=== PATIENT | female | born 1945 | race Caucasian/White ===

== ENCOUNTER 2019-06-13 17:26 | Emergency (ER) | payer MEDICARE, OTHER ==
[2019-06-13] MEDS ORDERED: SODIUM CHLORIDE 0.9% 1,000 ML IV STA ×2 (17:52)
--- NOTE | 2019-06-13 17:56 | ED ---
URI HPI - General Chief Complaint: Upper Respiratory Infection Stated Complaint: headache/back pain Time Seen by Provider: 06/13/19 17:40 Source: patient, family, RN notes reviewed Mode of arrival: ambulatory Limitations: no limitations - History of Present Illness Initial Comments: This is a 73-year-old female history of COPD who believes she may have fluid some sort she states she's had 3 days of nausea vomiting diarrhea decreased oral intake headaches ringing in her ears chills cough with yellow phlegm is also had back pain but this is chronic she is a headache is nonspecific in general no blurry vision no focal weakness. She does have some shortness of breath with it. She does complain some rhinorrhea with it. No other modifying factors no dysuria reported. Patient does state that she gets somewhat dizzy lightheaded with ambulation in upright positioning. MD Complaint: cough, rhinorrhea, nasal congestion, other - Related Data Home Medications Medication Instructions Recorded Confirmed Ascorbic Acid [Vitamin C] 1,000 mg PO DAILY 06/13/19 06/13/19 Cholecalciferol [Vitamin D3 (25 1,000 unit PO DAILY 06/13/19 06/13/19 Mcg = 1000 Iu)] Metoprolol Tartrate [Lopressor] 50 mg PO BID 06/13/19 06/13/19 Multivitamins, Thera [Multivitamin 1 tab PO HS 06/13/19 06/13/19 (formulary)] Naproxen Sod/Diphenhydramine 1 tab PO HS 06/13/19 06/13/19 [Aleve Pm Caplet] Oxybutynin Chloride 5 mg PO DAILY 06/13/19 06/13/19 Simvastatin [Zocor] 40 mg PO HS 06/13/19 06/13/19 Previous Rx's Medication Instructions Recorded Doxycycline [Vibramycin] 100 mg PO BID #20 cap 06/13/19 predniSONE 20 mg PO BID #10 tab 06/13/19 Allergies Allergy/AdvReac Type Severity Reaction Status Date / Time erythromycin base Allergy Unknown Verified 06/13/19 18:34 Penicillins Allergy Rash/Hives Verified 06/13/19 18:34 morphine AdvReac Hallucinati Verified 06/13/19 18:34 ons Review of Systems ROS Statement: Those systems with pertinent positive or pertinent negative responses have been documented in the HPI. ROS Other: All systems not noted in ROS Statement are negative. Past Medical History Past Medical History: COPD, Hyperlipidemia, Hypertension History of Any Multi-Drug Resistant Organisms: None Reported Past Surgical History: Adenoidectomy, Appendectomy, Section, Tonsillectomy Past Psychological History: Panic Disorder Smoking Status: Current every day smoker Past Alcohol Use History: None Reported Past Drug Use History: Marijuana General Exam - General Exam Comments Initial Comments: This is a well-developed sec appearing female who is awake alert oriented 3 Limitations: no limitations General appearance: alert, in no apparent distress Head exam: Present: atraumatic, normocephalic, normal inspection Eye exam: Present: normal appearance, PERRL, EOMI. Absent: scleral icterus, conjunctival injection, periorbital swelling ENT exam: Present: mucous membranes dry, other (Boggy nasal mucosa) Neck exam: Present: normal inspection. Absent: tenderness, meningismus, lymphadenopathy Respiratory exam: Present: rhonchi (Right lower lobe crackles). Absent: respiratory distress, wheezes, rales, stridor Cardiovascular Exam: Present: regular rate, normal rhythm, normal heart sounds. Absent: systolic murmur, diastolic murmur, rubs, gallop, clicks GI/Abdominal exam: Present: soft, normal bowel sounds. Absent: distended, tenderness, guarding, rebound, rigid Extremities exam: Present: normal inspection, full ROM, normal capillary refill. Absent: tenderness, pedal edema, joint swelling, calf tenderness Back exam: Present: normal inspection Neurological exam: Present: alert, oriented X3, CN II-XII intact Psychiatric exam: Present: normal affect, normal mood Skin exam: Present: warm, dry, intact, normal color. Absent: rash Course Vital Signs 06/13/19 06/13/19 17:28 19:15 Temperature 98.0 F 98.5 F Pulse Rate 76 86 Respiratory 18 18 Rate Blood Pressure 149/79 142/64 O2 Sat by Pulse 96 96 Oximetry - Reevaluation(s) Reevaluation #1: 06/13/19 20:27 Reassessment of the patient reveals she has increased aeration and is no longer short of breath Medical Decision Making - Medical Decision Making Patient is much improved at this time we did have a long discussion regarding the findings she would like to go home she'll be placed on oral medication she was encouraged to stop smoking. - Lab Data Result diagrams: 06/13/19 18:49 06/13/19 18:49 Lab Results 06/13/19 06/13/19 06/13/19 Range/Units 17:51 18:49 18:49 WBC 23.4 H (3.8-10.6) k/uL RBC 4.31 (3.80-5.40) m/uL Hgb 14.2 (11.4-16.0) gm/dL Hct 41.9 (34.0-46.0) % MCV 97.2 (80.0-100.0) fL MCH 32.9 (25.0-35.0) pg MCHC 33.9 (31.0-37.0) g/dL RDW 13.5 (11.5-15.5) % Plt Count 255 (150-450) k/uL Neutrophils % 88 % Lymphocytes % 5 % Monocytes % 5 % Eosinophils % 1 % Basophils % 1 % Neutrophils # 20.5 H (1.3-7.7) k/uL Lymphocytes # 1.1 (1.0-4.8) k/uL Monocytes # 1.1 H (0-1.0) k/uL Eosinophils # 0.2 (0-0.7) k/uL Basophils # 0.2 (0-0.2) k/uL Sodium 137 (137-145) mmol/L Potassium 3.7 (3.5-5.1) mmol/L Chloride 103 (98-107) mmol/L Carbon Dioxide 26 (22-30) mmol/L Anion Gap 8 mmol/L BUN 15 (7-17) mg/dL Creatinine 0.70 (0.52-1.04) mg/dL Est GFR (CKD-EPI)AfAm >90 (>60 ml/min/1.73 sqM) Est GFR (CKD-EPI)NonAf 87 (>60 ml/min/1.73 sqM) Glucose 113 H (74-99) mg/dL Calcium 9.6 (8.4-10.2) mg/dL Magnesium 1.6 (1.6-2.3) mg/dL Total Bilirubin 0.7 (0.2-1.3) mg/dL AST 28 (14-36) U/L ALT 21 (9-52) U/L Alkaline Phosphatase 97 (38-126) U/L Creatine Kinase 100 (30-135) U/L Troponin I (0.000-0.034) ng/mL NT-Pro-B Natriuret Pep 465 pg/mL Total Protein 7.2 (6.3-8.2) g/dL Albumin 4.1 (3.5-5.0) g/dL Urine Color Urine Appearance (Clear) Urine pH (5.0-8.0) Ur Specific [place] (1.001-1.035) Urine Protein (Negative) Urine Glucose (UA) (Negative) Urine Ketones (Negative) Urine Blood (Negative) Urine Nitrite (Negative) Urine Bilirubin (Negative) Urine Urobilinogen (<2.0) mg/dL Ur Leukocyte Esterase (Negative) Influenza Type A RNA (Not Detectd) Influenza Type B (PCR) (Not Detectd) 06/13/19 06/13/19 06/13/19 Range/Units 18:49 18:49 18:49 WBC (3.8-10.6) k/uL RBC (3.80-5.40) m/uL Hgb (11.4-16.0) gm/dL Hct (34.0-46.0) % MCV (80.0-100.0) fL MCH (25.0-35.0) pg MCHC (31.0-37.0) g/dL RDW (11.5-15.5) % Plt Count (150-450) k/uL Neutrophils % % Lymphocytes % % Monocytes % % Eosinophils % % Basophils % % Neutrophils # (1.3-7.7) k/uL Lymphocytes # (1.0-4.8) k/uL Monocytes # (0-1.0) k/uL Eosinophils # (0-0.7) k/uL Basophils # (0-0.2) k/uL Sodium (137-145) mmol/L Potassium (3.5-5.1) mmol/L Chloride (98-107) mmol/L Carbon Dioxide (22-30) mmol/L Anion Gap mmol/L BUN (7-17) mg/dL Creatinine (0.52-1.04) mg/dL Est GFR (CKD-EPI)AfAm (>60 ml/min/1.73 sqM) Est GFR (CKD-EPI)NonAf (>60 ml/min/1.73 sqM) Glucose (74-99) mg/dL Calcium (8.4-10.2) mg/dL Magnesium (1.6-2.3) mg/dL Total Bilirubin (0.2-1.3) mg/dL AST (14-36) U/L ALT (9-52) U/L Alkaline Phosphatase (38-126) U/L Creatine Kinase (30-135) U/L Troponin I <0.012 (0.000-0.034) ng/mL NT-Pro-B Natriuret Pep pg/mL Total Protein (6.3-8.2) g/dL Albumin (3.5-5.0) g/dL Urine Color Light Yellow Urine Appearance Clear (Clear) Urine pH 5.5 (5.0-8.0) Ur Specific [place] 1.006 (1.001-1.035) Urine Protein Negative (Negative) Urine Glucose (UA) Negative (Negative) Urine Ketones Negative (Negative) Urine Blood Negative (Negative) Urine Nitrite Negative (Negative) Urine Bilirubin Negative (Negative) Urine Urobilinogen <2.0 (<2.0) mg/dL Ur Leukocyte Esterase Negative (Negative) Influenza Type A RNA Not Detected (Not Detectd) Influenza Type B (PCR) Not Detected (Not Detectd) - EKG Data -: EKG Interpreted by Me EKG shows normal: sinus rhythm (Normal sinus rhythm a 69. Interval 136 QRS duration 90 QT since QTC 438/469 this is a normal-appearing EKG with some artifact) - Radiology Data Radiology results: report reviewed (I did review the imaging and report no acute findings.), image reviewed Disposition Clinical Impression: Acute bronchospasm, Acute bronchitis, Smoking, Emphysema lung Disposition: HOME SELF-CARE Condition: Good Instructions (If sedation given, give patient instructions): Acute Bronchitis (ED), Emphysema (DC), How to Stop Smoking (ED) Additional Instructions: Medication Rx sent to your preferred pharmacy. Prescriptions: predniSONE 20 mg PO BID #10 tab Doxycycline [Vibramycin] 100 mg PO BID #20 cap Is patient prescribed a controlled substance at d/c from ED?: No Referrals: Thor Coy MD [Primary Care Provider] - 1-2 days
[2019-06-13 18:59] LABS: Basophils # (A) 0.2 k/uL (0-0.2); Basophils % (A) 1 %; Eosinophils # (A) 0.2 k/uL (0-0.7); Eosinophils % (A) 1 %; HCT 41.9 % (34.0-46.0); HGB 14.2 gm/dL (11.4-16.0); Lymphocytes # (A) 1.1 k/uL (1.0-4.8); Lymphocytes % (A) 5 %; MCH 32.9 pg (25.0-35.0); MCHC 33.9 g/dL (31.0-37.0); MCV 97.2 fL (80.0-100.0); Mean Platelet Volume 7.2; Monocytes # (A) 1.1 k/uL (0-1.0); Monocytes % (A) 5 %; Neutrophils # (A) 20.5 k/uL (1.3-7.7); Neutrophils % (A) 88 %; Platelet Count 255 k/uL (150-450); RBC 4.31 m/uL (3.80-5.40); RDW 13.5 % (11.5-15.5); WBC 23.4 k/uL (3.8-10.6)
[2019-06-13 19:05] LABS: Appearance,Urine Clear (Clear); Bilirubin,Urine Negative (Negative); Blood,Urine Negative (Negative); Color,Urine Light Yellow; Glucose,Urine (UA) Negative (Negative); Ketones,Urine Negative (Negative); Leukocyte Esterase,Urine Negative (Negative); Nitrite,Urine Negative (Negative); PH, Urine 5.5 (5.0-8.0); Protein,Urine Negative (Negative); Specific Gravity,Urine 1.006 (1.001-1.035); Urobilinogen,Urine <2.0 mg/dL (<2.0)
[2019-06-13 19:08] LABS: ALT 21 U/L (9-52); AST 28 U/L (14-36); African American GFR (CKD) >90 (>60 ml/min/1.73 sqM); Albumin 4.1 g/dL (3.5-5.0); Alkaline Phosphatase 97 U/L (38-126); Anion Gap 8 mmol/L; Blood Urea Nitrogen 15 mg/dL (7-17); Calcium 9.6 mg/dL (8.4-10.2); Carbon Dioxide 26 mmol/L (22-30); Chloride 103 mmol/L (98-107); Creatine Kinase 100 U/L (30-135); Glucose 113 mg/dL (74-99); Magnesium 1.6 mg/dL (1.6-2.3); Non-African American GFR(CKD) 87 (>60 ml/min/1.73 sqM); Potassium 3.7 mmol/L (3.5-5.1); Sodium 137 mmol/L (137-145); Total Bilirubin 0.7 mg/dL (0.2-1.3); Total Protein 7.2 g/dL (6.3-8.2)
--- NOTE | 2019-06-13 19:08 | XR ---
EXAMINATION TYPE: XR chest 2V DATE OF EXAM: 06/13/2019 COMPARISON: 10/30/2013 HISTORY: Cough TECHNIQUE: Frontal and lateral views of the chest are obtained. FINDINGS: Heart and mediastinum are normal. There is minimal reticular density right upper lobe cons istent with scarring. There is no pleural effusion. Bony thorax is intact. IMPRESSION: Mild scarring right upper lobe. Normal heart. Right upper lobe density increased slightl y compared to old exam. No definite acute lung disease.
[2019-06-13] MEDS ORDERED: methylPREDNISolone SOD SUCCI 125 MG/2 ML VIAL IV STA (19:36)
[2019-06-13] MEDS ORDERED: cefTRIAXone IN SWFI 1,000 MG/10 ML SYRINGE IVP STA (19:36)
[2019-06-13] MEDS ORDERED: ONDANSETRON 4 MG/2 ML VIAL IVP STA (20:22)
[2019-06-13 21:14] VITALS: BP 106/59; PULSE 79; RESP 20; TEMP 98.1
== END 2019-06-13 21:05 | disposition home or self-care (01) ==
LOC: EC 17:26
DX: J44.0 Chronic obstructive pulmonary disease with (acute) lower respiratory infection (principal); J20.9 Acute bronchitis, unspecified; F17.200 Nicotine dependence, unspecified, uncomplicated; E78.5 Hyperlipidemia, unspecified; I10 Essential (primary) hypertension; Z79.1 Long term (current) use of non-steroidal anti-inflammatories (NSAID); Z79.899 Other long term (current) drug therapy; Z88.1 Allergy status to other antibiotic agents; Z88.0 Allergy status to penicillin; Z88.5 Allergy status to narcotic agent
CPT/HCPCS: 36415; 93005; 83880; 80053; 82550; 83735; 84484; 85025; 81003; 87040; 87502; 71046; 99284; 96374; 96375 ×2; 96361; J2930; J2405; J0696

== ENCOUNTER 2020-01-15 11:48 | Inpatient (IN) | payer MEDICARE ==
--- NOTE | 2020-01-15 12:42 | ED ---
Fall HPI - General Chief Complaint: Fall Stated Complaint: fall/left side pain & SOB Time Seen by Provider: 01/15/20 12:25 Source: patient, family Mode of arrival: wheelchair - History of Present Illness Initial Comments: Patient is 74-year-old female presenting to the emergency department with chief complaint of fall. Patient reports incident occurred about one month ago when she was walking outside of her front yard while it is undergoing some [employer]yl[employer] work. Patient reports it was dark outside, she hit a dirt mound and fell on the left side of her body. Patient states there was no immediate pain until the following day which developed gradual onset of left-sided chest wall pain that radiates along the left upper flank region. Patient reports the pain is exacerbated with full inspiration alleviated with expiration. Patient reports gradually the pain has been getting worse since the incident occurred. Patient denies any night sweats or chills. Denies any lightheaded dizziness. Denies head trauma, loss of consciousness or blood thinners. She denies any abdominal pain nausea vomiting. - Related Data Home Medications Medication Instructions Recorded Confirmed Ascorbic Acid [Vitamin C] 1,000 mg PO DAILY 06/13/19 01/15/20 Cholecalciferol (Vitamin D3) 2,000 unit PO DAILY 06/13/19 01/15/20 [Vitamin D3] Metoprolol Tartrate [Lopressor] 50 mg PO BID 06/13/19 01/15/20 Oxybutynin Chloride 5 mg PO BID 06/13/19 01/15/20 Simvastatin [Zocor] 40 mg PO HS 06/13/19 01/15/20 DULoxetine HCL [Cymbalta] 60 mg PO DAILY 07/17/19 01/15/20 Albuterol Sulfate [Proair Hfa] 2 puff INHALATION RT-Q4H PRN 01/15/20 01/15/20 Fluticasone Nasal [place] [Flonase 1 spray EA NOSTRIL BID PRN 01/15/20 01/15/20 Nasal [place]] Omeprazole [PriLOSEC] 20 mg PO DAILY 01/15/20 01/15/20 Allergies Allergy/AdvReac Type Severity Reaction Status Date / Time Penicillins Allergy Rash/Hives Verified 01/15/20 14:16 erythromycin base AdvReac Nausea & Verified 01/15/20 14:16 Vomiting morphine AdvReac Hallucinati Verified 01/15/20 14:16 ons Review of Systems ROS Statement: Those systems with pertinent positive or pertinent negative responses have been documented in the HPI. ROS Other: All systems not noted in ROS Statement are negative. Past Medical History Past Medical History: COPD, GERD/Reflux, Hyperlipidemia, Hypertension, Osteoarthritis (OA) Additional Past Medical History / Comment(s): CHRONIC BACK PAIN, OAB., STATES SORES ON BACK THAT ITCH AND HAVE SCABS-DENIES DRAINAGE., DIARRHEA, HOSPITALIZED 07/17/19-07/20/19 FOR GI BLEED., STATES SHE WAS TOLD MASS ON HER BLADDER. History of Any Multi-Drug Resistant Organisms: None Reported Past Surgical History: Adenoidectomy, Appendectomy, Section, Tonsillectomy Past Anesthesia/Blood Transfusion Reactions: No Reported Reaction, Motion Sickness Additional Past Anesthesia/Blood Transfusion Reaction / Comment(s): blood transfusion during childbirth, no reaction Past Psychological History: Anxiety, Depression Smoking Status: Current every day smoker Past Alcohol Use History: None Reported Past Drug Use History: Marijuana - Past Family History Mother Family Medical History: Cancer, Liver Disease Father Family Medical History: Cancer General Exam Limitations: no limitations General appearance: alert, in no apparent distress Head exam: Present: atraumatic, normocephalic, normal inspection Eye exam: Present: normal appearance, PERRL, EOMI Pupils: Present: normal accommodation ENT exam: Present: normal exam, normal oropharynx, mucous membranes moist Neck exam: Present: normal inspection, full ROM Respiratory exam: Present: normal lung sounds bilaterally, chest wall tenderness (Left-sided chest tenderness exacerbated with palpation.). Absent: respiratory distress, wheezes, rales Cardiovascular Exam: Present: regular rate, normal rhythm, normal heart sounds GI/Abdominal exam: Present: soft. Absent: distended, tenderness, guarding Extremities exam: Present: normal inspection, full ROM Back exam: Present: normal inspection, full ROM Neurological exam: Present: alert, oriented X3 Psychiatric exam: Present: normal affect, normal mood Skin exam: Present: warm, dry, intact, normal color Course Vital Signs 01/15/20 01/15/20 01/15/20 11:51 12:49 14:55 Temperature 98.4 F 100.3 F H Pulse Rate 85 63 Respiratory 18 14 18 Rate Blood Pressure 126/80 136/75 O2 Sat by Pulse 95 92 L Oximetry Medical Decision Making - Medical Decision Making Patient is a 74-year-old female presenting to the emergency department with a chief complaint of fall. Incident occurred approximately one month ago when she tripped and fell on the left side of her body. On exam patient has chest wall tenderness in the left side of her body and along the left upper flank region. Chest pain is pleuritic in nature. X-ray reveals moderate left pleural effusion with associated left basilar air space disease. Likely compressive atelectasis. Patient will be admitted for further medical management. CBC CMP unremarkable. Coags pending. Ultrasound pending. During hospital stay patient did develop a low-grade fever. Patient started on Tylenol. Covid pending. Case discussed with Dr. Cervantes. Admitting physician is . CT consulted - Lab Data Result diagrams: 01/15/20 14:25 01/15/20 14:25 Lab Results 01/15/20 01/15/20 Range/Units 14:25 14:25 WBC 10.1 (3.8-10.6) k/uL RBC 4.80 (3.80-5.40) m/uL Hgb 15.7 (11.4-16.0) gm/dL Hct 47.7 H (34.0-46.0) % MCV 99.3 (80.0-100.0) fL MCH 32.8 (25.0-35.0) pg MCHC 33.0 (31.0-37.0) g/dL RDW 13.3 (11.5-15.5) % Plt Count 378 (150-450) k/uL Neutrophils % 59 % Lymphocytes % 30 % Monocytes % 8 % Eosinophils % 1 % Basophils % 1 % Neutrophils # 5.9 (1.3-7.7) k/uL Lymphocytes # 3.1 (1.0-4.8) k/uL Monocytes # 0.8 (0-1.0) k/uL Eosinophils # 0.1 (0-0.7) k/uL Basophils # 0.1 (0-0.2) k/uL Sodium 141 (137-145) mmol/L Potassium 4.1 (3.5-5.1) mmol/L Chloride 104 (98-107) mmol/L Carbon Dioxide 26 (22-30) mmol/L Anion Gap 11 mmol/L BUN 17 (7-17) mg/dL Creatinine 0.75 (0.52-1.04) mg/dL Est GFR (CKD-EPI)AfAm >90 (>60 ml/min/1.73 sqM) Est GFR (CKD-EPI)NonAf 80 (>60 ml/min/1.73 sqM) Glucose 118 H (74-99) mg/dL Calcium 9.5 (8.4-10.2) mg/dL Total Bilirubin 0.5 (0.2-1.3) mg/dL AST 30 (14-36) U/L ALT 18 (4-34) U/L Alkaline Phosphatase 122 (38-126) U/L Total Protein 7.5 (6.3-8.2) g/dL Albumin 4.1 (3.5-5.0) g/dL Disposition Clinical Impression: Pleural effusion Disposition: ADMITTED IP TO THIS HOSP Condition: Good Additional Instructions: Patient will be admitted Is patient prescribed a controlled substance at d/c from ED?: No Referrals: Thor Coy MD [Primary Care Provider] - 1-2 days Time of Disposition: 15:52
--- NOTE | 2020-01-15 13:17 | XR ---
EXAMINATION TYPE: XR ribs LT w pa chest xray DATE OF EXAM: 01/15/2020 CLINICAL HISTORY: Pleuritic chest pain TECHNIQUE: Single frontal view of the chest is obtained. COMPARISON: 06/13/19 FINDINGS: There is a new moderate left pleural effusion with associated left-sided airspace disease. Right lung remains well aerated. Cardiomediastinal silhouette is partially obscured. Osseous structur es are grossly intact. IMPRESSION: New moderate left pleural effusion with associated left basilar airspace disease, likely compressive atelectasis.
[2020-01-15 15:07] LABS: ALT 18 U/L (4-34); AST 30 U/L (14-36); African American GFR (CKD) >90 (>60 ml/min/1.73 sqM); Albumin 4.1 g/dL (3.5-5.0); Alkaline Phosphatase 122 U/L (38-126); Anion Gap 11 mmol/L; Basophils # (A) 0.1 k/uL (0-0.2); Basophils % (A) 1 %; Blood Urea Nitrogen 17 mg/dL (7-17); Calcium 9.5 mg/dL (8.4-10.2); Carbon Dioxide 26 mmol/L (22-30); Chloride 104 mmol/L (98-107); Eosinophils # (A) 0.1 k/uL (0-0.7); Eosinophils % (A) 1 %; Glucose 118 mg/dL (74-99); HCT 47.7 % (34.0-46.0); HGB 15.7 gm/dL (11.4-16.0); Lymphocytes # (A) 3.1 k/uL (1.0-4.8); Lymphocytes % (A) 30 %; MCH 32.8 pg (25.0-35.0); MCV 99.3 fL (80.0-100.0); Mean Platelet Volume 7.8; Monocytes # (A) 0.8 k/uL (0-1.0); Monocytes % (A) 8 %; Neutrophils # (A) 5.9 k/uL (1.3-7.7); Neutrophils % (A) 59 %; Non-African American GFR(CKD) 80 (>60 ml/min/1.73 sqM); Platelet Count 378 k/uL (150-450); Potassium 4.1 mmol/L (3.5-5.1); RDW 13.3 % (11.5-15.5); Sodium 141 mmol/L (137-145); Total Bilirubin 0.5 mg/dL (0.2-1.3); Total Protein 7.5 g/dL (6.3-8.2); WBC 10.1 k/uL (3.8-10.6)
[2020-01-15] MEDS ORDERED: ACETAMINOPHEN TAB 500 MG TAB PO STA (15:14)
[2020-01-15] MEDS ORDERED: HYDROmorphone 1 MG/ML 1 ML SYRINGE IVP PRN (15:46)
[2020-01-15] MEDS ORDERED: NALOXONE 0.4 MG/ML 1 ML VIAL IV PRN (15:46)
[2020-01-15] MEDS ORDERED: HYDROmorphone 0.5 MG/0.5 ML SYRINGE IVP PRN (15:46)
[2020-01-15] MEDS ORDERED: ALPRAZolam 0.25 MG TAB PO PRN (15:46)
[2020-01-15] MEDS ORDERED: ONDANSETRON 4 MG/2 ML VIAL IVP PRN (15:46)
[2020-01-15] MEDS: SODIUM CHLORIDE 0.9% 1,000 ML IV SCH (17:08)
[2020-01-15] MEDS ORDERED: FLUTICASONE 50MCG/SPRAY NASAL 16GM EA NOSTRIL PRN (20:21)
[2020-01-15] MEDS ORDERED: ALBUTEROL NEBULIZED 2.5 MG/3 ML INHALATION PRN (20:21)
--- NOTE | 2020-01-15 21:05 | CT ---
EXAMINATION TYPE: CT chest wo con DATE OF EXAM: 01/15/2020 COMPARISON: 10/30/2013 CT chest HISTORY: Possible left-sided hemothorax secondary to fall. CT DLP: 254.9 mGycm. Automated Exposure Control for Dose Reduction was Utilized. TECHNIQUE: CT scan of the thorax is performed without IV contrast. FINDINGS: LUNGS: The large left pleural effusion appears low attenuation, that of simple fluid suggesting simpl e pleural effusion rather than hemothorax. Associated left-sided compressive atelectasis is seen with in the majority of the left lung with only and small amount of remaining left upper lobe aerated. Millie ngated spiculated opacity in the right lung apex likely relates to scarring. Nodular probable scarrin g in the right upper lobe is also seen on image 23 extending to the pleural surface. Scattered areas of right-sided groundglass opacities most commonly related to atelectasis although pneumonitis is pos sible. There is narrowing of the left mainstem bronchus such as on axial image 29 in comparison to th e right. MEDIASTINUM: Lack of IV contrast is noted to limit evaluation for mediastinal and especially hilar ad enopathy. There are no definitive greater than 1 cm hilar or mediastinal lymph nodes. Trace pericardi al effusion noted. Mild atherosclerosis of the coronary arteries. Few scattered prominent mediastinal lymph nodes and an enlarged 1.6 cm short axis subcarinal lymph node noted. OTHER: Limited images in the upper abdomen are suboptimal without contrast. Extensive atherosclerosis of the upper abdominal aorta noted. No acute displaced rib fracture seen. Mild compression deformity of the T3 vertebral body is age indeterminant. Sclerotic foci are seen of T12, T11, and T10 that are worrisome for metastasis as these were not present on the exam of 2013. IMPRESSION: 1. Simple fluid attenuated large left pleural effusion relating to simple pleural effusion rather kallie n hemothorax. No acute displaced left-sided rib fractures are seen. Additionally there is mediastinal adenopathy and new sclerotic thoracic vertebral body lesions suspicious for metastasis. 2. Scattered areas of groundglass opacity in the right lung typically related to atelectasis although pneumonitis is possible.
[2020-01-15] MEDS: ATORVASTATIN 20 MG TAB PO SCH (21:43)
[2020-01-15] MEDS: METOPROLOL TARTRATE 50 MG TAB PO SCH (21:43)
[2020-01-15] MEDS: OXYBUTYNIN CHLORIDE 5 MG TAB PO SCH (21:43)
--- NOTE | 2020-01-15 21:46 | P.HPIM ---
History of Present Illness H&P Date: 01/15/20 Chief Complaint: Left-sided chest pain History of presenting complaint: This is a 74-year-old patient followed with Dr. Coy. Just before the COVID 19 Pandemic patient was getting construction done in her front yard. Daughter was left-sided. In the evening she had taken her dog about it was rather dark. She fell on the left side. Of the chest. At that time didn't bother her too much. She started having significant pain. Ordered. Pro time. Progressively became more short of breath has a cough no fever no chills. On the ER noted to have a temperature of 100.3. Difficulty finding a take a deep breath. Some wheezing. Patient is not lost any weight. Appetite is good. Review of systems: GEN.: Tired EYES: None HEENT: None NECK: None RESPIRATORY: As above CARDIOVASCULAR: None GASTROINTESTINAL: None GENITOURINARY: None MUSCULOSKELETAL: Left lateral chest wall pain LYMPHATICS: None HEMATOLOGICAL: None PSYCHIATRY: None NEUROLOGICAL: None Past medical history to include: COPD, GERD, hypertension, hyperlipidemia, osteoarthritis, chronic back pain, Patient is being told she has a bladder mass Social history: Lives with . Smoked 2-3 packs a day for most of her life. No down to a few cigarettes a day. Close to 60 years. Alcohol minimal. Does smoke marijuana at night to sleep and get some rest. Physical examination: VITAL SIGNS: 100.3, 63, 18, 136/75, 92% on room air GENERAL: [BMI 20 sitting up not in distress. EYES: Pupils equal. Conjunctiva normal. HEENT: External appearance of nose and ears normal, oral cavity grossly normal. NECK: JVD not raised; masses not palpable. HEART: First and second heart sounds are normal; no edema. LUNGS: Respiratory rate increased, decreased breath sounds especially on the left side some splinting. ABDOMEN: Soft, nontender, liver spleen not palpable, no masses palpable. PSYCH: Alert and oriented x3; mood and affect normal. MUSCULAR skeletal: Evidence of OA especially in the hands NEUROLOGICAL: Cranial nerves grossly intact; no facial asymmetry, power and sensation grossly intact. LYMPHATICS: No lymph nodes palpable in the axilla and neck INVESTIGATIONS, reviewed in the clinical context: White count 10.1 hemoglobin 15.7 platelets 378 potassium 4.1 creatinine 0.75 Chest x-ray film personally reviewed by pr-left pleural effusion Computed tomography scan of the chest-large left pleural effusion suggestive of low fluid as opposed to hemothorax. Associated left-sided compressive atelectasis the majority of the left lung. Some scarring in the right upper lung, narrowing of the left main stem bronchus. Some scattered mediastinal lymph nodes mild. Mild compression deformity of T3 and sclerotic foci seen in 2012 T11 T10. Assessment: -This is a patient who fell 2 weeks ago and progressive pain and shortness of breath with pain on the left side of the chest. Initial suspicion was therefore hemothorax but doesn't appear to be so on the computed tomography scan of the chest. -Compression atelectasis of majority of the left lung with banding of the left main bronchus suspicious for underlying malignancy but possible metastatic disease in the spine. Patient's a smoker. -COPD in a current smoker -Left pleural effusion could be secondary to malignancy. -GERD, Hyperlipidemia -Essential hypertension -Primary osteoarthritis -Anxiety depression otherwise specified Plan: Ultrasound marking of the left lung is being requested. Consultation is being made to the thoracic surgery and pulmonary. We'll start the patient on bronchodilators. Confection component cannot be ruled out has patient be started and IV ceftriaxone. Home medications resumed. Past Medical History Past Medical History: COPD, GERD/Reflux, Hyperlipidemia, Hypertension, Osteoarthritis (OA) Additional Past Medical History / Comment(s): CHRONIC BACK PAIN, STATES SORES ON BACK THAT ITCH AND HAVE SCABS-DENIES DRAINAGE., DIARRHEA, HOSPITALIZED 07/17/19- 07/20/19 FOR GI BLEED., STATES SHE WAS TOLD MASS ON HER BLADDER. History of Any Multi-Drug Resistant Organisms: None Reported Past Surgical History: Adenoidectomy, Appendectomy, Section, Tonsillectomy Past Anesthesia/Blood Transfusion Reactions: No Reported Reaction, Motion Sickness Additional Past Anesthesia/Blood Transfusion Reaction / Comment(s): blood transfusion during childbirth, no reaction Past Psychological History: Anxiety, Depression Smoking Status: Current every day smoker Past Alcohol Use History: None Reported Additional Past Alcohol Use History / Comment(s): SMOKES 4 CIGARETTES/DAY. STARTED SMOKING AGE 14. Past Drug Use History: Marijuana Additional Drug Use History / Comment(s): CURRENT MARIJUANA USE - Past Family History Mother Family Medical History: Cancer, Liver Disease Additional Family Medical History / Comment(s): Cirrhosis Father Family Medical History: Cancer Additional Family Medical History / Comment(s): cirrhosis Brother(s) Additional Family Medical History / Comment(s): Cirrhosis Medications and Allergies Home Medications Medication Instructions Recorded Confirmed Type Ascorbic Acid [Vitamin C] 1,000 mg PO DAILY 06/13/19 01/15/20 History Cholecalciferol (Vitamin D3) 2,000 unit PO DAILY 06/13/19 01/15/20 History [Vitamin D3] Metoprolol Tartrate [Lopressor] 50 mg PO BID 06/13/19 01/15/20 History Oxybutynin Chloride 5 mg PO BID 06/13/19 01/15/20 History Simvastatin [Zocor] 40 mg PO HS 06/13/19 01/15/20 History DULoxetine HCL [Cymbalta] 60 mg PO DAILY 07/17/19 01/15/20 History Albuterol Sulfate [Proair Hfa] 2 puff INHALATION RT-Q4H PRN 01/15/20 01/15/20 History Fluticasone Nasal [place] [Flonase 1 spray EA NOSTRIL BID PRN 01/15/20 01/15/20 History Nasal [place]] Omeprazole [PriLOSEC] 20 mg PO DAILY 01/15/20 01/15/20 History Allergies Allergy/AdvReac Type Severity Reaction Status Date / Time Penicillins Allergy Rash/Hives Verified 01/15/20 14:16 erythromycin base AdvReac Nausea & Verified 01/15/20 14:16 Vomiting morphine AdvReac Hallucinati Verified 01/15/20 14:16 ons Physical Exam Vitals: Vital Signs Temp Pulse Pulse Resp BP BP Pulse Ox 01/15/20 20:00 97.9 F 64 20 143/76 96 01/15/20 17:30 97.9 F 66 18 152/77 93 L 01/15/20 16:31 98.9 F 63 18 126/76 94 L 01/15/20 14:55 100.3 F H 63 18 136/75 92 L 01/15/20 12:49 14 01/15/20 11:51 98.4 F 85 18 126/80 95 Intake and Output 01/15/20 01/15/20 01/15/20 06:59 14:59 22:59 Other: # Voids 1 Weight 54.431 kg 54.431 kg Results CBC & Chem 7: 01/15/20 14:25 01/15/20 14:25 Labs: Abnormal Lab Results - Last 24 Hours (Table) 01/15/20 01/15/20 Range/Units 14:25 14:25 Hct 47.7 H (34.0-46.0) % Glucose 118 H (74-99) mg/dL Thrombosis Risk Factor Assmnt - Choose All That Apply Any of the Below Risk Factors Present?: No Each Risk Factor Represents 2 Points: Age 61-74 years Other congenital or acquired thrombophilia - If yes, enter type in comment: No Thrombosis Risk Factor Assessment Total Risk Factor Score: 2 Thrombosis Risk Factor Assessment Level: Low Risk
[2020-01-15] MEDS: ENOXAPARIN 40 MG/0.4 ML SYRINGE SQ SCH (22:42)
[2020-01-16] MEDS: IPRATROPIUM-ALBUTEROL 3 ML NEB INHALATION SCH ×5 (00:06→20:01)
[2020-01-16] MEDS: BUDESONIDE 1 MG/2 ML NEBU INHALATION SCH ×3 (00:06→20:01)
[2020-01-16] MEDS: PANTOPRAZOLE 40 MG TABLET PO SCH (06:25)
[2020-01-16] MEDS: SODIUM CHLORIDE 0.9% 1,000 ML IV SCH ×2 (06:29→21:24)
--- NOTE | 2020-01-16 08:27 | US ---
EXAMINATION TYPE: US chest DATE OF EXAM: 01/16/2020 COMPARISON: CT chest from yesterday CLINICAL HISTORY: Possible hemothorax. CT abnormal CT. TECHNIQUE: Targeted ultrasound of the posterior lower bilateral hemithoraces EXAM MEASUREMENTS: Right Pleural Effusion pocket size: no fluid Left Pleural Effusion pocket size: 9.4 cm Left skin surface to fluid distance: 2.8 cm Skin to lung 6.8cm Right side not marked for possible thoracentesis outside the dept. Left side marked for possible thoracentesis outside the dept. Pulmonologists are able to review the images in the patient?s EMR. Corresponding to the CT there is moderate-sized left pleural fluid collection which is not completely anechoic on images saved could reflect hemothorax. IMPRESSIONS: As above.
[2020-01-16] MEDS: OXYBUTYNIN CHLORIDE 5 MG TAB PO SCH ×2 (08:46→20:15)
[2020-01-16] MEDS: DULoxetine HCL 60 MG CAPSULE.DR PO SCH (08:46)
[2020-01-16] MEDS: ENOXAPARIN 40 MG/0.4 ML SYRINGE SQ SCH (08:46)
[2020-01-16] MEDS: METOPROLOL TARTRATE 50 MG TAB PO SCH ×2 (08:46→20:15)
--- NOTE | 2020-01-16 09:41 | P.GSCN ---
<Wil Patterson - Last Filed: 01/16/20 08:43> History of Present Illness Consult date: 01/16/20 Reason for Consult: Left-sided pleural effusion, status post fall from standing Requesting physician: Star Addison History of present illness: This is a pleasant 74-year-old female patient who is followed by Dr. Thor Coy on an outpatient basis. She has a past medical history significant for hypertension, dyslipidemia, chronic obstructive pulmonary disease, gastroesophageal reflux disease, anxiety, depression, daily marijuana use and chronic daily Tobacco abuse. The patient reports that recently they were having some construction completed to their driveway and sidewalk at home and while taking the dog out during the evening she tripped over a mound of dirt. She reports she was quite embarrassed that this happened and got up very quickly on her own accord. She was having some complaints of left-sided chest pain with taking a deep breath and was progressively becoming more short of breath over the last 2 weeks. She denies any chills, nausea, vomiting, diarrhea, cough or hemoptysis, although reports she has been having some constipation since this is happened. Due to her progressive shortness of breath and pain with taking a deep breath she decided to seek medical attention. Yesterday, on 01/15/2020 she presented to the emergency department here at [facility] for evaluation of the above-mentioned symptoms. The patient does report in the last 2 weeks of September and the first 2 weeks of October 2019 she did feel like she had an upper respiratory infection with fever, cough and fatigue. She reports that she never sought medical attention for these symptoms. In the emergency department a chest x-ray was completed which showed a moderate left pleural effusion with associated left basilar airspace disease consistent with compressive atelectasis. For further evaluation a computed tomography scan of her chest was completed without contrast which demonstrated a large left pleural effusion relating to simple pleural effusion rather than hemothorax, no acute displaced left-sided rib fractures seen, a mediastinal adenopathy with new sclerotic thoracic vertebral body lesion suspicious for metastasis. It also demonstrated scattered areas of groundglass D in the right lung which could be r elated to atelectasis although could possibly be pneumonitis. Also of note in July 2019 the patient underwent a computed tomography scan of her abdomen/pelvis with contrast which demonstrated an 8 mm subpleural nodule posterior medial left lung base and it also demonstrated in a regular mural b ased soft tissue thickening measuring 5.2 cm wide and 1.4 cm thick along the right posterior bladder base. Her laboratory results on admission yesterday 01/15/2020 showed WBCs 10.1, hemoglobin 15.7, hematocrit 47.7, BUN 17 and creatinine 0.75. This morning a bedside ultrasound of her chest was completed which demonstrated no pleural fluid pocket on her right, but did demonstrate a left pleural effusion pocket size measuring 9.4 cm. Due to the patient's admitting symptoms, and findings on the chest x-ray and computed tomography scan of the chest a consult was placed to Dr. Johny Ramirez from cardiothoracic surgery for further evaluation and treatment recommendations. Review of Systems - Constitutional Denies chills, Denies fatigue, Denies fever, Denies poor appetite, Denies weight loss - EENT Ears, nose, mouth and throat: Denies headache, Denies hoarseness, Denies nasal congestion, Denies nasal discharge, Denies neck lump, Denies sinus pressure, Denies swelling in throat, Denies sore throat - Cardiovascular Reports dyspnea on exertion, Reports shortness of breath, Denies chest pain, Denies edema, Denies irregular heart beat, Denies leg edema, Denies lightheadedness - Respiratory Reports dyspnea, Reports pain on inspiration, Reports respiratory infections (Late September or early October), Denies congestion, Denies cough with sputum, Denies excessive sputum, Denies home oxygen - Gastrointestinal Reports constipation, Denies abdominal pain, Denies bloating, Denies diarrhea, Denies heartburn, Denies indigestion, Denies jaundice, Denies nausea, Denies vomiting - Genitourinary Genitourinary: Denies difficulty voiding, Denies flank pain, Denies hematuria, Denies nocturia, Denies pelvic pain, Denies urinary frequency - Musculoskeletal Denies frequent falls, Denies gait dysfunction, Denies limitation of motion, Denies muscle cramps, Denies muscle weakness - Integumentary Denies growths, Denies lesions, Denies rash, Denies sores, Denies unusual bruising - Neurological Denies balance difficulties, Denies change in smell/taste, Denies gait dysfunction, Denies head injury, Denies headaches, Denies hearing difficulties, Denies migraines, Denies motor disturbance, Denies seizures, Denies syncope, Denies weakness, Denies visual changes - Psychiatric Reports anxiety, Reports depression, Denies confusion, Denies hallucinations, Denies insomnia, Denies memory loss, Denies suicidal ideation - Endocrine Denies fatigue - Hematologic/Lymphatic Denies easy bruising, Denies lymphadenopathy - Allergic/Immunologic Denies persistent infections, Denies seasonal allergies, Denies wheezing Past Medical History Past Medical History: COPD, GERD/Reflux, Hyperlipidemia, Hypertension, Osteoarthritis (OA) Additional Past Medical History / Comment(s): CHRONIC BACK PAIN, constipation HOSPITALIZED 07/17/19-07/20/19 FOR GI BLEED., STATES SHE WAS TOLD MASS ON HER BLADDER. History of Any Multi-Drug Resistant Organisms: None Reported Past Surgical History: Adenoidectomy, Appendectomy, Section, Tonsillectomy Additional Past Surgical History / Comment(s): Uterine surgery Past Anesthesia/Blood Transfusion Reactions: No Reported Reaction, Motion Sickness Additional Past Anesthesia/Blood Transfusion Reaction / Comm: blood transfusion during childbirth, no reaction Past Psychological History: Anxiety, Depression Smoking Status: Current every day smoker Past Alcohol Use History: None Reported Additional Past Alcohol Use History / Comment(s): SMOKES 4 CIGARETTES/DAY. STARTED SMOKING AGE 14. Past Drug Use History: Marijuana Additional Drug Use History / Comment(s): CURRENT MARIJUANA USE - Past Family History Mother Family Medical History: Cancer, Liver Disease Additional Family Medical History / Comment(s): Cirrhosis Father Family Medical History: Cancer Additional Family Medical History / Comment(s): cirrhosis Brother(s) Additional Family Medical History / Comment(s): Cirrhosis Medications and Allergies Home Medications Medication Instructions Recorded Confirmed Type Ascorbic Acid [Vitamin C] 1,000 mg PO DAILY 06/13/19 01/15/20 History Cholecalciferol (Vitamin D3) 2,000 unit PO DAILY 06/13/19 01/15/20 History [Vitamin D3] Metoprolol Tartrate [Lopressor] 50 mg PO BID 06/13/19 01/15/20 History Oxybutynin Chloride 5 mg PO BID 06/13/19 01/15/20 History Simvastatin [Zocor] 40 mg PO HS 06/13/19 01/15/20 History DULoxetine HCL [Cymbalta] 60 mg PO DAILY 07/17/19 01/15/20 History Albuterol Sulfate [Proair Hfa] 2 puff INHALATION RT-Q4H PRN 01/15/20 01/15/20 History Fluticasone Nasal [place] [Flonase 1 spray EA NOSTRIL BID PRN 01/15/20 01/15/20 History Nasal [place]] Omeprazole [PriLOSEC] 20 mg PO DAILY 01/15/20 01/15/20 History Allergies Allergy/AdvReac Type Severity Reaction Status Date / Time Penicillins Allergy Rash/Hives Verified 01/15/20 14:16 erythromycin base AdvReac Nausea & Verified 01/15/20 14:16 Vomiting morphine AdvReac Hallucinati Verified 01/15/20 14:16 ons Surgical - Exam Vital Signs Temp Pulse Resp BP Pulse Ox 98.4 F 85 18 126/80 95 01/15/20 11:51 01/15/20 11:51 01/15/20 11:51 01/15/20 11:51 01/15/20 11:51 This is a pleasant 74-year-old female patient who is lying comfortably in bed on the cardiac stepdown unit. She is in no acute distress, is awake, alert and oriented 3. Oxygen saturations are 94% on 2 L nasal cannula. - General Pain with inspiration to her left chest. Thin well developed, well nourished, no distress - Eyes PERRL, normal ocular movement - ENT normal pinna, normal nares, normal mucosa, no hearing loss, no congestion, dentures - Neck Neck is supple, no lymphadenopathy. no masses, no bruits, trachea midline, no venous distension - Respiratory Lungs sounds essentially clear throughout, diminished to her left lower lobe. No wheezes, rhonchi or crackles. Respirations are symmetrical and nonlabored. Oxygen saturation are 94% on 2 L nasal cannula. - Cardiovascular Regular rhythm and rate. S1 and S2 present, negative for S3, gallop or murmur. No edema present. Remote telemetry showing normal sinus rhythm heart rate 66 bpm. - Abdomen Abdomen is soft, nontender and nondistended. Active bowel sounds present in all 4 abdominal quadrants. No guarding or rigidity. No organomegaly appreciated. - Genitourinary Deferred - Rectum Deferred - Integumentary no rash, no growths, no abnormal pigmentation - Neurologic Cranial nerves II through XII intact. normal coordination - Musculoskeletal normal gait, normal posture - Psychiatric oriented to time, oriented to person, oriented to place, speech is normal, memory intact Results - Labs 01/15/20 14:25 01/15/20 14:25 Abnormal Lab Results - Last 24 Hours (Table) 01/15/20 01/15/20 Range/Units 14:25 14:25 Hct 47.7 H (34.0-46.0) % Glucose 118 H (74-99) mg/dL Diabetes panel 01/15/20 Range/Units 14:25 Sodium 141 (137-145) mmol/L Potassium 4.1 (3.5-5.1) mmol/L Chloride 104 (98-107) mmol/L Carbon Dioxide 26 (22-30) mmol/L BUN 17 (7-17) mg/dL Creatinine 0.75 (0.52-1.04) mg/dL Glucose 118 H (74-99) mg/dL Calcium 9.5 (8.4-10.2) mg/dL AST 30 (14-36) U/L ALT 18 (4-34) U/L Alkaline Phosphatase 122 (38-126) U/L Total Protein 7.5 (6.3-8.2) g/dL Albumin 4.1 (3.5-5.0) g/dL Calcium panel 01/15/20 Range/Units 14:25 Calcium 9.5 (8.4-10.2) mg/dL Albumin 4.1 (3.5-5.0) g/dL Pituitary panel 01/15/20 Range/Units 14:25 Sodium 141 (137-145) mmol/L Potassium 4.1 (3.5-5.1) mmol/L Chloride 104 (98-107) mmol/L Carbon Dioxide 26 (22-30) mmol/L BUN 17 (7-17) mg/dL Creatinine 0.75 (0.52-1.04) mg/dL Glucose 118 H (74-99) mg/dL Calcium 9.5 (8.4-10.2) mg/dL Adrenal panel 01/15/20 Range/Units 14:25 Sodium 141 (137-145) mmol/L Potassium 4.1 (3.5-5.1) mmol/L Chloride 104 (98-107) mmol/L Carbon Dioxide 26 (22-30) mmol/L BUN 17 (7-17) mg/dL Creatinine 0.75 (0.52-1.04) mg/dL Glucose 118 H (74-99) mg/dL Calcium 9.5 (8.4-10.2) mg/dL Total Bilirubin 0.5 (0.2-1.3) mg/dL AST 30 (14-36) U/L ALT 18 (4-34) U/L Alkaline Phosphatase 122 (38-126) U/L Total Protein 7.5 (6.3-8.2) g/dL Albumin 4.1 (3.5-5.0) g/dL - Imaging Chest x-ray: report reviewed, image reviewed CT scan - chest: report reviewed, image reviewed Additional studies: Ultrasound report of the chest reviewed. Assessment and Plan Assessment: 1. Left pleural effusion, computed tomography scan of the chest suggesting suspicion for malignancy 2. Shortness of breath secondary to above 3. Status post fall from standing 2 weeks ago 4. Chronic obstructive pulmonary disease 5. Chronic ongoing tobacco abuse 6. Hypertension 7. Dyslipidemia 8. Gastroesophageal reflux disease 9. History of anxiety 10. History of depression 11. History of an 8 mm subpleural nodule posterior medial left lung base and an irregular mural based soft tissue thickening measuring 5.2 cm wide and 1.4 cm thick along the right posterior bladder base from a computed tomography scan of the abdomen and pelvis 07/17/2019 12. Daily marijuana use Plan: The patient was seen and examined at her bedside on the cardiac stepdown unit. Her chart and diagnostics were reviewed. Her case was discussed in detail with Dr. Johny Ramirez. No surgical intervention is warranted at this time. Current recommendations are for thoracentesis by pulmonary medicine or interventional radiology and send pleural fluid for cytology. Discussed with the patient the importance of smoking cessation. An incentive spirometry has been ordered and we will encourage patient to use the incentive spirometry 10 times every hour w hile awake. Pain control per current when necessary orders. Increase activity as tolerated. Medical management and other comorbidities per primary care service recommendations. More recommendations to follow based on patient's clinical course. Thank you for this consult and we look for to working with you in the care of this patient. Time with Patient: Greater than 30 <Shane Roach - Last Filed: 01/17/20 13:05> Surgical - Exam Vital Signs Temp Pulse Resp BP Pulse Ox 98.4 F 85 18 126/80 95 01/15/20 11:51 01/15/20 11:51 01/15/20 11:51 01/15/20 11:51 01/15/20 11:51 Results - Labs 01/15/20 14:25 01/15/20 14:25 Assessment and Plan Assessment: 74 yof with LLL lung mass noted on CT in 08/02. Never worked up further. 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 W/u to include diagnostic/therapeutic lt thoracentesis as initial procedure.
--- NOTE | 2020-01-16 11:15 | P.CNPUL ---
History of Present Illness Consult date: 01/16/20 Reason for consult: dyspnea, pleural effusion Chief complaint: Shortness of breath History of present illness: This is a 74-year-old female who came into the hospital with ongoing shortness of breath patient has a recent trip and fall started having shortness of breath and some chest discomfort after fall, symptoms have been progressive decided to come into the hospital underwent a computed tomography scan of the chest showed moderate left-sided pleural effusion highly suggestive of malignancy, x-rays negative for fractures, computed tomography scan of the chest showed no acute displaced fracture, some sclerotic thoracic vertebral body were seen highly suggestive of metastatic disease along with mediastinal lymphadenopathy, patient has ongoing history of smoking and nicotine use Review of Systems All systems: negative Past Medical History Past Medical History: COPD, GERD/Reflux, Hyperlipidemia, Hypertension, Osteoarthritis (OA) Additional Past Medical History / Comment(s): CHRONIC BACK PAIN, constipation HOSPITALIZED 07/17/19-07/20/19 FOR GI BLEED., STATES SHE WAS TOLD MASS ON HER BLADDER. History of Any Multi-Drug Resistant Organisms: None Reported Past Surgical History: Adenoidectomy, Appendectomy, Section, Tonsillectomy Additional Past Surgical History / Comment(s): Uterine surgery Past Anesthesia/Blood Transfusion Reactions: No Reported Reaction, Motion Sickness Additional Past Anesthesia/Blood Transfusion Reaction / Comment(s): blood transfusion during childbirth, no reaction Past Psychological History: Anxiety, Depression Smoking Status: Current every day smoker Past Alcohol Use History: None Reported Additional Past Alcohol Use History / Comment(s): SMOKES 4 CIGARETTES/DAY. STARTED SMOKING AGE 14. Past Drug Use History: Marijuana Additional Drug Use History / Comment(s): CURRENT MARIJUANA USE - Past Family History Mother Family Medical History: Cancer, Liver Disease Additional Family Medical History / Comment(s): Cirrhosis Father Family Medical History: Cancer Additional Family Medical History / Comment(s): cirrhosis Brother(s) Additional Family Medical History / Comment(s): Cirrhosis Medications and Allergies Home Medications Medication Instructions Recorded Confirmed Type Ascorbic Acid [Vitamin C] 1,000 mg PO DAILY 06/13/19 01/15/20 History Cholecalciferol (Vitamin D3) 2,000 unit PO DAILY 06/13/19 01/15/20 History [Vitamin D3] Metoprolol Tartrate [Lopressor] 50 mg PO BID 06/13/19 01/15/20 History Oxybutynin Chloride 5 mg PO BID 06/13/19 01/15/20 History Simvastatin [Zocor] 40 mg PO HS 06/13/19 01/15/20 History DULoxetine HCL [Cymbalta] 60 mg PO DAILY 07/17/19 01/15/20 History Albuterol Sulfate [Proair Hfa] 2 puff INHALATION RT-Q4H PRN 01/15/20 01/15/20 History Fluticasone Nasal [place] [Flonase 1 spray EA NOSTRIL BID PRN 01/15/20 01/15/20 History Nasal [place]] Omeprazole [PriLOSEC] 20 mg PO DAILY 01/15/20 01/15/20 History Allergies Allergy/AdvReac Type Severity Reaction Status Date / Time Penicillins Allergy Rash/Hives Verified 01/15/20 14:16 erythromycin base AdvReac Nausea & Verified 01/15/20 14:16 Vomiting morphine AdvReac Hallucinati Verified 01/15/20 14:16 ons Physical Exam Vitals: Vital Signs Temp Pulse Pulse Resp BP BP Pulse Ox 01/16/20 09:07 60 01/16/20 08:52 60 01/16/20 08:00 97.9 F 62 20 157/69 94 L 01/16/20 04:00 97.9 F 61 20 118/57 98 01/16/20 00:00 20 01/15/20 23:53 98.2 F 64 20 118/63 93 L 01/15/20 20:00 97.9 F 64 20 143/76 96 01/15/20 17:30 97.9 F 66 18 152/77 93 L 01/15/20 16:31 98.9 F 63 18 126/76 94 L 01/15/20 14:55 100.3 F H 63 18 136/75 92 L 01/15/20 12:49 14 01/15/20 11:51 98.4 F 85 18 126/80 95 Intake and Output 01/15/20 01/16/20 01/16/20 22:59 06:59 14:59 Intake Total 100 Balance 100 Intake: Oral 100 Other: # Voids 1 1 0 # Bowel Movements 0 Weight 54.431 kg 55.6 kg - Constitutional General appearance: average body habitus, disheveled, thin - EENT Eyes: poor dentition ENT: normal oropharynx Ears: bilateral: normal - Neck Carotids: bilateral: upstroke normal Thyroid: bilateral: normal size - Respiratory Respiratory: right: CTA, left: diminished, dullness - Cardiovascular Rhythm: regular Heart sounds: normal: S1, S2 - Gastrointestinal General gastrointestinal: normal bowel sounds, soft - Integumentary Integumentary: decreased turgor - Neurologic Neurologic: CNII-XII intact - Musculoskeletal Musculoskeletal: gait normal, generalized weakness, strength equal bilaterally - Psychiatric Psychiatric: A&O x's 3, appropriate affect, intact judgment & insight Results - Laboratory Findings CBC and BMP: 01/15/20 14:25 01/15/20 14:25 Abnormal lab findings: Abnormal Labs 01/15/20 01/15/20 14:25 14:25 Hct 47.7 H Glucose 118 H - Diagnostic Findings Chest x-ray: report reviewed, image reviewed CT scan - chest: report reviewed, image reviewed (Finding as noted above) Assessment and Plan Assessment: Left-sided pleural effusion highly suggestive of neoplastic process Ongoing shortness of breath Nonspecific pain on the left side with back pain Sclerotic lesion in thoracic vertebra suggestive of metastatic disease COPD Lifelong history of smoking and nicotine use Plan: Will arrange thoracentesis on the left side by interventional radiology Reviewed computed tomography scan chest x-ray and ultrasound We'll do a PET scan on outpatient basis Further recommendations pending plan of care as per clinical response of the patient Time with Patient: Greater than 30
--- NOTE | 2020-01-16 17:15 | P.PN ---
Progress Note - Text Progress Note Date: 01/16/20 Chief Complaint: Left-sided chest pain History of presenting complaint: This is a 74-year-old patient followed with Dr. Coy. Just before the COVID 19 Pandemic patient was getting construction done in her front yard. Daughter was left-sided. In the evening she had taken her dog about it was rather dark. She fell on the left side. Of the chest. At that time didn't bother her too much. She started having significant pain. Ordered. Pro time. Progressively became more short of breath has a cough no fever no chills. On the ER noted to have a temperature of 100.3. Difficulty finding a take a deep breath. Some wheezing. Patient is not lost any weight. Appetite is good. Admitted with large left pleural effusion. COPD exacerbation. Computed tomography scan not suggestive of hemothorax. Suspicion for metastatic disease. Today-seen by pulmonary. Awaiting thoracentesis. Short of breath. Review of systems: Was done for constitutional, cardiovascular, GI, pulmonary. relevant finding as above Active Medications Albuterol Sulfate (Ventolin Nebulized) 2.5 mg INHALATION RT-Q4H PRN PRN Reason: Shortness Of Breath Albuterol/Ipratropium (Duoneb 0.5 Mg-3 Mg/3 Ml Soln) 3 ml INHALATION RT-QID [facility] Last Admin: 01/16/20 15:45 Dose: 3 ml Documented by: Alprazolam (Xanax) 0.25 mg PO Q6HR PRN PRN Reason: Anxiety Atorvastatin Calcium (Lipitor) 20 mg PO HS [facility] Last Admin: 01/15/20 21:43 Dose: 20 mg Documented by: Budesonide (Pulmicort) 1 mg INHALATION RT-BID [facility] Last Admin: 01/16/20 08:51 Dose: 1 mg Documented by: Duloxetine HCl (Cymbalta) 60 mg PO DAILY [facility] Last Admin: 01/16/20 08:46 Dose: 60 mg Documented by: Enoxaparin Sodium (Lovenox) 40 mg SQ DAILY [facility] Last Admin: 01/16/20 08:46 Dose: 40 mg Documented by: Fluticasone Propionate (Flonase Nasal [place]) 1 spray EA NOSTRIL BID PRN PRN Reason: Congestion Hydromorphone HCl (Dilaudid) 0.5 mg IVP Q3HR PRN PRN Reason: Moderate Pain Hydromorphone HCl (Dilaudid) 1 mg IVP Q3HR PRN PRN Reason: Severe Pain Sodium Chloride (Saline 0.9%) 1,000 mls @ 75 mls/hr IV .[id number] [facility] Last Admin: 01/16/20 06:29 Dose: 75 mls/hr Documented by: Ceftriaxone Sodium 1 gm/ (Sodium Chloride) 50 mls @ 100 mls/hr IVPB Q24H [facility] Last Admin: 01/15/20 21:44 Dose: 100 mls/hr Documented by: Metoprolol Tartrate (Lopressor) 50 mg PO BID [facility] Last Admin: 01/16/20 08:46 Dose: 50 mg Documented by: Naloxone HCl (Narcan) 0.2 mg IV Q2M PRN PRN Reason: Opioid Reversal Ondansetron HCl (Zofran) 4 mg IVP Q8HR PRN PRN Reason: Nausea And Vomiting Oxybutynin Chloride (Ditropan) 5 mg PO BID [facility] Last Admin: 01/16/20 08:46 Dose: 5 mg Documented by: Pantoprazole Sodium (Protonix) 40 mg PO AC-BRKFST [facility] Last Admin: 01/16/20 06:25 Dose: 40 mg Documented by: Physical examination: VITAL SIGNS: 97.9, 62, 20, 157/69, 90% on 2 L GENERAL: Laying in bed, tired. EYES: Pupils equal. Conjunctiva normal. HEENT: External appearance of nose and ears normal, oral cavity grossly normal. NECK: JVD not raised; masses not palpable. HEART: First and second heart sounds are normal; no edema. LUNGS: Respiratory rate increased, decreased breath sounds especially on the left side some splinting. ABDOMEN: Soft, nontender, liver spleen not palpable, no masses palpable. PSYCH: Alert and oriented x3; mood and affect normal. MUSCULAR skeletal: Evidence of OA especially in the hands INVESTIGATIONS, reviewed in the clinical context: White count 10.1 hemoglobin 15.7 platelets 378 potassium 4.1 creatinine 0.75 Chest x-ray film personally reviewed by me-left pleural effusion Computed tomography scan of the chest-large left pleural effusion suggestive of low fluid as opposed to hemothorax. Associated left-sided compressive atelectasis the majority of the left lung. Some scarring in the right upper lung, narrowing of the left main stem bronchus. Some scattered mediastinal lymph nodes mild. Mild compression deformity of T3 and sclerotic foci seen in 2012 T11 T10. Assessment: -This is a patient who fell 2 weeks ago and progressive pain and shortness of breath with pain on the left side of the chest. Initial suspicion was therefore hemothorax but doesn't appear to be so on the computed tomography scan of the chest. -Compression atelectasis of majority of the left lung with banding of the left main bronchus suspicious for underlying malignancy but possible metastatic disease in the spine. Patient's a smoker. -COPD in a current smoker -Left pleural effusion could be secondary to malignancy. -GERD, Hyperlipidemia -Essential hypertension -Primary osteoarthritis -Anxiety depression otherwise specified Plan: Continue current medication treatment plan. Including bronchodilators, IV ceftriaxone. Awaiting thoracentesis.-By interventional radiologist.
[2020-01-16] MEDS: ATORVASTATIN 20 MG TAB PO SCH (20:15)
[2020-01-17] MEDS: PANTOPRAZOLE 40 MG TABLET PO SCH (06:22)
[2020-01-17 06:26] LABS: INR 0.9 (<1.2); Prothrombin Time 9.9 sec (9.0-12.0)
[2020-01-17] MEDS: SODIUM CHLORIDE 0.9% 1,000 ML IV SCH (06:27)
[2020-01-17] MEDS: ENOXAPARIN 40 MG/0.4 ML SYRINGE SQ SCH (08:02)
[2020-01-17] MEDS: IPRATROPIUM-ALBUTEROL 3 ML NEB INHALATION SCH ×4 (08:43→19:51)
[2020-01-17] MEDS: BUDESONIDE 1 MG/2 ML NEBU INHALATION SCH ×2 (08:43→19:51)
[2020-01-17] MEDS: OXYBUTYNIN CHLORIDE 5 MG TAB PO SCH ×2 (08:54→21:35)
[2020-01-17] MEDS: METOPROLOL TARTRATE 50 MG TAB PO SCH ×2 (08:54→21:35)
[2020-01-17] MEDS: DULoxetine HCL 60 MG CAPSULE.DR PO SCH (08:54)
[2020-01-17] MEDS ORDERED: ACETAMINOPHEN TAB 325 MG TAB PO PRN (08:57)
[2020-01-17] MEDS: NICOTINE 21MG/24HR PATCH TRANSDERM SCH (09:14)
--- NOTE | 2020-01-17 13:55 | XR ---
EXAMINATION TYPE: XR chest 2V DATE OF EXAM: 01/17/2020 COMPARISON: 01/15/2020 TECHNIQUE: PA and lateral views submitted. HISTORY: Post left thoracentesis FINDINGS: There is residual consolidation and pleural effusion. No sizable pneumothorax. Biapical pleural thick ening. Underlying COPD and chronic interstitial lung disease suspected. Atherosclerotic change aorta. IMPRESSION: 1. No pneumothorax postthoracentesis. 2. Residual consolidation and pleural effusion
[2020-01-17 13:56] VITALS: RESP 18
--- NOTE | 2020-01-17 14:13 | P.PN ---
Subjective Progress Note Date: 01/17/20 Principal diagnosis: Left-sided pleural effusion This is a pleasant 74-year-old female patient who is followed by Dr. Thor Coy on an outpatient basis. She has a past medical history significant for a recent fall from standing landing on her left side 2 weeks ago, hypertension, dyslipidemia, chronic obstructive pulmonary disease, gastroesophageal reflux disease, anxiety, depression, daily marijuana use and chronic daily Tobacco abuse. The patient reports that recently they were having some construction completed to their driveway and sidewalk at home and while taking the dog out during the evening she tripped over a mound of dirt. She reports she was quite embarrassed that this happened and got up very quickly on her own accord. She was having some complaints of left-sided chest pain with taking a deep breath and was progressively becoming more short of breath over the last 2 weeks. She denies any chills, nausea, vomiting, diarrhea, cough or hemoptysis, although reports she has been having some constipation since this is happened. Due to her progressive shortness of breath and pain with taking a deep breath she decided to seek medical attention. Yesterday, on 01/15/2020 she presented to the emergency department here at [facility] for evaluation of the above-mentioned symptoms. The patient does report in the last 2 weeks of September and the first 2 weeks of October 2019 she did feel like she had an upper respiratory infection with fever, cough and fatigue. She reports that she never sought medical attention for these symptoms. In the emergency department a chest x-ray was completed which showed a moderate left pleural effusion with associated left basilar airspace disease consistent with compressive atelectasis. For further evaluation a computed tomography scan of her chest was completed without contrast which demonstrated a large left pleural effusion relating to simple pleural effusion rather than hemothorax, no acute displaced left-sided rib fractures seen, a mediastinal adenopathy with new sclerotic thoracic vertebral body lesion suspicious for metastasis. It also demonstrated scattered areas of groundglass D in the right lung which could be related to atelectasis although could possibly be pneumonitis. Also of note in July 2019 the patient underwent a computed tomography scan of her abdomen/pelvis with contrast which demonstrated an 8 mm subpleural nodule posterior medial left lung base and it also demonstrated in a regular mural based soft tissue thickening measuring 5.2 cm wide and 1.4 cm thick along the right posterior bladder base. Her laboratory results on admission yesterday 01/15/2020 showed WBCs 10.1, hemoglobin 15.7, hematocrit 47.7, BUN 17 and creatinine 0.75. This morning a bedside ultrasound of her chest was completed which demonstrated no pleural fluid pocket on her right, but did demonstrate a left pleural effusion pocket size measuring 9.4 cm. Due to the patient's admitting symptoms, and findings on the chest x-ray and computed tomography scan of the chest a consult was placed to Dr. Johny Ramirez from cardiothoracic surgery for further evaluation and treatment recommendations. The patient was seen in follow-up today 01/17/2020 at her bedside on the cardiac stepdown unit. She is resting in bed comfortably and is in no acute distress. She is awake, alert and oriented 3 and is hemodynamically stable. She is complaining of back pain, headache and shortness of breath this morning. She reports she feels like she has a headache as she is a smoker and is withdrawing from cigarettes. Oxygen saturations are 94% on 2 L nasal cannula. Remote telemetry showing normal sinus rhythm heart rate 69 BPM. An ultrasound of her chest was completed yesterday which demonstrated no right pleural effusion pocket, although did demonstrate a left pleural effusion pocket size measuring 9.4 cm. The left chest was marked for thoracentesis. She was seen by Dr. Cash from pulmonary medicine yesterday and she is scheduled today for a left-sided thoracentesis to be performed by interventional radiologist. Her Coronavirus test results show not detected. Labs this morning show a PT 9.9 and INR of 0.9. Objective - Vital Signs Vital signs: Vital Signs Temp 97.6 F 01/17/20 07:30 Pulse 81 01/17/20 07:30 Resp 20 01/17/20 07:30 BP 143/78 01/17/20 07:30 Pulse Ox 94 L 01/17/20 07:30 Intake & Output 01/16/20 01/17/20 01/17/20 18:59 06:59 18:59 Intake Total 340 128 Balance 340 128 Weight 56 kg Intake: IV 10 Invasive Line 1 10 Oral 340 118 Other: # Voids 2 3 # Bowel Movements 0 - Exam This is a pleasant 74-year-old female patient who is laying comfortably in bed on the cardiac stepdown unit. She is awake, alert and oriented 3. She is no acute distress. She remained hemodynamically stable and has been afebrile the last 24 hours. Oxygen saturations are 94% on 2 L nasal cannula. - Constitutional General appearance: Present: cooperative, no acute distress, thin - EENT Eyes: Present: edentulous, PERRLA, normal appearance. Absent: scleral icterus ENT: Present: hearing grossly normal - Neck Details: Neck is supple, no lymphadenopathy, no JVD. - Respiratory Details: Lung sounds essentially clear to her left upper lobe and right lobes. Diminished to her left lower lobe. No wheezes, rhonchi or crackles. Respirations are symmetrical and nonlabored. Oxygen saturation is 94% on 2 L nasal cannula. Left chest marking in place for thoracentesis. - Cardiovascular Details: Regular rhythm and rate. S1 and S2 present, negative for S3, gallop or murmur. No edema present. - Gastrointestinal Gastrointestinal Comment(s): Abdomen is soft, nontender and nondistended. Active bowel sounds present in all 4 abdominal quadrants. No guarding or rigidity. No organomegaly appreciated. - Integumentary Integumentary Comment(s): Skin is warm and dry. No clubbing or cyanosis is present. No rash or abnormal pigmentation is present. - Neurologic Neurologic: Present: CNII-XII intact - Musculoskeletal Musculoskeletal: Present: gait normal, strength equal bilaterally - Psychiatric Psychiatric: Present: A&O x's 3, appropriate affect, intact judgment & insight - Allied health notes Allied health notes reviewed: nursing - Labs CBC & Chem 7: 01/15/20 14:25 01/15/20 14:25 Assessment and Plan Assessment: 1. Left pleural effusion, computed tomography scan of the chest suggesting suspicion for malignancy 2. Shortness of breath secondary to above 3. Status post fall from standing 2 weeks ago 4. Chronic obstructive pulmonary disease 5. Chronic ongoing tobacco abuse 6. Hypertension 7. Dyslipidemia 8. Gastroesophageal reflux disease 9. History of anxiety 10. History of depression 11. History of an 8 mm subpleural nodule posterior medial left lung base and an irregular mural based soft tissue thickening measuring 5.2 cm wide and 1.4 cm thick along the right posterior bladder base from a computed tomography scan of the abdomen and pelvis 07/17/2019 12. Daily marijuana use Plan: 1. The patient is scheduled for a left sided thoracentesis to be performed by interventional radiology today at 1:30 PM. 2. Encourage use of incentive spirometry 10 times every hour while awake. 3. Reinforced the importance of smoking cessation with the patient. 4. Pain control per when necessary orders. 5. Increase activity as tolerated. 6. Bronchodilators and oxygen management per pulmonary medicine recomm endations. 7. Medical management and other comorbidities per primary care service. 8. More recommendations to follow based on patient's clinical course. Time with Patient: Less than 30
--- NOTE | 2020-01-17 14:56 | US ---
Ultrasound-guided therapeutic and diagnostic thoracentesis DATE OF EXAM: 01/17/2020 CLINICAL HISTORY: Left pleural effusion The procedure was discussed with the patient. The risks, complications, benefits, and alternatives we re discussed and any questions were answered. Informed consent was obtained. The patient was placed supine on the ultrasound table and prepped and draped in the usual sterile fas hion. All elements of maximal barrier and sterile technique were utilized. Under ultrasound guidance, access into the pleural space was obtained, via the thoracentesis catheter system and direct ultrasound guidance. Ap proximate 560 cc of straw-colored fluid was removed. Sample sent to pathology for analysis. The patient was stable throughout the procedure and remained stable upon discharge from Department of Radiology. IMPRESSION: 1. Successful therapeutic and diagnostic thoracentesis under ultrasound guidance.
[2020-01-17 18:37] LABS: Appearance,BF Hazy; Color,BF Yellow; Nucleated Cells, Body Fluid 770 /uL; RBC, Body Fluid 110 /uL
[2020-01-17 18:39] LABS: Mononuclear WBC,Body Fluid 99 %; Polynuclear WBC,Body Fluid 1 %; Total Cells Counted,Body Fluid 100
--- NOTE | 2020-01-17 20:07 | P.PN ---
Progress Note - Text Progress Note Date: 01/17/20 Chief Complaint: Left-sided chest pain History of presenting complaint: This is a 74-year-old patient followed with Dr. Coy. Just before the COVID 19 Pandemic patient was getting construction done in her front yard. Daughter was left-sided. In the evening she had taken her dog about it was rather dark. She fell on the left side. Of the chest. At that time didn't bother her too much. She started having significant pain. Ordered. Pro time. Progressively became more short of breath has a cough no fever no chills. On the ER noted to have a temperature of 100.3. Difficulty finding a take a deep breath. Some wheezing. Patient is not lost any weight. Appetite is good. Admitted with large left pleural effusion. COPD exacerbation. Computed tomography scan not suggestive of hemothorax. Suspicion for metastatic disease. Today-patient is seen around wound. Due to go down for a thoracentesis. Shortness of breath present. No fever. Tired. Review of systems: Was done for constitutional, cardiovascular, GI, pulmonary. relevant finding as above Active Medications Acetaminophen (Tylenol Tab) 650 mg PO Q6HR PRN PRN Reason: Fever and/ or Pain Last Admin: 01/17/20 09:14 Dose: 650 mg Documented by: Albuterol Sulfate (Ventolin Nebulized) 2.5 mg INHALATION RT-Q4H PRN PRN Reason: Shortness Of Breath Albuterol/Ipratropium (Duoneb 0.5 Mg-3 Mg/3 Ml Soln) 3 ml INHALATION RT-QID [facility] Last Admin: 01/17/20 19:51 Dose: 3 ml Documented by: Alprazolam (Xanax) 0.25 mg PO Q6HR PRN PRN Reason: Anxiety Atorvastatin Calcium (Lipitor) 20 mg PO HS [facility] Last Admin: 01/16/20 20:15 Dose: 20 mg Documented by: Budesonide (Pulmicort) 1 mg INHALATION RT-BID [facility] Last Admin: 01/17/20 19:51 Dose: 1 mg Documented by: Duloxetine HCl (Cymbalta) 60 mg PO DAILY [facility] Last Admin: 01/17/20 08:54 Dose: 60 mg Documented by: Enoxaparin Sodium (Lovenox) 40 mg SQ DAILY [facility] Last Admin: 01/17/20 08:02 Dose: Not Given Documented by: Fluticasone Propionate (Flonase Nasal [place]) 1 spray EA NOSTRIL BID PRN PRN Reason: Congestion Hydromorphone HCl (Dilaudid) 0.5 mg IVP Q3HR PRN PRN Reason: Moderate Pain Hydromorphone HCl (Dilaudid) 1 mg IVP Q3HR PRN PRN Reason: Severe Pain Sodium Chloride (Saline 0.9%) 1,000 mls @ 75 mls/hr IV .[id number] [facility] Last Admin: 01/17/20 06:27 Dose: 75 mls/hr Documented by: Ceftriaxone Sodium 1 gm/ (Sodium Chloride) 50 mls @ 100 mls/hr IVPB Q24H [facility] Last Admin: 01/16/20 21:37 Dose: 100 mls/hr Documented by: Metoprolol Tartrate (Lopressor) 50 mg PO BID [facility] Last Admin: 01/17/20 08:54 Dose: 50 mg Documented by: Naloxone HCl (Narcan) 0.2 mg IV Q2M PRN PRN Reason: Opioid Reversal Nicotine (Habitrol 21mg/24hr Patch) 1 patch TRANSDERM DAILY [facility] Last Admin: 01/17/20 09:14 Dose: 1 patch Documented by: Ondansetron HCl (Zofran) 4 mg IVP Q8HR PRN PRN Reason: Nausea And Vomiting Oxybutynin Chloride (Ditropan) 5 mg PO BID [facility] Last Admin: 01/17/20 08:54 Dose: 5 mg Documented by: Pantoprazole Sodium (Protonix) 40 mg PO AC-BRKFST [facility] Last Admin: 01/17/20 06:22 Dose: 40 mg Documented by: Physical examination: VITAL SIGNS: 97.7, 68, 18, 150/92, 96% on 2 L GENERAL: Laying in bed, awake EYES: Pupils equal. Conjunctiva normal. HEENT: External appearance of nose and ears normal, oral cavity grossly normal. NECK: JVD not raised; masses not palpable. HEART: First and second heart sounds are normal; no edema. LUNGS: Respiratory rate increased, decreased breath sounds especially on left side some splinting. ABDOMEN: Soft, nontender, liver spleen not palpable, no masses palpable. PSYCH: Alert and oriented x3; mood and affect normal. MUSCULAR skeletal: Evidence of OA especially in the hands INVESTIGATIONS, reviewed in the clinical context: White count 10.1 hemoglobin 15.7 platelets 378 potassium 4.1 creatinine 0.75 Chest x-ray film personally reviewed by me-left pleural effusion Computed tomography scan of the chest-large left pleural effusion suggestive of low fluid as opposed to hemothorax. Associated left-sided compressive atele ctasis the majority of the left lung. Some scarring in the right upper lung, narrowing of the left main stem bronchus. Some scattered mediastinal lymph nodes mild. Mild compression deformity of T3 and sclerotic foci seen in 2012 T11 T10. Assessment: -This is a patient who fell 2 weeks ago and progressive pain and shortness of breath with pain on the left side of the chest. Initial suspicion was therefore hemothorax but doesn't appear to be so on the computed tomography scan of the chest. -Compression atelectasis of majority of the left lung with banding of the left main bronchus suspicious for underlying malignancy but possible metastatic disease in the spine. Patient's a smoker. -COPD in a current smoker -Left pleural effusion could be secondary to malignancy.-Pending thoracentesis -GERD, Hyperlipidemia -Essential hypertension -Primary osteoarthritis -Anxiety depression otherwise specified Plan: Continue bronchodilators, IV ceftriaxone. Awaiting thoracentesis.-By interventional radiologist. This afternoon. Discussed with patient.
[2020-01-17] MEDS: ATORVASTATIN 20 MG TAB PO SCH (21:35)
[2020-01-17 23:51] LABS: Total Protein, Body Fluid 4200 mg/dL
[2020-01-18 00:11] LABS: Amylase, Fluid Source Pleural Fluid; Glucose, BF Source Pleural Fluid; Glucose, Body Fluid 100 mg/dL; LDH, Body Fluid Source Pleural Fluid
[2020-01-18] MEDS: PANTOPRAZOLE 40 MG TABLET PO SCH (06:36)
[2020-01-18] MEDS: SODIUM CHLORIDE 0.9% 1,000 ML IV SCH ×2 (06:37→10:54)
--- NOTE | 2020-01-18 06:55 | XR ---
EXAMINATION TYPE: XR chest 1V portable DATE OF EXAM: 01/18/2020 CLINICAL HISTORY: Difficulty breathing an pleural effusion progress study. TECHNIQUE: Single AP portable frontal view of the chest is obtained. COMPARISON: Chest x-ray from one day earlier. CT chest from 3 days earlier. FINDINGS: Fairly stable moderate left-sided pleural effusion her most recent chest x-ray after thora centesis. No pneumothorax is evident. Associated left basilar compressive atelectasis. Background chr onic emphysematous change and clear right lung. Silhouetting left heart border again seen. Slight dex troconvex scoliotic curvature to the spine redemonstrated. IMPRESSION: Overall stable findings from most recent x-ray, there is moderate left-sided pleural effu ina and associated left mid to basilar compressive atelectasis on background chronic emphysematous c hanges.
[2020-01-18] MEDS: METOPROLOL TARTRATE 50 MG TAB PO SCH (07:53)
[2020-01-18] MEDS: OXYBUTYNIN CHLORIDE 5 MG TAB PO SCH (07:53)
[2020-01-18] MEDS: DULoxetine HCL 60 MG CAPSULE.DR PO SCH (07:53)
[2020-01-18] MEDS: NICOTINE 21MG/24HR PATCH TRANSDERM SCH (07:53)
[2020-01-18] MEDS: IPRATROPIUM-ALBUTEROL 3 ML NEB INHALATION SCH ×2 (08:16→11:40)
[2020-01-18] MEDS: BUDESONIDE 1 MG/2 ML NEBU INHALATION SCH (08:16)
--- NOTE | 2020-01-18 10:33 | P.PN ---
Subjective Progress Note Date: 01/18/20 Principal diagnosis: Left-sided pleural effusion highly suggestive of neoplastic process Ongoing shortness of breath Nonspecific pain on the left side with back pain Sclerotic lesion in thoracic vertebra suggestive of metastatic disease COPD Lifelong history of smoking and nicotine use 01/18/2020, patient seen eval examined during the rounds some pain and discomfort there on the left chest shortness of breath is not present anymore patient is on room air breathing comfortably she is status post thoracentesis 5 mL cc of the fluid has been removed, cytology is pending, fluid however otherwise appears to be exudative in her vision, chest x-ray today shows small residual pleural effusion along with atelectasis This is a 74-year-old female who came into the hospital with ongoing shortness of breath patient has a recent trip and fall started having shortness of breath and some chest discomfort after fall, symptoms have been progressive decided to come into the hospital underwent a computed tomography scan of the chest showed moderate left-sided pleural effusion highly suggestive of malignancy, x-rays negative for fractures, computed tomography scan of the chest showed no acute displaced fracture, some sclerotic thoracic vertebral body were seen highly suggestive of metastatic disease along with mediastinal lymphadenopathy, patient has ongoing history of smoking and nicotine use Objective - Vital Signs Vital signs: Vital Signs Temp 97.6 F 01/18/20 07:50 Pulse 88 01/18/20 08:33 Resp 18 01/18/20 07:51 BP 171/70 01/18/20 07:50 Pulse Ox 95 01/18/20 07:50 Intake & Output 01/17/20 01/18/20 01/18/20 18:59 06:59 18:59 Intake Total 1570 1342 1200 Output Total 800 600 300 Balance 770 742 900 Weight 55.8 kg Intake: IV 1230 600 Invasive Line 1 30 Sodium Chloride 0.9% 1, 1200 600 000 ml @ 75 mls/hr IV . [id number] ANG Rx#:[id number] Intake, IV Titration 525 Amount Sodium Chloride 0.9% 1, 525 000 ml @ 75 mls/hr IV . [id number] ANG Rx#:[id number] Oral 340 817 600 Output: Urine 300 600 300 Other 500 - Exam - Constitutional General appearance: average body habitus, disheveled, thin - EENT Eyes: poor dentition ENT: normal oropharynx Ears: bilateral: normal - Neck Carotids: bilateral: upstroke normal Thyroid: bilateral: normal size - Respiratory Respiratory: right: CTA, left: diminished, dullness - Cardiovascular Rhythm: regular Heart sounds: normal: S1, S2 - Gastrointestinal General gastrointestinal: normal bowel sounds, soft - Integumentary Integumentary: decreased turgor - Neurologic Neurologic: CNII-XII intact - Musculoskeletal Musculoskeletal: gait normal, generalized weakness, strength equal bilaterally - Psychiatric Psychiatric: A&O x's 3, appropriate affect, intact judgment & insight - Labs CBC & Chem 7: 01/15/20 14:25 01/15/20 14:25 Labs: Microbiology - Last 24 Hours (Table) 01/17/20 13:00 Gram Stain - Preliminary Pleural Fluid Body Fluid Culture - Preliminary 01/17/20 13:00 Fungal Culture - Preliminary Pleural Fluid 01/17/20 13:00 Anaerobic Culture - Preliminary Pleural Fluid 01/17/20 13:00 Acid Fast Bacilli Culture - Preliminary Pleural Fluid Assessment and Plan Assessment: Left-sided exudative pleural effusion status post left thoracentesis cytology is pending Ongoing shortness of breath Nonspecific pain on the left side with back pain Sclerotic lesion in thoracic vertebra suggestive of metastatic disease COPD Lifelong history of smoking and nicotine use Plan: Will arrange thoracentesis on the left side by interventional radiology Reviewed computed tomography scan chest x-ray and ultrasound We'll do a PET scan on outpatient basis Further recommendations pending plan of care as per clinical response of the patient Time with Patient: Greater than 30
[2020-01-18] MEDS: ENOXAPARIN 40 MG/0.4 ML SYRINGE SQ SCH (10:53)
[2020-01-18 11:24] VITALS: BP 135/80; TEMP 98.2
[2020-01-18 11:43] VITALS: PULSE 80
--- NOTE | 2020-01-19 07:22 | P.PN ---
Subjective Progress Note Date: 01/18/20 Principal diagnosis: Left-sided pleural effusion This is a pleasant 74-year-old female patient who is followed by Dr. Thor Coy on an outpatient basis. She has a past medical history significant for a recent fall from standing landing on her left side 2 weeks ago, hypertension, dyslipidemia, chronic obstructive pulmonary disease, gastroesophageal reflux disease, anxiety, depression, daily marijuana use and chronic daily Tobacco abuse. The patient reports that recently they were having some construction completed to their driveway and sidewalk at home and while taking the dog out during the evening she tripped over a mound of dirt. She reports she was quite embarrassed that this happened and got up very quickly on her own accord. She was having some complaints of left-sided chest pain with taking a deep breath and was progressively becoming more short of breath over the last 2 weeks. She denies any chills, nausea, vomiting, diarrhea, cough or hemoptysis, although reports she has been having some constipation since this is happened. Due to her progressive shortness of breath and pain with taking a deep breath she decided to seek medical attention. Yesterday, on 01/15/2020 she presented to the emergency department here at [facility] for evaluation of the above-mentioned symptoms. The patient does report in the last 2 weeks of September and the first 2 weeks of October 2019 she did feel like she had an upper respiratory infection with fever, cough and fatigue. She reports that she never sought medical attention for these symptoms. In the emergency department a chest x-ray was completed which showed a moderate left pleural effusion with associated left basilar airspace disease consistent with compressive atelectasis. For further evaluation a computed tomography scan of her chest was completed without contrast which demonstrated a large left pleural effusion relating to simple pleural effusion rather than hemothorax, no acute displaced left-sided rib fractures seen, a mediastinal adenopathy with new sclerotic thoracic vertebral body lesion suspicious for metastasis. It also demonstrated scattered areas of groundglass D in the right lung which could be related to atelectasis although could possibly be pneumonitis. Also of note in July 2019 the patient underwent a computed tomography scan of her abdomen/pelvis with contrast which demonstrated an 8 mm subpleural nodule posterior medial left lung base and it also demonstrated in a regular mural based soft tissue thickening measuring 5.2 cm wide and 1.4 cm thick along the right posterior bladder base. Her laboratory results on admission yesterday 01/15/2020 showed WBCs 10.1, hemoglobin 15.7, hematocrit 47.7, BUN 17 and creatinine 0.75. This morning a bedside ultrasound of her chest was completed which demonstrated no pleural fluid pocket on her right, but did demonstrate a left pleural effusion pocket size measuring 9.4 cm. Due to the patient's admitting symptoms, and findings on the chest x-ray and computed tomography scan of the chest a consult was placed to Dr. Johny Ramirez from cardiothoracic surgery for further evaluation and treatment recommendations. POD #1 successful therapeutic and diagnostic left thoracentesis under ultrasound guidance performed by interventional radiology. The patient was seen today on 01/18/2020 in follow-up at her bedside on the third floor cardiac care unit. The patient is resting comfortably in bed and is in no acute distress. She is awake, alert and oriented 3 and remains hemodynamically stable and has been afebrile the last 24 hours. The patient denies any further complaints of shortness of breath, although continues to complain of intermittent pain to her left chest with taking deep breaths. Ox ygen saturations are 95% on room air and she is achieving 7681-5954 mL on her incentive spirometry. She underwent a successful therapeutic and diagnostic left thoracentesis performed by interventional radiology yesterday with 560 mL of straw-colored fluid drained. The cytology of the pleural fluid remains pending. A follow-up chest x-ray was completed this morning which demonstrates a moderate left-sided pleural effusion with associated left mid to basilar compressive atelectasis. She denies any complaints of headache today and reports she feels somewhat better now that she has a nicotine patch in place. Antibiotic coverage remains in place with Rocephin managed by primary care service. Objective - Vital Signs Vital signs: Vital Signs Temp 97.6 F 01/18/20 07:50 Pulse 75 01/18/20 07:51 Resp 18 01/18/20 07:51 BP 171/70 01/18/20 07:50 Pulse Ox 95 01/18/20 07:50 Intake & Output 01/17/20 01/18/20 01/18/20 18:59 06:59 18:59 Intake Total 1570 1342 600 Output Total 800 600 Balance 770 742 600 Weight 55.8 kg Intake: IV 1230 Invasive Line 1 30 Sodium Chloride 0.9% 1, 1200 000 ml @ 75 mls/hr IV . [id number] ANG Rx#:[id number] Intake, IV Titration 525 Amount Sodium Chloride 0.9% 1, 525 000 ml @ 75 mls/hr IV . [id number] ANG Rx#:[id number] Oral 340 817 600 Output: Urine 300 600 Other 500 - Exam This is a pleasant 74-year-old female patient who is laying comfortably in bed on the cardiac stepdown unit. She is awake, alert and oriented 3. She is no acute distress. She remained hemodynamically stable and has been afebrile the last 24 hours. Oxygen saturations are 95% on room air. - Constitutional General appearance: Present: cooperative, no acute distress, thin - EENT Eyes: Present: edentulous, PERRLA, normal appearance. Absent: scleral icterus ENT: Present: hearing grossly normal - Neck Details: Neck is supple, no JVD, no lymphadenopathy. - Respiratory Details: Lung sounds essentially clear to her bilateral upper lobes, diminished to her left lower lobe. No wheezes, rhonchi or crackles. Respirations are symmetrical and nonlabored. Oxygen saturation are 95% on room air. Achieving 5223-8476 mL on her incentive spirometry with encouragement. - Cardiovascular Details: Regular rhythm and rate. S1 and S2 present, negative for S3, gallop or murmur. No edema present. - Gastrointestinal Gastrointestinal Comment(s): Abdomen is soft, nontender and nondistended. Active bowel sounds present all 4 abdominal quadrants. No guarding or rigidity. No organomegaly appreciated. - Integumentary Integumentary Comment(s): Skin is warm and dry. No clubbing or cyanosis is present. No rash or abnormal pigmentation is present. - Neurologic Neurologic: Present: CNII-XII intact - Musculoskeletal Musculoskeletal: Present: gait normal, strength equal bilaterally - Psychiatric Psychiatric: Present: A&O x's 3, appropriate affect, intact judgment & insight - Allied health notes Allied health notes reviewed: nursing - Labs CBC & Chem 7: 01/15/20 14:25 01/15/20 14:25 Labs: Microbiology - Last 24 Hours (Table) 01/17/20 13:00 Gram Stain - Preliminary Pleural Fluid Body Fluid Culture - Preliminary 06/04/20 13:00 Fungal Culture - Preliminary Pleural Fluid 01/17/20 13:00 Anaerobic Culture - Preliminary Pleural Fluid 01/17/20 13:00 Acid Fast Bacilli Culture - Preliminary Pleural Fluid - Imaging and Cardiology Chest x-ray: report reviewed, image reviewed Assessment and Plan Assessment: 1. Left pleural effusion, computed tomography scan of the chest suggesting suspicion for malignancy, status post left ultrasound-guided thoracentesis 2. Shortness of breath secondary to above 3. Status post fall from standing 2 weeks ago 4. Chronic obstructive pulmonary disease 5. Chronic ongoing tobacco abuse 6. Hypertension 7. Dyslipidemia 8. Gastroesophageal reflux disease 9. History of anxiety 10. History of depression 11. History of an 8 mm subpleural nodule posterior medial left lung base and an irregular mural based soft tissue thickening measuring 5.2 cm wide and 1.4 cm thick along the right posterior bladder base from a computed tomography scan of the abdomen and pelvis 07/17/2019 12. Daily marijuana use Plan: 1. Status post left ultrasound-guided thoracentesis with 560 mL of straw- colored fluid drained. Cytology results are pending. 2. Encourage use of incentive spirometry 10 times every hour while awake. 3. Reinforced the importance of smoking cessation with the patient. Nicotine patch is in place. 4. Pain control per when necessary orders. 5. Increase activity as tolerated. 6. Bronchodilators management per pulmonary medicine recommendations. 7. Medical management and other comorbidities per primary care service. 8. We will continue to follow on an as needed basis. Time with Patient: Less than 30
--- NOTE | 2020-01-19 20:54 | P.DS ---
Providers Date of admission: 01/17/20 15:11 Expected date of discharge: 01/18/20 Attending physician: Viktor Roberts Consults: 01/15/20 15:52 Consult Physician Stat Consulting Provider: Johny Ramirez Consult Reason/Comments: Pleural effusion, left-sided. Do you want consulting provider notified?: Yes 01/15/20 21:34 Consult Physician Routine Consulting Provider: Frankie Cash Consult Reason/Comments: Left pleural effusion Do you want consulting provider notified?: Yes 01/16/20 11:01 Consult Physician Routine Consulting Provider: Colton Jarvis Consult Reason/Comments: Thoracentesis Do you want consulting provider notified?: Yes Primary care physician: [facility] Course: Chief Complaint: Left-sided chest pain History of presenting complaint: This is a 74-year-old patient followed with Dr. Coy. Just before the COVID 19 Pandemic patient was getting construction done in her front yard. Daughter was left-sided. In the evening she had taken her dog about it was rather dark. She fell on the left side. Of the chest. At that time didn't bother her too much. She started having significant pain. Ordered. Pro time. Progressively became more short of breath has a cough no fever no chills. On the ER noted to have a temperature of 100.3. Difficulty finding a take a deep breath. Some wheezing. Patient is not lost any weight. Appetite is good. Admitted with large left pleural effusion. COPD exacerbation. Computed tomography scan not suggestive of hemothorax. Suspicion for metastatic disease. Intervention radiology removed about 560 mL of straw-colored fluid Today-patient feeling much better. Breathing improved. Cytology results are pending. Discussed with Dr. Yocasta Cash he'll follow-up the patient is an outpatient. Discussed with the patient. She is also very keen to go home. Counseled about smoking. Discussion and discharge planning more than 35 minutes Consultation: Intervention radiology Dr. Yocasta Cash-pulmonary Physical examination: VITAL SIGNS: 98.2, 86, 18, 135/80, 94% room air GENERAL: Sitting up in bed, looking better EYES: Pupils equal. Conjunctiva normal. HEENT: External appearance of nose and ears normal, oral cavity grossly normal. NECK: JVD not raised; masses not palpable. HEART: First and second heart sounds are normal; no edema. LUNGS: Respiratory rate increased, decreased breath sounds especially on left side ABDOMEN: Soft, nontender, liver spleen not palpable, no masses palpable. PSYCH: Alert and oriented x3; mood and affect normal. MUSCULAR skeletal: Evidence of OA especially in the hands INVESTIGATIONS, reviewed in the clinical context: White count 10.1 hemoglobin 15.7 platelets 378 potassium 4.1 creatinine 0.75 Chest x-ray film personally reviewed by me-left pleural effusion Computed tomography scan of the chest-large left pleural effusion suggestive of low fluid as opposed to hemothorax. Associated left-sided compressive atelectasis the majority of the left lung. Some scarring in the right upper lung, narrowing of the left main stem bronchus. Some scattered mediastinal lymph nodes mild. Mild compression deformity of T3 and sclerotic foci seen in 2012 T11 T10. Pleural fluid cytology-pending Assessment: -Left pleural effusion-status post thoracentesis of straw-colored fluid. Pending cytology., POA -Compression atelectasis of majority of the left lung with banding of the left main bronchus suspicious for underlying malignancy but possible metastatic disease in the spine. Patient's a smoker. -Acute COPD exacerbationin a current smoker -Left pleural effusion could be secondary to malignancy.-Pending thoracentesis -GERD, Hyperlipidemia -Essential hypertension -Primary osteoarthritis -Anxiety depression otherwise specified Disposition: Home Patient Condition at Discharge: Stable Plan - Discharge Summary Discharge Rx Participant: Yes New Discharge Prescriptions: New Ipratropium [place] [Atrovent Hfa] 2 puff INHALATION QID #1 inhaler Cefuroxime Axetil [Ceftin] 500 mg PO BID #14 tab Nicotine 21Mg/24Hr Patch [Habitrol] 1 patch TRANSDERM DAILY #14 patch Continue Simvastatin [Zocor] 40 mg PO HS Oxybutynin Chloride 5 mg PO BID Ascorbic Acid [Vitamin C] 1,000 mg PO DAILY Metoprolol Tartrate [Lopressor] 50 mg PO BID Cholecalciferol (Vitamin D3) [Vitamin D3] 2,000 unit PO DAILY DULoxetine HCL [Cymbalta] 60 mg PO DAILY Omeprazole [PriLOSEC] 20 mg PO DAILY Fluticasone Nasal [place] [Flonase Nasal [place]] 1 spray EA NOSTRIL BID PRN PRN Reason: Congestion Discontinued Albuterol Sulfate [Proair Hfa] 2 puff INHALATION RT-Q4H PRN PRN Reason: Shortness Of Breath No Action Ibuprofen [Motrin] 600 mg PO Q6HR PRN #20 tab PRN Reason: Pain Metoclopramide [Reglan] 10 mg PO TID #12 tab Acetaminophen with Codeine [Tylenol w/codeine #3] 1 tab PO Q6H PRN 3 Days #12 tab PRN Reason: Pain Discharge Medication List Ascorbic Acid [Vitamin C] 1,000 mg PO DAILY 06/13/19 [History] Cholecalciferol (Vitamin D3) [Vitamin D3] 2,000 unit PO DAILY 06/13/19 [History] Metoprolol Tartrate [Lopressor] 50 mg PO BID 06/13/19 [History] Oxybutynin Chloride 5 mg PO BID 06/13/19 [History] Simvastatin [Zocor] 40 mg PO HS 06/13/19 [History] DULoxetine HCL [Cymbalta] 60 mg PO DAILY 07/17/19 [History] Fluticasone Nasal [place] [Flonase Nasal [place]] 1 spray EA NOSTRIL BID PRN 01/15/20 [History] Omeprazole [PriLOSEC] 20 mg PO DAILY 01/15/20 [History] Cefuroxime Axetil [Ceftin] 500 mg PO BID #14 tab 01/18/20 [Rx] Ipratropium [place] [Atrovent Hfa] 2 puff INHALATION QID #1 inhaler 01/18/20 [Rx] Nicotine 21Mg/24Hr Patch [Habitrol] 1 patch TRANSDERM DAILY #14 patch 01/18/20 [Rx] Acetaminophen with Codeine [Tylenol w/codeine #3] 1 tab PO Q6H PRN 3 Days #12 tab 01/19/20 [Rx] Ibuprofen [Motrin] 600 mg PO Q6HR PRN #20 tab 01/19/20 [Rx] Metoclopramide [Reglan] 10 mg PO TID #12 tab 01/19/20 [Rx] Follow up Appointment(s)/Referral(s): Thor Coy MD [STAFF PHYSICIAN] - 1-2 days [facility], [NON-STAFF] - 1-2 Days Frankie Cash MD [STAFF PHYSICIAN] - 1 Week Patient Instructions/Handouts: How to Stop Smoking (DC), Thoracentesis (GEN) Activity/Diet/Wound Care/Special Instructions: . Discharge Disposition: HOME SELF-CARE
--- NOTE | 2020-01-28 06:40 | CDI ---
Documentation Clarification Form Date: 01/28/20 From: Jennifer Patton Phone: If you have a question about this query, please contact Elizabeth Cullen, Community Education Coordinator at [phone] between 8am and 5pm. Admit Date: 12/17/19 Discharge Date: 01/18/20 Patient Name: VALARIE KUHN Visit Number: [id number] ATTENTION: The Clinical Documentation Specialists (CDI) and [facility] Coding Staff appreciate your assistance in clarifying documentation. Please respond to the clarification below the line at the bottom and electronically sign. The CDI & [facility] Coding staff will review the response and follow-up if needed. Please note: Queries are made part of the Legal Health Record. If you have any questions, please contact the author of this message via ITS. Dear Dr. 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 Documentation states: DS-Left pleural effusion-status post thoracentesis of straw-colored fluid. 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 Yes No Other (please specify) Unable to determinE Yes, agree with pathology report findings MTDD
== END 2020-01-18 14:01 | disposition home health service (06) | DRG 181 ==
LOC: EC 11:48 → 3SCARD 15:46 → OBSVTOIN 01-17 15:11
PROVIDERS: ADMIT Hospitalist; ATTEND Hospitalist
PROC: 0W9B3ZX Drainage of Left Pleural Cavity, Percutaneous Approach, Diagnostic (ICD-10-PCS; principal; 2020-01-17)
DX: C34.92 Malignant neoplasm of unspecified part of left bronchus or lung (principal); C79.51 Secondary malignant neoplasm of bone; J91.0 Malignant pleural effusion; J44.1 Chronic obstructive pulmonary disease with (acute) exacerbation; J98.11 Atelectasis; Z20.828 Contact with and (suspected) exposure to other viral communicable diseases; K21.9 Gastro-esophageal reflux disease without esophagitis; E78.5 Hyperlipidemia, unspecified; I10 Essential (primary) hypertension; G89.29 Other chronic pain; F41.8 Other specified anxiety disorders; M54.9 Dorsalgia, unspecified; R91.8 Other nonspecific abnormal finding of lung field; K59.00 Constipation, unspecified; M19.91 Primary osteoarthritis, unspecified site; F17.219 Nicotine dependence, cigarettes, with unspecified nicotine-induced disorders; Z71.6 Tobacco abuse counseling; Z79.899 Other long term (current) drug therapy; Z98.891 History of uterine scar from previous surgery; Z90.89 Acquired absence of other organs; Z87.19 Personal history of other diseases of the digestive system; W01.0XXA Fall on same level from slipping, tripping and stumbling without subsequent striking against object, initial encounter; Z88.1 Allergy status to other antibiotic agents; Z88.5 Allergy status to narcotic agent; Z88.0 Allergy status to penicillin; Z80.9 Family history of malignant neoplasm, unspecified; Z83.79 Family history of other diseases of the digestive system
CPT/HCPCS: 32555; 36415; 71045; 71046; 71250; 76604; 80053; 82150; 82945; 83615; 84145; 84157; 85025; 85610; 87070; 87075; 87102; 87116; 87205; 87206; 88108; 88305; 88341; 88342; 89050; 94640; 99284

== ENCOUNTER 2020-01-19 08:32 | Emergency (ER) | payer MEDICARE ==
[2020-01-19 08:40] VITALS: TEMP 97.7
[2020-01-19] MEDS ORDERED: SODIUM CHLORIDE 0.9% 1,000 ML IV STA (08:51)
[2020-01-19] MEDS ORDERED: METOCLOPRAMIDE 5 MG/ML 2 ML VIAL IVP STA (08:52)
--- NOTE | 2020-01-19 08:58 | ED ---
General Adult HPI - General Chief complaint: Chest Pain Stated complaint: Chest Pain, Diff Breathing Time Seen by Provider: 01/19/20 08:41 Source: patient, RN notes reviewed, old records reviewed Mode of arrival: ambulatory Limitations: no limitations - History of Present Illness Initial comments: Patient is a 74-year-old female who presents emergency department today waking up with worsening shortness of breath, nausea. Complains some discomfort in the left side of her chest. Patient was recently admitted and discharged for left- sided pleural effusion. Patient's cytology is pending after she had thoracentesis. Patient believes that for the past 12 hours the fluid has reaccumulated in her lung. Patient reports no vomiting but significant nausea. She denies any abdominal pain. She states that during her evaluation on her last admission there was concern for a mass on her bladder. - Related Data Home Medications Medication Instructions Recorded Confirmed Ascorbic Acid [Vitamin C] 1,000 mg PO DAILY 06/13/19 01/15/20 Cholecalciferol (Vitamin D3) 2,000 unit PO DAILY 06/13/19 01/15/20 [Vitamin D3] Metoprolol Tartrate [Lopressor] 50 mg PO BID 06/13/19 01/15/20 Oxybutynin Chloride 5 mg PO BID 06/13/19 01/15/20 Simvastatin [Zocor] 40 mg PO HS 06/13/19 01/15/20 DULoxetine HCL [Cymbalta] 60 mg PO DAILY 07/17/19 01/15/20 Fluticasone Nasal [place] [Flonase 1 spray EA NOSTRIL BID PRN 01/15/20 01/15/20 Nasal [place]] Omeprazole [PriLOSEC] 20 mg PO DAILY 01/15/20 01/15/20 Previous Rx's Medication Instructions Recorded Cefuroxime Axetil [Ceftin] 500 mg PO BID #14 tab 01/18/20 Ipratropium [place] [Atrovent Hfa] 2 puff INHALATION QID #1 inhaler 01/18/20 Nicotine 21Mg/24Hr Patch [Habitrol] 1 patch TRANSDERM DAILY #14 patch 01/18/20 Acetaminophen with Codeine 1 tab PO Q6H PRN 3 Days #12 tab 01/19/20 [Tylenol w/codeine #3] Ibuprofen [Motrin] 600 mg PO Q6HR PRN #20 tab 01/19/20 Metoclopramide [Reglan] 10 mg PO TID #12 tab 01/19/20 Allergies Allergy/AdvReac Type Severity Reaction Status Date / Time Penicillins Allergy Rash/Hives Verified 01/15/20 14:16 erythromycin base AdvReac Nausea & Verified 01/15/20 14:16 Vomiting morphine AdvReac Hallucinati Verified 01/15/20 14:16 ons Review of Systems ROS Statement: Those systems with pertinent positive or pertinent negative responses have been documented in the HPI. ROS Other: All systems not noted in ROS Statement are negative. Past Medical History Past Medical History: COPD, GERD/Reflux, Hyperlipidemia, Hypertension, Osteoarthritis (OA) Additional Past Medical History / Comment(s): CHRONIC BACK PAIN, constipation HOSPITALIZED 07/17/19-07/20/19 FOR GI BLEED., STATES SHE WAS TOLD MASS ON HER B LADDER. History of Any Multi-Drug Resistant Organisms: None Reported Past Surgical History: Adenoidectomy, Appendectomy, Section, Tonsillectomy Additional Past Surgical History / Comment(s): Uterine surgery Past Anesthesia/Blood Transfusion Reactions: No Reported Reaction, Motion Sickness Additional Past Anesthesia/Blood Transfusion Reaction / Comment(s): blood tr ansfusion during childbirth, no reaction Past Psychological History: Anxiety, Depression Smoking Status: Current every day smoker Past Alcohol Use History: None Reported Past Drug Use History: Marijuana - Past Family History Mother Family Medical History: Cancer, Liver Disease Additional Family Medical History / Comment(s): Cirrhosis Father Family Medical History: Cancer Additional Family Medical History / Comment(s): cirrhosis Brother(s) Additional Family Medical History / Comment(s): Cirrhosis General Exam - General Exam Comments Initial Comments: Alert and oriented 74-year-old female. No significant distress. Limitations: no limitations General appearance: alert, in no apparent distress Head exam: Present: atraumatic, normocephalic, normal inspection Eye exam: Present: normal appearance, PERRL, EOMI. Absent: scleral icterus, conjunctival injection, periorbital swelling ENT exam: Present: normal exam, normal oropharynx, mucous membranes moist Neck exam: Present: normal inspection. Absent: tenderness, meningismus, lymphadenopathy Respiratory exam: Present: other (Evidence of bandage over the left lower rib. Patient has diminished lung sounds on Left side. ). Absent: normal lung sounds bilaterally, respiratory distress, wheezes, rales, rhonchi, stridor Cardiovascular Exam: Present: regular rate, normal rhythm, normal heart sounds. Absent: systolic murmur, diastolic murmur, rubs, gallop, clicks GI/Abdominal exam: Present: soft, normal bowel sounds. Absent: distended, tenderness, guarding, rebound, rigid Extremities exam: Present: normal inspection, full ROM, normal capillary refill. Absent: tenderness, pedal edema, joint swelling, calf tenderness Back exam: Present: normal inspection Neurological exam: Present: alert, oriented X3, CN II-XII intact Psychiatric exam: Present: normal affect, normal mood Skin exam: Present: warm, dry, intact, normal color. Absent: rash Course Vital Signs 01/19/20 01/19/20 01/19/20 08:36 08:40 09:21 Temperature 97.7 F Pulse Rate 57 L Respiratory 18 20 20 Rate Blood Pressure 164/76 O2 Sat by Pulse 97 Oximetry 01/19/20 09:40 Temperature Pulse Rate 59 L Respiratory 20 Rate Blood Pressure 131/93 O2 Sat by Pulse 95 Oximetry EKG Findings - EKG Comments: EKG Findings:: EKG performed at 847 shows sinus bradycardia, otherwise normal EKG noted. Ventricular rate of 47 bpm. GA interval is 140 ms. Frustration a 70 ms. QT QTc is 468/414 ms. Medical Decision Making - Medical Decision Making 74-year-old female presents today with complaints of nausea, left-sided rib and chest wall pain. Patient was diagnosed with pleural effusion and had a thoracentesis on yesterday. She has evidence of bandage on left chest wall. Sh e does have diminished lung sounds on the left side. This time patient's EKG shows sinus bradycardia no other significant change. She denies any dizziness or lightheadedness. Patient's CBC and CMP and troponin are unremarkable. Chest x-ray shows no significant interval change from previous. She still is evidence pleural effusion. On reevaluation Patient did complain of some left wall pain. She is given 0.5 Dilaudid and states she is much improved as well as Reglan for her nausea. On reevaluation Patient states that she would prefer to be able to go home. I discussed the case with Dr. Cervantes who mention discussing with pulmonology. However Patient is comfortable going home this time I'll discharge her with anti-inflammatory medication for pleurisy as well as a short course of pain medicine. She will have an upcoming appointment with her primary care physician in pulmonology this upcoming week. QUESTIONS were answered. - Lab Data Result diagrams: 01/19/20 09:10 01/19/20 10:20 Lab Results 01/19/20 01/19/20 01/19/20 Range/Units 09:10 09:10 09:10 WBC 14.3 H (3.8-10.6) k/uL RBC 4.71 (3.80-5.40) m/uL Hgb 15.5 (11.4-16.0) gm/dL Hct 46.9 H (34.0-46.0) % MCV 99.6 (80.0-100.0) fL MCH 32.9 (25.0-35.0) pg MCHC 33.0 (31.0-37.0) g/dL RDW 13.9 (11.5-15.5) % Plt Count 344 (150-450) k/uL Neutrophils % 79 % Lymphocytes % 13 % Monocytes % 5 % Eosinophils % 2 % Basophils % 1 % Neutrophils # 11.4 H (1.3-7.7) k/uL Lymphocytes # 1.8 (1.0-4.8) k/uL Monocytes # 0.7 (0-1.0) k/uL Eosinophils # 0.2 (0-0.7) k/uL Basophils # 0.1 (0-0.2) k/uL PT (9.0-12.0) sec INR (<1.2) APTT (22.0-30.0) sec Sodium (137-145) mmol/L Potassium (3.5-5.1) mmol/L Chloride (98-107) mmol/L Carbon Dioxide (22-30) mmol/L Anion Gap mmol/L BUN (7-17) mg/dL Creatinine (0.52-1.04) mg/dL Est GFR (CKD-EPI)AfAm (>60 ml/min/1.73 sqM) Est GFR (CKD-EPI)NonAf (>60 ml/min/1.73 sqM) Glucose (74-99) mg/dL Calcium (8.4-10.2) mg/dL Magnesium 1.8 (1.6-2.3) mg/dL Total Bilirubin (0.2-1.3) mg/dL AST (14-36) U/L ALT (4-34) U/L Alkaline Phosphatase (38-126) U/L Troponin I <0.012 (0.000-0.034) ng/mL NT-Pro-B Natriuret Pep pg/mL Total Protein (6.3-8.2) g/dL Albumin (3.5-5.0) g/dL Lipase 31 (23-300) U/L 01/19/20 01/19/20 01/19/20 Range/Units 09:10 10:05 10:20 WBC (3.8-10.6) k/uL RBC (3.80-5.40) m/uL Hgb (11.4-16.0) gm/dL Hct (34.0-46.0) % MCV (80.0-100.0) fL MCH (25.0-35.0) pg MCHC (31.0-37.0) g/dL RDW (11.5-15.5) % Plt Count (150-450) k/uL Neutrophils % % Lymphocytes % % Monocytes % % Eosinophils % % Basophils % % Neutrophils # (1.3-7.7) k/uL Lymphocytes # (1.0-4.8) k/uL Monocytes # (0-1.0) k/uL Eosinophils # (0-0.7) k/uL Basophils # (0-0.2) k/uL PT 9.4 (9.0-12.0) sec INR 0.9 (<1.2) APTT 25.4 (22.0-30.0) sec Sodium 141 (137-145) mmol/L Potassium 4.2 (3.5-5.1) mmol/L Chloride 104 (98-107) mmol/L Carbon Dioxide 29 (22-30) mmol/L Anion Gap 8 mmol/L BUN 17 (7-17) mg/dL Creatinine 0.69 (0.52-1.04) mg/dL Est GFR (CKD-EPI)AfAm >90 (>60 ml/min/1.73 sqM) Est GFR (CKD-EPI)NonAf 87 (>60 ml/min/1.73 sqM) Glucose 104 H (74-99) mg/dL Calcium 9.8 (8.4-10.2) mg/dL Magnesium (1.6-2.3) mg/dL Total Bilirubin 0.9 (0.2-1.3) mg/dL AST 30 (14-36) U/L ALT 20 (4-34) U/L Alkaline Phosphatase 129 H (38-126) U/L Troponin I (0.000-0.034) ng/mL NT-Pro-B Natriuret Pep 198 pg/mL Total Protein 7.4 (6.3-8.2) g/dL Albumin 4.0 (3.5-5.0) g/dL Lipase (23-300) U/L - Radiology Data Radiology results: report reviewed Chest x-ray shows no significant interval change in the appearance of the chest. Disposition Clinical Impression: Shortness of breath, Pleural effusion Disposition: HOME SELF-CARE Condition: Good Instructions (If sedation given, give patient instructions): Pleurisy (ED) Additional Instructions: Patient is a follow-up with the doctor this week and call the pst supervisor as well. Patient can take the short course of anti-inflammatory pain medication as prescribed. Return to ED if any alarming signs or symptoms occur. He continues with nausea medicine as well. Prescriptions: Ibuprofen [Motrin] 600 mg PO Q6HR PRN #20 tab PRN Reason: Pain Metoclopramide [Reglan] 10 mg PO TID #12 tab Acetaminophen with Codeine [Tylenol w/codeine #3] 1 tab PO Q6H PRN 3 Days #12 tab PRN Reason: Pain Is patient prescribed a controlled substance at d/c from ED?: Yes If prescribed controlled substance>3 days was MAPS reviewed?: Prescribed <3 Days If opioid is for acute pain is fill amount 7 days or less?: Yes If Rx opioid, was Start Talking consent form obtained?: Yes Referrals: Thor Coy MD [Primary Care Provider] - 1-2 days Time of Disposition: 10:50
[2020-01-19 09:23] VITALS: RESP 20
[2020-01-19 09:43] LABS: Basophils # (A) 0.1 k/uL (0-0.2); Basophils % (A) 1 %; Eosinophils # (A) 0.2 k/uL (0-0.7); Eosinophils % (A) 2 %; HCT 46.9 % (34.0-46.0); HGB 15.5 gm/dL (11.4-16.0); Lymphocytes # (A) 1.8 k/uL (1.0-4.8); Lymphocytes % (A) 13 %; MCH 32.9 pg (25.0-35.0); MCV 99.6 fL (80.0-100.0); Mean Platelet Volume 8.4; Monocytes # (A) 0.7 k/uL (0-1.0); Monocytes % (A) 5 %; Neutrophils # (A) 11.4 k/uL (1.3-7.7); Neutrophils % (A) 79 %; Platelet Count 344 k/uL (150-450); RBC 4.71 m/uL (3.80-5.40); RDW 13.9 % (11.5-15.5); WBC 14.3 k/uL (3.8-10.6)
[2020-01-19 09:47] LABS: Magnesium 1.8 mg/dL (1.6-2.3)
--- NOTE | 2020-01-19 09:53 | XR ---
EXAMINATION TYPE: XR chest 2V DATE OF EXAM: 01/19/2020 HISTORY: Chest Pain. REFERENCE: Previous study dated 01/18/2020. FINDINGS: There is a moderate to large left-sided pleural effusion. There is associated disease of th e left lung base. This has not changed appreciably from previous. The right lung is clear. Heart size is obscured. IMPRESSION: NO SIGNIFICANT INTERVAL CHANGE IN APPEARANCE OF THE CHEST.
[2020-01-19] MEDS ORDERED: HYDROmorphone 1 MG/ML 1 ML SYRINGE IVP STA (09:55)
[2020-01-19 10:32] LABS: ALT 20 U/L (4-34); AST 30 U/L (14-36); African American GFR (CKD) >90 (>60 ml/min/1.73 sqM); Alkaline Phosphatase 129 U/L (38-126); Anion Gap 8 mmol/L; Blood Urea Nitrogen 17 mg/dL (7-17); Calcium 9.8 mg/dL (8.4-10.2); Carbon Dioxide 29 mmol/L (22-30); Chloride 104 mmol/L (98-107); Glucose 104 mg/dL (74-99); Non-African American GFR(CKD) 87 (>60 ml/min/1.73 sqM); Potassium 4.2 mmol/L (3.5-5.1); Sodium 141 mmol/L (137-145); Total Bilirubin 0.9 mg/dL (0.2-1.3); Total Protein 7.4 g/dL (6.3-8.2)
[2020-01-19 10:36] LABS: INR 0.9 (<1.2); Partial Thromboplastin Time 25.4 sec (22.0-30.0); Prothrombin Time 9.4 sec (9.0-12.0)
[2020-01-19 11:00] VITALS: BP 160/79; PULSE 60
== END 2020-01-19 11:02 | disposition home or self-care (01) ==
LOC: EC 08:32
DX: J90 Pleural effusion, not elsewhere classified (principal); R11.0 Nausea; J44.9 Chronic obstructive pulmonary disease, unspecified; K21.9 Gastro-esophageal reflux disease without esophagitis; E78.5 Hyperlipidemia, unspecified; I10 Essential (primary) hypertension; F41.9 Anxiety disorder, unspecified; F32.9 Major depressive disorder, single episode, unspecified; F17.200 Nicotine dependence, unspecified, uncomplicated; Z98.890 Other specified postprocedural states; Z79.899 Other long term (current) drug therapy; Z88.0 Allergy status to penicillin; Z88.1 Allergy status to other antibiotic agents; Z88.5 Allergy status to narcotic agent
CPT/HCPCS: 36415; 83880; 80053; 83690; 83735; 84484; 85025; 85610; 85730; 71046; 99285; 96374; 96375; 96361 ×2; J2765; J1170

== ENCOUNTER 2020-01-30 14:52 | Inpatient (IN) | payer MEDICARE ==
[2020-01-30] MEDS ORDERED: SODIUM CHLORIDE 0.9% 1,000 ML IV STA (15:24)
--- NOTE | 2020-01-30 16:01 | ED ---
SOB HPI - General Chief Complaint: Shortness of Breath Stated Complaint: KYRA Time Seen by Provider: 01/30/20 15:13 Source: patient, family, RN notes reviewed Mode of arrival: wheelchair Limitations: no limitations - History of Present Illness Initial Comments: This is a 74-year-old female with a recent history of a left thoracentesis for pleural effusion about 3 weeks ago present with complaints of shortness of breath left-sided chest pain exertional dyspnea and chills and sweats this morning she does have a cough is mostly of clear phlegm she states it feels similar to what she had prior to her thoracentesis. No other complaints other modifying factors. She denies any fever MD Complaint: shortness of breath - Related Data Home Medications Medication Instructions Recorded Confirmed Ascorbic Acid [Vitamin C] 1,000 mg PO DAILY 06/13/19 01/30/20 Cholecalciferol (Vitamin D3) 2,000 unit PO DAILY 06/13/19 01/30/20 [Vitamin D3] Metoprolol Tartrate [Lopressor] 50 mg PO BID 06/13/19 01/30/20 Oxybutynin Chloride 10 mg PO BID 06/13/19 01/30/20 Simvastatin [Zocor] 40 mg PO HS 06/13/19 01/30/20 DULoxetine HCL [Cymbalta] 60 mg PO DAILY 07/17/19 01/30/20 Fluticasone Nasal [place] [Flonase 1 spray EA NOSTRIL BID PRN 01/15/20 01/30/20 Nasal [place]] Omeprazole [PriLOSEC] 20 mg PO DAILY 01/15/20 01/30/20 Previous Rx's Medication Instructions Recorded Ipratropium [place] [Atrovent Hfa] 2 puff INHALATION QID #1 inhaler 01/18/20 Nicotine 21Mg/24Hr Patch [Habitrol] 1 patch TRANSDERM DAILY #14 patch 01/18/20 Allergies Allergy/AdvReac Type Severity Reaction Status Date / Time Penicillins Allergy Rash/Hives Verified 01/30/20 16:21 erythromycin base AdvReac Nausea & Verified 01/30/20 16:21 Vomiting morphine AdvReac Hallucinati Verified 01/30/20 16:21 ons Review of Systems ROS Statement: Those systems with pertinent positive or pertinent negative responses have been documented in the HPI. ROS Other: All systems not noted in ROS Statement are negative. Past Medical History Past Medical History: COPD, GERD/Reflux, Hyperlipidemia, Hypertension, Osteoarthritis (OA) Additional Past Medical History / Comment(s): CHRONIC BACK PAIN, constipation HOSPITALIZED 07/17/19-07/20/19 FOR GI BLEED., STATES SHE WAS TOLD MASS ON HER BLADDER. Fluid on lungs History of Any Multi-Drug Resistant Organisms: None Reported Past Surgical History: Adenoidectomy, Appendectomy, Section, Tonsillectomy Additional Past Surgical History / Comment(s): Uterine surgery Past Anesthesia/Blood Transfusion Reactions: No Reported Reaction, Motion Sickness Additional Past Anesthesia/Blood Transfusion Reaction / Comment(s): blood transfusion during childbirth, no reaction Past Psychological History: Anxiety, Depression Smoking Status: Former smoker Past Alcohol Use History: None Reported Past Drug Use History: Marijuana - Past Family History Mother Family Medical History: Cancer, Liver Disease Additional Family Medical History / Comment(s): Cirrhosis Father Family Medical History: Cancer Additional Family Medical History / Comment(s): cirrhosis Brother(s) Additional Family Medical History / Comment(s): Cirrhosis General Exam - General Exam Comments Initial Comments: This a well-developed asthenic appearing female who is awake alert oriented 3 Limitations: no limitations General appearance: alert, in no apparent distress Head exam: Present: atraumatic, normocephalic, normal inspection Eye exam: Present: normal appearance, PERRL, EOMI. Absent: scleral icterus, conjunctival injection, periorbital swelling ENT exam: Present: normal exam, mucous membranes moist Neck exam: Present: normal inspection. Absent: tenderness, meningismus, lym phadenopathy Respiratory exam: Present: wheezes, decreased breath sounds, other (Markedly dull sounds in the left lung field with some right upper lobe wheezing noted.). Absent: respiratory distress, rales, rhonchi, stridor Cardiovascular Exam: Present: regular rate, normal rhythm, normal heart sounds. Absent: systolic murmur, diastolic murmur, rubs, gallop, clicks GI/Abdominal exam: Present: soft, normal bowel sounds. Absent: distended, tenderness, guarding, rebound, rigid Extremities exam: Present: normal inspection, full ROM, normal capillary refill. Absent: tenderness, pedal edema, joint swelling, calf tenderness Back exam: Present: normal inspection Neurological exam: Present: alert, oriented X3, CN II-XII intact Psychiatric exam: Present: normal affect, normal mood Skin exam: Present: warm, dry, intact, normal color. Absent: rash Course Vital Signs 01/30/20 01/30/20 15:06 15:32 Temperature 98.0 F Pulse Rate 72 Respiratory 16 20 Rate Blood Pressure 134/82 O2 Sat by Pulse 98 Oximetry Medical Decision Making - Medical Decision Making I did discuss findings with patient family as well as with Dr. Christianson. Patient will be admitted with consultation by . - Lab Data Result diagrams: 01/30/20 15:25 Lab Results 01/30/20 01/30/20 01/30/20 Range/Units 15:25 15:25 15:25 WBC 13.1 H (3.8-10.6) k/uL RBC 4.66 (3.80-5.40) m/uL Hgb 14.7 (11.4-16.0) gm/dL Hct 45.9 (34.0-46.0) % MCV 98.5 (80.0-100.0) fL MCH 31.6 (25.0-35.0) pg MCHC 32.1 (31.0-37.0) g/dL RDW 13.5 (11.5-15.5) % Plt Count 359 (150-450) k/uL Neutrophils % 76 % Lymphocytes % 16 % Monocytes % 5 % Eosinophils % 1 % Basophils % 1 % Neutrophils # 9.9 H (1.3-7.7) k/uL Lymphocytes # 2.1 (1.0-4.8) k/uL Monocytes # 0.7 (0-1.0) k/uL Eosinophils # 0.1 (0-0.7) k/uL Basophils # 0.1 (0-0.2) k/uL PT 10.6 (9.0-12.0) sec INR 1.0 (<1.2) APTT 27.1 (22.0-30.0) sec D-Dimer 0.63 H (<0.60) mg/L FEU Plasma Lactic Acid [place] 1.8 (0.7-2.0) mmol/L Troponin I (0.000-0.034) ng/mL NT-Pro-B Natriuret Pep pg/mL 01/30/20 01/30/20 Range/Units 15:25 15:25 WBC (3.8-10.6) k/uL RBC (3.80-5.40) m/uL Hgb (11.4-16.0) gm/dL Hct (34.0-46.0) % MCV (80.0-100.0) fL MCH (25.0-35.0) pg MCHC (31.0-37.0) g/dL RDW (11.5-15.5) % Plt Count (150-450) k/uL Neutrophils % % Lymphocytes % % Monocytes % % Eosinophils % % Basophils % % Neutrophils # (1.3-7.7) k/uL Lymphocytes # (1.0-4.8) k/uL Monocytes # (0-1.0) k/uL Eosinophils # (0-0.7) k/uL Basophils # (0-0.2) k/uL PT (9.0-12.0) sec INR (<1.2) APTT (22.0-30.0) sec D-Dimer (<0.60) mg/L FEU Plasma Lactic Acid [place] (0.7-2.0) mmol/L Troponin I <0.012 (0.000-0.034) ng/mL NT-Pro-B Natriuret Pep 116 pg/mL - EKG Data -: EKG Interpreted by Me EKG shows normal: sinus rhythm (Sinus rhythm of 72. Interval 146 QRS duration 76 daily since QTC 412/451 poor R-wave progression) - Radiology Data Radiology results: report reviewed (I did review the imaging and report there is marked left-sided pleural effusion that has recurred.), image reviewed Disposition Clinical Impression: Recurrent left pleural effusion, COPD (chronic obstructive pulmonary disease) Disposition: ADMITTED IP TO THIS [facility] Condition: Fair Referrals: Thor Coy MD [Primary Care Provider] - 1-2 days
[2020-01-30 16:22] LABS: Basophils # (A) 0.1 k/uL (0-0.2); Basophils % (A) 1 %; Eosinophils # (A) 0.1 k/uL (0-0.7); Eosinophils % (A) 1 %; HCT 45.9 % (34.0-46.0); HGB 14.7 gm/dL (11.4-16.0); Lymphocytes # (A) 2.1 k/uL (1.0-4.8); Lymphocytes % (A) 16 %; MCH 31.6 pg (25.0-35.0); MCHC 32.1 g/dL (31.0-37.0); MCV 98.5 fL (80.0-100.0); Mean Platelet Volume 7.7; Monocytes # (A) 0.7 k/uL (0-1.0); Monocytes % (A) 5 %; Neutrophils # (A) 9.9 k/uL (1.3-7.7); Neutrophils % (A) 76 %; Platelet Count 359 k/uL (150-450); RBC 4.66 m/uL (3.80-5.40); RDW 13.5 % (11.5-15.5); WBC 13.1 k/uL (3.8-10.6)
--- NOTE | 2020-01-30 16:24 | XR ---
EXAMINATION TYPE: XR chest 2V DATE OF EXAM: 01/30/2020 COMPARISON: Prior chest x-ray 01/19/2020 HISTORY: Difficulty breathing TECHNIQUE: Frontal and lateral views of the chest are obtained. FINDINGS: The left-sided effusion has increased in size in the interval. Suspect an underlying pectu s deformity. Thorax. Heart is obscured. Right lung is clear. There are overlying cardiac leads. IMPRESSION: Increasing left pleural effusion.
[2020-01-30 16:56] LABS: Partial Thromboplastin Time 27.1 sec (22.0-30.0); Prothrombin Time 10.6 sec (9.0-12.0)
[2020-01-30 16:57] LABS: D-Dimer 0.63 mg/L FEU (<0.60)
[2020-01-30] MEDS ORDERED: ACETAMINOPHEN TAB 325 MG TAB PO PRN (17:17)
[2020-01-30] MEDS ORDERED: FLUTICASONE 50MCG/SPRAY NASAL 16GM EA NOSTRIL PRN (17:20)
[2020-01-30 17:26] LABS: ALT 22 U/L (4-34); AST 48 U/L (14-36); African American GFR (CKD) >90 (>60 ml/min/1.73 sqM); Alkaline Phosphatase 104 U/L (38-126); Anion Gap 8 mmol/L; Blood Urea Nitrogen 14 mg/dL (7-17); Calcium 9.4 mg/dL (8.4-10.2); Carbon Dioxide 22 mmol/L (22-30); Chloride 105 mmol/L (98-107); Glucose 117 mg/dL (74-99); Non-African American GFR(CKD) 87 (>60 ml/min/1.73 sqM); Sodium 135 mmol/L (137-145); Total Bilirubin 1.1 mg/dL (0.2-1.3); Total Protein 7.7 g/dL (6.3-8.2)
[2020-01-30 17:30] LABS: Potassium 5.6 mmol/L (3.5-5.1)
[2020-01-30] MEDS ORDERED: SODIUM CHLORIDE 0.9% 1,000 ML IV SCH (17:30)
[2020-01-30] MEDS ORDERED: Acetaminophen-Codeine 300-30mg TAB PO STA (17:57)
[2020-01-30] MEDS: IPRATROPIUM 0.5 MG/2.5 ML NEBU INHALATION SCH (20:07)
[2020-01-30] MEDS: METOPROLOL TARTRATE 50 MG TAB PO SCH (21:13)
[2020-01-30] MEDS: ATORVASTATIN 20 MG TAB PO SCH (21:13)
[2020-01-30] MEDS: OXYBUTYNIN CHLORIDE 5 MG TAB PO SCH (21:14)
--- NOTE | 2020-01-31 00:56 | P.HPIM ---
History of Present Illness H&P Date: 01/30/20 Chief Complaint: nicolas Patient is a 74-year-old female with a known history of recent left-sided pleural effusion status post thoracentesis and was discharged on 01/19/20, COPD, p revious history of smoking, hypertension, hyperlipidemia, GERD and osteoarthritis came to the hospital with complaints of shortness of breath, dizziness and pain. Patient was supposed to follow-up with Dr. Cash in the clinic but due to worsening symptoms presented to ER. Denied any complaints of fever or chills. No nausea vomiting or abdominal pain or diarrhea. Patient states that he has been feeling very weak and tiredness. Decreased oral intake and loss of appetite. No headache or dizziness. No dysuria or hematuria. Chest x-ray showed increasing left pleural effusion. Patient had thoracentesis recently. Cytopathology showed results confirm the fluid to be positive for metastatic non-small cell carcinoma, with a staining pattern most consistent with adenocarcinoma of primary pulmonary origin. Laboratory data showed WBC 13.1, hemoglobin 14.7, platelets 359 D-dimer 0.63 Sodium 135, potassium 5.6, hemolyzed specimen BUN 14 creatinine 0.7 AST 48 ALT 22 and alk phos 104 Troponin x1- BNP [address] chest showed large left-sided pleural effusion. There is mediastinal adenopathy and new sclerotic thoracic vertebral body lesions suspicious for metastasis. Scattered areas of groundglass opacity in the right lung typically related to atelectasis although pneumonitis is possible. This is a 74-year-old female with a recent history of a left thoracentesis for p leural effusion about 3 weeks ago present with complaints of shortness of breath left-sided chest pain exertional dyspnea and chills and sweats this morning she does have a cough is mostly of clear phlegm she states it feels similar to what she had prior to her thoracentesis. No other complaints other modifying factors. She denies any fever MD Complaint: shortness of breath Past Medical History Past Medical History: COPD, GERD/Reflux, Hyperlipidemia, Hypertension, Osteoarthritis (OA) Additional Past Medical History / Comment(s): CHRONIC BACK PAIN, constipation HOSPITALIZED 07/17/19-07/20/19 FOR GI BLEED., STATES SHE WAS TOLD MASS ON HER BLADDER. Fluid on lungs History of Any Multi-Drug Resistant Organisms: None Reported Past Surgical History: Adenoidectomy, Appendectomy, Section, Tonsillectomy Additional Past Surgical History / Comment(s): Uterine surgery, thoracentesis Past Anesthesia/Blood Transfusion Reactions: No Reported Reaction, Motion Sickness Additional Past Anesthesia/Blood Transfusion Reaction / Comment(s): blood transfusion during childbirth, no reaction Past Psychological History: Anxiety, Depression Smoking Status: Former smoker Past Alcohol Use History: None Reported Additional Past Alcohol Use History / Comment(s): SMOKES 4 CIGARETTES/DAY. STARTED SMOKING AGE 14. currently not smoking. Past Drug Use History: Marijuana Additional Drug Use History / Comment(s): CURRENT MARIJUANA USE once at night. - Past Family HistoryThe immunostaining History of presenting complaint: This is a 74-year-old patient followed with Dr. Coy. Just before the COVID 19 Pandemic patient was getting construction done in her front yard. Daughter was left-sided. In the evening she had taken her dog about it was rather dark. She fell on the left side. Of the chest. At that time didn't bother her too much. She started having significant pain. Ordered. Pro time. Progressively became more short of breath has a cough no fever no chills. On the ER noted to have a temperature of 100.3. Difficulty finding a take a deep breath. Some wheezing. Patient is not lost any weight. Appetite is good. Admitted with large left pleural effusion. COPD exacerbation. Computed tomography scan not suggestive of hemothorax. Suspicion for metastatic disease. Intervention radiology removed about 560 mL of straw-colored fluid Today-patient feeling much better. Breathing improved. Cytology results are pending. Discussed with Dr. Yocasta Cash he'll follow-up the patient is an outpatient. Discussed with the patient. She is also very keen to go home. Counseled about smoking. Discussion and discharge planning more than 35 minutes . Total collected 500 ml, total retained 500 ml. Image guided left thoracentesis. NKM. Per EMR: Mediastinal adenopathy and sclerotic thoracic vertebral body lesions suspicious for metastasis. Positive smoking history. Questionable bladder mass. Review of Systems Constitutional: Patient denies any fever or chills . Generalized weakness and tiredness and fatigue. Abdomen: Patient denied nausea vomiting and diarrhea and abdominal pain. Cardiovascular: Patient DOES HAVE chest pain short of breath no palpitations. Respiratory: patient denied any cough is from production. +shortness of breath Neurologic: Patient denied any numbness or tingling headache. Musculoskeletal: Patient denies any complaints of joint swelling or deformity. Difficulty in breathing and chest pain and back pain Skin: Negative Psychiatric: Negative Endocrine: No heat or cold intolerance. No recent weight gain. Genitourinary: No dysuria or hematuria. All other 14 point ROS negative except the above Past Medical History Past Medical History: COPD, GERD/Reflux, Hyperlipidemia, Hypertension, Osteoarthritis (OA) Additional Past Medical History / Comment(s): CHRONIC BACK PAIN, constipation HOSPITALIZED 07/17/19-07/20/19 FOR GI BLEED., STATES SHE WAS TOLD MASS ON HER BLADDER. Fluid on lungs History of Any Multi-Drug Resistant Organisms: None Reported Past Surgical History: Adenoidectomy, Appendectomy, Section, Tonsillectomy Additional Past Surgical History / Comment(s): Uterine surgery, thoracentesis Past Anesthesia/Blood Transfusion Reactions: No Reported Reaction, Motion Sickness Additional Past Anesthesia/Blood Transfusion Reaction / Comment(s): blood transfusion during childbirth, no reaction Past Psychological History: Anxiety, Depression Smoking Status: Former smoker Past Alcohol Use History: None Reported Additional Past Alcohol Use History / Comment(s): SMOKES 4 CIGARETTES/DAY. STARTED SMOKING AGE 14. currently not smoking. Past Drug Use History: Marijuana Additional Drug Use History / Comment(s): CURRENT MARIJUANA USE once at night. - Past Family History Mother Family Medical History: Cancer, Liver Disease Additional Family Medical History / Comment(s): Cirrhosis Father Family Medical History: Cancer Additional Family Medical History / Comment(s): cirrhosis Brother(s) Additional Family Medical History / Comment(s): Cirrhosis Medications and Allergies Home Medications Medication Instructions Recorded Confirmed Type Ascorbic Acid [Vitamin C] 1,000 mg PO DAILY 06/13/19 01/30/20 History Cholecalciferol (Vitamin D3) 2,000 unit PO DAILY 06/13/19 01/30/20 History [Vitamin D3] Metoprolol Tartrate [Lopressor] 50 mg PO BID 06/13/19 01/30/20 History Oxybutynin Chloride 10 mg PO BID 06/13/19 01/30/20 History Simvastatin [Zocor] 40 mg PO HS 06/13/19 01/30/20 History DULoxetine HCL [Cymbalta] 60 mg PO DAILY 07/17/19 01/30/20 History Fluticasone Nasal [place] [Flonase 1 spray EA NOSTRIL BID PRN 01/15/20 01/30/20 History Nasal [place]] Omeprazole [PriLOSEC] 20 mg PO DAILY 01/15/20 01/30/20 History Ipratropium [place] [Atrovent Hfa] 2 puff INHALATION QID #1 inhaler 01/18/20 01/30/20 Rx Nicotine 21Mg/24Hr Patch [Habitrol] 1 patch TRANSDERM DAILY #14 patch 01/18/20 01/30/20 Rx Allergies Allergy/AdvReac Type Severity Reaction Status Date / Time Penicillins Allergy Rash/Hives Verified 01/30/20 16:21 erythromycin base AdvReac Nausea & Verified 01/30/20 16:21 Vomiting morphine AdvReac Hallucinati Verified 01/30/20 16:21 ons Physical Exam Vitals: Vital Signs Temp Pulse Pulse Resp BP BP Pulse Ox 01/30/20 20:19 72 01/30/20 20:08 68 01/30/20 19:41 98.0 F 67 14 130/68 95 01/30/20 17:52 68 16 139/82 96 01/30/20 15:32 20 01/30/20 15:06 98.0 F 72 16 134/82 98 Intake and Output 01/30/20 01/30/20 01/31/20 14:59 22:59 06:59 Intake Total 240 Balance 240 Intake: Oral 240 Other: Voiding Method Toilet Weight 55.792 kg PHYSICAL EXAMINATION: Patient is lying in the bed comfortably, no acute distress, awake alert and oriented.. HEENT: Normocephalic. Neck is supple. Pupils reactive. Nostrils clear. Oral cavity is moist. Ears reveal no drainage. Neck reveals no JVD, carotid bruits, or thyromegaly. CHEST EXAMINATION: Trachea is central. Symmetrical expansion.Diminished air entry left basilar end right basilar crackles. No wheezing or rhonchi. . CARDIAC: Normal S1, S2 with no gallops. No murmurs ABDOMEN: Soft. Bowel sounds normal. No organomegaly. No abdominal bruits. Extremities: reveal no edema. No clubbing or cyanosis. Right upper activity swelling about the elbow up to shoulder with tenderness noted on the medial side. Neurologically awake, alert, oriented x3 with well-coordinated movements. No focal deficits noted Skin: No rash or skin lesions. Psychiatric: Coperative. Nonsuicidal Musculoskeletal: No joint swelling or deformity. Normal range of motion. Results CBC & Chem 7: 01/30/20 15:25 01/30/20 16:38 Labs: Abnormal Lab Results - Last 24 Hours (Table) 01/30/20 01/30/20 01/30/20 Range/Units 15:25 15:25 16:38 WBC 13.1 H (3.8-10.6) k/uL Neutrophils # 9.9 H (1.3-7.7) k/uL D-Dimer 0.63 H (<0.60) mg/L FEU Sodium 135 L (137-145) mmol/L Potassium 5.6 H (3.5-5.1) mmol/L Glucose 117 H (74-99) mg/dL AST 48 H (14-36) U/L Thrombosis Risk Factor Assmnt - DVT/VTE Prophylaxis DVT/VTE Prophylaxis: Pharmacologic Prophylaxis ordered - Choose All That Apply Any of the Below Risk Factors Present?: Yes Each Factor Represents 1 point: Abnormal pulmonary function (COPD) Other Risk Factors: Yes Each Risk Factor Represents 2 Points: Age 61-74 years Other congenital or acquired thrombophilia - If yes, enter type in comment: No Thrombosis Risk Factor Assessment Total Risk Factor Score: 3 Thrombosis Risk Factor Assessment Level: Moderate Risk Assessment and Plan Assessment: Shortness of breath secondary to malignant pleural effusion left-sided. Metastatic adenocarcinoma/non-small cell lung carcinoma. With recent left thoracentesis on 01/17/2020 showing malignant cells. Mediastinal adenopathy and thoracic vertebral bony metastatic lesions. Previous history of smoking Questionable history of bladder mass. Hypertension Hyperlipidemia GERD COPD History of GI bleed Anxiety/depression DVT prophylaxis with heparin subcu Daily marijuana use Plan: Patient will be continued on pain management and pulmonary was consulted for possible thoracentesis. Continue with home medications and follow-up closely. Prognosis guarded at this time. Further recommendations based on the clinical course. Time with Patient: Greater than 30
[2020-01-31] MEDS: IPRATROPIUM 0.5 MG/2.5 ML NEBU INHALATION SCH ×2 (07:14→11:02)
[2020-01-31] MEDS: PANTOPRAZOLE 40 MG TABLET PO SCH (07:27)
[2020-01-31] MEDS: HEPARIN SODIUM,PORCINE 5,000 UNIT/ML 1 ML VIAL SQ SCH ×3 (07:27→23:06)
[2020-01-31] MEDS: CHOLECALCIFEROL 1,000 UNIT TAB PO SCH (07:28)
[2020-01-31] MEDS: METOPROLOL TARTRATE 50 MG TAB PO SCH ×2 (07:28→21:54)
[2020-01-31] MEDS: DULoxetine HCL 60 MG CAPSULE.DR PO SCH (07:28)
[2020-01-31] MEDS: ASCORBIC ACID 500 MG TAB PO SCH (07:28)
[2020-01-31] MEDS: OXYBUTYNIN CHLORIDE 5 MG TAB PO SCH ×2 (07:29→21:54)
--- NOTE | 2020-01-31 11:09 | US ---
EXAMINATION TYPE: US chest DATE OF EXAM: 01/31/2020 COMPARISON: Chest x-ray from yesterday. CLINICAL HISTORY: left pleural effusion. TECHNIQUE: Targeted ultrasound of the posterior lower left hemithorax EXAM MEASUREMENTS: Left Pleural Effusion pocket size: 8.3 cm Left skin surface to fluid distance: 2.3 cm Left side marked for possible thoracentesis outside the dept. Pulmonologists are able to review the images in the patient?s EMR. The 5 images saved confirm recurrent large left pleural effusion as suspected on recent x-ray. IMPRESSIONS: As above.
[2020-01-31] MEDS ORDERED: IPRATROPIUM-ALBUTEROL 3 ML NEB INHALATION PRN (11:43)
[2020-01-31] MEDS: Acetaminophen-Codeine 300-30mg TAB PO PRN (13:46)
[2020-01-31 15:08] LABS: Basophils % (A) 0 %; Eosinophils # (A) 0.2 k/uL (0-0.7); Eosinophils % (A) 2 %; HCT 45.6 % (34.0-46.0); HGB 14.9 gm/dL (11.4-16.0); Lymphocytes # (A) 2.2 k/uL (1.0-4.8); Lymphocytes % (A) 22 %; MCH 32.5 pg (25.0-35.0); MCHC 32.7 g/dL (31.0-37.0); MCV 99.3 fL (80.0-100.0); Mean Platelet Volume 7.2; Monocytes # (A) 0.6 k/uL (0-1.0); Monocytes % (A) 6 %; Neutrophils # (A) 6.7 k/uL (1.3-7.7); Neutrophils % (A) 68 %; Platelet Count 380 k/uL (150-450); RDW 13.4 % (11.5-15.5)
[2020-01-31 15:20] LABS: Albumin 3.8 g/dL (3.5-5.0); Calcium 9.5 mg/dL (8.4-10.2); Potassium 4.9 mmol/L (3.5-5.1); Total Bilirubin 0.4 mg/dL (0.2-1.3)
[2020-01-31] MEDS ORDERED: ALPRAZolam 0.5 MG TAB PO PRN (16:41)
--- NOTE | 2020-01-31 17:03 | P.CONS ---
History of Present Illness - Reason for Consult Consult date: 01/31/20 New diagnosis of NSCLCA Requesting physician: Tia Christianson - Chief Complaint SOB pleural effusions Review of Systems A 14 point review of systems assessed and completed and all negative except HPI Past Medical History Past Medical History: COPD, GERD/Reflux, Hyperlipidemia, Hypertension, Osteoarthritis (OA) Additional Past Medical History / Comment(s): CHRONIC BACK PAIN, constipation HOSPITALIZED 07/17/19-07/20/19 FOR GI BLEED., STATES SHE WAS TOLD MASS ON HER BLADDER. Fluid on lungs History of Any Multi-Drug Resistant Organisms: None Reported Past Surgical History: Adenoidectomy, Appendectomy, Section, Tonsillectomy Additional Past Surgical History / Comment(s): Uterine surgery, thoracentesis Past Anesthesia/Blood Transfusion Reactions: No Reported Reaction, Motion Sickness Additional Past Anesthesia/Blood Transfusion Reaction / Comm: blood transfusion during childbirth, no reaction Past Psychological History: Anxiety, Depression Smoking Status: Former smoker Past Alcohol Use History: None Reported Additional Past Alcohol Use History / Comment(s): SMOKES 4 CIGARETTES/DAY. STARTED SMOKING AGE 14. currently not smoking. Past Drug Use History: Marijuana Additional Drug Use History / Comment(s): CURRENT MARIJUANA USE once at night. - Past Family History Mother Family Medical History: Cancer, Liver Disease Additional Family Medical History / Comment(s): Cirrhosis Father Family Medical History: Cancer Additional Family Medical History / Comment(s): cirrhosis Brother(s) Additional Family Medical History / Comment(s): Cirrhosis Medications and Allergies Home Medications Medication Instructions Recorded Confirmed Type Ascorbic Acid [Vitamin C] 1,000 mg PO DAILY 06/13/19 01/30/20 History Cholecalciferol (Vitamin D3) 2,000 unit PO DAILY 06/13/19 01/30/20 History [Vitamin D3] Metoprolol Tartrate [Lopressor] 50 mg PO BID 06/13/19 01/30/20 History Oxybutynin Chloride 10 mg PO BID 06/13/19 01/30/20 History Simvastatin [Zocor] 40 mg PO HS 06/13/19 01/30/20 History DULoxetine [place]CL [Cymbalta] 60 mg PO DAILY 07/17/19 01/30/20 History Fluticasone Nasal [place] [Flonase 1 spray EA NOSTRIL BID PRN 01/15/20 01/30/20 History Nasal [place]] Omeprazole [PriLOSEC] 20 mg PO DAILY 01/15/20 01/30/20 History Ipratropium [place] [Atrovent Hfa] 2 puff INHALATION QID #1 inhaler 01/18/20 01/30/20 Rx Nicotine 21Mg/24Hr Patch [Habitrol] 1 patch TRANSDERM DAILY #14 patch 01/18/20 01/30/20 Rx Acetaminophen-Codeine 300-30mg 1 tab PO Q6H PRN 01/31/20 01/31/20 History [Tylenol w/codeine #3] Allergies Allergy/AdvReac Type Severity Reaction Status Date / Time Penicillins Allergy Rash/Hives Verified 01/30/20 16:21 erythromycin base AdvReac Nausea & Verified 01/30/20 16:21 Vomiting morphine AdvReac Hallucinati Verified 01/30/20 16:21 ons Physical Exam Vitals: Vital Signs Temp Pulse Pulse Resp BP BP Pulse Ox 01/31/20 11:13 66 01/31/20 11:10 97.5 F L 90 20 119/79 97 01/31/20 11:02 66 01/31/20 07:34 62 01/31/20 07:18 62 97 01/31/20 06:02 97.7 F 64 16 133/78 95 01/30/20 20:19 72 01/30/20 20:08 68 01/30/20 19:41 98.0 F 67 14 130/68 95 01/30/20 17:52 68 16 139/82 96 Intake and Output 01/31/20 01/31/20 01/31/20 06:59 14:59 22:59 Other: Voiding Method Toilet # Voids 1 4 - Constitutional General appearance: cooperative, no acute distress, thin - EENT Eyes: EOMI, PERRLA ENT: NA/AT, normal oropharynx - Neck Neck: normal ROM - Respiratory Respiratory: bilateral: diminished, wheezing - Cardiovascular Rhythm: regular Heart sounds: normal: S1, S2 - Gastrointestinal General gastrointestinal: normal bowel sounds, soft - Integumentary Integumentary: pale - Neurologic Neurologic: CNII-XII intact - Musculoskeletal Musculoskeletal: generalized weakness, strength equal bilaterally - Psychiatric Psychiatric: A&O x's 3, appropriate affect, intact judgment & insight Results CBC & Chem 7: 01/31/20 14:55 01/31/20 14:55 Labs: Abnormal Lab Results - Last 24 Hours (Table) 01/30/20 01/30/20 01/31/20 Range/Units 15:25 16:38 14:55 D-Dimer 0.63 H (<0.60) mg/L FEU Sodium 135 L (137-145) mmol/L Potassium 5.6 H (3.5-5.1) mmol/L Glucose 117 H 140 H (74-99) mg/dL AST 48 H (14-36) U/L Comments: path report cytology from pleural effusions CT scan - chest: report reviewed Assessment and Plan (1) Non-small cell cancer of left lung Current Visit: Yes Status: Acute Code(s): C34.92 - MALIGNANT NEOPLASM OF UN SP PART OF LEFT BRONCHUS OR LUNG SNOMED Code(s): 075804035 (2) Recurrent left pleural effusion Current Visit: Yes Status: Acute Code(s): J90 - PLEURAL EFFUSION, NOT ELSEWHERE CLASSIFIED SNOMED Code(s): 47148137 Plan: Assessment and Recommendations: New Diagnosis of Non-Small Cell Lung cancer: Adenocarcinoma - Positive pleural effusion cytology - Send for PDL1 and NGS - Question of metastatic disease to [place] and ?abnormality in bladder - Staging CT abdomen and Pelvis (CT better than pet to assess bladder) Unilateral Weakness: Left sided weakness - MRI Thoracic and Lumbar spine for cord involvement - MRI of brain for full initial staging Anxiety: - Patient is very tearful and concerned about new diagnosis emotional support provided, discussed all orders and testing and plan after completed - Xanax prior to MRIs and PRN Thank you for this consultation we will follow along with you
[2020-01-31] MEDS: IOPAMIDOL CONTRAST (ORAL USE) VIAL PO PRN ×2 (17:10→18:01)
[2020-01-31] MEDS: ALPRAZolam 0.25 MG TAB PO PRN (18:04)
--- NOTE | 2020-01-31 19:29 | CT ---
EXAMINATION TYPE: CT abdomen pelvis w con DATE OF EXAM: 01/31/2020 COMPARISON: 07/17/2019 HISTORY: metastatic disease CT DLP: 394.3 mGycm Automated exposure control for dose reduction was used. CONTRAST: Performed with IV Contrast, patient injected with 100 mL of Isovue 300. There is moderately large left pleural effusion. Extensive pleural fluid is not evaluated on this exa m of the abdomen. Heart size is normal. There is some atelectasis left lower lobe. Entire left lung base appears atelec tatic. The right lung bases clear of consolidation. There is minimal subsegmental atelectasis right l remy base. Stomach appears normal. There is no evidence of pancreatic mass. Liver shows no focal defec t. Bile ducts are not dilated. There is no adrenal mass. Gallbladder appears normal. Kidneys show satisf actory contrast opacification. There is no hydronephrosis. Ureters are not dilated. There is no retro peritoneal adenopathy. There is irregular thickening of the floor of the urinary bladder extending to the right side. This measures up to 1.5 cm in thickness. Delayed images show normal renal excretion. Uterus is anteverted. There is no free fluid in the pelvis. There is no mesenteric edema. There is no ascites or free air. There is no bowel obstruction. Appendi x is not definitely seen. There is no sign of thickened appendix. Lumbar vertebra have fairly normal spacing. There is no compression fracture. There are multiple osteoblastic foci in the lumbar spine a nd bony pelvis. These measure up to 1.5 cm. IMPRESSION: There is a large left pleural effusion that appears new compared to old exam. There is complete atele ctasis left lower lobe. This could relate to metastatic disease. Irregular wall thickening on the posterior aspect of the urinary bladder on the right side increased compared to old exam and suggestive of primary bladder tumor. Extensive osteoblastic changes in the lumbar spine and pelvis consistent with metastatic disease that has significant progression compared to old exam.
[2020-01-31] MEDS: ATORVASTATIN 20 MG TAB PO SCH (21:54)
[2020-02-01 06:55] LABS: Basophils % (A) 1 %; Eosinophils # (A) 0.2 k/uL (0-0.7); Eosinophils % (A) 2 %; HCT 46.1 % (34.0-46.0); HGB 15.3 gm/dL (11.4-16.0); Lymphocytes # (A) 2.3 k/uL (1.0-4.8); Lymphocytes % (A) 27 %; MCH 32.7 pg (25.0-35.0); MCHC 33.2 g/dL (31.0-37.0); MCV 98.4 fL (80.0-100.0); Mean Platelet Volume 7.3; Monocytes # (A) 0.6 k/uL (0-1.0); Monocytes % (A) 7 %; Neutrophils # (A) 5.5 k/uL (1.3-7.7); Neutrophils % (A) 62 %; Platelet Count 352 k/uL (150-450); RBC 4.69 m/uL (3.80-5.40); RDW 13.3 % (11.5-15.5); WBC 8.8 k/uL (3.8-10.6)
[2020-02-01 07:13] LABS: ALT 24 U/L (4-34); AST 35 U/L (14-36); African American GFR (CKD) >90 (>60 ml/min/1.73 sqM); Albumin 3.5 g/dL (3.5-5.0); Alkaline Phosphatase 106 U/L (38-126); Anion Gap 6 mmol/L; Blood Urea Nitrogen 14 mg/dL (7-17); Calcium 9.2 mg/dL (8.4-10.2); Carbon Dioxide 27 mmol/L (22-30); Chloride 105 mmol/L (98-107); Glucose 111 mg/dL (74-99); Non-African American GFR(CKD) 87 (>60 ml/min/1.73 sqM); Potassium 4.2 mmol/L (3.5-5.1); Sodium 138 mmol/L (137-145); Total Bilirubin 0.5 mg/dL (0.2-1.3); Total Protein 6.6 g/dL (6.3-8.2)
[2020-02-01] MEDS: CHOLECALCIFEROL 1,000 UNIT TAB PO SCH (09:47)
[2020-02-01] MEDS: ALPRAZolam 0.25 MG TAB PO PRN (09:47)
[2020-02-01] MEDS: ASCORBIC ACID 500 MG TAB PO SCH (09:47)
[2020-02-01] MEDS: DULoxetine HCL 60 MG CAPSULE.DR PO SCH (09:47)
[2020-02-01] MEDS: HEPARIN SODIUM,PORCINE 5,000 UNIT/ML 1 ML VIAL SQ SCH ×2 (09:47→17:42)
[2020-02-01] MEDS: PANTOPRAZOLE 40 MG TABLET PO SCH (09:47)
[2020-02-01] MEDS: METOPROLOL TARTRATE 50 MG TAB PO SCH ×2 (09:47→21:01)
[2020-02-01] MEDS: OXYBUTYNIN CHLORIDE 5 MG TAB PO SCH ×2 (09:48→21:02)
[2020-02-01] MEDS: Acetaminophen-Codeine 300-30mg TAB PO PRN ×2 (09:50→21:23)
--- NOTE | 2020-02-01 10:57 | P.CNPUL ---
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 with malignant pleural effusion she was discharged to follow with oncology service however due to recurrent on progressive shortness of breath came into the hospital found to have a fairly moderate size left-sided pleural effusion with recurrence has been admitted into the hospital with oncology on consult currently she is getting workup for metastatic disease, shortness of breath on exertion is present patient is being scheduled for thoracentesis for palliative reason with further plans of chemotherapy as per oncology Review of Systems All systems: negative Past Medical History Past Medical History: COPD, GERD/Reflux, Hyperlipidemia, Hypertension, Osteoarthritis (OA) Additional Past Medical History / Comment(s): CHRONIC BACK PAIN, constipation HOSPITALIZED 07/17/19-07/20/19 FOR GI BLEED., STATES SHE WAS TOLD MASS ON HER BLADDER. Fluid on lungs History of Any Multi-Drug Resistant Organisms: None Reported Past Surgical History: Adenoidectomy, Appendectomy, Section, Tonsillect walter Additional Past Surgical History / Comment(s): Uterine surgery, thoracentesis Past Anesthesia/Blood Transfusion Reactions: No Reported Reaction, Motion Sickness Additional Past Anesthesia/Blood Transfusion Reaction / Comment(s): blood transfusion during childbirth, no reaction Past Psychological History: Anxiety, Depression Smoking Status: Former smoker Past Alcohol Use History: None Reported Additional Past Alcohol Use History / Comment(s): SMOKES 4 CIGARETTES/DAY. STARTED SMOKING AGE 14. currently not smoking. Past Drug Use History: Marijuana Additional Drug Use History / Comment(s): CURRENT MARIJUANA USE once at night. - Past Family History Mother Family Medical History: Cancer, Liver Disease Additional Family Medical History / Comment(s): Cirrhosis Father Family Medical History: Cancer Additional Family Medical History / Comment(s): cirrhosis Brother(s) Additional Family Medical History / Comment(s): Cirrhosis Medications and Allergies Home Medications Medication Instructions Recorded Confirmed Type Ascorbic Acid [Vitamin C] 1,000 mg PO DAILY 06/13/19 01/30/20 History Cholecalciferol (Vitamin D3) 2,000 unit PO DAILY 06/13/19 01/30/20 History [Vitamin D3] Metoprolol Tartrate [Lopressor] 50 mg PO BID 06/13/19 01/30/20 History Oxybutynin Chloride 10 mg PO BID 06/13/19 01/30/20 History Simvastatin [Zocor] 40 mg PO HS 06/13/19 01/30/20 History DULoxetine HCL [Cymbalta] 60 mg PO DAILY 07/17/19 01/30/20 History Fluticasone Nasal [place] [Flonase 1 spray EA NOSTRIL BID PRN 01/15/20 01/30/20 History Nasal [place]] Omeprazole [PriLOSEC] 20 mg PO DAILY 01/15/20 01/30/20 History Ipratropium [place] [Atrovent Hfa] 2 puff INHALATION QID #1 inhaler 01/18/20 01/30/20 Rx Nicotine 21Mg/24Hr Patch [Habitrol] 1 patch TRANSDERM DAILY #14 patch 01/18/20 01/30/20 Rx Acetaminophen-Codeine 300-30mg 1 tab PO Q6H PRN 01/31/20 01/31/20 History [Tylenol w/codeine #3] Allergies Allergy/AdvReac Type Severity Reaction Status Date / Time Penicillins Allergy Rash/Hives Verified 01/30/20 16:21 erythromycin base AdvReac Nausea & Verified 01/30/20 16:21 Vomiting morphine AdvReac Hallucinati Verified 01/30/20 16:21 ons Physical Exam Vitals: Vital Signs Temp Pulse Pulse Resp BP BP Pulse Ox 02/01/20 06:12 97.7 F 65 16 129/75 94 L 01/31/20 20:34 97.5 F L 63 16 137/76 95 01/31/20 11:13 66 01/31/20 11:10 97.5 F L 90 20 119/79 97 01/31/20 11:02 66 Intake and Output 01/31/20 02/01/20 02/01/20 22:59 06:59 14:59 Intake Total 240 Balance 240 Intake: Oral 240 Other: Voiding Method Toilet # Voids 1 1 - Constitutional General appearance: average body habitus, cooperative, disheveled, mild distress - EENT Eyes: EOMI, PERRLA ENT: normal oropharynx Ears: bilateral: normal - Neck Carotids: bilateral: upstroke normal Thyroid: bilateral: normal size - Respiratory Respiratory: left: diminished, dullness, bilateral: rales, negative: rhonchi, wheezing, prolonged expiration - Cardiovascular Rhythm: regular Heart sounds: normal: S1, S2 - Gastrointestinal General gastrointestinal: decreased bowel sounds - Integumentary Integumentary: normal turgor - Neurologic Neurologic: CNII-XII intact - Musculoskeletal Musculoskeletal: gait normal, generalized weakness, strength equal bilaterally - Psychiatric Psychiatric: A&O x's 3, appropriate affect, intact judgment & insight Results - Laboratory Findings CBC and BMP: 02/01/20 06:40 02/01/20 06:40 PT/INR, D-dimer PT 10.6 sec (9.0-12.0) 01/30/20 15:25 INR 1.0 (<1.2) 01/30/20 15:25 D-Dimer 0.63 mg/L FEU (<0.60) H 01/30/20 15:25 Abnormal lab findings: Abnormal Labs 01/30/20 01/30/20 01/30/20 15:25 15:25 16:38 WBC 13.1 H Hct Neutrophils # 9.9 H D-Dimer 0.63 H Sodium 135 L Potassium 5.6 H Glucose 117 H AST 48 H 01/31/20 02/01/20 02/01/20 14:55 06:40 06:40 WBC Hct 46.1 H Neutrophils # D-Dimer Sodium Potassium Glucose 140 H 111 H AST - Diagnostic Findings Chest x-ray: report reviewed, image reviewed CT scan - chest: report reviewed, image reviewed (Ultrasound of the chest reviewed with left-sided moderate pleural effusion) Assessment and Plan Assessment: Left-sided malignant pleural effusion with recurrence Stage IV adenocarcinoma of the lung Progressive shortness of breath related to that Metastatic disease suggestive of mediastinal lymphadenopathy and thoracic vertebral metastatic disease Additional bladder mass primary versus secondary Dyslipidemia Hypertension hypertensive cardiovascular disease Plan: Continue provide supportive care Recommendation from oncology services reviewed Proceed with left-sided thoracentesis procedure complication alternating side effects have been explained Time with Patient: Greater than 30
--- NOTE | 2020-02-01 13:43 | P.PN ---
Subjective Progress Note Date: 02/01/20 Principal diagnosis: New Lung Cancer Diagnsis Staging CT scan abdomen and pelvis reveals bladder wall thickening, which appears new. Unknown if related to a secondary primary bladder ca. Will ask Urology to evaluate. Patient and at bedside. Patient is having increased SOB and appears increased pleaural effusion left side. HEr MRI Spine revealed vertebral areas of metastatic disease although no cord involvement. Nuclear medicine confirmed this as well as areas of sacrum. If there is potentially two primary cancers the metastatic disease to the bone would require biopsy to confirm which source. Greater than 30 minutes spent with patient and today. MRI of the brain negative for metastatic disease. Objective - Vital Signs Vital signs: Vital Signs Temp 97.7 F 02/01/20 06:12 Pulse 65 02/01/20 06:12 Resp 16 02/01/20 06:12 BP 129/75 02/01/20 06:12 Pulse Ox 94 L 02/01/20 06:12 Intake & Output 01/31/20 02/01/20 02/01/20 18:59 06:59 18:59 Intake Total 240 Balance 240 Intake: Oral 240 Other: Voiding Method Toilet # Voids 4 1 - Exam - Constitutional General appearance: cooperative, no acute distress, thin - EENT Eyes: EOMI, PERRLA ENT: NA/AT, normal oropharynx - Neck Neck: normal ROM - Respiratory Respiratory: bilateral: diminished, wheezing Left side diminished - Cardiovascular Rhythm: regular Heart sounds: normal: S1, S2 - Gastrointestinal General gastrointestinal: normal bowel sounds, soft - Integumentary Integumentary: pale - Neurologic Neurologic: CNII-XII intact - Musculoskeletal Musculoskeletal: generalized weakness, strength equal bilaterally - Psychiatric Psychiatric: A&O x's 3, appropriate affect, intact judgment & insight - Labs CBC & Chem 7: 02/01/20 06:40 02/01/20 06:40 Labs: Abnormal Lab Results - Last 24 Hours (Table) 01/31/20 02/01/20 02/01/20 Range/Units 14:55 06:40 06:40 Hct 46.1 H (34.0-46.0) % Glucose 140 H 111 H (74-99) mg/dL Assessment and Plan (1) Non-small cell cancer of left lung Current Visit: Yes Status: Acute Code(s): C34.92 - MALIGNANT NEOPLASM OF UNSP PART OF LEFT BRONCHUS OR LUNG SNOMED Code(s): 636680162 (2) Recurrent left pleural effusion Current Visit: Yes Status: Acute Code(s): J90 - PLEURAL EFFUSION, NOT ELSEWHERE CLASSIFIED SNOMED Code(s): 23603724 Plan: Assessment and Recommendations: New Diagnosis of Non-Small Cell Lung cancer: Adenocarcinoma likely histology - Non-Small Cell per path - Positive pleural effusion cytology - Send for PDL1 and NGS Abnormality to Bladder: - Question of metastatic disease to Vertebrae and ?abnormality in bladder - Urology to evaluate if potential secondary primary cancer in bladder - CT abdomen and pelvis no evidence of metastatic to liver or adrenal glands mentions. Re=presentation of metastatic areas in vertebra. Awaiting bone scan. If potential two primary cancers May need biopsy of metastatic bone to assess for accurate staging. Unilateral Weakness: Left sided weakness - MRI Thoracic and Lumbar spine revealed vertebral lesions, negative for cord involvement. If these areas result in pain or decreased quality of life, will ask radiation oncology to evaluate for palliative radiation. - MRI of brain negative for metastatic disease Anxiety: - Patient is very tearful and concerned about new diagnosis emotional support provided, discussed all orders and testing and plan after completed - Xanax prior to MRIs and PRN Plan: - Pleurocentesis soon - Await plan from urology if further evaluation is needed via cystoscopy - Send tissue NGS and PDL1
--- NOTE | 2020-02-01 15:34 | MR ---
EXAMINATION TYPE: MR brain wo/w con DATE OF EXAM: 02/01/2020 COMPARISON: None HISTORY: Staging New metastatic cancer, Metastatic disease with unilateral left side weakness CONTRAST: Performed utilizing 5.5 mL intravenous Gadavist gadolinium contrast. TECHNIQUE: Multiplanar, multiecho imaging on a 3.0 Georgie magnet is performed through the brain. Stud y is performed within 24 hours of arrival to the hospital. The craniovertebral junction is normal. The pituitary is normal. Diffusion-weighted imaging is performed. No abnormal hyperintensity is present to suggest an acute i ntracranial infarct or acute ischemic change. There are scattered subcortical white matter changes within the bilateral centrum semiovale. This is slightly greater than expected for the patient age. Findings however are nonspecific. Microvascular i schemic changes favored within the differential. These areas do not enhance. No additional areas susp icious for enhancement is evident. Motion artifact on the post contrast imaging limits this evaluatio n somewhat. Ventricles and sulci are appropriate for the patient age. IMPRESSIONS: 1. Findings suggestive for punctate subcortical chronic appearing microvascular ischemic change.
--- NOTE | 2020-02-01 15:47 | P.PCN ---
Date of Procedure: 02/01/20 Preoperative Diagnosis: Left recurrent pleural effusion with shortness of breath Postoperative Diagnosis: Left recurrent pleural effusion with shortness of breath due to metastatic lung cancer adenocarcinoma Procedure(s) Performed: Left thoracentesis Anesthesia: local Surgeon: Frankie Cash Estimated Blood Loss (ml): 0 Condition: stable Disposition: floor Indications for Procedure: Shortness of breath, recurrent left malignant pleural effusion Operative Findings: As below Description of Procedure: Patient prepared and draped in a usual fashion under aseptic technique, procedure along with the risk complication and alternative and side effect has been explained to the patient and , ultrasound was utilized to isaac the maximum depth of the fluid, 1% lidocaine was infiltrated into seventh intercostal space at medial to mid scapular line on the left side, gauge 24 needle is placed above the margin of the rib and pleural cavity was entered pale yellow fluid was aspirated followed by stab incision of about 1/8 of a centimeter diameter and catheter in needle was placed needle was withdrawn catheter left in position, 1.4 L of julian color pale fluid is aspirated patient tolerated the procedure well no complication noted, chest x-rays pending, fluid sent for culture cytology and chemistry
--- NOTE | 2020-02-01 15:47 | XR ---
EXAMINATION TYPE: XR chest 1V DATE OF EXAM: 02/01/2020 COMPARISON: 01/30/2020 INDICATION: Postthoracentesis TECHNIQUE: Single frontal view of the chest is obtained. FINDINGS: The heart size is normal. The pulmonary vasculature is normal. There is left lower lobe infiltrate. Left pleural effusion is present. This is diminished from the co mparison. No pneumothorax is evident. IMPRESSION: 1. No pneumothorax postthoracentesis. 2. Left lower lobe infiltrate adjacent to the diminished pleural effusion
--- NOTE | 2020-02-01 16:03 | MR ---
EXAMINATION TYPE: MR tspine/lspine wo/w con DATE OF EXAM: 02/01/2020 COMPARISON: None HISTORY: Metastatic disease with unilateral left side weakness CONTRAST: Performed utilizing 5.5 mL intravenous Gadavist gadolinium contrast. TECHNIQUE: Multiplanar, multiecho imaging on a 3.0 Georgie magnet is performed through the thoracic spi ne. Spinal cord maintains normal signal through its visualized course. Vertebral body alignment is normal. Vertebral body heights are preserved. Disc heights are preserved. Diffuse disc desiccation is present. There are scattered hypointense areas within the vertebral bodies suspicious for small metastatic les ions. No spinal canal stenosis is evident. Incidental note is made of a moderate left pleural effusion. There is mild peripheral enhancement of the suspected metastatic lesions IMPRESSIONS: 1. No spinal canal stenosis evident. 2. Scattered metastatic lesions through the thoracic vertebral bodies. No collapse is evident. 3. Moderate left pleural effusion EXAMINATION TYPE: MR tspine/lspine wo/w con DATE OF EXAM: 02/01/2020 COMPARISON: None HISTORY: Metastatic disease with unilateral left side weakness CONTRAST: 5.5 mL intravenous Gadavist. TECHNIQUE: Multiplanar, multisequence images of the lumbar spine were acquired. FINDINGS: Cord terminates at the L1 level. Multiple scattered hypointense lesions are within the lumbar spine. There is some peripheral enhancem ent on postcontrast imaging. Findings are suspicious for metastatic disease. Disc heights are preserved. Disc desiccation is present through the mid lumbar spine. No spinal canal stenosis is present. Some mild facet degenerative changes present. Neural foramen are patent. Some mild disc bulge is present L4-5 with mild anterior thecal sac flattening. Ligamentum flavum laxi ty is posterior lateral thecal sac compression at the L4-5 level. Note is made of mild facet hypertro phy L3-4. IMPRESSION: 1. Scattered small metastatic lesions through the lumbar spine. 2. Disc bulge without spinal canal stenosis L4-5. Note is made of some ligamentum flavum laxity at th is level as well.
--- NOTE | 2020-02-01 17:52 | NM ---
EXAMINATION TYPE: NM bone scan whole body DATE OF EXAM: 02/01/2020 COMPARISON: Correlation MRI 02/01/2020 HISTORY: 74-year-old female metastatic disease with unilateral weakness. History of lung cancer. TECHNIQUE: Delayed whole-body scanning was performed following the injection of 21.8 mCi Tc 99m MDP. Images acquired 7.5 hours post injection. FINDINGS: Abnormal intense foci of increased activity involving approximately 3 right-sided lower third thoraci c vertebra and also on the left at T12. Foci on the left within the posterior upper cervical spine an d also along the posterior upper sacrum. Possible degenerative tracer activity cervical spine. IMPRESSION: Findings compatible with osseous metastatic disease mid to lower thoracic spine and also the posterio r mid sacrum.
--- NOTE | 2020-02-01 18:25 | P.GSCN ---
History of Present Illness Consult date: 02/01/20 Reason for Consult: [place] Requesting physician: Tia Christianson History of present illness: The patient is a 74-year-old white female with a known history of recent left- sided pleural effusion, status post thoracentesis on 01/17/2020. 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 She has a history of COPD, previous hypertension, hyperlipidemia, GERD and osteoarthritis. She is now admitted with shortness of breath, dizziness and pain. A computed tomography scan of the abdomen and pelvis shows irregularity of the right posterior bladder wall. I am consulted for this reason. She states that she has had one kidney stone in the past. She has been treated for recurrent UTIs. Review of Systems - Constitutional Reports weakness, Denies chills, Denies fever - Respiratory Reports dyspnea - Gastrointestinal Denies nausea, Denies vomiting - Genitourinary Genitourinary: Denies dysuria, Denies hematuria Past Medical History Past Medical History: COPD, GERD/Reflux, Hyperlipidemia, Hypertension, Osteoarthritis (OA) Additional Past Medical History / Comment(s): CHRONIC BACK PAIN, constipation HOSPITALIZED 07/17/19-07/20/19 FOR GI BLEED., STATES SHE WAS TOLD MASS ON HER BLADDER. Fluid on lungs History of Any Multi-Drug Resistant Organisms: None Reported Past Surgical History: Adenoidectomy, Appendectomy, Section, Tonsillectomy Additional Past Surgical History / Comment(s): Uterine surgery, thoracentesis Past Anesthesia/Blood Transfusion Reactions: No Reported Reaction, Motion Sickness Additional Past Anesthesia/Blood Transfusion Reaction / Comm: blood transfusion during childbirth, no reaction Past Psychological History: Anxiety, Depression Smoking Status: Former smoker Past Alcohol Use History: None Reported Additional Past Alcohol Use History / Comment(s): SMOKES 4 CIGARETTES/DAY. STARTED SMOKING AGE 14. currently not smoking. Past Drug Use History: Marijuana Additional Drug Use History / Comment(s): CURRENT MARIJUANA USE once at night. - Past Family History Mother Family Medical History: Cancer, Liver Disease Additional Family Medical History / Comment(s): Cirrhosis Father Family Medical History: Cancer Additional Family Medical History / Comment(s): cirrhosis Brother(s) Additional Family Medical History / Comment(s): Cirrhosis Medications and Allergies Home Medications Medication Instructions Recorded Confirmed Type Ascorbic Acid [Vitamin C] 1,000 mg PO DAILY 06/13/19 01/30/20 History Cholecalciferol (Vitamin D3) 2,000 unit PO DAILY 06/13/19 01/30/20 History [Vitamin D3] Metoprolol Tartrate [Lopressor] 50 mg PO BID 06/13/19 01/30/20 History Oxybutynin Chloride 10 mg PO BID 06/13/19 01/30/20 History Simvastatin [Zocor] 40 mg PO HS 06/13/19 01/30/20 History DULoxetine HCL [Cymbalta] 60 mg PO DAILY 07/17/19 01/30/20 History Fluticasone Nasal [place] [Flonase 1 spray EA NOSTRIL BID PRN 01/15/20 01/30/20 History Nasal [place]] Omeprazole [PriLOSEC] 20 mg PO DAILY 01/15/20 01/30/20 History Ipratropium [place] [Atrovent Hfa] 2 puff INHALATION QID #1 inhaler 01/18/20 0 01/30/20 Rx Nicotine 21Mg/24Hr Patch [Habitrol] 1 patch TRANSDERM DAILY #14 patch 01/18/20 01/30/20 Rx Acetaminophen-Codeine 300-30mg 1 tab PO Q6H PRN 01/31/20 01/31/20 History [Tylenol w/codeine #3] Allergies Allergy/AdvReac Type Severity Reaction Status Date / Time Penicillins Allergy Rash/Hives Verified 01/30/20 16:21 erythromycin base AdvReac Nausea & Verified 01/30/20 16:21 Vomiting morphine AdvReac Hallucinati Verified 01/30/20 16:21 ons Surgical - Exam Vital Signs Temp Pulse Resp BP Pulse Ox 98.0 F 72 16 134/82 98 01/30/20 15:06 01/30/20 15:06 01/30/20 15:06 01/30/20 15:06 01/30/20 15:06 - General well developed, well nourished, no distress - Respiratory normal respiratory effort - Abdomen Abdomen: soft, non tender, no guarding, no rigid, no rebound - Psychiatric oriented to time, oriented to person, oriented to place, speech is normal, memory intact Results - Labs 02/01/20 06:40 02/01/20 06:40 Abnormal Lab Results - Last 24 Hours (Table) 02/01/20 02/01/20 Range/Units 06:40 06:40 Hct 46.1 H (34.0-46.0) % Glucose 111 H (74-99) mg/dL Diabetes panel 02/01/20 Range/Units 06:40 Sodium 138 (137-145) mmol/L Potassium 4.2 (3.5-5.1) mmol/L Chloride 105 (98-107) mmol/L Carbon Dioxide 27 (22-30) mmol/L BUN 14 (7-17) mg/dL Creatinine 0.69 (0.52-1.04) mg/dL Glucose 111 H (74-99) mg/dL Calcium 9.2 (8.4-10.2) mg/dL AST 35 (14-36) U/L ALT 24 (4-34) U/L Alkaline Phosphatase 106 (38-126) U/L Total Protein 6.6 (6.3-8.2) g/dL Albumin 3.5 (3.5-5.0) g/dL Calcium panel 02/01/20 Range/Units 06:40 Calcium 9.2 (8.4-10.2) mg/dL Albumin 3.5 (3.5-5.0) g/dL Pituitary panel 02/01/20 Range/Units 06:40 Sodium 138 (137-145) mmol/L Potassium 4.2 (3.5-5.1) mmol/L Chloride 105 (98-107) mmol/L Carbon Dioxide 27 (22-30) mmol/L BUN 14 (7-17) mg/dL Creatinine 0.69 (0.52-1.04) mg/dL Glucose 111 H (74-99) mg/dL Calcium 9.2 (8.4-10.2) mg/dL Adrenal panel 02/01/20 Range/Units 06:40 Sodium 138 (137-145) mmol/L Potassium 4.2 (3.5-5.1) mmol/L Chloride 105 (98-107) mmol/L Carbon Dioxide 27 (22-30) mmol/L BUN 14 (7-17) mg/dL Creatinine 0.69 (0.52-1.04) mg/dL Glucose 111 H (74-99) mg/dL Calcium 9.2 (8.4-10.2) mg/dL Total Bilirubin 0.5 (0.2-1.3) mg/dL AST 35 (14-36) U/L ALT 24 (4-34) U/L Alkaline Phosphatase 106 (38-126) U/L Total Protein 6.6 (6.3-8.2) g/dL Albumin 3.5 (3.5-5.0) g/dL - Imaging CT scan - pelvis: report reviewed, image reviewed Assessment and Plan (1) Bladder mass Current Visit: No Status: Acute Code(s): N32.89 - OTHER SPECIFIED DISORDERS OF BLADDER SNOMED Code(s): 447716986 Plan: I had a lengthy discussion with the patient. I explained to her that the computed tomography scan appears to show a bladder lesion, though this could be a false positive finding. I explained that this may represent urothelial carcinoma of the bladder, and the fact that she is at increased risk of this given that she is a lifetime smoker. I have offered to perform office cystoscopy to evaluate this. I explained that if the presence of a tumor is confirmed, she will be advised to undergo transurethral resection of the bladder tumor. She prefers to undergo cystoscopy under anesthesia, with resection of the bladder tumor if she was confirmed to have one. She understands that this approach could result in her receiving an unnecessary anesthetic, if she is found to have a tumor. Potential surgical risks were reviewed, which include anesthesia, bleeding, infection, and bladder perforation. I will attempt to schedule the procedure to be performed next week. It is not necessary from my standpoint that she remain hospitalized. Please notify me if I can be of any further assistance during this hospitalization. Time with Patient: Greater than 30
[2020-02-01] MEDS: ATORVASTATIN 20 MG TAB PO SCH (21:01)
[2020-02-01 21:13] LABS: Appearance,BF Clear; Color,BF Yellow; Nucleated Cells, Body Fluid 450 /uL; RBC, Body Fluid 450 /uL
[2020-02-01 21:25] LABS: Mononuclear WBC,Body Fluid 96 %; Polynuclear WBC,Body Fluid 4 %; Total Cells Counted,Body Fluid 100
[2020-02-02] MEDS: HEPARIN SODIUM,PORCINE 5,000 UNIT/ML 1 ML VIAL SQ SCH ×3 (00:05→17:16)
[2020-02-02 01:44] LABS: Glucose, BF Source Pleural Fluid; Glucose, Body Fluid 112 mg/dL; LDH, Body Fluid Source Pleural Fluid
[2020-02-02] MEDS: METOPROLOL TARTRATE 50 MG TAB PO SCH ×2 (10:39→20:22)
[2020-02-02] MEDS: PANTOPRAZOLE 40 MG TABLET PO SCH (10:39)
[2020-02-02] MEDS: ASCORBIC ACID 500 MG TAB PO SCH (10:40)
[2020-02-02] MEDS: CHOLECALCIFEROL 1,000 UNIT TAB PO SCH (10:40)
[2020-02-02] MEDS: ALPRAZolam 0.25 MG TAB PO SCH ×2 (10:40→20:22)
[2020-02-02] MEDS: DULoxetine HCL 60 MG CAPSULE.DR PO SCH (10:40)
[2020-02-02] MEDS: OXYBUTYNIN CHLORIDE 5 MG TAB PO SCH ×2 (10:41→20:23)
[2020-02-02] MEDS: Acetaminophen-Codeine 300-30mg TAB PO PRN (10:45)
--- NOTE | 2020-02-02 11:28 | P.PN ---
Subjective Progress Note Date: 02/02/20 Principal diagnosis: Left-sided malignant pleural effusion with recurrence Stage IV adenocarcinoma of the lung Progressive shortness of breath related to that Metastatic disease suggestive of mediastinal lymphadenopathy and thoracic vertebral metastatic disease Additional bladder mass primary versus secondary Dyslipidemia Hypertension hypertensive cardiovascular disease 02/02/2020, patient seen eval examined during the rounds labs reviewed medications reviewed care plan discussed, shortness of breath significantly improved after removal of 1.4 L of fluid, cough congestion has improved, patient is on 1 L nasal cannula, patient is undergoing workup for bladder cancer metastatic disease, chest x-ray postprocedure reviewed in spite of removing 1.4 L no significant changes x-ray seen, likely related to elevated hemidiaphragm on the left side as well as basal atelectasis This is a 74-year-old female with long-standing history of smoking and nicotine use patient has been recently diagnosed as is stage IV adenocarcinoma likely of the lung with malignant pleural effusion she was discharged to follow with oncology service however due to recurrent on progressive shortness of breath came into the hospital found to have a fairly moderate size left-sided pleural effusion with recurrence has been admitted into the hospital with oncology on consult currently she is getting workup for metastatic disease, shortness of breath on exertion is present patient is being scheduled for thoracentesis for palliative reason with further plans of chemotherapy as per oncology Objective - Vital Signs Vital signs: Vital Signs Temp 97.7 F 02/02/20 05:08 Pulse 62 02/02/20 08:00 Resp 16 02/02/20 08:00 BP 110/69 02/02/20 05:08 Pulse Ox 95 02/02/20 06:20 Intake & Output 02/01/20 02/02/20 02/02/20 18:59 06:59 18:59 Intake Total 480 Balance 480 Intake: Oral 480 Other: Voiding Method Toilet Toilet Toilet # Voids 4 1 - Exam - Constitutional General appearance: average body habitus, cooperative, disheveled, mild distress - EENT Eyes: EOMI, PERRLA ENT: normal oropharynx Ears: bilateral: normal - Neck Carotids: bilateral: upstroke normal Thyroid: bilateral: normal size - Respiratory Respiratory: left: diminished, dullness, bilateral: rales, negative: rhonchi, wheezing, prolonged expiration - Cardiovascular Rhythm: regular Heart sounds: normal: S1, S2 - Gastrointestinal General gastrointestinal: decreased bowel sounds - Integumentary Integumentary: normal turgor - Neurologic Neurologic: CNII-XII intact - Musculoskeletal Musculoskeletal: gait normal, generalized weakness, strength equal bilaterally - Psychiatric Psychiatric: A&O x's 3, appropriate affect, intact judgment & insight - Labs CBC & Chem 7: 02/01/20 06:40 02/01/20 06:40 Labs: Microbiology - Last 24 Hours (Table) 02/01/20 14:15 Gram Stain - Preliminary Pleural Fluid Body Fluid Culture - Preliminary 02/01/20 14:15 Fungal Culture - Preliminary Pleural Fluid 02/01/20 14:15 Acid Fast Bacilli Culture - Preliminary Pleural Fluid Assessment and Plan Assessment: Left-sided malignant pleural effusion with recurrence Stage IV adenocarcinoma of the lung Elevated left hemidiaphragm along with left sided subsegmental atelectasis Progressive shortness of breath related to that Metastatic disease suggestive of mediastinal lymphadenopathy and thoracic vertebral metastatic disease Additional bladder mass primary versus secondary Dyslipidemia Hypertension hypertensive cardiovascular disease Plan: Continue provide supportive care Recommendation from oncology services reviewed Status post left-sided thoracentesis Deep breathing exercises incentive spirometry Time with Patient: Greater than 30
[2020-02-02] MEDS: ATORVASTATIN 20 MG TAB PO SCH (20:22)
[2020-02-03] MEDS: HEPARIN SODIUM,PORCINE 5,000 UNIT/ML 1 ML VIAL SQ SCH ×4 (00:10→23:04)
--- NOTE | 2020-02-03 00:18 | P.PN ---
Subjective Progress Note Date: 01/31/20 Principal diagnosis: Shortness of breath secondary to malignant pleural effusion left-sided. Adenocarcinoma the lung/non-small cell lung cancer Patient is a 74-year-old female with a known history of recent left-sided pleural effusion status post thoracentesis and was discharged on 01/19/20, COPD, previous history of smoking, hypertension, hyperlipidemia, GERD and osteoarthritis came to the hospital with complaints of shortness of breath, dizziness and pain. Patient was supposed to follow-up with Dr. Cash in the clinic but due to worsening symptoms presented to ER. Denied any complaints of fever or chills. No nausea vomiting or abdominal pain or diarrhea. Patient states that he has been feeling very weak and tiredness. Decreased oral intake and loss of appetite. No headache or dizziness. No dysuria or hematuria. Chest x-ray showed increasing left pleural effusion. Patient had thoracentesis recently. Cytopathology showed results confirm the fluid to be positive for metastatic non-small cell carcinoma, with a staining pattern most consistent with adenocarcinoma of primary pulmonary origin. Laboratory data showed WBC 13.1, hemoglobin 14.7, platelets 359 D-dimer 0.63 Sodium 135, potassium 5.6, hemolyzed specimen BUN 14 creatinine 0.7 AST 48 ALT 22 and alk phos 104 Troponin x1- BNP [address] chest showed large left-sided pleural effusion. There is mediastinal adenopathy and new sclerotic thoracic vertebral body lesions suspicious for metastasis. Scattered areas of groundglass opacity in the right lung typically related to atelectasis although pneumonitis is possible. 01/31/2020 Patient is still having shortness of breath. Oncology and pulmonary was consulted. Planning for thoracentesis. No complaints of fever or chills. No complaints of chest pain. Saturating well on room air. Discussed with the patient and her at bedside in detail. Current medications reviewed. Objective - Vital Signs Vital signs: Vital Signs Temp 97.5 F L 01/31/20 11:10 Pulse 66 01/31/20 11:13 Resp 20 01/31/20 11:10 BP 119/79 01/31/20 11:10 Pulse Ox 97 01/31/20 11:10 Intake & Output 01/30/20 01/31/20 01/31/20 18:59 06:59 18:59 Intake Total 240 Balance 240 Weight 55.792 kg 55.792 kg Intake: Oral 240 Other: Voiding Method Toilet # Voids 1 4 - Exam PHYSICAL EXAMINATION: Patient is lying in the bed comfortably, no acute distress, awake alert and oriented.. HEENT: Normocephalic. Neck is supple. Pupils reactive. Nostrils clear. Oral cavity is moist. Ears reveal no drainage. Neck reveals no JVD, carotid bruits, or thyromegaly. CHEST EXAMINATION: Trachea is central. Symmetrical expansion.Diminished air entry left basilar end right basilar crackles. No wheezing or rhonchi. . CARDIAC: Normal S1, S2 with no gallops. No murmurs ABDOMEN: Soft. Bowel sounds normal. No organomegaly. No abdominal bruits. Extremities: reveal no edema. No clubbing or cyanosis. Right upper activity swelling about the elbow up to shoulder with tenderness noted on the medial side. Neurologically awake, alert, oriented x3 with well-coordinated movements. No focal deficits noted Skin: No rash or skin lesions. Psychiatric: Coperative. Nonsuicidal Musculoskeletal: No joint swelling or deformity. Normal range of motion. - Labs CBC & Chem 7: 02/01/20 06:40 02/01/20 06:40 Labs: Abnormal Lab Results - Last 24 Hours (Table) 01/30/20 01/30/20 01/30/20 Range/Units 15:25 15:25 16:38 WBC 13.1 H (3.8-10.6) k/uL Neutrophils # 9.9 H (1.3-7.7) k/uL D-Dimer 0.63 H (<0.60) mg/L FEU Sodium 135 L (137-145) mmol/L Potassium 5.6 H (3.5-5.1) mmol/L Glucose 117 H (74-99) mg/dL AST 48 H (14-36) U/L Assessment and Plan Assessment: Shortness of breath secondary to malignant pleural effusion left-sided. Metastatic adenocarcinoma/non-small cell lung carcinoma. With recent left thoracentesis on 01/17/2020 showing malignant cells. Mediastinal adenopathy and thoracic vertebral bony metastatic lesions. Previous history of smoking Questionable history of bladder mass. Hypertension Hyperlipidemia GERD COPD History of GI bleed Anxiety/depression DVT prophylaxis with heparin subcu Daily marijuana use Plan: Patient will be continued on pain management and pulmonary was consulted for thoracentesis. Oncology was consulted. Continue with home medications and follow-up closely. Prognosis guarded at this time. Further recommendations based on the clinical course. Time with Patient: Greater than 30
--- NOTE | 2020-02-03 00:23 | P.PN ---
Subjective Progress Note Date: 02/01/20 Principal diagnosis: Shortness of breath secondary to malignant pleural effusion left-sided. Adenocarcinoma the lung/non-small cell lung cancer Patient is a 74-year-old female with a known history of recent left-sided pleural effusion status post thoracentesis and was discharged on 01/19/20, COPD, previous history of smoking, hypertension, hyperlipidemia, GERD and osteoarthritis came to the hospital with complaints of shortness of breath, dizziness and pain. Patient was supposed to follow-up with Dr. Cash in the clinic but due to worsening symptoms presented to ER. Denied any complaints of fever or chills. No nausea vomiting or abdominal pain or diarrhea. Patient states that he has been feeling very weak and tiredness. Decreased oral intake and loss of appetite. No headache or dizziness. No dysuria or hematuria. Chest x-ray showed increasing left pleural effusion. Patient had thoracentesis recently. Cytopathology showed results confirm the fluid to be positive for metastatic non-small cell carcinoma, with a staining pattern most consistent with adenocarcinoma of primary pulmonary origin. Laboratory data showed WBC 13.1, hemoglobin 14.7, platelets 359 D-dimer 0.63 Sodium 135, potassium 5.6, hemolyzed specimen BUN 14 creatinine 0.7 AST 48 ALT 22 and alk phos 104 Troponin x1- BNP [address] chest showed large left-sided pleural effusion. There is mediastinal adenopathy and new sclerotic thoracic vertebral body lesions suspicious for metastasis. Scattered areas of groundglass opacity in the right lung typically related to atelectasis although pneumonitis is possible. 01/31/2020 Patient is still having shortness of breath. Oncology and pulmonary was consulted. Planning for thoracentesis. No complaints of fever or chills. No complaints of chest pain. Saturating well on room air. Discussed with the patient and her at bedside in detail. 02/01/2020 Patient denied any complaints of chest pain or worsening shortness of breath. No nausea vomiting or abdominal pain or diarrhea. Patient was seen with pulmonary and patient underwent left thoracentesis with 1.4 L duration fluid removal. Patient was also seen by urology due to bladder mass and possibility of urothelial cancer was suspected. Patient was recommended to follow-up in his office for cystoscopy and biopsy and transurethral bladder mass resection if needed. Laboratory data reviewed. Current medications reviewed. Objective - Vital Signs Vital signs: Vital Signs Temp 97.9 F 06/19/20 21:28 Pulse 63 02/01/20 21:28 Resp 16 02/01/20 21:28 BP 101/57 02/01/20 21:28 Pulse Ox 96 02/01/20 21:28 Intake & Output 02/01/20 02/01/20 02/02/20 06:59 18:59 06:59 Intake Total 480 Balance 480 Intake: Oral 480 Other: Voiding Method Toilet Toilet # Voids 1 4 - Exam PHYSICAL EXAMINATION: Patient is lying in the bed comfortably, no acute distress, awake alert and oriented.. HEENT: Normocephalic. Neck is supple. Pupils reactive. Nostrils clear. Oral cavity is moist. Ears reveal no drainage. Neck reveals no JVD, carotid bruits, or thyromegaly. CHEST EXAMINATION: Trachea is central. Symmetrical expansion, basilar crackles. No wheezing or rhonchi. . CARDIAC: Normal S1, S2 with no gallops. No murmurs ABDOMEN: Soft. Bowel sounds normal. No organomegaly. No abdominal bruits. Extremities: reveal no edema. No clubbing or cyanosis. Right upper activity swelling about the elbow up to shoulder with tenderness noted on the medial side. Neurologically awake, alert, oriented x3 with well-coordinated movements. No focal deficits noted Skin: No rash or skin lesions. Psychiatric: Coperative. Nonsuicidal Musculoskeletal: No joint swelling or deformity. Normal range of motion. - Labs CBC & Chem 7: 02/01/20 06:40 02/01/20 06:40 Labs: Abnormal Lab Results - Last 24 Hours (Table) 02/01/20 02/01/20 Range/Units 06:40 06:40 Hct 46.1 H (34.0-46.0) % Glucose 111 H (74-99) mg/dL Assessment and Plan Assessment: Shortness of breath secondary to malignant pleural effusion left-sided.Status post left thoracentesis on 02/01/2020 Metastatic adenocarcinoma/non-small cell lung carcinoma. With recent left thoracentesis on 01/17/2020 showing malignant cells. Mediastinal adenopathy and thoracic vertebral bony metastatic lesions. Previous history of smoking Questionable history of bladder mass. Hypertension Hyperlipidemia GERD COPD History of GI bleed Anxiety/depression DVT prophylaxis with heparin subcu Daily marijuana use Plan: Patient will be continued on pain management and pulmonary was consulted for thoracentesis. Status post paracentesis. Follow-up fluid cytology and cell count differential and culture. Oncology is on board. Continue with home medications and follow-up closely. Prognosis guarded at this time. Further recommendations based on the clinical course. Time with Patient: Greater than 30
[2020-02-03] MEDS: ALPRAZolam 0.25 MG TAB PO SCH ×2 (11:25→20:06)
[2020-02-03] MEDS: ASCORBIC ACID 500 MG TAB PO SCH (11:25)
[2020-02-03] MEDS: CHOLECALCIFEROL 1,000 UNIT TAB PO SCH (11:26)
[2020-02-03] MEDS: DULoxetine HCL 60 MG CAPSULE.DR PO SCH (11:26)
[2020-02-03] MEDS: PANTOPRAZOLE 40 MG TABLET PO SCH (11:26)
[2020-02-03] MEDS: METOPROLOL TARTRATE 50 MG TAB PO SCH ×2 (11:26→20:06)
[2020-02-03] MEDS: OXYBUTYNIN CHLORIDE 5 MG TAB PO SCH ×2 (11:29→20:06)
[2020-02-03] MEDS ORDERED: MORPHINE SULFATE 2 MG/ML SYRINGE IVP STA (12:59)
[2020-02-03] MEDS ORDERED: ONDANSETRON 4 MG/2 ML VIAL IVP STA (13:03)
[2020-02-03] MEDS: HYDROmorphone 0.5 MG/0.5 ML SYRINGE IVP PRN (13:20)
[2020-02-03] MEDS: ATORVASTATIN 20 MG TAB PO SCH (20:06)
[2020-02-03] MEDS: Acetaminophen-Codeine 300-30mg TAB PO PRN (20:09)
--- NOTE | 2020-02-03 23:44 | P.PN ---
Subjective Progress Note Date: 02/02/20 Principal diagnosis: Shortness of breath secondary to malignant pleural effusion left-sided. Adenocarcinoma the lung/non-small cell lung cancer Patient is a 74-year-old female with a known history of recent left-sided pleural effusion status post thoracentesis and was discharged on 01/19/20, COPD, previous history of smoking, hypertension, hyperlipidemia, GERD and osteoarthritis came to the hospital with complaints of shortness of breath, dizziness and pain. Patient was supposed to follow-up with Dr. Cash in the clinic but due to worsening symptoms presented to ER. Denied any complaints of fever or chills. No nausea vomiting or abdominal pain or diarrhea. Patient states that he has been feeling very weak and tiredness. Decreased oral intake and loss of appetite. No headache or dizziness. No dysuria or hematuria. Chest x-ray showed increasing left pleural effusion. Patient had thoracentesis recently. Cytopathology showed results confirm the fluid to be positive for metastatic non-small cell carcinoma, with a staining pattern most consistent with adenocarcinoma of primary pulmonary origin. Laboratory data showed WBC 13.1, hemoglobin 14.7, platelets 359 D-dimer 0.63 Sodium 135, potassium 5.6, hemolyzed specimen BUN 14 creatinine 0.7 AST 48 ALT 22 and alk phos 104 Troponin x1- BNP [address] chest showed large left-sided pleural effusion. There is mediastinal adenopathy and new sclerotic thoracic vertebral body lesions suspicious for metastasis. Scattered areas of groundglass opacity in the right lung typically related to atelectasis although pneumonitis is possible. 01/31/2020 Patient is still having shortness of breath. Oncology and pulmonary was consulted. Planning for thoracentesis. No complaints of fever or chills. No complaints of chest pain. Saturating well on room air. Discussed with the patient and her at bedside in detail. 02/01/2020 Patient denied any complaints of chest pain or worsening shortness of breath. No nausea vomiting or abdominal pain or diarrhea. Patient was seen with pulmonary and patient underwent left thoracentesis with 1.4 L duration fluid removal. Patient was also seen by urology due to bladder mass and possibility of urothelial cancer was suspected. Patient was recommended to follow-up in his office for cystoscopy and biopsy and transurethral bladder mass resection if needed. Laboratory data reviewed. 02/02/2020 Patient is status post 1.4 L fluid removal on the left side of the lung. Currently breathing status is better. Oxygen at 4 L via nasal cannula. Chest x-ray showed no significant changes. Likely related to elevated hemidiaph ragm on the left side as well as basal atelectasis. Oncology is following. Patient had thoracic/lumbar spine MRI and bone scan. Findings compatible with osseous metastatic disease mid to lower thoracic spine and also the posterior mid sacrum. Current medications reviewed. Objective - Vital Signs Vital signs: Vital Signs Temp 97.9 F 02/02/20 11:46 Pulse 63 02/02/20 16:00 Resp 16 02/02/20 16:00 BP 109/69 02/02/20 11:46 Pulse Ox 95 02/02/20 11:46 Intake & Output 02/02/20 02/02/20 02/03/20 06:59 18:59 06:59 Intake Total 240 Balance 240 Intake: Oral 240 Other: Voiding Method Toilet Toilet # Voids 1 3 - Exam PHYSICAL EXAMINATION: Patient is lying in the bed comfortably, no acute distress, awake alert and oriented.. HEENT: Normocephalic. Neck is supple. Pupils reactive. Nostrils clear. Oral cavity is moist. Ears reveal no drainage. Neck reveals no JVD, carotid bruits, or thyromegaly. CHEST EXAMINATION: Trachea is central. Symmetrical expansion, rt basilar crackles. No wheezing or rhonchi. . CARDIAC: Normal S1, S2 with no gallops. No murmurs ABDOMEN: Soft. Bowel sounds normal. No organomegaly. No abdominal bruits. Extremities: reveal no edema. No clubbing or cyanosis. Right upper activity swelling about the elbow up to shoulder with tenderness noted on the medial side. Neurologically awake, alert, oriented x3 with well-coordinated movements. No focal deficits noted Skin: No rash or skin lesions. Psychiatric: Coperative. Nonsuicidal Musculoskeletal: No joint swelling or deformity. Normal range of motion. - Labs CBC & Chem 7: 02/01/20 06:40 02/01/20 06:40 Labs: Microbiology - Last 24 Hours (Table) 02/01/20 14:15 Gram Stain - Preliminary Pleural Fluid Body Fluid Culture - Preliminary 02/01/20 14:15 Fungal Culture - Preliminary Pleural Fluid 02/01/20 14:15 Acid Fast Bacilli Culture - Preliminary Pleural Fluid Assessment and Plan Assessment: Shortness of breath secondary to malignant pleural effusion left-sided.Status post left thoracentesis on 02/01/2020 Metastatic adenocarcinoma/non-small cell lung carcinoma. With recent left thoracentesis on 01/17/2020 showing malignant cells. Mediastinal adenopathy and thoracic vertebral bony metastatic lesions. Previous history of smoking Questionable history of bladder mass. Hypertension Hyperlipidemia GERD COPD History of GI bleed Anxiety/depression DVT prophylaxis with heparin subcu Daily marijuana use Plan: Patient will be continued on pain management and pulmonary was consulted for thoracentesis. Status post paracentesis. Follow-up fluid cytology and cell count differential and culture. Oncology is on board. Continue with home medications and follow-up closely. Prognosis guarded at this time. Further recommendations based on the clinical course. Time with Patient: Greater than 30
--- NOTE | 2020-02-03 23:53 | P.PN ---
Subjective Progress Note Date: 02/03/20 Principal diagnosis: Shortness of breath secondary to malignant pleural effusion left-sided. Adenocarcinoma the lung/non-small cell lung cancer Patient is a 74-year-old female with a known history of recent left-sided pleural effusion status post thoracentesis and was discharged on 01/19/20, COPD, previous history of smoking, hypertension, hyperlipidemia, GERD and osteoarthritis came to the hospital with complaints of shortness of breath, dizziness and pain. Patient was supposed to follow-up with Dr. Cash in the clinic but due to worsening symptoms presented to ER. Denied any complaints of fever or chills. No nausea vomiting or abdominal pain or diarrhea. Patient states that he has been feeling very weak and tiredness. Decreased oral intake and loss of appetite. No headache or dizziness. No dysuria or hematuria. Chest x-ray showed increasing left pleural effusion. Patient had thoracentesis recently. Cytopathology showed results confirm the fluid to be positive for metastatic non-small cell carcinoma, with a staining pattern most consistent with adenocarcinoma of primary pulmonary origin. Laboratory data showed WBC 13.1, hemoglobin 14.7, platelets 359 D-dimer 0.63 Sodium 135, potassium 5.6, hemolyzed specimen BUN 14 creatinine 0.7 AST 48 ALT 22 and alk phos 104 Troponin x1- BNP [address] chest showed large left-sided pleural effusion. There is mediastinal adenopathy and new sclerotic thoracic vertebral body lesions suspicious for metastasis. Scattered areas of groundglass opacity in the right lung typically related to atelectasis although pneumonitis is possible. 01/31/2020 Patient is still having shortness of breath. Oncology and pulmonary was consulted. Planning for thoracentesis. No complaints of fever or chills. No complaints of chest pain. Saturating well on room air. Discussed with the patient and her at bedside in detail. 02/01/2020 Patient denied any complaints of chest pain or worsening shortness of breath. No nausea vomiting or abdominal pain or diarrhea. Patient was seen with pulmonary and patient underwent left thoracentesis with 1.4 L duration fluid removal. Patient was also seen by urology due to bladder mass and possibility of urothelial cancer was suspected. Patient was recommended to follow-up in his office for cystoscopy and biopsy and transurethral bladder mass resection if needed. Laboratory data reviewed. 02/02/2020 Patient is status post 1.4 L fluid removal on the left side of the lung. Currently breathing status is better. Oxygen at 4 L via nasal cannula. Chest x-ray showed no significant changes. Likely related to elevated hemidiaph ragm on the left side as well as basal atelectasis. Oncology is following. Patient had thoracic/lumbar spine MRI and bone scan. Findings compatible with osseous metastatic disease mid to lower thoracic spine and also the posterior mid sacrum. 02/03/2020 Patient is currently lying in the bed comfortably. Currently on oxygen at 1 L via nasal cannula. Patient did complain of left-sided chest pain this morning and was given IV pain medication which seemed to improve her pain. Troponin x1- . Otherwise likely related to lung malignancy. Patient has been afebrile. Pulmonary and oncology on board. Anticipate discharge in the next 24 hours with final oncology recommendations. Current medications reviewed. Objective - Vital Signs Vital signs: Vital Signs Temp 98.2 F 02/03/20 19:22 Pulse 68 02/03/20 19:22 Resp 16 02/03/20 19:22 BP 114/65 02/03/20 19:22 Pulse Ox 95 02/03/20 19:22 Intake & Output 02/03/20 02/03/20 02/04/20 06:59 18:59 06:59 Intake Total 240 Balance 240 Intake: Oral 240 Other: Voiding Method Toilet Toilet Toilet # Voids 1 1 2 - Exam PHYSICAL EXAMINATION: Patient is lying in the bed comfortably, no acute distress, awake alert and oriented.. HEENT: Normocephalic. Neck is supple. Pupils reactive. Nostrils clear. Oral cavity is moist. Ears reveal no drainage. Neck reveals no JVD, carotid bruits, or thyromegaly. CHEST EXAMINATION: Trachea is central. Symmetrical expansion, rt basilar crackles. No wheezing or rhonchi. . CARDIAC: Normal S1, S2 with no gallops. No murmurs ABDOMEN: Soft. Bowel sounds normal. No organomegaly. No abdominal bruits. Extremities: reveal no edema. No clubbing or cyanosis. Right upper activity swelling about the elbow up to shoulder with tenderness noted on the medial side. Neurologically awake, alert, oriented x3 with well-coordinated movements. No focal deficits noted Skin: No rash or skin lesions. Psychiatric: Coperative. Nonsuicidal Musculoskeletal: No joint swelling or deformity. Normal range of motion. - Labs CBC & Chem 7: 02/01/20 06:40 02/01/20 06:40 Labs: Microbiology - Last 24 Hours (Table) 02/01/20 14:15 Gram Stain - Preliminary Pleural Fluid Body Fluid Culture - Preliminary Assessment and Plan Assessment: Shortness of breath secondary to malignant pleural effusion left-sided.Status post left thoracentesis on 02/01/2020 Metastatic adenocarcinoma/non-small cell lung carcinoma. With recent left thoracentesis on 01/17/2020 showing malignant cells. Mediastinal adenopathy and thoracic vertebral bony metastatic lesions. Previous history of smoking Questionable history of bladder mass. Hypertension Hyperlipidemia GERD COPD History of GI bleed Anxiety/depression DVT prophylaxis with heparin subcu Daily marijuana use Plan: Patient will be continued on pain management and pulmonary was consulted for thoracentesis. Status post paracentesis. Follow-up fluid cytology and cell count differential and culture. Oncology is on board. Continue with home medications and follow-up closely. Prognosis guarded at this time. Further recommendations based on the clinical course. Time with Patient: Greater than 30
[2020-02-04 07:31] LABS: Basophils # (A) 0.1 k/uL (0-0.2); Basophils % (A) 1 %; Eosinophils # (A) 0.1 k/uL (0-0.7); Eosinophils % (A) 1 %; HCT 48.8 % (34.0-46.0); HGB 16.2 gm/dL (11.4-16.0); Lymphocytes # (A) 2.3 k/uL (1.0-4.8); Lymphocytes % (A) 21 %; MCH 32.9 pg (25.0-35.0); MCHC 33.1 g/dL (31.0-37.0); MCV 99.2 fL (80.0-100.0); Monocytes # (A) 0.8 k/uL (0-1.0); Monocytes % (A) 7 %; Neutrophils # (A) 7.4 k/uL (1.3-7.7); Neutrophils % (A) 68 %; Platelet Count 349 k/uL (150-450); RBC 4.92 m/uL (3.80-5.40); RDW 13.1 % (11.5-15.5); WBC 10.9 k/uL (3.8-10.6)
[2020-02-04 07:33] LABS: African American GFR (CKD) >90 (>60 ml/min/1.73 sqM); Anion Gap 8 mmol/L; Blood Urea Nitrogen 18 mg/dL (7-17); Calcium 9.2 mg/dL (8.4-10.2); Carbon Dioxide 25 mmol/L (22-30); Chloride 103 mmol/L (98-107); Glucose 110 mg/dL (74-99); Non-African American GFR(CKD) 79 (>60 ml/min/1.73 sqM); Potassium 4.1 mmol/L (3.5-5.1); Sodium 136 mmol/L (137-145)
--- NOTE | 2020-02-04 08:14 | P.PN ---
Subjective From records: Patient is a 74-year-old female with a known history of recent left-sided pleural effusion status post thoracentesis and was discharged on 01/19/20, COPD, previous history of smoking, hypertension, hyperlipidemia, GERD and osteoarthritis came to the hospital with complaints of shortness of breath, dizziness and pain. Patient was supposed to follow-up with Dr. Cash in the clinic but due to worsening symptoms presented to ER. Denied any complaints of fever or chills. No nausea vomiting or abdominal pain or diarrhea. Patient states that he has been feeling very weak and tiredness. Decreased oral intake and loss of appetite. No headache or dizziness. No dysuria or hematuria. Chest x-ray showed increasing left pleural effusion. Patient had thoracentesis recently. Cytopathology showed results confirm the fluid to be positive for metastatic non-small cell carcinoma, with a staining pattern most consistent with adenocarcinoma of primary pulmonary origin. Laboratory data showed WBC 13.1, hemoglobin 14.7, platelets 359 D-dimer 0.63 Sodium 135, potassium 5.6, hemolyzed specimen BUN 14 creatinine 0.7 AST 48 ALT 22 and alk phos 104 Troponin x1- BNP [address] chest showed large left-sided pleural effusion. There is mediastinal adenopathy and new sclerotic thoracic vertebral body lesions suspicious for metastasis. Scattered areas of groundglass opacity in the right lung typically related to atelectasis although pneumonitis is possible. 01/31/2020 Patient is still having shortness of breath. Oncology and pulmonary was consulted. Planning for thoracentesis. No complaints of fever or chills. No complaints of chest pain. Saturating well on room air. Discussed with the patient and her at bedside in detail. 02/01/2020 Patient denied any complaints of chest pain or worsening shortness of breath. No nausea vomiting or abdominal pain or diarrhea. Patient was seen with pulclement smith and patient underwent left thoracentesis with 1.4 L duration fluid removal. Patient was also seen by urology due to bladder mass and possibility of urothelial cancer was suspected. Patient was recommended to follow-up in his office for cystoscopy and biopsy and transurethral bladder mass resection if needed. Laboratory data reviewed. 02/02/2020 Patient is status post 1.4 L fluid removal on the left side of the lung. Currently breathing status is better. Oxygen at 4 L via nasal cannula. Chest x-ray showed no significant changes. Likely related to elevated hemidiaphragm on the left side as well as basal atelectasis. Oncology is following. Patient had thoracic/lumbar spine MRI and bone scan. Findings compatible with osseous metastatic disease mid to lower thoracic spine and also the posterior mid sacrum. 02/03/2020 Patient is currently lying in the bed comfortably. Currently on oxygen at 1 L via nasal cannula. Patient did complain of left-sided chest pain this morning and was given IV pain medication which seemed to improve her pain. Troponin x1- . Otherwise likely related to lung malignancy. Patient has been afebrile. Pulmonary and oncology on board. Anticipate discharge in the next 24 hours with final oncology recommendations. 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 She found to have left malignant pleural effusion status post thoracocentesis. This morning she feels better with no dyspnea at bed, no chest pain or coughing. She has recent brain MRI which was negative for metastases. Abdominal CT showed possible bladder mass, patient is aware about it with a recommendation for follow-up as an outpatient with urologist and she agrees to call and make appointment upon discharge. Patient is found closely by pulmonology, and oncology as well Objective - Vital Signs Vital signs: Vital Signs Temp 97.9 F 02/04/20 06:08 Pulse 62 02/04/20 06:08 Resp 16 02/04/20 06:08 BP 130/79 02/04/20 06:08 Pulse Ox 93 L 02/04/20 06:08 Intake & Output 02/03/20 02/04/20 02/04/20 18:59 06:59 18:59 Intake Total 240 Balance 240 Intake: Oral 240 Other: Voiding Method Toilet Toilet # Voids 1 3 - Exam GENERAL: The patient is alert and oriented x3, not in any acute distress. Well developed, well nourished. HEENT: Pupils are round and equally reacting to light. EOMI. No scleral icterus. No conjunctival pallor. Normocephalic, atraumatic. No pharyngeal erythema. No thyromegaly. CARDIOVASCULAR: S1 and S2 present. No murmurs, rubs, or gallops. PULMONARY: Chest is clear to auscultation, no wheezing or crackles. ABDOMEN: Soft, nontender, nondistended, normoactive bowel sounds. No palpable organomegaly. MUSCULOSKELETAL: No joint swelling or deformity. EXTREMITIES: No cyanosis, clubbing, or pedal edema. NEUROLOGICAL: Gross neurological examination did not reveal any focal deficits. SKIN: No rashes. no petechiae. - Labs CBC & Chem 7: 02/04/20 06:51 02/04/20 06:51 Labs: Abnormal Lab Results - Last 24 Hours (Table) 02/04/20 02/04/20 Range/Units 06:51 06:51 WBC 10.9 H (3.8-10.6) k/uL Hgb 16.2 H (11.4-16.0) gm/dL Hct 48.8 H (34.0-46.0) % Sodium 136 L (137-145) mmol/L BUN 18 H (7-17) mg/dL Glucose 110 H (74-99) mg/dL Microbiology - Last 24 Hours (Table) 02/01/20 14:15 Gram Stain - Preliminary Pleural Fluid Body Fluid Culture - Preliminary Assessment and Plan Assessment: Shortness of breath secondary to malignant pleural effusion left-sided.Status post left thoracentesis on 02/01/2020 Metastatic adenocarcinoma/non-small cell lung carcinoma. With recent left thoracentesis on 01/17/2020 showing malignant cells. Mediastinal adenopathy and thoracic vertebral bony metastatic lesions. Previous history of smoking Questionable history of bladder mass. Hypertension Hyperlipidemia GERD COPD History of GI bleed Anxiety/depression DVT prophylaxis with heparin subcu Plan: This is a pleasant 74 years old female status post thoracocentesis for left malignant pleural effusion. Patient is followed closely by pulmonary and oncology service. Also patient supposed to follow up with urologist for urinary bladder mass, patient were of these problems and she is willing to call and make her appointments. Continue with the same management for now and keep monitoring the patient closely.
[2020-02-04] MEDS: ALPRAZolam 0.25 MG TAB PO SCH ×2 (08:35→20:11)
[2020-02-04] MEDS: CHOLECALCIFEROL 1,000 UNIT TAB PO SCH (08:36)
[2020-02-04] MEDS: PANTOPRAZOLE 40 MG TABLET PO SCH (08:36)
[2020-02-04] MEDS: ASCORBIC ACID 500 MG TAB PO SCH (08:36)
[2020-02-04] MEDS: METOPROLOL TARTRATE 50 MG TAB PO SCH ×2 (08:36→20:11)
[2020-02-04] MEDS: DULoxetine HCL 60 MG CAPSULE.DR PO SCH (08:36)
[2020-02-04] MEDS: HEPARIN SODIUM,PORCINE 5,000 UNIT/ML 1 ML VIAL SQ SCH ×2 (08:37→16:41)
[2020-02-04] MEDS: OXYBUTYNIN CHLORIDE 5 MG TAB PO SCH ×2 (08:37→20:11)
[2020-02-04 13:32] LABS: Bacteria,Urine Occasional /hpf; Hyaline Casts,Urine 5 /lpf (0-2); Mucus,Urine Occasional /hpf; RBC,Urine 4 /hpf (0-5); Squamous Epithelial Cell,Urine <1 /hpf (0-4); WBC,Urine 14 /hpf (0-5)
[2020-02-04 13:33] LABS: Appearance,Urine Slightly Cloudy (Clear); Bilirubin,Urine Negative (Negative); Blood,Urine Negative (Negative); Color,Urine Yellow; Glucose,Urine (UA) Negative (Negative); Ketones,Urine Negative (Negative); Leukocyte Esterase,Urine Negative (Negative); Nitrite,Urine Negative (Negative); Protein,Urine Negative (Negative); Specific Gravity,Urine 1.005 (1.001-1.035); Urobilinogen,Urine <2.0 mg/dL (<2.0)
--- NOTE | 2020-02-04 13:51 | P.PN ---
Progress Note - Text Progress Note Date: 02/04/20 Patient recently underwent a CT scan of the chest, revealing a large left-sided pleural effusion. There is mediastinal adenopathy and new sclerotic thoracic vertebral body lesions suspicious for metastasis. Regarding her bladder lesion, she is scheduled to undergo cystoscopy tomorrow. If indeed she is confirmed to have a bladder tumor, transurethral resection will be performed. I discussed this today with the patient and her . They are aware of potential risks, which include anesthesia, bleeding, infection, and bladder perforation. From my standpoint, she could likely be discharged home postoperatively.
--- NOTE | 2020-02-04 15:31 | P.PN ---
Subjective Progress Note Date: 02/04/20 Principal diagnosis: Left-sided malignant pleural effusion with recurrence Stage IV adenocarcinoma of the lung Progressive shortness of breath related to that Metastatic disease suggestive of mediastinal lymphadenopathy and thoracic vertebral metastatic disease Additional bladder mass primary versus secondary Dyslipidemia Hypertension hypertensive cardiovascular disease 02/04/2020, patient seen eval examined during the rounds labs reviewed medications reviewed shortness of breath has been stable denies any chest pain, patient is scheduled for cystoscopy and resection of tumor likely for tomorrow urology is following, hemodynamic status have been stable, 02/02/2020, patient seen eval examined during the rounds labs reviewed medications reviewed care plan discussed, shortness of breath significantly improved after removal of 1.4 L of fluid, cough congestion has improved, patient is on 1 L nasal cannula, patient is undergoing workup for bladder cancer metastatic disease, chest x-ray postprocedure reviewed in spite of removing 1.4 L no significant changes x-ray seen, likely related to elevated hemidiaphragm on the left side as well as basal atelectasis This is a 74-year-old female with long-standing history of smoking and nicotine use patient has been recently diagnosed as is stage IV adenocarcinoma likely of the lung with malignant pleural effusion she was discharged to follow with oncology service however due to recurrent on progressive shortness of breath came into the hospital found to have a fairly moderate size left-sided pleural effusion with recurrence has been admitted into the hospital with oncology on consult currently she is getting workup for metastatic disease, shortness of breath on exertion is present patient is being scheduled for thoracentesis for palliative reason with further plans of chemotherapy as per oncology Objective - Vital Signs Vital signs: Vital Signs Temp 98.1 F 02/04/20 13:05 Pulse 89 02/04/20 13:05 Resp 15 02/04/20 13:05 BP 109/72 02/04/20 13:05 Pulse Ox 93 L 02/04/20 13:05 Intake & Output 02/03/20 02/04/20 02/04/20 18:59 06:59 18:59 Intake Total 240 Balance 240 Intake: Oral 240 Other: Voiding Method Toilet Toilet Toilet # Voids 1 3 1 - Exam - Constitutional General appearance: average body habitus, cooperative, disheveled, mild distress - EENT Eyes: EOMI, PERRLA ENT: normal oropharynx Ears: bilateral: normal - Neck Carotids: bilateral: upstroke normal Thyroid: bilateral: normal size - Respiratory Respiratory: left: diminished, dullness, bilateral: rales, negative: rhonchi, wheezing, prolonged expiration - Cardiovascular Rhythm: regular Heart sounds: normal: S1, S2 - Gastrointestinal General gastrointestinal: decreased bowel sounds - Integumentary Integumentary: normal turgor - Neurologic Neurologic: CNII-XII intact - Musculoskeletal Musculoskeletal: gait normal, generalized weakness, strength equal bilaterally - Psychiatric Psychiatric: A&O x's 3, appropriate affect, intact judgment & insight - Labs CBC & Chem 7: 02/04/20 06:51 02/04/20 06:51 Labs: Abnormal Lab Results - Last 24 Hours (Table) 02/04/20 02/04/20 02/04/20 Range/Units 06:51 06:51 12:45 WBC 10.9 H (3.8-10.6) k/uL Hgb 16.2 H (11.4-16.0) gm/dL Hct 48.8 H (34.0-46.0) % Sodium 136 L (137-145) mmol/L BUN 18 H (7-17) mg/dL Glucose 110 H (74-99) mg/dL Urine Appearance Slightly Cloudy H (Clear) Urine WBC 14 H (0-5) /hpf Urine Bacteria Occasional H (None) /hpf Hyaline Casts 5 H (0-2) /lpf Urine Mucus Occasional H (None) /hpf Microbiology - Last 24 Hours (Table) 02/01/20 14:15 Gram Stain - Preliminary Pleural Fluid Body Fluid Culture - Preliminary Assessment and Plan Assessment: Left-sided malignant pleural effusion with recurrence Stage IV adenocarcinoma of the lung Elevated left hemidiaphragm along with left sided subsegmental atelectasis Progressive shortness of breath related to that Metastatic disease suggestive of mediastinal lymphadenopathy and thoracic vertebral metastatic disease Additional bladder mass primary versus secondary Dyslipidemia Hypertension hypertensive cardiovascular disease Plan: Continue provide supportive care Recommendation from oncology services reviewed Status post left-sided thoracentesis Deep breathing exercises incentive spirometry Cystoscopy and resection being planned Time with Patient: Greater than 30
[2020-02-04] MEDS: ATORVASTATIN 20 MG TAB PO SCH (20:11)
[2020-02-04] MEDS: Acetaminophen-Codeine 300-30mg TAB PO PRN (20:15)
--- NOTE | 2020-02-04 23:24 | P.PN ---
Subjective Progress Note Date: 02/04/20 Principal diagnosis: New Lung Cancer Diagnsis Spoke to patient and today. Planning for Cystoscopy in am. Objective - Vital Signs Vital signs: Vital Signs Temp 98.0 F 02/04/20 21:23 Pulse 58 L 02/04/20 21:23 Resp 16 02/04/20 21:23 BP 107/73 02/04/20 21:23 Pulse Ox 96 02/04/20 21:23 Intake & Output 02/04/20 02/04/20 02/05/20 06:59 18:59 06:59 Intake Total 600 Balance 600 Intake: Oral 600 Other: Voiding Method Toilet Toilet # Voids 3 1 1 - Exam - Constitutional General appearance: cooperative, no acute distress, thin - EENT Eyes: EOMI, PERRLA ENT: NA/AT, normal oropharynx - Neck Neck: normal ROM - Respiratory Respiratory: bilateral: diminished, wheezing Left side diminished - Cardiovascular Rhythm: regular Heart sounds: normal: S1, S2 - Gastrointestinal General gastrointestinal: normal bowel sounds, soft - Integumentary Integumentary: pale - Neurologic Neurologic: CNII-XII intact - Musculoskeletal Musculoskeletal: generalized weakness, strength equal bilaterally - Psychiatric Psychiatric: A&O x's 3, appropriate affect, intact judgment & insight - Labs CBC & Chem 7: 02/04/20 06:51 02/04/20 06:51 Labs: Abnormal Lab Results - Last 24 Hours (Table) 02/04/20 02/04/20 02/04/20 Range/Units 06:51 06:51 12:45 WBC 10.9 H (3.8-10.6) k/uL Hgb 16.2 H (11.4-16.0) gm/dL Hct 48.8 H (34.0-46.0) % Sodium 136 L (137-145) mmol/L BUN 18 H (7-17) mg/dL Glucose 110 H (74-99) mg/dL Urine Appearance Slightly Cloudy H (Clear) Urine WBC 14 H (0-5) /hpf Urine Bacteria Occasional H (None) /hpf Hyaline Casts 5 H (0-2) /lpf Urine Mucus Occasional H (None) /hpf Microbiology - Last 24 Hours (Table) 02/01/20 14:15 Gram Stain - Preliminary Pleural Fluid Body Fluid Culture - Preliminary Assessment and Plan (1) Non-small cell cancer of left lung Current Visit: Yes Status: Acute Code(s): C34.92 - MALIGNANT NEOPLASM OF UNSP PART OF LEFT BRONCHUS OR LUNG SNOMED Code(s): 341723758 (2) Recurrent left pleural effusion Current Visit: Yes Status: Acute Code(s): J90 - PLEURAL EFFUSION, NOT ELSEWHERE CLASSIFIED SNOMED Code(s): 77851057 Plan: Assessment and Recommendations: New Diagnosis of Non-Small Cell Lung cancer: Adenocarcinoma likely histology - Non-Small Cell per path - Positive pleural effusion cytology - Request has been placed for PDL1 and NGS on tissue sample Abnormality to Bladder: - Question of metastatic disease to Vertebrae and ?abnormality in bladder - Urology to evaluate if potential secondary primary cancer in bladder - CT abdomen and pelvis no evidence of metastatic to liver or adrenal glands mentions. Re=presentation of metastatic areas in vertebra. Awaiting bone scan. If potential two primary cancers May need biopsy of metastatic bone to assess for accurate staging. Unilateral Weakness: Left sided weakness - MRI Thoracic and Lumbar spine revealed vertebral lesions, negative for cord involvement. If these areas result in pain or decreased quality of life, will ask radiation oncology to evaluate for palliative radiation. - MRI of brain negative for metastatic disease Anxiety: - Patient is very tearful and concerned about new diagnosis emotional support provided, discussed all orders and testing and plan after completed - Xanax prior to MRIs and PRN Plan: - Await cystoscopy Tuesday per Urology - Await pathology to compare if same or synchronous primaries if a malignancy in bladder found - COntinued supportive care and emotional support - Discussed with Winston
[2020-02-05 07:45] LABS: Basophils # (A) 0.1 k/uL (0-0.2); Basophils % (A) 1 %; Eosinophils # (A) 0.2 k/uL (0-0.7); Eosinophils % (A) 2 %; HCT 48.2 % (34.0-46.0); HGB 15.5 gm/dL (11.4-16.0); Lymphocytes # (A) 2.2 k/uL (1.0-4.8); Lymphocytes % (A) 24 %; MCH 31.8 pg (25.0-35.0); MCHC 32.1 g/dL (31.0-37.0); MCV 98.9 fL (80.0-100.0); Mean Platelet Volume 7.8; Monocytes # (A) 0.9 k/uL (0-1.0); Monocytes % (A) 9 %; Neutrophils # (A) 5.6 k/uL (1.3-7.7); Neutrophils % (A) 61 %; Platelet Count 349 k/uL (150-450); RBC 4.87 m/uL (3.80-5.40); RDW 13.2 % (11.5-15.5); WBC 9.1 k/uL (3.8-10.6)
--- NOTE | 2020-02-05 07:57 | P.PN ---
Subjective From records: Patient is a 74-year-old female with a known history of recent left-sided pleural effusion status post thoracentesis and was discharged on 01/19/20, COPD, previous history of smoking, hypertension, hyperlipidemia, GERD and osteoarthritis came to the hospital with complaints of shortness of breath, dizziness and pain. Patient was supposed to follow-up with Dr. Cash in the clinic but due to worsening symptoms presented to ER. Denied any complaints of fever or chills. No nausea vomiting or abdominal pain or diarrhea. Patient states that he has been feeling very weak and tiredness. Decreased oral intake and loss of appetite. No headache or dizziness. No dysuria or hematuria. Chest x-ray showed increasing left pleural effusion. Patient had thoracentesis recently. Cytopathology showed results confirm the fluid to be positive for metastatic non-small cell carcinoma, with a staining pattern most consistent with adenocarcinoma of primary pulmonary origin. Laboratory data showed WBC 13.1, hemoglobin 14.7, platelets 359 D-dimer 0.63 Sodium 135, potassium 5.6, hemolyzed specimen BUN 14 creatinine 0.7 AST 48 ALT 22 and alk phos 104 Troponin x1- BNP [address] chest showed large left-sided pleural effusion. There is mediastinal adenopathy and new sclerotic thoracic vertebral body lesions suspicious for metastasis. Scattered areas of groundglass opacity in the right lung typically related to atelectasis although pneumonitis is possible. 01/31/2020 Patient is still having shortness of breath. Oncology and pulmonary was consulted. Planning for thoracentesis. No complaints of fever or chills. No complaints of chest pain. Saturating well on room air. Discussed with the patient and her at bedside in detail. 02/01/2020 Patient denied any complaints of chest pain or worsening shortness of breath. No nausea vomiting or abdominal pain or diarrhea. Patient was seen with pulclement smith and patient underwent left thoracentesis with 1.4 L duration fluid removal. Patient was also seen by urology due to bladder mass and possibility of urothelial cancer was suspected. Patient was recommended to follow-up in his office for cystoscopy and biopsy and transurethral bladder mass resection if needed. Laboratory data reviewed. 02/02/2020 Patient is status post 1.4 L fluid removal on the left side of the lung. Currently breathing status is better. Oxygen at 4 L via nasal cannula. Chest x-ray showed no significant changes. Likely related to elevated hemidiaphragm on the left side as well as basal atelectasis. Oncology is following. Patient had thoracic/lumbar spine MRI and bone scan. Findings compatible with osseous metastatic disease mid to lower thoracic spine and also the posterior mid sacrum. 02/03/2020 Patient is currently lying in the bed comfortably. Currently on oxygen at 1 L via nasal cannula. Patient did complain of left-sided chest pain this morning and was given IV pain medication which seemed to improve her pain. Troponin x1- . Otherwise likely related to lung malignancy. Patient has been afebrile. Pulmonary and oncology on board. Anticipate discharge in the next 24 hours with final oncology recommendations. 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 She found to have left malignant pleural effusion status post thoracocentesis. This morning she feels better with no dyspnea at bed, no chest pain or coughing. She has recent brain MRI which was negative for metastases. Abdominal CT showed possible bladder mass, patient is aware about it with a recommendation for follow-up as an outpatient with urologist and she agrees to call and make appointment upon discharge. Patient is found closely by pulmonology, and oncology as well 02/05/2020 Patient is awake, breathing quietly with no respiratory symptoms, she has some loose stool but no abdominal pain or vomiting. She saturating 97% on 2 L. Today neurologist is planning to do a cystoscopy with possible transurethral resection if tumor is found in her bladder. Vitals are stable. WBCs back to normal at 9.1K, hemoglobin 15.5. Pulmonary and oncology team's on the case as well Objective - Vital Signs Vital signs: Vital Signs Temp 97.4 F L 02/05/20 05:00 Pulse 62 02/05/20 05:00 Resp 16 02/05/20 05:00 BP 120/71 02/05/20 05:00 Pulse Ox 97 02/05/20 05:00 Intake & Output 02/04/20 02/05/20 02/05/20 18:59 06:59 18:59 Intake Total 840 Balance 840 Intake: Oral 840 Other: Voiding Method Toilet Toilet # Voids 1 1 - Exam GENERAL: The patient is alert and oriented x3, not in any acute distress. Well developed, well nourished. HEENT: Pupils are round and equally reacting to light. EOMI. No scleral icterus. No conjunctival pallor. Normocephalic, atraumatic. No pharyngeal erythema. No thyromegaly. CARDIOVASCULAR: S1 and S2 present. No murmurs, rubs, or gallops. PULMONARY: Chest is clear to auscultation, no wheezing or crackles. ABDOMEN: Soft, nontender, nondistended, normoactive bowel sounds. No palpable organomegaly. MUSCULOSKELETAL: No joint swelling or deformity. EXTREMITIES: No cyanosis, clubbing, or pedal edema. NEUROLOGICAL: Gross neurological examination did not reveal any focal deficits. SKIN: No rashes. no petechiae. - Labs CBC & Chem 7: 02/05/20 07:14 02/04/20 06:51 Labs: Abnormal Lab Results - Last 24 Hours (Table) 02/04/20 02/05/20 Range/Units 12:45 07:14 Hct 48.2 H (34.0-46.0) % Urine Appearance Slightly Cloudy H (Clear) Urine WBC 14 H (0-5) /hpf Urine Bacteria Occasional H (None) /hpf Hyaline Casts 5 H (0-2) /lpf Urine Mucus Occasional H (None) /hpf Microbiology - Last 24 Hours (Table) 02/01/20 14:15 Gram Stain - Preliminary Pleural Fluid Body Fluid Culture - Preliminary Assessment and Plan Assessment: Shortness of breath secondary to malignant pleural effusion left-sided.Status post left thoracentesis on 02/01/2020 Metastatic adenocarcinoma/non-small cell lung carcinoma. With recent left thoracentesis on 01/17/2020 showing malignant cells. Mediastinal adenopathy and thoracic vertebral bony metastatic lesions. Previous history of smoking Questionable history of bladder mass. Hypertension Hyperlipidemia GERD COPD History of GI bleed Anxiety/depression DVT prophylaxis with heparin subcu Plan: This is a pleasant 74 years old female status post thoracocentesis for left malignant pleural effusion. Patient is followed closely by pulmonary and oncology service. Also patient supposed to follow up with urologist for urinary bladder mass, stable cystoscopy today. Continue with the same management for now and keep monitoring the patient closely.
[2020-02-05] MEDS: DULoxetine HCL 60 MG CAPSULE.DR PO SCH (09:44)
[2020-02-05] MEDS: METOPROLOL TARTRATE 50 MG TAB PO SCH ×2 (09:44→20:19)
[2020-02-05] MEDS: ALPRAZolam 0.25 MG TAB PO SCH ×2 (09:44→20:19)
[2020-02-05] MEDS: CHOLECALCIFEROL 1,000 UNIT TAB PO SCH (09:44)
[2020-02-05] MEDS: ASCORBIC ACID 500 MG TAB PO SCH (09:44)
[2020-02-05] MEDS: PANTOPRAZOLE 40 MG TABLET PO SCH (09:44)
[2020-02-05] MEDS: OXYBUTYNIN CHLORIDE 5 MG TAB PO SCH ×2 (11:27→20:19)
[2020-02-05] MEDS ORDERED: IV FLUID CONTINUATION 1,000 ML IV ONE (14:00)
[2020-02-05 14:37] LABS: Albumin 3.5 g/dL (3.5-5.0); Calcium 9.4 mg/dL (8.4-10.2); Potassium 4.4 mmol/L (3.5-5.1); Total Bilirubin 0.7 mg/dL (0.2-1.3); Total Protein 6.7 g/dL (6.3-8.2)
[2020-02-05 14:39] LABS: INR 0.9 (<1.2); Prothrombin Time 9.6 sec (9.0-12.0)
[2020-02-05 14:45] LABS: Glucose,Whole Blood 97 mg/dL (75-99)
[2020-02-05] MEDS ORDERED: fentaNYL (PF) 50 MCG/ML 2 ML AMP IV ONE (15:16)
[2020-02-05] MEDS ORDERED: fentaNYL (PF) 50 MCG/ML 2 ML AMP ONE (15:36)
[2020-02-05] MEDS ORDERED: MIDAZOLAM 2 MG/2 ML VIAL ONE (15:36)
[2020-02-05] MEDS ORDERED: ePHEDrine SULFATE/0.9% NACL/PF 50 MG/5 ML SYRINGE IV ONE (15:36)
[2020-02-05] MEDS ORDERED: PROPOFOL 10 MG/ML 20 ML VIAL IV ONE (15:36)
--- NOTE | 2020-02-05 17:52 | P.PN ---
Subjective Progress Note Date: 02/05/20 Principal diagnosis: New Lung Cancer Diagnsis Patient looked very pail and drawn today. She was on way to cystoscopy and appeared weak although alert Objective - Vital Signs Vital signs: Vital Signs Temp 98.3 F 02/05/20 14:14 Pulse 58 L 02/05/20 14:14 Resp 16 02/05/20 14:14 BP 115/63 02/05/20 14:14 Pulse Ox 91 L 02/05/20 14:14 Intake & Output 02/04/20 02/05/20 02/05/20 18:59 06:59 18:59 Intake Total 840 200 Balance 840 200 Intake: IV 150 Oral 840 50 Other: Voiding Method Toilet Toilet Toilet # Voids 1 1 2 - Exam - Constitutional General appearance: cooperative, no acute distress, thin - EENT Eyes: EOMI, PERRLA ENT: NA/AT, normal oropharynx - Neck Neck: normal ROM - Respiratory Respiratory: bilateral: diminished, wheezing Left side diminished - Cardiovascular Rhythm: regular Heart sounds: normal: S1, S2 - Gastrointestinal General gastrointestinal: normal bowel sounds, soft - Integumentary Integumentary: pale - Neurologic Neurologic: CNII-XII intact - Musculoskeletal Musculoskeletal: generalized weakness, strength equal bilaterally - Psychiatric Psychiatric: A&O x's 3, appropriate affect, intact judgment & insight - Labs CBC & Chem 7: 02/05/20 07:14 02/05/20 14:11 Labs: Abnormal Lab Results - Last 24 Hours (Table) 02/05/20 02/05/20 Range/Units 07:14 14:11 Hct 48.2 H (34.0-46.0) % Sodium 135 L (137-145) mmol/L Glucose 101 H (74-99) mg/dL Microbiology - Last 24 Hours (Table) 02/01/20 14:15 Gram Stain - Final Pleural Fluid Body Fluid Culture - Final Assessment and Plan (1) Non-small cell cancer of left lung Current Visit: Yes Status: Acute Code(s): C34.92 - MALIGNANT NEOPLASM OF UNSP PART OF LEFT BRONCHUS OR LUNG SNOMED Code(s): 442691486 (2) Recurrent left pleural effusion Current Visit: Yes Status: Acute Code(s): J90 - PLEURAL EFFUSION, NOT ELSEWHERE CLASSIFIED SNOMED Code(s): 86020259 Plan: Assessment and Recommendations: New Diagnosis of Non-Small Cell Lung cancer: Adenocarcinoma likely histology - Non-Small Cell per path - Positive pleural effusion cytology - Request has been placed for PDL1 and NGS on tissue sample Abnormality to Bladder: - Question of metastatic disease to Vertebrae and ?abnormality in bladder - Urology to evaluate if potential secondary primary cancer in bladder - CT abdomen and pelvis no evidence of metastatic to liver or adrenal glands mentions. Re=presentation of metastatic areas in vertebra. Awaiting bone scan. If potential two primary cancers May need biopsy of metastatic bone to assess for accurate staging. Unilateral Weakness: Left sided weakness - MRI Thoracic and Lumbar spine revealed vertebral lesions, negative for cord involvement. If these areas result in pain or decreased quality of life, will ask radiation oncology to evaluate for palliative radiation. - MRI of brain negative for metastatic disease Anxiety: - Patient is very tearful and concerned about new diagnosis emotional support provided, discussed all orders and testing and plan after completed - Xanax prior to MRIs and PRN Plan: - Await cystoscopy results - - Await pathology to compare if same or synchronous primaries if a malignancy in bladder found - COntinued supportive care and emotional support - Discussed with Winston - Check stat CMP, Mag - Chest xray and EKG today - Bradycardia and drawn look
--- NOTE | 2020-02-05 18:06 | P.OP ---
Date of Procedure: 02/05/20 Preoperative Diagnosis: Bladder tumor Postoperative Diagnosis: Same Procedure(s) Performed: Cystoscopy, transurethral resection of bladder tumor (Large) Anesthesia: spinal Surgeon: Turner Chappell Estimated Blood Loss (ml): 30 IV fluids (ml): 500 Pathology: other (Bladder tumor fragments) Condition: stable Disposition: PACU Indications for Procedure: The patient is a 74-year-old white female with recently diagnosed metastatic lung cancer. Computed tomography scan suggests the presence of a bladder tumor, and she now comes for resection. Operative Findings: Multi focal superficial papillary tumors involving the right lateral and right posterior bladder obrien, as well as the vesical neck circumferentially. Description of Procedure: The patient was taken in the operating room and placed in the dorsal lithotomy position, with his legs supported in Carroll stirrups. The external genitalia was prepped and draped sterilely. The 25-Mong[place] ACMI resectoscope sheath was introduced into the bladder. The bladder was inspected. The left ureteral orifice appeared normal. Multifocal superficial tumors cover the right lateral bladder wall, right posterior bladder wall, right hemitrigone, and vesical neck circumferentially. The right ureteral orifice was obscured and not seen. Using the bipolar cutting loop, the tumor was resected down to the muscle. Excellent hemostasis was attained. Though there was no definite evidence of bladder perforation, there was suspicion that the bladder wall was thinned on the right lateral bladder wall. The abdomen remained soft and nondistended throughout the procedure. The resected tissue was saved and sent for pathologic examination. An 18-Mongolian Gray catheter was inserted. The return was essentially clear. The patient tolerated the procedure well. He was taken to the recovery room in stable condition.
--- NOTE | 2020-02-05 18:36 | XR ---
EXAMINATION TYPE: XR chest 1V portable DATE OF EXAM: 02/05/2020 COMPARISON: 02/01/2020 HISTORY: Thoracentesis TECHNIQUE: FINDINGS: There is blunting left costophrenic angle and moderate size left pleural effusion. Right karina ng is fairly clear. There is no heart failure. Heart appears enlarged. IMPRESSION: Left lower lobe infiltrate and moderate left pleural effusion not significantly different than recent exam. No pneumothorax.
[2020-02-05] MEDS: HYDROmorphone 0.5 MG/0.5 ML SYRINGE IVP PRN ×2 (19:48→22:57)
[2020-02-05] MEDS: ATORVASTATIN 20 MG TAB PO SCH (20:19)
[2020-02-06] MEDS: HYDROmorphone 0.5 MG/0.5 ML SYRINGE IVP PRN ×5 (01:59→22:08)
[2020-02-06 07:25] LABS: Basophils # (A) 0.1 k/uL (0-0.2); Basophils % (A) 0 %; Eosinophils % (A) 0 %; HCT 47.7 % (34.0-46.0); HGB 14.5 gm/dL (11.4-16.0); Lymphocytes # (A) 1.4 k/uL (1.0-4.8); Lymphocytes % (A) 10 %; MCH 30.3 pg (25.0-35.0); MCHC 30.4 g/dL (31.0-37.0); MCV 99.5 fL (80.0-100.0); Mean Platelet Volume 7.5; Monocytes # (A) 1.2 k/uL (0-1.0); Monocytes % (A) 8 %; Neutrophils # (A) 11.6 k/uL (1.3-7.7); Neutrophils % (A) 80 %; Platelet Count 374 k/uL (150-450); RBC 4.79 m/uL (3.80-5.40); RDW 13.2 % (11.5-15.5); WBC 14.5 k/uL (3.8-10.6)
[2020-02-06 07:48] LABS: Albumin 3.2 g/dL (3.5-5.0); Calcium 9.1 mg/dL (8.4-10.2); Magnesium 1.7 mg/dL (1.6-2.3); Potassium 4.6 mmol/L (3.5-5.1); Total Bilirubin 0.6 mg/dL (0.2-1.3); Total Protein 6.2 g/dL (6.3-8.2)
--- NOTE | 2020-02-06 08:29 | P.PN ---
Progress Note - Text Progress Note Date: 02/06/20 Mrs. San underwent bladder tumor resection yesterday. This morning she is feeling well and has no complaints. Gray catheter is draining urine which is light pink in color, without clots. I discussed with her the rationale of leaving the Gray catheter in for 1 week to allow bladder healing. It is my intent that should be discharged home with the catheter and follow up with me as an outpatient. Please notify me if I can be of any further assistance during this hospitalization.
[2020-02-06] MEDS: DULoxetine HCL 60 MG CAPSULE.DR PO SCH (08:45)
[2020-02-06] MEDS: ASCORBIC ACID 500 MG TAB PO SCH (08:45)
[2020-02-06] MEDS: CHOLECALCIFEROL 1,000 UNIT TAB PO SCH (08:46)
[2020-02-06] MEDS: PANTOPRAZOLE 40 MG TABLET PO SCH (08:46)
[2020-02-06] MEDS: ALPRAZolam 0.25 MG TAB PO SCH ×2 (08:46→22:04)
[2020-02-06] MEDS: METOPROLOL TARTRATE 50 MG TAB PO SCH ×2 (08:46→22:04)
[2020-02-06] MEDS: OXYBUTYNIN CHLORIDE 5 MG TAB PO SCH ×2 (08:46→22:04)
--- NOTE | 2020-02-06 09:04 | P.PN ---
Subjective Progress Note Date: 02/06/20 Principal diagnosis: Left-sided malignant pleural effusion with recurrence Stage IV adenocarcinoma of the lung Progressive shortness of breath related to that Metastatic disease suggestive of mediastinal lymphadenopathy and thoracic vertebral metastatic disease Additional bladder mass primary versus secondary Dyslipidemia Hypertension hypertensive cardiovascular disease 02/06/2020, patient sitting upright in the bed breathing comfortably denies any chest pain shortness of breath is stable, patient is afebrile with saturation are 96% on 2 L, hemodynamics and stable patient is status post cystoscopy one day superficial papillary tumors were seen in the bladder which were resected and pathology is pending, reviewed thoracic and lumbar MRI likely metastatic lesion, patient is being evaluated by oncology for chemotherapy 02/04/2020, patient seen eval examined during the rounds labs reviewed medications reviewed shortness of breath has been stable denies any chest pain, patient is scheduled for cystoscopy and resection of tumor likely for tomorrow urology is following, hemodynamic status have been stable, 02/02/2020, patient seen eval examined during the rounds labs reviewed medications reviewed care plan discussed, shortness of breath significantly improved after removal of 1.4 L of fluid, cough congestion has improved, patient is on 1 L nasal cannula, patient is undergoing workup for bladder cancer metastatic disease, chest x-ray postprocedure reviewed in spite of removing 1.4 L no significant changes x-ray seen, likely related to elevated hemidiaphragm on the left side as well as basal atelectasis This is a 74-year-old female with long-standing history of smoking and nicotine use patient has been recently diagnosed as is stage IV adenocarcinoma likely of the lung with malignant pleural effusion she was discharged to follow with oncology service however due to recurrent on progressive shortness of breath came into the hospital found to have a fairly moderate size left-sided pleural effusion with recurrence has been admitted into the hospital with oncology on consult currently she is getting workup for metastatic disease, shortness of breath on exertion is present patient is being scheduled for thoracentesis for palliative reason with further plans of chemotherapy as per oncology Objective - Vital Signs Vital signs: Vital Signs Temp 98.2 F 02/06/20 05:15 Pulse 66 02/06/20 05:15 Resp 14 02/06/20 05:15 BP 144/84 02/06/20 05:15 Pulse Ox 96 02/06/20 05:15 Intake & Output 02/05/20 02/06/20 02/06/20 18:59 06:59 18:59 Intake Total 700 630 Output Total 30 Balance 670 630 Intake: IV 650 50 Intake, IV Titration 140 Amount IV Fluid Continuation 1, 140 000 ml @ 0 mls/hr IV .[employer] [facility] Rx#:[id number] Oral 50 440 Output: Estimated Blood Loss 30 Other: Voiding Method Toilet Indwelling Catheter # Voids 2 - Exam - Constitutional General appearance: average body habitus, cooperative, disheveled, mild distress - EENT Eyes: EOMI, PERRLA ENT: normal oropharynx Ears: bilateral: normal - Neck Carotids: bilateral: upstroke normal Thyroid: bilateral: normal size - Respiratory Respiratory: left: diminished, dullness, bilateral: rales, negative: rhonchi, wheezing, prolonged expiration - Cardiovascular Rhythm: regular Heart sounds: normal: S1, S2 - Gastrointestinal General gastrointestinal: decreased bowel sounds - Integumentary Integumentary: normal turgor - Neurologic Neurologic: CNII-XII intact - Musculoskeletal Musculoskeletal: gait normal, generalized weakness, strength equal bilaterally - Psychiatric Psychiatric: A&O x's 3, appropriate affect, intact judgment & insight - Labs CBC & Chem 7: 02/06/20 06:55 02/06/20 06:55 Labs: Abnormal Lab Results - Last 24 Hours (Table) 02/05/20 02/06/20 02/06/20 Range/Units 14:11 06:55 06:55 WBC 14.5 H (3.8-10.6) k/uL Hct 47.7 H (34.0-46.0) % MCHC 30.4 L (31.0-37.0) g/dL Neutrophils # 11.6 H (1.3-7.7) k/uL Monocytes # 1.2 H (0-1.0) k/uL Sodium 135 L 135 L (137-145) mmol/L BUN 20 H (7-17) mg/dL Creatinine 1.07 H (0.52-1.04) mg/dL Glucose 101 H 107 H (74-99) mg/dL Total Protein 6.2 L (6.3-8.2) g/dL Albumin 3.2 L (3.5-5.0) g/dL Microbiology - Last 24 Hours (Table) 02/01/20 14:15 Gram Stain - Final Pleural Fluid Body Fluid Culture - Final Assessment and Plan Assessment: Left-sided malignant pleural effusion with recurrence Stage IV adenocarcinoma of the lung Elevated left hemidiaphragm along with left sided subsegmental atelectasis Progressive shortness of breath related to that Metastatic disease suggestive of mediastinal lymphadenopathy and thoracic ve rtebral metastatic disease Additional bladder mass primary versus secondary Dyslipidemia Hypertension hypertensive cardiovascular disease Plan: Continue provide supportive care Recommendation from oncology services reviewed Status post left-sided thoracentesis 2 Deep breathing exercises incentive spirometry Status post Cystoscopy and resection of superficial papillary tumors bladder Time with Patient: Greater than 30
[2020-02-06 10:20] VITALS: BMI 20.5
--- NOTE | 2020-02-06 16:24 | P.PN ---
Subjective Progress Note Date: 02/06/20 Principal diagnosis: New Lung Cancer Diagnsis Patient seen and examined, she looks much better today. She is status post Cystoscopy and path pending. Highly suggestive of a secondary malignancy, will await final path. Spoke to patient and today. Objective - Vital Signs Vital signs: Vital Signs Temp 96.5 F L 02/06/20 12:08 Pulse 67 02/06/20 12:08 Resp 18 02/06/20 12:08 BP 108/63 02/06/20 12:08 Pulse Ox 96 02/06/20 12:08 Intake & Output 02/05/20 02/06/20 02/06/20 18:59 06:59 18:59 Intake Total 700 630 Output Total 30 450 Balance 670 630 -450 Weight 55.792 kg Intake: IV 650 50 Intake, IV Titration 140 Amount IV Fluid Continuation 1, 140 000 ml @ 0 mls/hr IV .[facility] Rx#:[id number] Oral 50 440 Output: Urine 450 Estimated Blood Loss 30 Other: Voiding Method Toilet Indwelling Catheter Indwelling Catheter # Voids 2 2 - Exam - Constitutional General appearance: cooperative, no acute distress, thin - EENT Eyes: EOMI, PERRLA ENT: NA/AT, normal oropharynx - Neck Neck: normal ROM - Respiratory Respiratory: bilateral: diminished, wheezing Left side diminished - Cardiovascular Rhythm: regular Heart sounds: normal: S1, S2 - Gastrointestinal General gastrointestinal: normal bowel sounds, soft - Integumentary Integumentary: pale - Neurologic Neurologic: CNII-XII intact - Musculoskeletal Musculoskeletal: generalized weakness, strength equal bilaterally - Psychiatric Psychiatric: A&O x's 3, appropriate affect, intact judgment & insight - Labs CBC & Chem 7: 02/06/20 06:55 02/06/20 06:55 Labs: Abnormal Lab Results - Last 24 Hours (Table) 02/06/20 02/06/20 Range/Units 06:55 06:55 WBC 14.5 H (3.8-10.6) k/uL Hct 47.7 H (34.0-46.0) % MCHC 30.4 L (31.0-37.0) g/dL Neutrophils # 11.6 H (1.3-7.7) k/uL Monocytes # 1.2 H (0-1.0) k/uL Sodium 135 L (137-145) mmol/L BUN 20 H (7-17) mg/dL Creatinine 1.07 H (0.52-1.04) mg/dL Glucose 107 H (74-99) mg/dL Total Protein 6.2 L (6.3-8.2) g/dL Albumin 3.2 L (3.5-5.0) g/dL Microbiology - Last 24 Hours (Table) 02/01/20 14:15 Gram Stain - Final Pleural Fluid Body Fluid Culture - Final Assessment and Plan (1) Non-small cell cancer of left lung Current Visit: Yes Status: Acute Code(s): C34.92 - MALIGNANT NEOPLASM OF UNSP PART OF LEFT BRONCHUS OR LUNG SNOMED Code(s): 641347869 (2) Recurrent left pleural effusion Current Visit: Yes Status: Acute Code(s): J90 - PLEURAL EFFUSION, NOT ELSEWHERE CLASSIFIED SNOMED Code(s): 62145319 Plan: Assessment and Recommendations: New Diagnosis of Non-Small Cell Lung cancer: Adenocarcinoma likely histology - Non-Small Cell per path - Positive pleural effusion cytology - Request has been placed for PDL1 and NGS on tissue cytology sample Abnormality to Bladder: - Status post cystoscopy with bladder mass removal 02/04 Plan: - Ok with discharge from oncology standpoint - Rec PT/OT prior for rec at home, she has not walked very much since h ospitalized - Follow-up appointment made with Dr. Whitney for 02/11/20, patient and aware
[2020-02-06] MEDS: SODIUM CHLORIDE 0.9% 1,000 ML IV SCH ×2 (17:58→22:15)
[2020-02-06 17:59] LABS: Basophils % (A) 0 %; Eosinophils # (A) 0.3 k/uL (0-0.7); Eosinophils % (A) 2 %; HCT 44.6 % (34.0-46.0); HGB 14.7 gm/dL (11.4-16.0); Lymphocytes # (A) 1.6 k/uL (1.0-4.8); Lymphocytes % (A) 12 %; MCH 32.5 pg (25.0-35.0); MCHC 33.1 g/dL (31.0-37.0); MCV 98.2 fL (80.0-100.0); Mean Platelet Volume 8.1; Monocytes # (A) 1.1 k/uL (0-1.0); Monocytes % (A) 8 %; Neutrophils # (A) 10.1 k/uL (1.3-7.7); Neutrophils % (A) 76 %; Platelet Count 293 k/uL (150-450); RBC 4.54 m/uL (3.80-5.40); WBC 13.4 k/uL (3.8-10.6)
[2020-02-06 18:09] LABS: Calcium 8.8 mg/dL (8.4-10.2); Potassium 4.8 mmol/L (3.5-5.1)
--- NOTE | 2020-02-06 20:32 | P.PN ---
Subjective From records: Patient is a 74-year-old female with a known history of recent left-sided pleural effusion status post thoracentesis and was discharged on 01/19/20, COPD, previous history of smoking, hypertension, hyperlipidemia, GERD and osteoarthritis came to the hospital with complaints of shortness of breath, dizziness and pain. Patient was supposed to follow-up with Dr. Cash in the clinic but due to worsening symptoms presented to ER. Denied any complaints of fever or chills. No nausea vomiting or abdominal pain or diarrhea. Patient states that he has been feeling very weak and tiredness. Decreased oral intake and loss of appetite. No headache or dizziness. No dysuria or hematuria. Chest x-ray showed increasing left pleural effusion. Patient had thoracentesis recently. Cytopathology showed results confirm the fluid to be positive for metastatic non-small cell carcinoma, with a staining pattern most consistent with adenocarcinoma of primary pulmonary origin. Laboratory data showed WBC 13.1, hemoglobin 14.7, platelets 359 D-dimer 0.63 Sodium 135, potassium 5.6, hemolyzed specimen BUN 14 creatinine 0.7 AST 48 ALT 22 and alk phos 104 Troponin x1- BNP [address] chest showed large left-sided pleural effusion. There is mediastinal adenopathy and new sclerotic thoracic vertebral body lesions suspicious for metastasis. Scattered areas of groundglass opacity in the right lung typically related to atelectasis although pneumonitis is possible. 01/31/2020 Patient is still having shortness of breath. Oncology and pulmonary was consulted. Planning for thoracentesis. No complaints of fever or chills. No complaints of chest pain. Saturating well on room air. Discussed with the patient and her at bedside in detail. 02/01/2020 Patient denied any complaints of chest pain or worsening shortness of breath. No nausea vomiting or abdominal pain or diarrhea. Patient was seen with pulclement smith and patient underwent left thoracentesis with 1.4 L duration fluid removal. Patient was also seen by urology due to bladder mass and possibility of urothelial cancer was suspected. Patient was recommended to follow-up in his office for cystoscopy and biopsy and transurethral bladder mass resection if needed. Laboratory data reviewed. 02/02/2020 Patient is status post 1.4 L fluid removal on the left side of the lung. Currently breathing status is better. Oxygen at 4 L via nasal cannula. Chest x-ray showed no significant changes. Likely related to elevated hemidiaphragm on the left side as well as basal atelectasis. Oncology is following. Patient had thoracic/lumbar spine MRI and bone scan. Findings compatible with osseous metastatic disease mid to lower thoracic spine and also the posterior mid sacrum. 02/03/2020 Patient is currently lying in the bed comfortably. Currently on oxygen at 1 L via nasal cannula. Patient did complain of left-sided chest pain this morning and was given IV pain medication which seemed to improve her pain. Troponin x1- . Otherwise likely related to lung malignancy. Patient has been afebrile. Pulmonary and oncology on board. Anticipate discharge in the next 24 hours with final oncology recommendations. 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 She found to have left malignant pleural effusion status post thoracocentesis. This morning she feels better with no dyspnea at bed, no chest pain or coughing. She has recent brain MRI which was negative for metastases. Abdominal CT showed possible bladder mass, patient is aware about it with a recommendation for follow-up as an outpatient with urologist and she agrees to call and make appointment upon discharge. Patient is found closely by pulmonology, and oncology as well 02/05/2020 Patient is awake, breathing quietly with no respiratory symptoms, she has some loose stool but no abdominal pain or vomiting. She saturating 97% on 2 L. Today neurologist is planning to do a cystoscopy with possible transurethral resection if tumor is found in her bladder. Vitals are stable. WBCs back to normal at 9.1K, hemoglobin 15.5. Pulmonary and oncology team's on the case as well 02/06/2020 Patient has minimal respiratory symptoms. Also she did not complain from urinary symptoms. Today she's been evaluated by pulmonary and oncology team and they cleared her for discharge, however repeat labs showed leukocytosis of 14.1 K, and increased creatinine 0.1, lower sodium at 129, patient was started on ceftriaxone, normal sinus 75 mL/h and repeat labs in the morning and check pro-calcitonin Also she has loose stool since yesterday, we going to check for C. diff Objective - Vital Signs Vital signs: Vital Signs Temp 96.5 F L 02/06/20 12:08 Pulse 67 02/06/20 12:08 Resp 18 02/06/20 12:08 BP 108/63 02/06/20 12:08 Pulse Ox 96 02/06/20 12:08 Intake & Output 02/06/20 02/06/20 02/07/20 06:59 18:59 06:59 Intake Total 630 Output Total 900 Balance 630 -900 Weight 55.792 kg Intake: IV 50 Intake, IV Titration 140 Amount IV Fluid Continuation 1, 140 000 ml @ 0 mls/hr IV .[facility] Rx#:[id number] Oral 440 Output: Urine 900 Uretheral (Gray) 450 Other: Voiding Method Indwelling Catheter Indwelling Catheter # Voids 2 - Exam GENERAL: The patient is alert and oriented x3, not in any acute distress. Well developed, well nourished. HEENT: Pupils are round and equally reacting to light. EOMI. No scleral icterus. No conjunctival pallor. Normocephalic, atraumatic. No pharyngeal erythema. No thyromegaly. CARDIOVASCULAR: S1 and S2 present. No murmurs, rubs, or gallops. PULMONARY: Chest is clear to auscultation, no wheezing or crackles. ABDOMEN: Soft, nontender, nondistended, normoactive bowel sounds. No palpable organomegaly. MUSCULOSKELETAL: No joint swelling or deformity. EXTREMITIES: No cyanosis, clubbing, or pedal edema. NEUROLOGICAL: Gross neurological examination did not reveal any focal deficits. SKIN: No rashes. no petechiae. - Labs CBC & Chem 7: 02/06/20 17:42 02/06/20 17:42 Labs: Abnormal Lab Results - Last 24 Hours (Table) 02/06/20 02/06/20 02/06/20 Range/Units 06:55 06:55 17:42 WBC 14.5 H 13.4 H (3.8-10.6) k/uL Hct 47.7 H (34.0-46.0) % MCHC 30.4 L (31.0-37.0) g/dL Neutrophils # 11.6 H 10.1 H (1.3-7.7) k/uL Monocytes # 1.2 H 1.1 H (0-1.0) k/uL Sodium 135 L (137-145) mmol/L Chloride (98-107) mmol/L BUN 20 H (7-17) mg/dL Creatinine 1.07 H (0.52-1.04) mg/dL Glucose 107 H (74-99) mg/dL Total Protein 6.2 L (6.3-8.2) g/dL Albumin 3.2 L (3.5-5.0) g/dL 02/06/20 Range/Units 17:42 WBC (3.8-10.6) k/uL Hct (34.0-46.0) % MCHC (31.0-37.0) g/dL Neutrophils # (1.3-7.7) k/uL Monocytes # (0-1.0) k/uL Sodium 129 L (137-145) mmol/L Chloride 97 L (98-107) mmol/L BUN 18 H (7-17) mg/dL Creatinine (0.52-1.04) mg/dL Glucose 118 H (74-99) mg/dL Total Protein (6.3-8.2) g/dL Albumin (3.5-5.0) g/dL Microbiology - Last 24 Hours (Table) 02/01/20 14:15 Gram Stain - Final Pleural Fluid Body Fluid Culture - Final Assessment and Plan Assessment: -Metastatic adenocarcinoma/non-small cell lung carcinoma. With recent left thoracentesis on 01/17/2020 showing malignant cells. With metastasis, Mediastinal adenopathy and thoracic vertebral bony metastatic lesions. -Large urinary bladder tumor, status post transurethral resection. -Loose stool, with dehydration. Check for C. diff -Previous history of smoking -Hypertension -Hyperlipidemia -GERD -COPD -History of GI bleed -Anxiety/depression Plan: This is a pleasant 74 years old female status post thoracocentesis for left malignant pleural effusion. Patient is followed closely by pulmonary and oncology service. Follow-up biopsy for his urinary bladder tumor. Check C. diff, continue IV fluids. Check pro-calcitonin. Continue with the same management for now and keep monitoring the patient closely.
[2020-02-06] MEDS: ATORVASTATIN 20 MG TAB PO SCH (22:04)
[2020-02-07] MEDS: HYDROmorphone 0.5 MG/0.5 ML SYRINGE IVP PRN ×3 (03:26→22:01)
[2020-02-07] MEDS: ALPRAZolam 0.25 MG TAB PO SCH ×2 (07:28→20:47)
[2020-02-07] MEDS: METOPROLOL TARTRATE 50 MG TAB PO SCH ×2 (07:29→20:47)
[2020-02-07] MEDS: CHOLECALCIFEROL 1,000 UNIT TAB PO SCH (07:29)
[2020-02-07] MEDS: ASCORBIC ACID 500 MG TAB PO SCH (07:29)
[2020-02-07] MEDS: DULoxetine HCL 60 MG CAPSULE.DR PO SCH (07:29)
[2020-02-07] MEDS: OXYBUTYNIN CHLORIDE 5 MG TAB PO SCH ×2 (07:30→20:47)
[2020-02-07] MEDS: PANTOPRAZOLE 40 MG TABLET PO SCH (07:33)
[2020-02-07 08:06] LABS: Basophils % (A) 0 %; Eosinophils # (A) 0.1 k/uL (0-0.7); Eosinophils % (A) 0 %; HCT 40.2 % (34.0-46.0); HGB 12.5 gm/dL (11.4-16.0); Lymphocytes # (A) 1.5 k/uL (1.0-4.8); Lymphocytes % (A) 11 %; MCH 30.5 pg (25.0-35.0); MCV 98.3 fL (80.0-100.0); Mean Platelet Volume 8.3; Monocytes # (A) 1.2 k/uL (0-1.0); Monocytes % (A) 9 %; Neutrophils # (A) 10.9 k/uL (1.3-7.7); Neutrophils % (A) 79 %; Platelet Count 318 k/uL (150-450); RBC 4.09 m/uL (3.80-5.40); RDW 13.3 % (11.5-15.5); WBC 13.8 k/uL (3.8-10.6)
[2020-02-07 08:21] LABS: Calcium 8.5 mg/dL (8.4-10.2); Potassium 4.3 mmol/L (3.5-5.1)
[2020-02-07 14:33] LABS: Appearance,Urine Cloudy (Clear); Bacteria,Urine Occasional /hpf; Bilirubin,Urine Negative (Negative); Blood,Urine Moderate (Negative); Color,Urine Yellow; Glucose,Urine (UA) Negative (Negative); Ketones,Urine Negative (Negative); Leukocyte Esterase,Urine Large (Negative); Nitrite,Urine Negative (Negative); Protein,Urine Trace (Negative); RBC,Urine 77 /hpf (0-5); Specific Gravity,Urine 1.008 (1.001-1.035); Squamous Epithelial Cell,Urine <1 /hpf (0-4); Urobilinogen,Urine <2.0 mg/dL (<2.0); WBC,Urine 31 /hpf (0-5)
[2020-02-07 14:34] LABS: Hyaline Casts,Urine 1 /lpf (0-2); Mucus,Urine Rare /hpf
--- NOTE | 2020-02-07 14:54 | P.PN ---
Subjective Progress Note Date: 02/07/20 Principal diagnosis: Left-sided malignant pleural effusion with recurrence Stage IV adenocarcinoma of the lung Progressive shortness of breath related to that Metastatic disease suggestive of mediastinal lymphadenopathy and thoracic vertebral metastatic disease Additional bladder mass primary versus secondary Dyslipidemia Hypertension hypertensive cardiovascular disease 02/07/2020, patient seen eval examined during the rounds labs reviewed medications reviewed care plan discussed, sitting upright on the chair breathing comfortably no obvious distress present, patient remains on broad-spectrum antibiotics were cell count is stable 13,800, potassium is 4.3 creatinine is 1.08, the urine is showing large leukocyte esterase postoperatively 02/06/2020, patient sitting upright in the bed breathing comfortably denies any chest pain shortness of breath is stable, patient is afebrile with saturation are 96% on 2 L, hemodynamics and stable patient is status post cystoscopy one day superficial papillary tumors were seen in the bladder which were resected and pathology is pending, reviewed thoracic and lumbar MRI likely metastatic lesion, patient is being evaluated by oncology for chemotherapy 02/04/2020, patient seen eval examined during the rounds labs reviewed medications reviewed shortness of breath has been stable denies any chest pain, patient is scheduled for cystoscopy and resection of tumor likely for tomorrow urology is following, hemodynamic status have been stable, 02/02/2020, patient seen eval examined during the rounds labs reviewed medicatio ns reviewed care plan discussed, shortness of breath significantly improved after removal of 1.4 L of fluid, cough congestion has improved, patient is on 1 L nasal cannula, patient is undergoing workup for bladder cancer metastatic disease, chest x-ray postprocedure reviewed in spite of removing 1.4 L no significant changes x-ray seen, likely related to elevated hemidiaphragm on the left side as well as basal atelectasis This is a 74-year-old female with long-standing history of smoking and nicotine use patient has been recently diagnosed as is stage IV adenocarcinoma likely of the lung with malignant pleural effusion she was discharged to follow with oncology service however due to recurrent on progressive shortness of breath came into the hospital found to have a fairly moderate size left-sided pleural effusion with recurrence has been admitted into the hospital with oncology on consult currently she is getting workup for metastatic disease, shortness of breath on exertion is present patient is being scheduled for thoracentesis for palliative reason with further plans of chemotherapy as per oncology Objective - Vital Signs Vital signs: Vital Signs Temp 97.9 F 02/07/20 12:45 Pulse 97 02/07/20 14:41 Resp 18 02/07/20 14:41 BP 152/75 02/07/20 12:45 Pulse Ox 94 L 02/07/20 13:58 Intake & Output 02/06/20 02/07/20 02/07/20 18:59 06:59 18:59 Intake Total 600 240 Output Total 900 825 Balance -900 600 -585 Weight 55.792 kg Intake: Intake, IV Titration 600 Amount Sodium Chloride 0.9% 1, 600 000 ml @ 75 mls/hr IV . [id number] [facility] Rx#:[id number] Oral 240 Output: Urine 900 825 Uretheral (Gray) 450 825 Other: Voiding Method Indwelling Catheter Indwelling Catheter Indwelling Catheter # Voids 2 4 - Exam - Constitutional General appearance: average body habitus, cooperative, disheveled, mild distress - EENT Eyes: EOMI, PERRLA ENT: normal oropharynx Ears: bilateral: normal - Neck Carotids: bilateral: upstroke normal Thyroid: bilateral: normal size - Respiratory Respiratory: left: diminished, dullness, bilateral: rales, negative: rhonchi, wheezing, prolonged expiration - Cardiovascular Rhythm: regular Heart sounds: normal: S1, S2 - Gastrointestinal General gastrointestinal: decreased bowel sounds - Integumentary Integumentary: normal turgor - Neurologic Neurologic: CNII-XII intact - Musculoskeletal Musculoskeletal: gait normal, generalized weakness, strength equal bilaterally - Psychiatric Psychiatric: A&O x's 3, appropriate affect, intact judgment & insight - Labs CBC & Chem 7: 02/07/20 06:57 02/07/20 06:57 Labs: Abnormal Lab Results - Last 24 Hours (Table) 02/06/20 02/06/20 02/06/20 Range/Units 17:42 17:42 17:42 WBC 13.4 H (3.8-10.6) k/uL Neutrophils # 10.1 H (1.3-7.7) k/uL Monocytes # 1.1 H (0-1.0) k/uL Sodium 129 L (137-145) mmol/L Chloride 97 L (98-107) mmol/L BUN 18 H (7-17) mg/dL Creatinine (0.52-1.04) mg/dL Glucose 118 H (74-99) mg/dL Procalcitonin 0.11 H (0.02-0.09) ng/mL Urine Appearance (Clear) Urine Protein (Negative) Urine Blood (Negative) Ur Leukocyte Esterase (Negative) Urine RBC (0-5) /hpf Urine WBC (0-5) /hpf Urine Bacteria (None) /hpf Urine Mucus (None) /hpf 02/07/20 02/07/20 02/07/20 Range/Units 06:57 06:57 14:10 WBC 13.8 H (3.8-10.6) k/uL Neutrophils # 10.9 H (1.3-7.7) k/uL Monocytes # 1.2 H (0-1.0) k/uL Sodium 135 L (137-145) mmol/L Chloride (98-107) mmol/L BUN (7-17) mg/dL Creatinine 1.08 H (0.52-1.04) mg/dL Glucose (74-99) mg/dL Procalcitonin (0.02-0.09) ng/mL Urine Appearance Cloudy H (Clear) Urine Protein Trace H (Negative) Urine Blood Moderate H (Negative) Ur Leukocyte Esterase Large H (Negative) Urine RBC 77 H (0-5) /hpf Urine WBC 31 H (0-5) /hpf Urine Bacteria Occasional H (None) /hpf Urine Mucus Rare H (None) /hpf Assessment and Plan Assessment: Leukocytosis likely postoperative stress Elevated creatinine likely postoperative Status post cystoscopy and resection of superficial papillary tumor Left-sided malignant pleural effusion with recurrence Stage IV adenocarcinoma of the lung Elevated left hemidiaphragm along with left sided subsegmental atelectasis Progressive shortness of breath related to that Metastatic disease suggestive of mediastinal lymphadenopathy and thoracic vertebral metastatic disease Additional bladder mass primary versus secondary Dyslipidemia Hypertension hypertensive cardiovascular disease Plan: Continue provide supportive care Recommendation from oncology services reviewed Status post left-sided thoracentesis 2 Deep breathing exercises incentive spirometry Status post Cystoscopy and resection of superficial papillary tumors bladder Follow renal functions as well as white cell count closely agree with broad- spectrum antibiotics once stable can be discharged home with follow-up in outpatient Time with Patient: Greater than 30
--- NOTE | 2020-02-07 16:33 | XR ---
EXAMINATION TYPE: XR chest 2V DATE OF EXAM: 02/07/2020 COMPARISON: Chest x-ray 2 days ago older studies. HISTORY: Pleural effusion progress study. TECHNIQUE: Frontal and lateral views of the chest are obtained. FINDINGS: There is persistent moderate sized left pleural fluid collection silhouetting left heart b order and hemidiaphragm with associated left basilar atelectasis. Right lung remains clear. No signi ficant mediastinal shift. The cardiac silhouette size cannot be assessed. Underlying Dextroconvex sco liosis redemonstrated. IMPRESSION: Moderate-sized left pleural fluid collection with associated right lung compressive atel ectasis. No significant change from most recent x-ray.
--- NOTE | 2020-02-07 16:38 | P.PN ---
Subjective Progress Note Date: 02/07/20 Principal diagnosis: New Lung Cancer Diagnsis Very weak and fatigued today. Objective - Vital Signs Vital signs: Vital Signs Temp 97.9 F 02/07/20 12:45 Pulse 97 02/07/20 14:41 Resp 18 02/07/20 14:41 BP 152/75 02/07/20 12:45 Pulse Ox 94 L 02/07/20 13:58 Intake & Output 02/06/20 02/07/20 02/07/20 18:59 06:59 18:59 Intake Total 600 240 Output Total 900 1050 Balance -900 600 -810 Weight 55.792 kg Intake: Intake, IV Titration 600 Amount Sodium Chloride 0.9% 1, 600 000 ml @ 75 mls/hr IV . [id number] [facility] Rx#:[id number] Oral 240 Output: Urine 900 1050 Uretheral (Gray) 450 825 Other: Voiding Method Indwelling Catheter Indwelling Catheter Indwelling Catheter # Voids 2 4 - Exam - Constitutional General appearance: cooperative, no acute distress, thin - EENT Eyes: EOMI, PERRLA ENT: NA/AT, normal oropharynx - Neck Neck: normal ROM - Respiratory Respiratory: bilateral: diminished, wheezing Left side diminished - Cardiovascular Rhythm: regular Heart sounds: normal: S1, S2 - Gastrointestinal General gastrointestinal: normal bowel sounds, soft - Integumentary Integumentary: pale - Neurologic Neurologic: CNII-XII intact - Musculoskeletal Musculoskeletal: generalized weakness, strength equal bilaterally - Psychiatric Psychiatric: A&O x's 3, appropriate affect, intact judgment & insight - Labs CBC & Chem 7: 02/07/20 06:57 02/07/20 06:57 Labs: Abnormal Lab Results - Last 24 Hours (Table) 02/06/20 02/06/20 02/06/20 Range/Units 17:42 17:42 17:42 WBC 13.4 H (3.8-10.6) k/uL Neutrophils # 10.1 H (1.3-7.7) k/uL Monocytes # 1.1 H (0-1.0) k/uL Sodium 129 L (137-145) mmol/L Chloride 97 L (98-107) mmol/L BUN 18 H (7-17) mg/dL Creatinine (0.52-1.04) mg/dL Glucose 118 H (74-99) mg/dL Procalcitonin 0.11 H (0.02-0.09) ng/mL Urine Appearance (Clear) Urine Protein (Negative) Urine Blood (Negative) Ur Leukocyte Esterase (Negative) Urine RBC (0-5) /hpf Urine WBC (0-5) /hpf Urine Bacteria (None) /hpf Urine Mucus (None) /hpf 02/07/20 02/07/20 02/07/20 Range/Units 06:57 06:57 14:10 WBC 13.8 H (3.8-10.6) k/uL Neutrophils # 10.9 H (1.3-7.7) k/uL Monocytes # 1.2 H (0-1.0) k/uL Sodium 135 L (137-145) mmol/L Chloride (98-107) mmol/L BUN (7-17) mg/dL Creatinine 1.08 H (0.52-1.04) mg/dL Glucose (74-99) mg/dL Procalcitonin (0.02-0.09) ng/mL Urine Appearance Cloudy H (Clear) Urine Protein Trace H (Negative) Urine Blood Moderate H (Negative) Ur Leukocyte Esterase Large H (Negative) Urine RBC 77 H (0-5) /hpf Urine WBC 31 H (0-5) /hpf Urine Bacteria Occasional H (None) /hpf Urine Mucus Rare H (None) /hpf Assessment and Plan (1) Non-small cell cancer of left lung Current Visit: Yes Status: Acute Code(s): C34.92 - MALIGNANT NEOPLASM OF UNSP PART OF LEFT BRONCHUS OR LUNG SNOMED Code(s): 946691665 (2) Recurrent left pleural effusion Current Visit: Yes Status: Acute Code(s): J90 - PLEURAL EFFUSION, NOT ELSEWHERE CLASSIFIED SNOMED Code(s): 72841567 Plan: Assessment and Recommendations: New Diagnosis of Non-Small Cell Lung cancer: Adenocarcinoma likely histology - Non-Small Cell per path - Positive pleural effusion cytology - Request has been placed for PDL1 and NGS on tissue cytology sample Abnormality to Bladder: - Status post cystoscopy with bladder mass removal 02/04 Plan: - Ok with discharge from oncology standpoint - Will need clearance from other specialties she is still rather weak and has catheter in, no further loose stools. - Rec PT/OT prior for rec at home, she has not walked very much since hospitalized - Follow-up appointment made with Dr. Whitney for 02/11/20, patient and aware
[2020-02-07] MEDS: PIPERACILLIN-TAZOBACTAM 3.375 GM in SODIUM CHLORIDE 0.9% 100 ML IVPB SCH (17:48)
[2020-02-07] MEDS: ATORVASTATIN 20 MG TAB PO SCH (20:47)
--- NOTE | 2020-02-07 23:12 | P.PN ---
Subjective From records: Patient is a 74-year-old female with a known history of recent left-sided pleural effusion status post thoracentesis and was discharged on 01/19/20, COPD, previous history of smoking, hypertension, hyperlipidemia, GERD and osteoarthritis came to the hospital with complaints of shortness of breath, dizziness and pain. Patient was supposed to follow-up with Dr. Cash in the clinic but due to worsening symptoms presented to ER. Denied any complaints of fever or chills. No nausea vomiting or abdominal pain or diarrhea. Patient states that he has been feeling very weak and tiredness. Decreased oral intake and loss of appetite. No headache or dizziness. No dysuria or hematuria. Chest x-ray showed increasing left pleural effusion. Patient had thoracentesis recently. Cytopathology showed results confirm the fluid to be positive for metastatic non-small cell carcinoma, with a staining pattern most consistent with adenocarcinoma of primary pulmonary origin. Laboratory data showed WBC 13.1, hemoglobin 14.7, platelets 359 D-dimer 0.63 Sodium 135, potassium 5.6, hemolyzed specimen BUN 14 creatinine 0.7 AST 48 ALT 22 and alk phos 104 Troponin x1- BNP [address] chest showed large left-sided pleural effusion. There is mediastinal adenopathy and new sclerotic thoracic vertebral body lesions suspicious for metastasis. Scattered areas of groundglass opacity in the right lung typically related to atelectasis although pneumonitis is possible. 01/31/2020 Patient is still having shortness of breath. Oncology and pulmonary was consulted. Planning for thoracentesis. No complaints of fever or chills. No complaints of chest pain. Saturating well on room air. Discussed with the patient and her at bedside in detail. 02/01/2020 Patient denied any complaints of chest pain or worsening shortness of breath. No nausea vomiting or abdominal pain or diarrhea. Patient was seen with pulclement smith and patient underwent left thoracentesis with 1.4 L duration fluid removal. Patient was also seen by urology due to bladder mass and possibility of urothelial cancer was suspected. Patient was recommended to follow-up in his office for cystoscopy and biopsy and transurethral bladder mass resection if needed. Laboratory data reviewed. 02/02/2020 Patient is status post 1.4 L fluid removal on the left side of the lung. Currently breathing status is better. Oxygen at 4 L via nasal cannula. Chest x-ray showed no significant changes. Likely related to elevated hemidiaphragm on the left side as well as basal atelectasis. Oncology is following. Patient had thoracic/lumbar spine MRI and bone scan. Findings compatible with osseous metastatic disease mid to lower thoracic spine and also the posterior mid sacrum. 02/03/2020 Patient is currently lying in the bed comfortably. Currently on oxygen at 1 L via nasal cannula. Patient did complain of left-sided chest pain this morning and was given IV pain medication which seemed to improve her pain. Troponin x1- . Otherwise likely related to lung malignancy. Patient has been afebrile. Pulmonary and oncology on board. Anticipate discharge in the next 24 hours with final oncology recommendations. 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 She found to have left malignant pleural effusion status post thoracocentesis. This morning she feels better with no dyspnea at bed, no chest pain or coughing. She has recent brain MRI which was negative for metastases. Abdominal CT showed possible bladder mass, patient is aware about it with a recommendation for follow-up as an outpatient with urologist and she agrees to call and make appointment upon discharge. Patient is found closely by pulmonology, and oncology as well 02/05/2020 Patient is awake, breathing quietly with no respiratory symptoms, she has some loose stool but no abdominal pain or vomiting. She saturating 97% on 2 L. Today neurologist is planning to do a cystoscopy with possible transurethral resection if tumor is found in her bladder. Vitals are stable. WBCs back to normal at 9.1K, hemoglobin 15.5. Pulmonary and oncology team's on the case as well 02/06/2020 Patient has minimal respiratory symptoms. Also she did not complain from urinary symptoms. Today she's been evaluated by pulmonary and oncology team and they cleared her for discharge, however repeat labs showed leukocytosis of 14.1 K, and increased creatinine 0.1, lower sodium at 129, patient was started on ceftriaxone, normal sinus 75 mL/h and repeat labs in the morning and check pro-calcitonin Also she has loose stool since yesterday, we going to check for C. diff 02/07/2020 Patient is awake and alert, she denies any respiratory symptoms like no dyspnea or coughing or chest pain. No urinary symptoms like no dysuria or suprapubic tenderness. Patient has Gray catheter with clear urine in bag. Patient is only complaining of from some low back pain, mild nonspecific and patient is ambulating with no difficulties However patient had loose bowel movement yesterday, no more bowel movements since then. C. diff is sent and is pending however if no more diarrhea than no need to test for C. diff Monitor sodium, was 129 yesterday, WBC was 14 K, 13 K, repeat WBC is 13k, patient was started on ceftriaxone and change to Zosyn for possible post procedure infection of her urinary bladder Pro-calcitonin is mildly-0.11. C. diff is negative Objective - Vital Signs Vital signs: Vital Signs Temp 98.2 F 02/07/20 05:05 Pulse 76 02/07/20 05:05 Resp 14 02/07/20 05:05 BP 103/65 02/07/20 05:05 Pulse Ox 94 L 02/07/20 05:05 Intake & Output 02/06/20 02/07/20 02/07/20 18:59 06:59 18:59 Intake Total 600 Output Total 900 100 Balance -900 600 -100 Weight 55.792 kg Intake: Intake, IV Titration 600 Amount Sodium Chloride 0.9% 1, 600 000 ml @ 75 mls/hr IV . [id number] Rx#:[id number] Output: Urine 900 100 Uretheral (Gray) 450 100 Other: Voiding Method Indwelling Catheter Indwelling Catheter # Voids 2 - Exam GENERAL: The patient is alert and oriented x3, not in any acute distress. Well developed, well nourished. HEENT: Pupils are round and equally reacting to light. EOMI. No scleral icterus. No conjunctival pallor. Normocephalic, atraumatic. No pharyngeal erythema. No thyromegaly. CARDIOVASCULAR: S1 and S2 present. No murmurs, rubs, or gallops. PULMONARY: Chest is clear to auscultation, no wheezing or crackles. ABDOMEN: Soft, nontender, nondistended, normoactive bowel sounds. No palpable organomegaly. MUSCULOSKELETAL: No joint swelling or deformity. EXTREMITIES: No cyanosis, clubbing, or pedal edema. NEUROLOGICAL: Gross neurological examination did not reveal any focal deficits. SKIN: No rashes. no petechiae. - Labs CBC & Chem 7: 06/25/20 06:57 02/07/20 06:57 Labs: Abnormal Lab Results - Last 24 Hours (Table) 02/06/20 02/06/20 Range/Units 17:42 17:42 WBC 13.4 H (3.8-10.6) k/uL Neutrophils # 10.1 H (1.3-7.7) k/uL Monocytes # 1.1 H (0-1.0) k/uL Sodium 129 L (137-145) mmol/L Chloride 97 L (98-107) mmol/L BUN 18 H (7-17) mg/dL Glucose 118 H (74-99) mg/dL Assessment and Plan Assessment: -Metastatic adenocarcinoma/non-small cell lung carcinoma. With recent left thoracentesis on 01/17/2020 showing malignant cells. With metastasis, Mediastinal adenopathy and thoracic vertebral bony metastatic lesions. -Large urinary bladder tumor, status post transurethral resection. -Loose stool, with dehydration. Check for C. diff -Previous history of smoking -Hypertension -Hyperlipidemia -GERD -COPD -History of GI bleed -Anxiety/depression Plan: This is a pleasant 74 years old female status post thoracocentesis for left malignant pleural effusion. Patient is followed closely by pulmonary and oncology service. Follow-up biopsy for his urinary bladder tumor. Check C. diff, continue IV fluids. Check pro-calcitonin. Continue with the same management for now and keep monitoring the patient closely.
[2020-02-08] MEDS: PIPERACILLIN-TAZOBACTAM 3.375 GM in SODIUM CHLORIDE 0.9% 100 ML IVPB SCH ×2 (00:47→08:42)
[2020-02-08 07:45] LABS: Basophils # (A) 0.1 k/uL (0-0.2); Basophils % (A) 1 %; Eosinophils # (A) 0.1 k/uL (0-0.7); Eosinophils % (A) 1 %; HCT 37.1 % (34.0-46.0); HGB 11.6 gm/dL (11.4-16.0); Lymphocytes # (A) 1.9 k/uL (1.0-4.8); Lymphocytes % (A) 20 %; MCH 30.9 pg (25.0-35.0); MCHC 31.4 g/dL (31.0-37.0); MCV 98.5 fL (80.0-100.0); Mean Platelet Volume 7.9; Monocytes # (A) 0.9 k/uL (0-1.0); Monocytes % (A) 9 %; Neutrophils # (A) 6.7 k/uL (1.3-7.7); Neutrophils % (A) 68 %; Platelet Count 296 k/uL (150-450); RBC 3.76 m/uL (3.80-5.40); RDW 13.2 % (11.5-15.5); WBC 9.9 k/uL (3.8-10.6)
[2020-02-08 07:55] LABS: Calcium 8.4 mg/dL (8.4-10.2)
[2020-02-08 08:24] LABS: Appearance,Urine Clear (Clear); Bacteria,Urine Rare /hpf; Bilirubin,Urine Negative (Negative); Blood,Urine Moderate (Negative); Color,Urine Light Yellow; Glucose,Urine (UA) Negative (Negative); Ketones,Urine Negative (Negative); Leukocyte Esterase,Urine Large (Negative); Mucus,Urine Rare /hpf; Nitrite,Urine Negative (Negative); PH, Urine 5.5 (5.0-8.0); Protein,Urine Trace (Negative); RBC,Urine 52 /hpf (0-5); Specific Gravity,Urine 1.007 (1.001-1.035); Squamous Epithelial Cell,Urine <1 /hpf (0-4); Urobilinogen,Urine <2.0 mg/dL (<2.0); WBC,Urine 41 /hpf (0-5)
[2020-02-08] MEDS: METOPROLOL TARTRATE 50 MG TAB PO SCH (08:42)
[2020-02-08] MEDS: ALPRAZolam 0.25 MG TAB PO SCH (08:43)
[2020-02-08] MEDS: DULoxetine HCL 60 MG CAPSULE.DR PO SCH (08:43)
[2020-02-08] MEDS: ASCORBIC ACID 500 MG TAB PO SCH (08:43)
[2020-02-08] MEDS: CHOLECALCIFEROL 1,000 UNIT TAB PO SCH (08:43)
[2020-02-08] MEDS: OXYBUTYNIN CHLORIDE 5 MG TAB PO SCH (08:44)
[2020-02-08] MEDS: PANTOPRAZOLE 40 MG TABLET PO SCH (09:38)
[2020-02-08 12:34] VITALS: BP 146/77; PULSE 62; RESP 20; TEMP 97.8
[2020-02-08] MEDS ORDERED: LEVOFLOXACIN 500 MG TAB PO SCH (13:00)
--- NOTE | 2020-02-08 15:01 | P.PN ---
Subjective Progress Note Date: 02/08/20 Principal diagnosis: Left-sided malignant pleural effusion with recurrence Stage IV adenocarcinoma of the lung Progressive shortness of breath related to that Metastatic disease suggestive of mediastinal lymphadenopathy and thoracic vertebral metastatic disease Additional bladder mass primary versus secondary Dyslipidemia Hypertension hypertensive cardiovascular disease 02/08/2020, patient seen eval examined during rounds labs reviewed medications reviewed, breathing comfortably, denies any chest pain, white cell count have been down to 9900, urine culture results are pending so far no growth has been identified respiratory status continued to improve, she remains afebrile with saturation 98% 2 L, patient is being planned for discharge with follow-up on outpatient basis, biopsy in the bladder also came back 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 wall 02/07/2020, patient seen eval examined during the rounds labs reviewed medic ations reviewed care plan discussed, sitting upright on the chair breathing comfortably no obvious distress present, patient remains on broad-spectrum antibiotics were cell count is stable 13,800, potassium is 4.3 creatinine is 1.08, the urine is showing large leukocyte esterase postoperatively 02/06/2020, patient sitting upright in the bed breathing comfortably denies any chest pain shortness of breath is stable, patient is afebrile with saturation are 96% on 2 L, hemodynamics and stable patient is status post cystoscopy one day superficial papillary tumors were seen in the bladder which were resected and pathology is pending, reviewed thoracic and lumbar MRI likely metastatic lesion, patient is being evaluated by oncology for chemotherapy 02/04/2020, patient seen eval examined during the rounds labs reviewed medications reviewed shortness of breath has been stable denies any chest pain, patient is scheduled for cystoscopy and resection of tumor likely for tomorrow urology is following, hemodynamic status have been stable, 02/02/2020, patient seen eval examined during the rounds labs reviewed medications reviewed care plan discussed, shortness of breath significantly improved after removal of 1.4 L of fluid, cough congestion has improved, patient is on 1 L nasal cannula, patient is undergoing workup for bladder cancer metastatic disease, chest x-ray postprocedure reviewed in spite of removing 1.4 L no significant changes x-ray seen, likely related to elevated hemidiaphragm on the left side as well as basal atelectasis This is a 74-year-old female with long-standing history of smoking and nicotine use patient has been recently diagnosed as is stage IV adenocarcinoma likely of the lung with malignant pleural effusion she was discharged to follow with oncology service however due to recurrent on progressive shortness of breath came into the hospital found to have a fairly moderate size left-sided pleural effusion with recurrence has been admitted into the hospital with oncology on consult currently she is getting workup for metastatic disease, shortness of br eath on exertion is present patient is being scheduled for thoracentesis for palliative reason with further plans of chemotherapy as per oncology Objective - Vital Signs Vital signs: Vital Signs Temp 97.8 F 02/08/20 12:34 Pulse 62 02/08/20 12:34 Resp 20 02/08/20 12:34 BP 146/77 02/08/20 12:34 Pulse Ox 98 02/08/20 12:34 Intake & Output 02/07/20 02/08/20 02/08/20 18:59 06:59 18:59 Intake Total 240 300 240 Output Total 1475 1050 200 Balance -1235 -750 40 Intake: Intake, IV Titration 300 Amount Sodium Chloride 0.9% 1, 300 000 ml @ 75 mls/hr IV . [id number] [facility] Rx#:[id number] Oral 240 240 Output: Urine 1475 1050 200 Uretheral (Gray) 825 Other: Voiding Method Indwelling Catheter Indwelling Catheter Indwelling Catheter # Voids 4 # Bowel Movements 1 - Exam - Constitutional General appearance: average body habitus, cooperative, disheveled, mild distress - EENT Eyes: EOMI, PERRLA ENT: normal oropharynx Ears: bilateral: normal - Neck Carotids: bilateral: upstroke normal Thyroid: bilateral: normal size - Respiratory Respiratory: left: diminished, dullness, bilateral: rales, negative: rhonchi, wheezing, prolonged expiration - Cardiovascular Rhythm: regular Heart sounds: normal: S1, S2 - Gastrointestinal General gastrointestinal: decreased bowel sounds - Integumentary Integumentary: normal turgor - Neurologic Neurologic: CNII-XII intact - Musculoskeletal Musculoskeletal: gait normal, generalized weakness, strength equal bilaterally - Psychiatric Psychiatric: A&O x's 3, appropriate affect, intact judgment & insight - Labs CBC & Chem 7: 02/08/20 06:58 02/08/20 06:58 Labs: Abnormal Lab Results - Last 24 Hours (Table) 02/08/20 02/08/20 02/08/20 Range/Units 06:58 06:58 07:50 RBC 3.76 L (3.80-5.40) m/uL Sodium 136 L (137-145) mmol/L Urine Protein Trace H (Negative) Urine Blood Moderate H (Negative) Ur Leukocyte Esterase Large H (Negative) Urine RBC 52 H (0-5) /hpf Urine WBC 41 H (0-5) /hpf Urine Bacteria Rare H (None) /hpf Urine Mucus Rare H (None) /hpf Microbiology - Last 24 Hours (Table) 02/07/20 17:30 Urine Culture - Preliminary Urine,Catheterized 02/07/20 14:10 Urine Culture - Preliminary Urine,Voided Assessment and Plan Assessment: Leukocytosis likely postoperative stress Elevated creatinine likely postoperative Patient appears to have 2 primaries bladder cancer which is superficial low- grade noninvasive papillary urothelial carcinoma And Stage IV adenocarcinoma of the lung With Left-sided malignant pleural effusion with recurrence Elevated left hemidiaphragm along with left sided subsegmental atelectasis Progressive shortness of breath related to that Metastatic disease suggestive of mediastinal lymphadenopathy and thoracic vertebral metastatic disease Additional bladder mass primary versus secondary Dyslipidemia Hypertension hypertensive cardiovascular disease Plan: Continue provide supportive care Recommendation from oncology services reviewed Status post left-sided thoracentesis 2 Deep breathing exercises incentive spirometry Status post Cystoscopy and resection of superficial papillary tumors bladder Agree with discharge planning with follow-up on outpatient basis Time with Patient: Greater than 30
--- NOTE | 2020-02-08 16:30 | P.PN ---
Subjective Progress Note Date: 02/08/20 Principal diagnosis: New Lung Cancer Diagnsis Planning for discharge today. We will have her see me in followup next week to review symptom management (pain and anxiety) and then Dr. mcnair on 02/25/20. Objective - Vital Signs Vital signs: Vital Signs Temp 97.8 F 02/08/20 12:34 Pulse 62 02/08/20 12:34 Resp 20 02/08/20 12:34 BP 146/77 02/08/20 12:34 Pulse Ox 98 02/08/20 12:34 Intake & Output 02/07/20 02/08/20 02/08/20 18:59 06:59 18:59 Intake Total 240 300 240 Output Total 1475 1050 1000 Balance -1235 -750 -760 Intake: Intake, IV Titration 300 Amount Sodium Chloride 0.9% 1, 300 000 ml @ 75 mls/hr IV . [id number] [facility] Rx#:[id number] Oral 240 240 Output: Urine 1475 1050 1000 Uretheral (Gray) 825 800 Other: Voiding Method Indwelling Catheter Indwelling Catheter Indwelling Catheter # Voids 4 # Bowel Movements 1 - Exam - Constitutional General appearance: cooperative, no acute distress, thin - EENT Eyes: EOMI, PERRLA ENT: NA/AT, normal oropharynx - Neck Neck: normal ROM - Respiratory Respiratory: bilateral: diminished, wheezing Left side diminished - Cardiovascular Rhythm: regular Heart sounds: normal: S1, S2 - Gastrointestinal General gastrointestinal: normal bowel sounds, soft - Integumentary Integumentary: pale - Neurologic Neurologic: CNII-XII intact - Musculoskeletal Musculoskeletal: generalized weakness, strength equal bilaterally - Psychiatric Psychiatric: A&O x's 3, appropriate affect, intact judgment & insight - Labs CBC & Chem 7: 02/08/20 06:58 02/08/20 06:58 Labs: Abnormal Lab Results - Last 24 Hours (Table) 02/08/20 02/08/20 02/08/20 Range/Units 06:58 06:58 07:50 RBC 3.76 L (3.80-5.40) m/uL Sodium 136 L (137-145) mmol/L Urine Protein Trace H (Negative) Urine Blood Moderate H (Negative) Ur Leukocyte Esterase Large H (Negative) Urine RBC 52 H (0-5) /hpf Urine WBC 41 H (0-5) /hpf Urine Bacteria Rare H (None) /hpf Urine Mucus Rare H (None) /hpf Microbiology - Last 24 Hours (Table) 02/07/20 17:30 Urine Culture - Preliminary Urine,Catheterized 02/07/20 14:10 Urine Culture - Preliminary Urine,Voided Assessment and Plan (1) Non-small cell cancer of left lung Current Visit: Yes Status: Acute Code(s): C34.92 - MALIGNANT NEOPLASM OF UNSP PART OF LEFT BRONCHUS OR LUNG SNOMED Code(s): 897580067 (2) Recurrent left pleural effusion Current Visit: Yes Status: Acute Code(s): J90 - PLEURAL EFFUSION, NOT ELSEWHERE CLASSIFIED SNOMED Code(s): 29956069 Plan: Assessment and Recommendations: New Diagnosis of Non-Small Cell Lung cancer: Adenocarcinoma likely histology - Non-Small Cell per path - Positive pleural effusion cytology - Request has been placed for PDL1 and NGS on tissue cytology sample Abnormality to Bladder: - Status post cystoscopy with bladder mass removal 02/04 Plan: - Spoke to Patient's and Dr. Ruiz regarding discharge. We will call in Xanax TID PRN for patient for [address] Ruiz has provided a script for T3 for 3 days. Plan to see me in office this coming week for refill on pain medication, MAPS and contract. Instructed not to take benzo and T3 together, understanding stated - Rec PT/OT prior for rec at home, she has not walked very much since hospitalized - Follow-up appointment made with Dr. Mcnair for 02/11/20, patient and aware
--- NOTE | 2020-02-09 00:17 | P.DS ---
Providers Date of admission: 01/30/20 17:18 Attending physician: Tia Christianson Consults: 01/30/20 17:18 Consult Physician Routine Consulting Provider: Frankie Cash Consult Reason/Comments: Recurrent left pleural effusion Do you want consulting provider notified?: Yes 01/31/20 13:40 Consult Physician Routine Consulting Provider: Wisam Onofre Consult Reason/Comments: new dx lung CA Do you want consulting provider notified?: Yes 02/01/20 13:39 Consult Physician Routine Consulting Provider: Turner Chappell Consult Reason/Comments: Bladder wall thickening on CT, recent dx lung ca?2nd primary Do you want consulting provider notified?: Yes Primary care physician: [facility] Course: Diagnoses: Shortness of breath secondary to malignant pleural effusion left-sided.Status post left thoracentesis on 02/01/2020 Metastatic adenocarcinoma/non-small cell lung carcinoma. With recent left thoracentesis on 01/17/2020 showing malignant cells. Mediastinal adenopathy and thoracic vertebral bony metastatic lesions. Previous history of smoking Urinary bladder mass. Status post cystoscopy and transurethral resection of large tumor on 02/04. the biopsy shows low-grade noninvasive papillary uroth elial cancer Hypertension Hyperlipidemia GERD COPD History of GI bleed Anxiety/depression Hospital course: This is a pleasant 74 results female, with stage IV non-small lung cancer with metastasis to the mediastinal lymph nodes, thoracic vertebra sacrum. She found to have left malignant pleural effusion status post thoracocentesis. This morning she feels better with no dyspnea at bed, no chest pain or coughing. She has recent brain MRI which was negative for metastases. Abdominal CT showed possible bladder mass, urologist evaluated the patient and underwent cystoscopy With transurethral resection of urinary bladder tumor. After the patient with the daughter Mima at bedside, her urinary bladder tumor biopsy came back positive for low-grade noninvasive papillary urothelial cancer I told the patient and Teresa from oncology about these results. While lower effusion cytology came back positive for malignant cells which patient already knows about -Post cystoscopy patient developed leukocytosis and urinalysis was suspicious for infection, patient was treated with Zosyn and switch to oral Levaquin (patient ALLERGIC to penicillin limits antibiotics given to the patient) urine culture is pending, patient has an appointment with Teresa from Dr. Whitney office on this coming Tuesday on 02/10 and I talked to Teresa and she'll follow-up urine culture results when see the patient and her appointment, patient discharged on short course of Levaquin. On the day of discharge her symptoms improved, the biopsy came back to normal. No fever, she still Gray catheter on discharge Postoperatively patient is doing well, no chest pain or dyspnea. No coughing. No abdominal pain. No nausea vomiting. No fever. Patient is cleared for discharge by all consultants including by pulmonology, urology and oncology services as well Problems and management plan were discussed with the patient and he verbalized understanding and acceptance Patient was found stable and can be discharged home and guarded prognosis however she needs follow-up as an outpatient. Patient was instructed to follow up with PCP Dr. Coy within one week and patient agrees Also patient was instructed to follow up with Dr. Cash, vault clerk in 1-[address] Whitney, oncologist on 02/10 and she agrees to follow-up. Also patient was instructed to follow up with urologist Dr. Chappell on 02/13 and it agrees with this appointment as well Gen: patient is a AAOx3, no distress CVS: S1-S2, RRR, no murmur Lungs: B/L CTA, no wheezing -Abdomen: soft, no distention, no tenderness, positive bowel sounds. Gray catheter is in place with dark discharge with the urine which is expected from her surgery yesterday Extremity: no leg edema or induration Time spent more than 35 minutes Patient Condition at Discharge: Fair Plan - Discharge Summary Discharge Rx Participant: Yes New Discharge Prescriptions: New Levofloxacin [Levaquin] 500 mg PO Q24H 7 Days #7 tab Continue Simvastatin [Zocor] 40 mg PO HS Oxybutynin Chloride 10 mg PO BID Ascorbic Acid [Vitamin C] 1,000 mg PO DAILY Metoprolol Tartrate [Lopressor] 50 mg PO BID Cholecalciferol (Vitamin D3) [Vitamin D3] 2,000 unit PO DAILY DULoxetine HCL [Cymbalta] 60 mg PO DAILY Omeprazole [PriLOSEC] 20 mg PO DAILY Fluticasone Nasal [place] [Flonase Nasal [place]] 1 spray EA NOSTRIL BID PRN PRN Reason: Congestion Ipratropium [place] [Atrovent Hfa] 2 puff INHALATION QID #1 inhaler Nicotine 21Mg/24Hr Patch [Habitrol] 1 patch TRANSDERM DAILY #14 patch Acetaminophen-Codeine 300-30mg [Tylenol w/codeine #3] 1 tab PO Q6H PRN #10 tab PRN Reason: pain Discharge Medication List Ascorbic Acid [Vitamin C] 1,000 mg PO DAILY 06/13/19 [History] Cholecalciferol (Vitamin D3) [Vitamin D3] 2,000 unit PO DAILY 06/13/19 [History] Metoprolol Tartrate [Lopressor] 50 mg PO BID 06/13/19 [History] Oxybutynin Chloride 10 mg PO BID 06/13/19 [History] Simvastatin [Zocor] 40 mg PO HS 06/13/19 [History] DULoxetine HCL [Cymbalta] 60 mg PO DAILY 07/17/19 [History] Fluticasone Nasal [place] [Flonase Nasal [place]] 1 spray EA NOSTRIL BID PRN 01/15/20 [History] Omeprazole [PriLOSEC] 20 mg PO DAILY 01/15/20 [History] Ipratropium [place] [Atrovent Hfa] 2 puff INHALATION QID #1 inhaler 01/18/20 [Rx] Nicotine 21Mg/24Hr Patch [Habitrol] 1 patch TRANSDERM DAILY #14 patch 01/18/20 [Rx] Acetaminophen-Codeine 300-30mg [Tylenol w/codeine #3] 1 tab PO Q6H PRN #10 tab 02/08/20 [Rx] Levofloxacin [Levaquin] 500 mg PO Q24H 7 Days #7 tab 02/08/20 [Rx] Follow up Appointment(s)/Referral(s): Thor Coy MD [Primary Care Provider] - 02/21/20 3:40 pm Turner Chappell MD [STAFF PHYSICIAN] - 02/14/20 2:40 pm [facility] [NON-STAFF] - 1 Week Frankie Cash MD [STAFF PHYSICIAN] - 10 Days (please call office to set up appt.) Zeynep Whitney MD [STAFF PHYSICIAN] - 02/11/20 (please call office to set up appt.) Patient Instructions/Handouts: Levofloxacin (By mouth), Lung Cancer (DC), COPD (Chronic Obstructive Pulmonary Disease) (DC) Activity/Diet/Wound Care/Special Instructions: Heart healthy diet Activity is limited till you see your doctor. Discharge home with Gray catheter. Discharge Disposition: HOME SELF-CARE
== END 2020-02-08 16:26 | disposition home or self-care (01) | DRG 988 ==
LOC: EC 14:52 → 5NMEDONC 17:18
PROVIDERS: ADMIT Internal Medicine; ATTEND Internal Medicine
PROC: 0W9B3ZZ Drainage of Left Pleural Cavity, Percutaneous Approach (ICD-10-PCS; 2020-02-01)
PROC: 0TBB8ZZ Excision of Bladder, Via Natural or Artificial Opening Endoscopic (ICD-10-PCS; principal; 2020-02-05 14:00)
DX: C34.92 Malignant neoplasm of unspecified part of left bronchus or lung (principal); J44.1 Chronic obstructive pulmonary disease with (acute) exacerbation; C79.51 Secondary malignant neoplasm of bone; C77.1 Secondary and unspecified malignant neoplasm of intrathoracic lymph nodes; J91.0 Malignant pleural effusion; C67.9 Malignant neoplasm of bladder, unspecified; K21.9 Gastro-esophageal reflux disease without esophagitis; M19.90 Unspecified osteoarthritis, unspecified site; F32.9 Major depressive disorder, single episode, unspecified; F17.200 Nicotine dependence, unspecified, uncomplicated; F41.9 Anxiety disorder, unspecified; E78.5 Hyperlipidemia, unspecified; E86.0 Dehydration; F12.90 Cannabis use, unspecified, uncomplicated; I11.9 Hypertensive heart disease without heart failure; Z20.828 Contact with and (suspected) exposure to other viral communicable diseases; Z79.899 Other long term (current) drug therapy; Z88.1 Allergy status to other antibiotic agents; Z88.5 Allergy status to narcotic agent; Z88.0 Allergy status to penicillin; Z85.118 Personal history of other malignant neoplasm of bronchus and lung; Z87.440 Personal history of urinary (tract) infections; Z87.442 Personal history of urinary calculi; Z90.89 Acquired absence of other organs; Z98.890 Other specified postprocedural states; Z80.9 Family history of malignant neoplasm, unspecified; Z83.79 Family history of other diseases of the digestive system
CPT/HCPCS: 36415; 70553; 71045; 71046; 72157; 72158; 74177; 76604; 78306; 80048; 80053; 81001; 82945; 83605; 83615; 83735; 83880; 84145; 84157; 84484; 85025; 85379; 85610; 85730; 87070; 87086; 87102; 87116; 87205; 87206; 87324; 88108; 88305; 88307; 89050; 93005; 94640; 94760; 99285

== ENCOUNTER 2020-02-15 11:54 | Emergency (ER) | payer MEDICARE ==
--- NOTE | 2020-02-15 12:33 | ED ---
General Adult HPI - General Chief complaint: Urogenital Stated complaint: catheter change Time Seen by Provider: 02/15/20 12:02 Source: patient, RN notes reviewed Mode of arrival: wheelchair Limitations: no limitations - History of Present Illness Initial comments: 74-year-old female presents to the emergency room for a chief complaint of catheter removal. Patient has a urinary catheter placed which has been in since 02/04/2021 patient had a bladder tumor removed. Patient states she was told she needed to be on antibiotics for 7 days and then it could be removed. However patient is unsure who said it could be removed and how was supposed to be removed. Patient thought she had an appointment today but now thinks it is on February 24 with urology. Patient states she just wants the catheter out. she states there is no bleeding or clots. She states it is causing irritation to her right leg. Patient has no other complaints at this time including shortness of breath, chest pain, abdominal pain, nausea or vomiting, headache, or visual changes. - Related Data Home Medications Medication Instructions Recorded Confirmed RX: Ascorbic Acid [Vitamin C] 1,000 mg PO DAILY 06/13/19 01/30/20 RX: Cholecalciferol (Vitamin D3) 2,000 unit PO DAILY 06/13/19 01/30/20 [Vitamin D3] RX: Metoprolol Tartrate [Lopressor] 50 mg PO BID 06/13/19 01/30/20 RX: Oxybutynin Chloride 10 mg PO BID 06/13/19 01/30/20 RX: Simvastatin [Zocor] 40 mg PO HS 06/13/19 01/30/20 RX: DULoxetine HCL [Cymbalta] 60 mg PO DAILY 07/17/19 01/30/20 RX: Fluticasone Nasal [place] 1 spray EA NOSTRIL BID PRN 01/15/20 01/30/20 [Flonase Nasal [place]] RX: Omeprazole [PriLOSEC] 20 mg PO DAILY 01/15/20 01/30/20 Previous Rx's Medication Instructions Recorded RX: Ipratropium [place] [Atrovent 2 puff INHALATION QID #1 inhaler 01/18/20 Hfa] RX: Nicotine 21Mg/24Hr Patch 1 patch TRANSDERM DAILY #14 patch 01/18/20 [Habitrol] RX: Acetaminophen-Codeine 300-30mg 1 tab PO Q6H PRN #10 tab 02/08/20 [Tylenol w/codeine #3] RX: Levofloxacin [Levaquin] 500 mg PO Q24H 7 Days #7 tab 02/08/20 Allergies Allergy/AdvReac Type Severity Reaction Status Date / Time Penicillins Allergy Rash/Hives Verified 02/15/20 12:00 erythromycin base AdvReac Nausea & Verified 02/15/20 12:00 Vomiting morphine AdvReac Hallucinati Verified 02/15/20 12:00 ons Review of Systems ROS Statement: Those systems with pertinent positive or pertinent negative responses have been documented in the HPI. ROS Other: All systems not noted in ROS Statement are negative. Past Medical History Past Medical History: COPD, GERD/Reflux, Hyperlipidemia, Hypertension, Osteoarthritis (OA) Additional Past Medical History / Comment(s): CHRONIC BACK PAIN, constipation HOSPITALIZED 07/17/19-07/20/19 FOR GI BLEED., STATES SHE WAS TOLD MASS ON HER BLADDER. Fluid on lungs History of Any Multi-Drug Resistant Organisms: None Reported Past Surgical History: Adenoidectomy, Appendectomy, Section, Tonsillectomy Additional Past Surgical History / Comment(s): Uterine surgery, thoracentesis Past Anesthesia/Blood Transfusion Reactions: No Reported Reaction, Motion Sickness Additional Past Anesthesia/Blood Transfusion Reaction / Comment(s): blood transfusion during childbirth, no reaction Past Psychological History: Anxiety, Depression Smoking Status: Former smoker Past Alcohol Use History: None Reported Past Drug Use History: Marijuana - Past Family History Mother Family Medical History: Cancer, Liver Disease Additional Family Medical History / Comment(s): Cirrhosis Father Family Medical History: Cancer Additional Family Medical History / Comment(s): cirrhosis Brother(s) Additional Family Medical History / Comment(s): Cirrhosis General Exam Limitations: no limitations General appearance: alert, in no apparent distress Head exam: Present: atraumatic, normocephalic, normal inspection Eye exam: Present: normal appearance, PERRL, EOMI. Absent: scleral icterus, conjunctival injection, periorbital swelling ENT exam: Present: normal exam, mucous membranes moist Neck exam: Present: normal inspection, full ROM. Absent: tenderness, meningismus, lymphadenopathy Respiratory exam: Present: normal lung sounds bilaterally. Absent: respiratory distress, wheezes, rales, rhonchi, stridor Cardiovascular Exam: Present: regular rate, normal rhythm, normal heart sounds. Absent: systolic murmur, diastolic murmur, rubs, gallop, clicks Extremities exam: Present: other (Patient has erythema on the right leg where catheter bag has caused irritation. This is not cellulitic in nature.) Course Vital Signs 02/15/20 11:56 Temperature 98.1 F Pulse Rate 109 H Respiratory 18 Rate Blood Pressure 110/68 O2 Sat by Pulse 96 Oximetry Medical Decision Making - Medical Decision Making Dr Hodge spoke with on-call urology who did give permission to remove indwelling Gray catheter. This was removed without difficulty. Patient will follow up with them at her scheduled appointment. She'll return here for any worsening symptoms. Disposition Clinical Impression: Encounter for Gray catheter removal Disposition: HOME SELF-CARE Condition: Good Instructions (If sedation given, give patient instructions): Gray Catheter Removal (DC) Additional Instructions: Please follow up with urology at your scheduled appointment. If you have any difficulty urinating over the next day you need to return here to the emergency room. If you have any other worsening symptoms such as fevers return to the emergency room as soon as possible. Is patient prescribed a controlled substance at d/c from ED?: No Referrals: Carlos Moran MD [STAFF PHYSICIAN] - 1-2 days Time of Disposition: 12:51
[2020-02-15 12:59] VITALS: BP 116/70; PULSE 94; RESP 16; TEMP 98
== END 2020-02-15 13:01 | disposition home or self-care (01) ==
LOC: EC 11:54
DX: Z46.6 Encounter for fitting and adjustment of urinary device (principal); I10 Essential (primary) hypertension; E78.5 Hyperlipidemia, unspecified; F41.9 Anxiety disorder, unspecified; F32.9 Major depressive disorder, single episode, unspecified; K21.9 Gastro-esophageal reflux disease without esophagitis; Z79.899 Other long term (current) drug therapy; Z88.5 Allergy status to narcotic agent; Z88.1 Allergy status to other antibiotic agents; Z88.0 Allergy status to penicillin; Z87.891 Personal history of nicotine dependence; Z86.018 Personal history of other benign neoplasm
CPT/HCPCS: 99283

== ENCOUNTER 2020-02-20 08:44 | Day surgery (SDC) | payer MEDICARE ==
[2020-02-20 09:38] LABS: Mean Platelet Volume 7.1
[2020-02-20 09:45] LABS: Prothrombin Time 10.1 sec (9.0-12.0)
[2020-02-20 13:20] LABS: Platelet Count 567 k/uL (150-450)
--- NOTE | 2020-02-20 13:31 | XR ---
EXAMINATION TYPE: XR chest 1V DATE OF EXAM: 02/20/2020 COMPARISON: 02/07/2020 INDICATION: Post left thoracentesis TECHNIQUE: Single frontal view of the chest is obtained. FINDINGS: The heart size is indistinct. The pulmonary vasculature is normal. There is a moderate left pleural effusion. No pneumothorax is evident. Very minimal right pleural eff usion may be present. IMPRESSION: 1. No pneumothorax postthoracentesis. 2. Moderate left pleural effusion.
--- NOTE | 2020-02-20 14:53 | US ---
Ultrasound-guided therapeutic thoracentesis DATE OF EXAM: 02/20/2020 CLINICAL HISTORY: Left pleural effusion The procedure was discussed with the patient. The risks, complications, benefits, and alternatives we re discussed and any questions were answered. Informed consent was obtained. The patient was placed supine on the ultrasound table and prepped and draped in the usual sterile fas hion. All elements of maximal barrier and sterile technique were utilized. Under ultrasound guidance, access into the pleural space was obtained, via the thoracentesis catheter system and direct ultrasound guidance. Ap proximately 1 liters of straw-colored fluid was removed. The patient was stable throughout the procedure and remained stable upon discharge from Department of Radiology. IMPRESSION: 1. Successful therapeutic thoracentesis under ultrasound guidance.
== END 2020-02-20 12:00 | disposition home or self-care (01) ==
LOC: RADPROMAIN 08:44
PROVIDERS: ATTEND Internal Medicine Hematology & Oncology
DX: J90 Pleural effusion, not elsewhere classified (principal)
CPT/HCPCS: 32555; 71045; 85049; 85610

== ENCOUNTER → 2020-02-22 | Outpatient (CLI) | payer MEDICARE ==
--- NOTE | 2020-02-24 13:58 | PE ---
Nuclear medicine PET/CT HISTORY: Lung carcinoma, initial Patient received 10.3 mCi F-18 FDG intravenously in delayed scanning was performed from the skull bas e to the mid thighs. Localization and attenuation correction CT scan was performed. Correlation to CT abdomen pelvis 01/31/2020, chest CT 01/15/2020, bone scan 02/01/2020 Neck and chest: There is no cervical or supraclavicular adenopathy. There is a loculated left pleural effusion present. Effusion is large on the left. Left hilar mass shows hypermetabolic uptake. Minima l pericardial fluid noted. There is a small right pleural effusion present. ABDOMEN: There is no adrenal mass, no liver mass. No retroperitoneal adenopathy or suspicious hyperme tabolic uptake. There is no ascites. No pelvic adenopathy. Osseous structures are remarkable for a focus of activity present within the sacrum centrally. Some f ocal sclerosis is present at this level. Scattered subcentimeter foci of increased density present wi thin the spine, there is a sclerotic focus within the left T12 vertebral body which show some mild up take. IMPRESSION: Findings compatible with patient's history of lung carcinoma. 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
== END | disposition home or self-care (01) ==
LOC: RADPETMAIN 15:02
PROVIDERS: ATTEND Internal Medicine Hematology & Oncology
DX: C34.82 Malignant neoplasm of overlapping sites of left bronchus and lung (principal)
CPT/HCPCS: 78815; A9552

== ENCOUNTER 2020-02-28 07:52 | Observation (INO) | payer MEDICARE ==
[2020-02-28] MEDS ORDERED: HYDROmorphone 1 MG/ML 1 ML SYRINGE IVP STA (08:13)
--- NOTE | 2020-02-28 08:19 | ED ---
General Adult HPI - General Chief complaint: Shortness of Breath Stated complaint: fluid on lungs Time Seen by Provider: 02/28/20 07:55 Source: patient, RN notes reviewed, old records reviewed Mode of arrival: wheelchair Limitations: no limitations - History of Present Illness Initial comments: This is a 74-year-old female presents emergency Department stating that she has a history of metastatic lung disease. Patient states she's had multiple pleural effusions that have been drained by pulmonary. Patient states her breathing is become more difficult over the last few days and she believes she needs to have thoracentesis. 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 Patient denies any abdominal pain. Patient denies headache patient denies numbness weakness. Patient states she has typical left posterior thorax pain. Patient denies any other problems at this time - Related Data Home Medications Medication Instructions Recorded Confirmed Ascorbic Acid [Vitamin C] 1,000 mg PO DAILY 06/13/19 02/20/20 Metoprolol Tartrate [Lopressor] 50 mg PO BID 06/13/19 02/20/20 Oxybutynin Chloride 10 mg PO BID 06/13/19 02/20/20 Simvastatin [Zocor] 40 mg PO HS 06/13/19 02/20/20 DULoxetine HCL [Cymbalta] 60 mg PO DAILY 07/17/19 02/20/20 Omeprazole [PriLOSEC] 20 mg PO DAILY 01/15/20 02/20/20 oxyCODONE-APAP 10-325MG [Percocet 1 tab PO TID PRN 02/18/20 02/20/20 10-325 mg] Allergies Allergy/AdvReac Type Severity Reaction Status Date / Time Penicillins Allergy Rash/Hives Verified 02/28/20 07:56 erythromycin base AdvReac Nausea & Verified 02/28/20 07:56 Vomiting morphine AdvReac Hallucinati Verified 02/28/20 07:56 ons Review of Systems ROS Statement: Those systems with pertinent positive or pertinent negative responses have been documented in the HPI. ROS Other: All systems not noted in ROS Statement are negative. Past Medical History Past Medical History: Cancer, COPD, GERD/Reflux, Hyperlipidemia, Hypertension, Osteoarthritis (OA) Additional Past Medical History / Comment(s): CHRONIC BACK PAIN, constipation HOSPITALIZED 07/17/19-07/20/19 FOR GI BLEED., STATES SHE WAS TOLD MASS ON HER BLADDER. Fluid on lungs, lung cancer, bladder cancer History of Any Multi-Drug Resistant Organisms: None Reported Past Surgical History: Adenoidectomy, Appendectomy, Section, Tonsillectomy Additional Past Surgical History / Comment(s): Uterine surgery, thoracentesis Past Anesthesia/Blood Transfusion Reactions: No Reported Reaction, Motion Sickness Additional Past Anesthesia/Blood Transfusion Reaction / Comment(s): blood transfusion during childbirth, no reaction Past Psychological History: Anxiety, Depression Smoking Status: Former smoker Past Alcohol Use History: None Reported Past Drug Use History: Marijuana - Past Family History Mother Family Medical History: Cancer, Liver Disease Additional Family Medical History / Comment(s): Cirrhosis Father Family Medical History: Cancer Additional Family Medical History / Comment(s): cirrhosis Brother(s) Additional Family Medical History / Comment(s): Cirrhosis General Exam - General Exam Comments Initial Comments: GENERAL: Patient is well-developed and well-nourished. Patient is nontoxic and well- hydrated and is moderate distress. ENT: Neck is soft and supple. No significant lymphadenopathy is noted. Oropharynx is clear. Moist mucous membranes. Neck has full range of motion without eliciting any pain. EYES: The sclera were anicteric and conjunctiva were pink and moist. Extraocular movements were intact and pupils were equal round and reactive to light. Eyelids were unremarkable. PULMONARY: Unlabored respirations. Patient has diminished lung sounds on the left CARDIOVASCULAR: There is a regular rate and rhythm without any murmurs gallops or rubs. ABDOMEN: Soft and nontender with normal bowel sounds. SKIN: Skin is clear with no lesions or rashes and otherwise unremarkable. NEUROLOGIC: Patient is alert and oriented x3. Cranial nerves II through XII are grossly intact. Motor and sensory are also intact. Normal speech, volume and content. Symmetrical smile. MUSCULOSKELETAL: Normal extremities with adequate strength and full range of motion. LYMPHATICS: No significant lymphadenopathy is noted PSYCHIATRIC: Normal psychiatric evaluation. Limitations: no limitations Course Vital Signs 02/28/20 02/28/20 07:54 09:21 Temperature 98.1 F Pulse Rate 109 H 75 Respiratory 18 18 Rate Blood Pressure 147/76 O2 Sat by Pulse 97 95 Oximetry Medical Decision Making - Medical Decision Making EKG shows sinus rhythm at 69 bpm KS interval 200 QRS 76 QT interval 38 QTC is 4:15. Patient's EKG shows no ST segment elevation or depression. Chest x-ray shows left-sided pleural effusion. I spoke with a hospitalist agreed to admit the patient I admitted the patient wrote admitting orders - Lab Data Result diagrams: 02/28/20 08:15 02/28/20 08:15 Lab Results 02/28/20 02/28/20 02/28/20 Range/Units 08:15 08:15 08:15 WBC 9.1 (3.8-10.6) k/uL RBC 4.36 (3.80-5.40) m/uL Hgb 13.2 (11.4-16.0) gm/dL Hct 42.3 (34.0-46.0) % MCV 96.9 (80.0-100.0) fL MCH 30.2 (25.0-35.0) pg MCHC 31.2 (31.0-37.0) g/dL RDW 13.6 (11.5-15.5) % Plt Count 537 H (150-450) k/uL Neutrophils % 59 % Lymphocytes % 26 % Monocytes % 9 % Eosinophils % 3 % Basophils % 1 % Neutrophils # 5.4 (1.3-7.7) k/uL Lymphocytes # 2.3 (1.0-4.8) k/uL Monocytes # 0.8 (0-1.0) k/uL Eosinophils # 0.3 (0-0.7) k/uL Basophils # 0.1 (0-0.2) k/uL PT 9.5 (9.0-12.0) sec INR 0.9 (<1.2) APTT 26.1 (22.0-30.0) sec Sodium 139 (137-145) mmol/L Potassium 3.9 (3.5-5.1) mmol/L Chloride 105 (98-107) mmol/L Carbon Dioxide 26 (22-30) mmol/L Anion Gap 8 mmol/L BUN 10 (7-17) mg/dL Creatinine 0.64 (0.52-1.04) mg/dL Est GFR (CKD-EPI)AfAm >90 (>60 ml/min/1.73 sqM) Est GFR (CKD-EPI)NonAf 90 (>60 ml/min/1.73 sqM) Glucose 109 H (74-99) mg/dL Calcium 9.2 (8.4-10.2) mg/dL Total Bilirubin 0.5 (0.2-1.3) mg/dL AST 25 (14-36) U/L ALT 13 (4-34) U/L Alkaline Phosphatase 152 H (38-126) U/L Troponin I (0.000-0.034) ng/mL Total Protein 6.5 (6.3-8.2) g/dL Albumin 3.4 L (3.5-5.0) g/dL 02/28/20 Range/Units 08:15 WBC (3.8-10.6) k/uL RBC (3.80-5.40) m/uL Hgb (11.4-16.0) gm/dL Hct (34.0-46.0) % MCV (80.0-100.0) fL MCH (25.0-35.0) pg MCHC (31.0-37.0) g/dL RDW (11.5-15.5) % Plt Count (150-450) k/uL Neutrophils % % Lymphocytes % % Monocytes % % Eosinophils % % Basophils % % Neutrophils # (1.3-7.7) k/uL Lymphocytes # (1.0-4.8) k/uL Monocytes # (0-1.0) k/uL Eosinophils # (0-0.7) k/uL Basophils # (0-0.2) k/uL PT (9.0-12.0) sec INR (<1.2) APTT (22.0-30.0) sec Sodium (137-145) mmol/L Potassium (3.5-5.1) mmol/L Chloride (98-107) mmol/L Carbon Dioxide (22-30) mmol/L Anion Gap mmol/L BUN (7-17) mg/dL Creatinine (0.52-1.04) mg/dL Est GFR (CKD-EPI)AfAm (>60 ml/min/1.73 sqM) Est GFR (CKD-EPI)NonAf (>60 ml/min/1.73 sqM) Glucose (74-99) mg/dL Calcium (8.4-10.2) mg/dL Total Bilirubin (0.2-1.3) mg/dL AST (14-36) U/L ALT (4-34) U/L Alkaline Phosphatase (38-126) U/L Troponin I <0.012 (0.000-0.034) ng/mL Total Protein (6.3-8.2) g/dL Albumin (3.5-5.0) g/dL Disposition Clinical Impression: Dyspnea, Pleural effusion Disposition: ADMITTED IP TO THIS HOSP Referrals: None,Stated [Primary Care Provider] - 1-2 days Time of Disposition: 09:38
[2020-02-28 08:35] LABS: Basophils # (A) 0.1 k/uL (0-0.2); Basophils % (A) 1 %; Eosinophils # (A) 0.3 k/uL (0-0.7); Eosinophils % (A) 3 %; HCT 42.3 % (34.0-46.0); HGB 13.2 gm/dL (11.4-16.0); Lymphocytes # (A) 2.3 k/uL (1.0-4.8); Lymphocytes % (A) 26 %; MCH 30.2 pg (25.0-35.0); MCHC 31.2 g/dL (31.0-37.0); MCV 96.9 fL (80.0-100.0); Mean Platelet Volume 7.3; Monocytes # (A) 0.8 k/uL (0-1.0); Monocytes % (A) 9 %; Neutrophils # (A) 5.4 k/uL (1.3-7.7); Neutrophils % (A) 59 %; Platelet Count 537 k/uL (150-450); RBC 4.36 m/uL (3.80-5.40); RDW 13.6 % (11.5-15.5); WBC 9.1 k/uL (3.8-10.6)
--- NOTE | 2020-02-28 08:44 | XR ---
EXAMINATION TYPE: XR chest 2V DATE OF EXAM: 02/28/2020 COMPARISON: Prior chest x-ray 02/20/2020 HISTORY: Difficult breathing, shortness breath TECHNIQUE: Frontal and lateral views of the chest are obtained. FINDINGS: The left pleural effusion has increased in size in the interval. There is some rotation ho wever there may be some mediastinal shift. There may be amenable right pleural effusion. No pneumotho rax. Heart is obscured. IMPRESSION: Enlarging left pleural effusion as described
[2020-02-28 08:45] LABS: ALT 13 U/L (4-34); AST 25 U/L (14-36); African American GFR (CKD) >90 (>60 ml/min/1.73 sqM); Albumin 3.4 g/dL (3.5-5.0); Alkaline Phosphatase 152 U/L (38-126); Anion Gap 8 mmol/L; Blood Urea Nitrogen 10 mg/dL (7-17); Calcium 9.2 mg/dL (8.4-10.2); Carbon Dioxide 26 mmol/L (22-30); Chloride 105 mmol/L (98-107); Glucose 109 mg/dL (74-99); Non-African American GFR(CKD) 90 (>60 ml/min/1.73 sqM); Potassium 3.9 mmol/L (3.5-5.1); Sodium 139 mmol/L (137-145); Total Bilirubin 0.5 mg/dL (0.2-1.3); Total Protein 6.5 g/dL (6.3-8.2)
[2020-02-28 08:47] LABS: INR 0.9 (<1.2); Partial Thromboplastin Time 26.1 sec (22.0-30.0); Prothrombin Time 9.5 sec (9.0-12.0)
[2020-02-28] MEDS ORDERED: IBUPROFEN 800 MG TAB PO PRN (12:21)
[2020-02-28] MEDS ORDERED: METOCLOPRAMIDE 10 MG TAB PO PRN (12:21)
[2020-02-28] MEDS ORDERED: oxyCODONE-APAP 10-325MG 1 EACH TAB PO PRN (12:21)
[2020-02-28] MEDS: oxyCODONE-APAP 10-325MG 1 EACH TAB PO PRN ×2 (14:42→20:24)
--- NOTE | 2020-02-28 14:50 | P.HPIM ---
History of Present Illness 72-year-old pleasant female came in with compensative short of breath patient has history of left sided lung cancer with the pleural effusion patient had is found to have C. diff and pleural effusion on the left side patient denied any cough wheezing. Patient has significant history of smoking does have history of COPD does use 2 L of oxygen at home. 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 Patient denied any fever chills. Review of Systems REVIEW OF SYSTEMS: CONSTITUTIONAL: No fever, no malaise, no fatigue. HEENT: No recent visual problems or hearing problems. Denied any sore throat. CARDIOVASCULAR: No chest pain, orthopnea, PND, no palpitations, no syncope. PULMONARY:, no hemoptysis. GASTROINTESTINAL: No diarrhea, no nausea, no vomiting, no abdominal pain. NEUROLOGICAL: No headaches, no weakness, no numbness. HEMATOLOGICAL: Denies any bleeding or petechiae. GENITOURINARY: Denies any burning micturition, frequency, or urgency. MUSCULOSKELETAL/RHEUMATOLOGICAL: Denies any joint pain, swelling, or any muscle pain. ENDOCRINE: Denies any polyuria or polydipsia. The rest of the 14-point review of systems is negative. Past Medical History Past Medical History: Cancer, COPD, Fibromyalgia, GERD/Reflux, GI Bleed, Hyperlipidemia, Hypertension, Osteoarthritis (OA), Pneumonia Additional Past Medical History / Comment(s): Pt recently admitted to [facility] on 01/30/20 with SOB 2ndary to L pleural effusion/thoracentesis/metastatic L lung cancer. Pt states cancer s in mediastinum and thoracic vertebra/back pain/pt also had bladder cancer with surgery. Pt is on home oxygen ATC. Pt hs had a total of 2 L thoracentesis. Other hx: 2019 lower GI bleed d/t colitis, UTIs, bronchitis, sinus problems, migraines, chronic pain, bilateral carpal tunnel syndrome, osteopenia, bilateral tinnitis/[place]. History of Any Multi-Drug Resistant Organisms: None Reported Past Surgical History: Adenoidectomy, Appendectomy, Section, Tonsillectomy Additional Past Surgical History / Comment(s): 02/05/20 cystoscopy with resection bladder tumor/scraping, L thoracentesis x2, uterine surgery for tipped uterus, R carpal tunnel release. Past Anesthesia/Blood Transfusion Reactions: No Reported Reaction, Motion Sickness Additional Past Anesthesia/Blood Transfusion Reaction / Comment(s): blood tyson sfusion during childbirth, no reaction Smoking Status: Former smoker - Past Family History Mother Family Medical History: Cancer, Liver Disease Additional Family Medical History / Comment(s): Cirrhosis/lung cancer. Father Family Medical History: Cancer Additional Family Medical History / Comment(s): cirrhosis/liver cancer Brother(s) Additional Family Medical History / Comment(s): Cirrhosis Medications and Allergies Home Medications Medication Instructions Recorded Confirmed Type Ascorbic Acid [Vitamin C] 1,000 mg PO DAILY 06/13/19 02/28/20 History Metoprolol Tartrate [Lopressor] 50 mg PO BID 06/13/19 02/28/20 History Oxybutynin Chloride 10 mg PO BID 06/13/19 02/28/20 History Simvastatin [Zocor] 40 mg PO HS 06/13/19 02/28/20 History DULoxetine HCL [Cymbalta] 60 mg PO DAILY 07/17/19 02/28/20 History Omeprazole [PriLOSEC] 20 mg PO DAILY 01/15/20 02/28/20 History oxyCODONE-APAP 10-325MG [Percocet 1 tab PO TID PRN 02/18/20 02/28/20 History 10-325 mg] ALPRAZolam [Xanax] 0.25 mg PO TID 02/28/20 02/28/20 History Cholecalciferol [Vitamin D3 (25 2,000 unit PO DAILY 02/28/20 02/28/20 History Mcg = 1000 Iu)] Ibuprofen [Motrin] 800 mg PO DAILY PRN 02/28/20 02/28/20 History Ipratropium [place] [Atrovent Hfa] 2 puff INHALATION RT-QID 02/28/20 02/28/20 History Metoclopramide HCl [Reglan] 10 mg PO DAILY PRN 02/28/20 02/28/20 History oxyCODONE-APAP 10-325MG [Percocet 1 tab PO Q6H PRN 02/28/20 02/28/20 History 10-325 mg] Allergies Allergy/AdvReac Type Severity Reaction Status Date / Time Penicillins Allergy Rash/Hives Verified 02/28/20 11:00 erythromycin base AdvReac Nausea & Verified 02/28/20 11:00 Vomiting morphine AdvReac Hallucinati Verified 02/28/20 11:00 ons Physical Exam Vitals: Vital Signs Temp Pulse Resp BP Pulse Ox 02/28/20 14:36 81 16 132/76 96 02/28/20 11:00 73 16 133/75 99 02/28/20 09:21 75 18 95 02/28/20 07:54 98.1 F 109 H 18 147/76 97 Intake and Output 02/27/20 02/28/20 02/28/20 22:59 06:59 14:59 Other: Weight 54.431 kg PHYSICAL EXAMINATION: GENERAL: The patient is alert and oriented x3, not in any acute distress. Well developed, well nourished. HEENT: Pupils are round and equally reacting to light. EOMI. No scleral icterus. No conjunctival pallor. Normocephalic, atraumatic. No pharyngeal erythema. No thyromegaly. CARDIOVASCULAR: S1 and S2 present. No murmurs, rubs, or gallops. PULMONARY: Chest is clear to auscultation, no wheezing or crackles. Has significant family decreased air entry into left posterior lung loaiza. ABDOMEN: Soft, nontender, nondistended, normoactive bowel sounds. No palpable organomegaly. MUSCULOSKELETAL: No joint swelling or deformity. EXTREMITIES: No cyanosis, clubbing, or pedal edema. NEUROLOGICAL: Gross neurological examination did not reveal any focal deficits. SKIN: No rashes. Results CBC & Chem 7: 02/28/20 08:15 02/28/20 08:15 Labs: Abnormal Lab Results - Last 24 Hours (Table) 02/28/20 02/28/20 Range/Units 08:15 08:15 Plt Count 537 H (150-450) k/uL Glucose 109 H (74-99) mg/dL Alkaline Phosphatase 152 H (38-126) U/L Albumin 3.4 L (3.5-5.0) g/dL Thrombosis Risk Factor Assmnt - Choose All That Apply Any of the Below Risk Factors Present?: Yes Each Factor Represents 1 point: Abnormal pulmonary function (COPD), Serious lung disease incl. pneumonia (< 1month) Other Risk Factors: Yes Each Risk Factor Represents 2 Points: Age 61-74 years, Malignancy Other congenital or acquired thrombophilia - If yes, enter type in comment: No Thrombosis Risk Factor Assessment Total Risk Factor Score: 6 Thrombosis Risk Factor Assessment Level: High Risk Assessment and Plan Plan: -Short of breath: Secondary to possible valvular and pleural effusion patient had pleural tap in the past twice pulmonary will be consulted. Lortab for symptomatic improvement once the pleural tap is and patient probably can be discharged. -COPD without any acute exacerbation - history of adenocarcinoma of the lung not initiated on chemotherapy at. -Gastroesophageal reflux disease Hyperlipidemia -Hypertension - depression and anxiety disorder For above-mentioned chronic medical problems patient will be resumed on appropriate home medications.
[2020-02-28] MEDS: IPRATROPIUM 0.5 MG/2.5 ML NEBU INHALATION SCH ×2 (15:20→19:57)
[2020-02-28] MEDS: METOPROLOL TARTRATE 50 MG TAB PO SCH (20:24)
[2020-02-28] MEDS: ATORVASTATIN 20 MG TAB PO SCH (20:24)
[2020-02-28] MEDS: OXYBUTYNIN CHLORIDE 5 MG TAB PO SCH (20:54)
[2020-02-29] MEDS: oxyCODONE-APAP 10-325MG 1 EACH TAB PO PRN ×3 (04:45→19:06)
[2020-02-29] MEDS: DULoxetine HCL 60 MG CAPSULE.DR PO SCH (08:25)
[2020-02-29] MEDS: METOPROLOL TARTRATE 50 MG TAB PO SCH ×2 (08:25→19:57)
[2020-02-29] MEDS: PANTOPRAZOLE 40 MG TABLET PO SCH (08:25)
[2020-02-29] MEDS: OXYBUTYNIN CHLORIDE 5 MG TAB PO SCH ×2 (08:26→19:57)
[2020-02-29] MEDS: ALPRAZolam 0.25 MG TAB PO PRN ×2 (08:29→19:59)
[2020-02-29] MEDS: IPRATROPIUM 0.5 MG/2.5 ML NEBU INHALATION SCH ×4 (09:02→20:17)
--- NOTE | 2020-02-29 10:00 | P.CNPUL ---
History of Present Illness Consult date: 02/29/20 Reason for consult: dyspnea, pleural effusion, lung mass Chief complaint: Shortness of breath History of present illness: This is a 74-year-old female who has been diagnosed with double primary recently left lung cancer as well as bladder cancer superficial she is not yet started on chemotherapy with a schedule to see oncologist on 13th day of lab increase problem associated with shortness of breath cough and has been admitted into the hospital for further evaluation, chest x-ray showed a large left pleural effusio n Review of Systems All systems: negative Past Medical History Past Medical History: Cancer, COPD, Fibromyalgia, GERD/Reflux, GI Bleed, Hyperlipidemia, Hypertension, Osteoarthritis (OA), Pneumonia Additional Past Medical History / Comment(s): Pt recently admitted to [facility] on 01/30/20 with SOB 2ndary to L pleural effusion/thoracentesis/metastatic L lung cancer. Pt states cancer s in mediastinum and thoracic vertebra/back pain/pt also had bladder cancer with surgery. Pt is on home oxygen ATC. Pt hs had a total of 2 L thoracentesis. Other hx: 2019 lower GI bleed d/t colitis, UTIs, bronchitis, sinus problems, migraines, chronic pain, bilateral carpal tunnel syndrome, osteopenia, bilateral tinnitis/[place]. History of Any Multi-Drug Resistant Organisms: None Reported Past Surgical History: Adenoidectomy, Appendectomy, Section, Ton sillectomy Additional Past Surgical History / Comment(s): 02/05/20 cystoscopy with resection bladder tumor/scraping, L thoracentesis x2, uterine surgery for tipped uterus, R carpal tunnel release. Past Anesthesia/Blood Transfusion Reactions: No Reported Reaction, Motion Sickness Additional Past Anesthesia/Blood Transfusion Reaction / Comment(s): blood transfusion during childbirth, no reaction Smoking Status: Former smoker - Past Family History Mother Family Medical History: Cancer, Liver Disease Additional Family Medical History / Comment(s): Cirrhosis/lung cancer. Father Family Medical History: Cancer Additional Family Medical History / Comment(s): cirrhosis/liver cancer Brother(s) Additional Family Medical History / Comment(s): Cirrhosis Medications and Allergies Home Medications Medication Instructions Recorded Confirmed Type Ascorbic Acid [Vitamin C] 1,000 mg PO DAILY 06/13/19 02/28/20 History Metoprolol Tartrate [Lopressor] 50 mg PO BID 06/13/19 02/28/20 History Oxybutynin Chloride 10 mg PO BID 06/13/19 02/28/20 History Simvastatin [Zocor] 40 mg PO HS 06/13/19 02/28/20 History DULoxetine HCL [Cymbalta] 60 mg PO DAILY 07/17/19 02/28/20 History Omeprazole [PriLOSEC] 20 mg PO DAILY 01/15/20 02/28/20 History oxyCODONE-APAP 10-325MG [Percocet 1 tab PO TID PRN 02/18/20 02/28/20 History 10-325 mg] ALPRAZolam [Xanax] 0.25 mg PO TID 02/28/20 02/28/20 History Cholecalciferol [Vitamin D3 (25 2,000 unit PO DAILY 02/28/20 02/28/20 History Mcg = 1000 Iu)] Ibuprofen [Motrin] 800 mg PO DAILY PRN 02/28/20 02/28/20 History Ipratropium [place] [Atrovent Hfa] 2 puff INHALATION RT-QID 02/28/20 02/28/20 History Metoclopramide HCl [Reglan] 10 mg PO DAILY PRN 02/28/20 02/28/20 History oxyCODONE-APAP 10-325MG [Percocet 1 tab PO Q6H PRN 02/28/20 02/28/20 History 10-325 mg] Allergies Allergy/AdvReac Type Severity Reaction Status Date / Time Penicillins Allergy Rash/Hives Verified 02/28/20 11:00 erythromycin base AdvReac Nausea & Verified 02/28/20 11:00 Vomiting morphine AdvReac Hallucinati Verified 02/28/20 11:00 ons Physical Exam Vitals: Vital Signs Temp Pulse Pulse Resp BP BP Pulse Ox 02/29/20 09:12 72 02/29/20 09:02 72 02/29/20 05:08 98.4 F 60 18 134/82 97 02/28/20 21:03 98 F 72 16 139/72 95 02/28/20 20:04 76 02/28/20 19:59 75 02/28/20 16:54 98.1 F 71 18 122/76 96 02/28/20 16:06 82 16 127/80 99 02/28/20 16:00 71 18 07/16/20 15:30 78 02/28/20 15:23 70 02/28/20 14:36 81 16 132/76 96 02/28/20 11:00 73 16 133/75 99 Intake and Output 02/28/20 02/29/20 02/29/20 22:59 06:59 14:59 Intake Total 100 Balance 100 Intake: Oral 100 Other: # Voids 1 2 - Constitutional General appearance: average body habitus, cooperative, disheveled, mild distress - EENT Eyes: EOMI, PERRLA ENT: normal oropharynx Ears: bilateral: normal - Neck Neck: normal ROM Carotids: bilateral: upstroke normal Thyroid: bilateral: normal size - Respiratory Respiratory: left: diminished (With dullness to percussion more than two third of the lung) - Cardiovascular Rhythm: regular Heart sounds: normal: S1, S2 - Gastrointestinal General gastrointestinal: normal bowel sounds - Neurologic Neurologic: CNII-XII intact - Musculoskeletal Musculoskeletal: gait normal, generalized weakness, strength equal bilaterally - Psychiatric Psychiatric: A&O x's 3, appropriate affect, intact judgment & insight Results - Laboratory Findings CBC and BMP: 02/28/20 08:15 02/28/20 08:15 PT/INR, D-dimer PT 9.5 sec (9.0-12.0) 02/28/20 08:15 INR 0.9 (<1.2) 02/28/20 08:15 Abnormal lab findings: Abnormal Labs 02/28/20 02/28/20 08:15 08:15 Plt Count 537 H Glucose 109 H Alkaline Phosphatase 152 H Albumin 3.4 L - Diagnostic Findings Chest x-ray: report reviewed (Finding as noted above), image reviewed Assessment and Plan Assessment: Large left pleural effusion with shortness of breath Adenocarcinoma stage IV of lung Superficial bladder cancer Stable COPD GERD Hypertension hypertensive cardiovascular disease Dyslipidemia Depression and generalized anxiety disorder Plan: We'll order ultrasound of the chest for fluid marking Will schedule and do thoracentesis on the left side Street since we have diagnosis, it will be be a therapeutic thoracentesis Time with Patient: Greater than 30
--- NOTE | 2020-02-29 10:26 | US ---
EXAMINATION TYPE: US chest DATE OF EXAM: 02/29/2020 COMPARISON: CLINICAL HISTORY: pleural effusion/ left . Left TECHNIQUE: Targeted ultrasound of the posterior lower left hemithorax EXAM MEASUREMENTS: Left Pleural Effusion pocket size: 11.2 cm Left skin surface to fluid distance: 1.2 cm Left side marked for possible thoracentesis outside the dept. Pulmonologists are able to review the images in the patient?s EMR. IMPRESSIONS: Left pleural effusion
--- NOTE | 2020-02-29 11:12 | CDI ---
Documentation Clarification Form Date: 02/29/2020 10:56:58 AM From: Kimi Lee RN CCDS Admit Date: 02/28/2020 10:30:00 AM Patient Name: Missy San Visit Number: [id number] Discharge Date: ATTENTION: The Clinical Documentation Specialists (CDI) and [facility] Coding Staff appreciate your assistance in clarifying documentation. Please respond to the clarification below the line at the bottom and electronically sign. The CDI & [facility] Coding staff will review the response and follow-up if needed. Please note: Queries are made part of the Legal Health Record. If you have any questions, please contact the author of this message via ITS. Dr. Deena Felix The patient presented with shortness of breath. History/Risk Factors: 74-year-old female diagnosed with a large left pleural effusion and shortness of breath. History of Adenocarcinoma stage IV of lung and COPD Tobacco use: Former smoker Home oxygen: 2L ATC Clinical Indicators: 02/27 Admission Vital signs: B/P: 147/76; HR: 109; Temp 98.1 F; SpO2: 97% 2L nasal cannula 02/27 H&P Lung/Breathing assessment: Chest is clear to auscultation, no wheezing or crackles. Has significant decreased air entry into the left posterior lung loaiza. Treatment: Breathing tx 02/27 Atrovent QID; 2L nasal cannula In your professional opinion, can you please clarify if these findings signify one of the following conditions? Chronic Respiratory Failure Other Diagnosis, please specify Unable to determine Specificity: If known, further specify (if known): With hypercapnia? (pCO2 >50 and pH <7.35) With hypoxia? (pO2 <60 mm Hg or SpO2 <91% on room air) (Last Query Form Revision: April 2019) Patient doesn't have chronic respiratory failure. Patient is bit hypoxic secondary to pleural effusion MTDD
--- NOTE | 2020-02-29 15:07 | P.PN ---
Subjective Progress Note Date: 02/29/20 Principal diagnosis: 72-year-old pleasant female came in with compensative short of breath patient has history of left sided lung cancer with the pleural effusion patient had is found to have C. diff and pleural effusion on the left side patient denied any cough wheezing. Patient has significant history of smoking does have history of COPD does use 2 L of oxygen at home. 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 Patient denied any fever chills. 02/29/2020 Patient is seen and evaluated in follow-up today and was evaluated by pulmonary and underwent chest ultrasound for left pleural effusion and is being closely monitored. Patient is scheduled to undergo thoracentesis of the left pleural effusion early in the morning. Dr. Shailesh hallman. Currently patient has no reports of chest pain, worsening shortness of breath, or palpitations. Patient is afebrile. No reports of nausea or vomiting and patient is tolerating diet. Objective - Vital Signs Vital signs: Vital Signs Temp 98.4 F 02/29/20 05:08 Pulse 72 02/29/20 12:28 Resp 18 02/29/20 05:08 BP 134/82 02/29/20 05:08 Pulse Ox 97 02/29/20 05:08 Intake & Output 02/28/20 02/29/20 02/29/20 18:59 06:59 18:59 Intake Total 100 Balance 100 Weight 54.431 kg 54.431 kg Intake: Oral 100 Other: # Voids 2 - Exam GENERAL: The patient is alert and oriented x3, not in any acute distress. Well developed, well nourished. HEENT: Pupils are round and equally reacting to light. EOMI. No scleral icterus. No conjunctival pallor. Normocephalic, atraumatic. No pharyngeal erythema. No thyromegaly. CARDIOVASCULAR: S1 and S2 present. No murmurs, rubs, or gallops. PULMONARY: Chest is clear to auscultation, no wheezing or crackles. decreased air entry into left posterior lung loaiza. ABDOMEN: Soft, nontender, nondistended, normoactive bowel sounds. No palpable organomegaly. MUSCULOSKELETAL: No joint swelling or deformity. EXTREMITIES: No cyanosis, clubbing, or pedal edema. NEUROLOGICAL: Gross neurological examination did not reveal any focal deficits. SKIN: No rashes. - Labs CBC & Chem 7: 02/28/20 08:15 02/28/20 08:15 Labs: Microbiology - Last 24 Hours (Table) 02/28/20 08:19 Blood Culture - Preliminary Blood No Growth after 24 hours Assessment and Plan Assessment: -Shortness of breath: Secondary to possible valvular and pleural effusion patient had pleural tap in the past twice. Patient underwent chest ultrasound with markings for pleural effusion left side thoracentesis and Dr. Cash will perform in the morning. -COPD without any acute exacerbation -history of adenocarcinoma of the lung not initiated on chemotherapy -Gastroesophageal reflux disease -Hyperlipidemia -Hypertension -depression and anxiety disorder Plan: Continue current medications, management, and symptomatic treatment. Patient underwent a chest ultrasound with markings for left pleural effusion to have a thoracentesis done in the morning. Dr. Cash following and will be performing the thoracentesis in the morning. Further recommendations to follow. Anticipate discharge if patient tolerates procedure.
[2020-02-29] MEDS: ATORVASTATIN 20 MG TAB PO SCH (19:57)
[2020-03-01 06:33] VITALS: BP 109/74; TEMP 97.9
[2020-03-01] MEDS: OXYBUTYNIN CHLORIDE 5 MG TAB PO SCH (08:07)
[2020-03-01] MEDS: DULoxetine HCL 60 MG CAPSULE.DR PO SCH (08:07)
[2020-03-01] MEDS: PANTOPRAZOLE 40 MG TABLET PO SCH (08:07)
[2020-03-01] MEDS: METOPROLOL TARTRATE 50 MG TAB PO SCH (08:07)
[2020-03-01] MEDS: oxyCODONE-APAP 10-325MG 1 EACH TAB PO PRN ×2 (08:08→14:02)
[2020-03-01] MEDS: IPRATROPIUM 0.5 MG/2.5 ML NEBU INHALATION SCH ×2 (09:00→12:05)
[2020-03-01 09:04] VITALS: RESP 16
[2020-03-01] MEDS ORDERED: oxyCODONE-APAP 10-325MG 1 EACH TAB PO ONE (09:42)
--- NOTE | 2020-03-01 09:49 | XR ---
EXAMINATION TYPE: XR chest 1V portable DATE OF EXAM: 03/01/2020 HISTORY: post thoracentesis. REFERENCE: Previous study dated 02/28/2020. FINDINGS: There continues to be a large left-sided pleural effusion. This has decreased slightly foll owing thoracentesis. Right lung is clear IMPRESSION: SLIGHT IMPROVEMENT IN THE AMOUNT OF LEFT-SIDED PLEURAL FLUID.
--- NOTE | 2020-03-01 10:04 | P.PN ---
Subjective Progress Note Date: 03/01/20 Principal diagnosis: Large left pleural effusion with shortness of breath Adenocarcinoma stage IV of lung Superficial bladder cancer Stable COPD GERD Hypertension hypertensive cardiovascular disease Dyslipidemia Depression and generalized anxiety disorder 03/01/2020, patient seen eval examined during the rounds he remains short of breath, ultrasound of the chest has been reviewed large pleural effusion on the left side is present we'll go a therapeutic thoracentesis to remove the fluid procedure have been explained to the patient at length risk complication and alternative have been explained as well, ultrasound of the chest has been reviewed large fluid collection has been noted over 11 cm This is a 74-year-old female who has been diagnosed with double primary recently left lung cancer as well as bladder cancer superficial she is not yet started on chemotherapy with a schedule to see oncologist on of lab increase problem associated with shortness of breath cough and has been admitted into the hospital for further evaluation, chest x-ray showed a large left pleural effusion Objective - Vital Signs Vital signs: Vital Signs Temp 97.9 F 03/01/20 05:00 Pulse 80 03/01/20 09:12 Resp 16 03/01/20 09:12 BP 109/74 03/01/20 05:00 Pulse Ox 94 L 03/01/20 09:01 Intake & Output 02/29/20 03/01/20 03/01/20 18:59 06:59 18:59 Intake Total 600 650 Balance 600 650 Weight 54.431 kg Intake: Oral 600 650 Other: Voiding Method Toilet # Voids 2 2 - Exam - Constitutional General appearance: average body habitus, cooperative, disheveled, mild distress - EENT Eyes: EOMI, PERRLA ENT: normal oropharynx Ears: bilateral: normal - Neck Neck: normal ROM Carotids: bilateral: upstroke normal Thyroid: bilateral: normal size - Respiratory Respiratory: left: diminished (With dullness to percussion more than two third of the lung) - Cardiovascular Rhythm: regular Heart sounds: normal: S1, S2 - Gastrointestinal General gastrointestinal: normal bowel sounds - Neurologic Neurologic: CNII-XII intact - Musculoskeletal Musculoskeletal: gait normal, generalized weakness, strength equal bilaterally - Psychiatric Psychiatric: A&O x's 3, appropriate affect, intact judgment & insight - Labs CBC & Chem 7: 02/28/20 08:15 02/28/20 08:15 Labs: Microbiology - Last 24 Hours (Table) 02/28/20 08:19 Blood Culture - Preliminary Blood No Growth after 24 hours Assessment and Plan Assessment: Large left pleural effusion with shortness of breath Adenocarcinoma stage IV of lung with malignant pleural effusion Superficial bladder cancer Stable COPD GERD Hypertension hypertensive cardiovascular disease Dyslipidemia Depression and generalized anxiety disorder Plan: We'll proceed with left-sided thoracentesis Time with Patient: Greater than 30
--- NOTE | 2020-03-01 10:07 | P.PCN ---
Date of Procedure: 03/01/20 Preoperative Diagnosis: Malignant pleural effusion left-sided, shortness of breath, stage IV adenocarcinoma of the lung Postoperative Diagnosis: As above Anesthesia: local Surgeon: Frankie Cash Estimated Blood Loss (ml): 0 Pathology: none sent Condition: stable Disposition: floor Indications for Procedure: As above Operative Findings: As below Description of Procedure: Patient draped and in a usual fashion under aseptic technique one percent lidocaine was infiltrated in posterior lateral thoracic wall on the left side and the marking of ultrasound gauge 24 needle was placed pleural fluid was aspirated which was clear followed by placement of needle with catheter needle was withdrawn catheter left in position and 1.7 L of fluid has been aspirated at the end of procedure patient developed some chest discomfort substernal and on the right side resolved slowly, post procedure chest x-ray checked decreased amount of left-sided fluid no pneumothorax is seen patient otherwise tolerated the procedure well no other complication was noted
[2020-03-01 12:21] VITALS: PULSE 84
--- NOTE | 2020-03-01 15:43 | P.DS ---
Providers Date of admission: 02/28/20 10:30 Attending physician: Deena Felix Consults: 02/28/20 10:30 Consult Physician Urgent Consulting Provider: Frankie Cash Reason/Comments: Pleural effusion Do you want consulting provider notified?: Yes Primary care physician: Stated None Hospital Course: 72-year-old pleasant female came in with compensative short of breath patient has history of left sided lung cancer with the pleural effusion patient had is found to have C. diff and pleural effusion on the left side patient denied any cough wheezing. Patient has significant history of smoking does have history of COPD does use 2 L of oxygen at home. 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 Patient denied any fever chills. 02/29/2020 Patient is seen and evaluated in follow-up today and was evaluated by pulmonary and underwent chest ultrasound for left pleural effusion and is being closely monitored. Patient is scheduled to undergo thoracentesis of the left pleural effusion early in the morning. Dr. Cash following. Currently patient has no reports of chest pain, worsening shortness of breath, or palpitations. Patient is afebrile. No reports of nausea or vomiting and patient is tolerating diet. 03/01/2020 Patient underwent thoracentesis with removal of around 1.7 L of pleural fluid from the left lung. Patient felt much better still has some crackles was in bit of pain postthoracentesis. Patient will be discharged later in the day today PHYSICAL EXAMINATION: GENERAL: The patient is alert and oriented x3, not in any acute distress. And built HEENT: Pupils are round and equally reacting to light. EOMI. No scleral icterus. No conjunctival pallor. Normocephalic, atraumatic. No pharyngeal erythema. No thyromegaly. CARDIOVASCULAR: S1 and S2 present. No murmurs, rubs, or gallops. PULMONARY: Air entry into bilateral lung loaiza crackles in the left lower lung bases ABDOMEN: Soft, nontender, nondistended, normoactive bowel sounds. No palpable organomegaly. MUSCULOSKELETAL: No joint swelling or deformity. EXTREMITIES: No cyanosis, clubbing, or pedal edema. NEUROLOGICAL: Gross neurological examination did not reveal any focal deficits. SKIN: No rashes. Assessment and Plan Assessment: --Left-sided malignant pleural effusion from adenocarcinoma of the lung status post thoracentesis and drainage of 1.7 L patient is clinically feeling better will be discharged back -COPD without any acute exacerbation -history of adenocarcinoma of the lung not initiated on chemotherapy -Gastroesophageal reflux disease -Hyperlipidemia -Hypertension -depression and anxiety disorder Plan - Discharge Summary Discharge Rx Participant: No New Discharge Prescriptions: Continue Simvastatin [Zocor] 40 mg PO HS Oxybutynin Chloride 10 mg PO BID Ascorbic Acid [Vitamin C] 1,000 mg PO DAILY Metoprolol Tartrate [Lopressor] 50 mg PO BID DULoxetine HCL [Cymbalta] 60 mg PO DAILY Omeprazole [PriLOSEC] 20 mg PO DAILY oxyCODONE-APAP 10-325MG [Percocet 10-325 mg] 1 tab PO TID PRN PRN Reason: Pain Metoclopramide HCl [Reglan] 10 mg PO DAILY PRN PRN Reason: stomach upset Ibuprofen [Motrin] 800 mg PO DAILY PRN PRN Reason: Migraine Headache Ipratropium [place] [Atrovent Hfa] 2 puff INHALATION RT-QID ALPRAZolam [Xanax] 0.25 mg PO TID Cholecalciferol [Vitamin D3 (25 Mcg = 1000 Iu)] 2,000 unit PO DAILY oxyCODONE-APAP 10-325MG [Percocet 10-325 mg] 1 tab PO Q6H PRN PRN Reason: Pain Discharge Medication List Ascorbic Acid [Vitamin C] 1,000 mg PO DAILY 06/13/19 [History] Metoprolol Tartrate [Lopressor] 50 mg PO BID 06/13/19 [History] Oxybutynin Chloride 10 mg PO BID 06/13/19 [History] Simvastatin [Zocor] 40 mg PO HS 06/13/19 [History] DULoxetine HCL [Cymbalta] 60 mg PO DAILY 07/17/19 [History] Omeprazole [PriLOSEC] 20 mg PO DAILY 01/15/20 [History] oxyCODONE-APAP 10-325MG [Percocet 10-325 mg] 1 tab PO TID PRN 02/18/20 [History] ALPRAZolam [Xanax] 0.25 mg PO TID 02/28/20 [History] Cholecalciferol [Vitamin D3 (25 Mcg = 1000 Iu)] 2,000 unit PO DAILY 02/28/20 [History] Ibuprofen [Motrin] 800 mg PO DAILY PRN 02/28/20 [History] Ipratropium [place] [Atrovent Hfa] 2 puff INHALATION RT-QID 02/28/20 [History] Metoclopramide HCl [Reglan] 10 mg PO DAILY PRN 02/28/20 [History] oxyCODONE-APAP 10-325MG [Percocet 10-325 mg] 1 tab PO Q6H PRN 02/28/20 [History] Follow up Appointment(s)/Referral(s): Mary Bernard III, MD [STAFF PHYSICIAN] - 1 Week (Office closed at time of discharge please call TuesdayMarch 03 to set up a follow up appointment) [facility], [NON-STAFF] - 1 Week Frankie Cash MD [STAFF PHYSICIAN] - 1 Week (Office closed a time of discharge please call TuesdayMarch 03 to set up a follow up appointment) Patient Instructions/Handouts: Pleural Effusion (DC), Dyspnea (DC) Activity/Diet/Wound Care/Special Instructions: Activity as tolerated Regular diet as tolerated Pt to call Dr. Bernard's office to establish a primary care provider. Office is closed at the time of discharge. Discharge Disposition: HOME SELF-CARE
== END 2020-03-01 14:58 | disposition home or self-care (01) ==
LOC: EC 07:52 → INTOOBSV 10:30 → 5NMEDONC 10:30 → UNDODISIN 03-01 14:58
PROVIDERS: ADMIT Internal Medicine; ATTEND Internal Medicine
PROC: 0W9B3ZZ Drainage of Left Pleural Cavity, Percutaneous Approach (ICD-10-PCS; principal; 2020-03-01)
DX: C34.92 Malignant neoplasm of unspecified part of left bronchus or lung (principal); J91.0 Malignant pleural effusion; I11.9 Hypertensive heart disease without heart failure; J44.9 Chronic obstructive pulmonary disease, unspecified; C79.51 Secondary malignant neoplasm of bone; C78.1 Secondary malignant neoplasm of mediastinum; G89.29 Other chronic pain; M54.9 Dorsalgia, unspecified; E78.5 Hyperlipidemia, unspecified; M19.90 Unspecified osteoarthritis, unspecified site; K59.00 Constipation, unspecified; F41.1 Generalized anxiety disorder; F32.9 Major depressive disorder, single episode, unspecified; M79.7 Fibromyalgia; Z99.81 Dependence on supplemental oxygen; G43.909 Migraine, unspecified, not intractable, without status migrainosus; M85.80 Other specified disorders of bone density and structure, unspecified site; H93.13 Tinnitus, bilateral; G56.02 Carpal tunnel syndrome, left upper limb; K21.9 Gastro-esophageal reflux disease without esophagitis; Z20.828 Contact with and (suspected) exposure to other viral communicable diseases; Z79.891 Long term (current) use of opiate analgesic; Z79.899 Other long term (current) drug therapy; Z88.0 Allergy status to penicillin; Z88.1 Allergy status to other antibiotic agents; Z88.5 Allergy status to narcotic agent; Z87.19 Personal history of other diseases of the digestive system; Z98.891 History of uterine scar from previous surgery; Z85.51 Personal history of malignant neoplasm of bladder; Z90.49 Acquired absence of other specified parts of digestive tract; Z87.440 Personal history of urinary (tract) infections; Z87.891 Personal history of nicotine dependence; Z83.79 Family history of other diseases of the digestive system; Z80.0 Family history of malignant neoplasm of digestive organs; Z80.1 Family history of malignant neoplasm of trachea, bronchus and lung
CPT/HCPCS: 96374; 99285; 36415; 94640 ×6; 94760; 93005; 80053; 84484; 85025; 85610; 85730; 87040; 71045; 71046; 76604; G0378 ×3; U0003; J1170

== ENCOUNTER 2020-03-10 21:03 | Observation (INO) | payer MEDICARE ==
--- NOTE | 2020-03-10 21:36 | ED ---
General Adult HPI - General Chief complaint: Shortness of Breath Stated complaint: Sent by for fluid in lungs Time Seen by Provider: 03/10/20 21:13 Source: patient, family Mode of arrival: wheelchair Limitations: no limitations - History of Present Illness Initial comments: Dictation was produced using [employer] dictation software. please excuse any grammatical, word or spelling errors. This patient was cared for during a federal and state declared state of emergency secondary to Covid 19 Chief Complaint: 74-year-old female presents with shortness of breath. History of Present Illness: 74-year-old female she has past medical history of pleural effusion from left-sided lung cancer. Patient has been developing wors ening shortness of breath since being discharge approximately 2 weeks ago. Patient has a history of progressive left lung cancer with chronic pleural effusions. She states that she's been having worsening shortness of breath. Denies any fever, chills or night sweats. No coughing. Patient is recently evaluated by thoracic surgery with plans for Pleurx catheter placement to be performed on . Patient states her shortness of breath is getting worse she does not want to wait until for drainage. The ROS documented in this emergency department record has been reviewed and con firmed by me. Those systems with pertinent positive or negative responses have been documented in the HPI. All other systems are other negative and/or noncontributory. PHYSICAL EXAM: General Impression: Alert and oriented x3, not in acute distress HEENT: Normocephalic atraumatic, extra-ocular movements intact, pupils equal and reactive to light bilaterally, mucous membranes moist. Cardiovascular: Heart regular rate and rhythm Chest: Able to complete full sentences, no retractions, mildly tachypneic Abdomen: abdomen soft, non-tender, non-distended, no organomegaly Musculoskeletal: Pulses present and equal in all extremities, no peripheral edema Motor: no focal deficits noted Neurological: CN II-XII grossly intact, no focal motor or sensory deficits noted Skin: Intact with no visualized rashes Psych: Normal affect and mood ED course: 74-year-old female presents with shortness of breath. Signs upon arrival shows 94% on 2 L is cannula. Patient not tachypneic. Rest of vital signs are unremarkable. Family member at bedside was in contact with Teersa Orona works with the cancer center. She is a nurse practitioner requested to the patient to have Dr. Onofre consulted. Laboratory evaluation obtained. CBC, coag panel, metabolic panel is unremarkable. Chest x-ray shows near complete opacification of the left hemithorax. Patient clinical stable at this time. We'll have patient admitted with consultation to pulmonology, cardiothoracic surgery and oncology. At this point patient breathing comfortably at rest. Discussed patient case with Dr. Lisa who is willing to accept patient's current behalf of [facility] hospitalist group. EKG interpretation: Ventricular rate 74, sinus rhythm, SC interval 108, QRS 52, QTC 421. No SC prolongation, no QTC prolongation, no ST or T-wave changes noted. EKG compared to 02/28/2020 showing no changes. Overall, this EKG is unremarka ble - Related Data Home Medications Medication Instructions Recorded Confirmed Ascorbic Acid [Vitamin C] 1,000 mg PO DAILY 06/13/19 02/28/20 Metoprolol Tartrate [Lopressor] 50 mg PO BID 06/13/19 02/28/20 Oxybutynin Chloride 10 mg PO BID 06/13/19 02/28/20 Simvastatin [Zocor] 40 mg PO HS 06/13/19 02/28/20 DULoxetine HCL [Cymbalta] 60 mg PO DAILY 07/17/19 02/28/20 Omeprazole [PriLOSEC] 20 mg PO DAILY 01/15/20 02/28/20 oxyCODONE-APAP 10-325MG [Percocet 1 tab PO TID PRN 02/18/20 02/28/20 10-325 mg] ALPRAZolam [Xanax] 0.25 mg PO TID 02/28/20 02/28/20 Cholecalciferol [Vitamin D3 (25 2,000 unit PO DAILY 02/28/20 02/28/20 Mcg = 1000 Iu)] Ibuprofen [Motrin] 800 mg PO DAILY PRN 02/28/20 02/28/20 Ipratropium [place] [Atrovent Hfa] 2 puff INHALATION RT-QID 02/28/20 02/28/20 Metoclopramide HCl [Reglan] 10 mg PO DAILY PRN 02/28/20 02/28/20 oxyCODONE-APAP 10-325MG [Percocet 1 tab PO Q6H PRN 02/28/20 02/28/20 10-325 mg] Allergies Allergy/AdvReac Type Severity Reaction Status Date / Time Penicillins Allergy Rash/Hives Verified 03/10/20 21:12 erythromycin base AdvReac Nausea & Verified 03/10/20 21:12 Vomiting morphine AdvReac Hallucinati Verified 03/10/20 21:12 ons Review of Systems ROS Statement: Those systems with pertinent positive or pertinent negative responses have been documented in the HPI. ROS Other: All systems not noted in ROS Statement are negative. Past Medical History Past Medical History: Cancer, COPD, Fibromyalgia, GERD/Reflux, GI Bleed, Hyperlipidemia, Hypertension, Osteoarthritis (OA), Pneumonia Additional Past Medical History / Comment(s): Pt recently admitted to [facility] on 01/30/20 with SOB 2ndary to L pleural effusion/thoracentesis/metastatic L lung cancer. Pt states cancer s in mediastinum and thoracic vertebra/back pain/pt also had bladder cancer with surgery. Pt is on home oxygen ATC. Pt hs had a total of 2 L thoracentesis. Other hx: 2019 lower GI bleed d/t colitis, UTIs, bronchitis, sinus problems, migraines, chronic pain, bilateral carpal tunnel syndrome, osteopenia, bilateral tinnitis/[place]. History of Any Multi-Drug Resistant Organisms: None Reported Past Surgical History: Adenoidectomy, Appendectomy, Section, Tonsillectomy Additional Past Surgical History / Comment(s): 02/05/20 cystoscopy with resection bladder tumor/scraping, L thoracentesis x2, uterine surgery for tipped uterus, R carpal tunnel release. Past Anesthesia/Blood Transfusion Reactions: No Reported Reaction, Motion Sickness Additional Past Anesthesia/Blood Transfusion Reaction / Comment(s): blood transfusion during childbirth, no reaction Past Psychological History: Anxiety, Depression Smoking Status: Former smoker - Past Family History Mother Family Medical History: Cancer, Liver Disease Additional Family Medical History / Comment(s): Cirrhosis/lung cancer. Father Family Medical History: Cancer Additional Family Medical History / Comment(s): cirrhosis/liver cancer Brother(s) Additional Family Medical History / Comment(s): Cirrhosis General Exam Limitations: no limitations Course Vital Signs 03/10/20 03/10/20 21:08 22:00 Temperature 97.9 F Pulse Rate 93 75 Respiratory 18 15 Rate Blood Pressure 119/86 138/75 O2 Sat by Pulse 94 L 96 Oximetry Medical Decision Making - Lab Data Result diagrams: 03/10/20 21:35 03/10/20 21:35 Lab Results 03/10/20 03/10/20 03/10/20 Range/Units 21:30 21:33 21:35 WBC 8.3 (3.8-10.6) k/uL RBC 4.17 (3.80-5.40) m/uL Hgb 12.8 (11.4-16.0) gm/dL Hct 40.0 (34.0-46.0) % MCV 96.0 (80.0-100.0) fL MCH 30.6 (25.0-35.0) pg MCHC 31.9 (31.0-37.0) g/dL RDW 13.6 (11.5-15.5) % Plt Count 492 H (150-450) k/uL Neutrophils % 63 % Lymphocytes % 22 % Monocytes % 9 % Eosinophils % 3 % Basophils % 1 % Neutrophils # 5.2 (1.3-7.7) k/uL Lymphocytes # 1.8 (1.0-4.8) k/uL Monocytes # 0.7 (0-1.0) k/uL Eosinophils # 0.3 (0-0.7) k/uL Basophils # 0.1 (0-0.2) k/uL PT (9.0-12.0) sec INR (<1.2) APTT (22.0-30.0) sec Sodium (137-145) mmol/L Potassium (3.5-5.1) mmol/L Chloride (98-107) mmol/L Carbon Dioxide (22-30) mmol/L Anion Gap mmol/L BUN (7-17) mg/dL Creatinine (0.52-1.04) mg/dL Est GFR (CKD-EPI)AfAm (>60 ml/min/1.73 sqM) Est GFR (CKD-EPI)NonAf (>60 ml/min/1.73 sqM) Glucose (74-99) mg/dL Calcium (8.4-10.2) mg/dL Blood Type A Positive Blood Type Confirm A Positive Blood Type Recheck No Previous Record Bld Type Recheck Status CABO Indicated Antibody Screen NEGATIVE Spec Expiration Date 03/13/2020 - 233403/10/20 03/10/20 Range/Units 21:35 21:35 WBC (3.8-10.6) k/uL RBC (3.80-5.40) m/uL Hgb (11.4-16.0) gm/dL Hct (34.0-46.0) % MCV (80.0-100.0) fL MCH (25.0-35.0) pg MCHC (31.0-37.0) g/dL RDW (11.5-15.5) % Plt Count (150-450) k/uL Neutrophils % % Lymphocytes % % Monocytes % % Eosinophils % % Basophils % % Neutrophils # (1.3-7.7) k/uL Lymphocytes # (1.0-4.8) k/uL Monocytes # (0-1.0) k/uL Eosinophils # (0-0.7) k/uL Basophils # (0-0.2) k/uL PT 9.4 (9.0-12.0) sec INR 0.9 (<1.2) APTT 27.2 (22.0-30.0) sec Sodium 136 L (137-145) mmol/L Potassium 4.2 (3.5-5.1) mmol/L Chloride 102 (98-107) mmol/L Carbon Dioxide 28 (22-30) mmol/L Anion Gap 6 mmol/L BUN 10 (7-17) mg/dL Creatinine 0.61 (0.52-1.04) mg/dL Est GFR (CKD-EPI)AfAm >90 (>60 ml/min/1.73 sqM) Est GFR (CKD-EPI)NonAf >90 (>60 ml/min/1.73 sqM) Glucose 139 H (74-99) mg/dL Calcium 9.3 (8.4-10.2) mg/dL Blood Type Blood Type Confirm Blood Type Recheck Bld Type Recheck Status Antibody Screen Spec Expiration Date Disposition Clinical Impression: Pleural effusion Disposition: ADMITTED IP TO THIS [facility] Condition: Fair Referrals: Zeynep Whitney MD [Primary Care Provider] - 1-2 days Decision Time: 22:46
[2020-03-10 21:47] LABS: Basophils # (A) 0.1 k/uL (0-0.2); Basophils % (A) 1 %; Eosinophils # (A) 0.3 k/uL (0-0.7); Eosinophils % (A) 3 %; HGB 12.8 gm/dL (11.4-16.0); Lymphocytes # (A) 1.8 k/uL (1.0-4.8); Lymphocytes % (A) 22 %; MCH 30.6 pg (25.0-35.0); MCHC 31.9 g/dL (31.0-37.0); Mean Platelet Volume 7.2; Monocytes # (A) 0.7 k/uL (0-1.0); Monocytes % (A) 9 %; Neutrophils # (A) 5.2 k/uL (1.3-7.7); Neutrophils % (A) 63 %; Platelet Count 492 k/uL (150-450); RBC 4.17 m/uL (3.80-5.40); RDW 13.6 % (11.5-15.5); WBC 8.3 k/uL (3.8-10.6)
[2020-03-10 21:59] LABS: INR 0.9 (<1.2); Partial Thromboplastin Time 27.2 sec (22.0-30.0); Prothrombin Time 9.4 sec (9.0-12.0)
[2020-03-10 22:01] LABS: African American GFR (CKD) >90 (>60 ml/min/1.73 sqM); Anion Gap 6 mmol/L; Blood Urea Nitrogen 10 mg/dL (7-17); Calcium 9.3 mg/dL (8.4-10.2); Carbon Dioxide 28 mmol/L (22-30); Chloride 102 mmol/L (98-107); Glucose 139 mg/dL (74-99); Non-African American GFR(CKD) >90 (>60 ml/min/1.73 sqM); Potassium 4.2 mmol/L (3.5-5.1); Sodium 136 mmol/L (137-145)
--- NOTE | 2020-03-10 22:42 | XR ---
EXAM: XR Chest, 1 View CLINICAL HISTORY: ITS.REASON XR Reason: pleural effusion TECHNIQUE: Frontal view of the chest. COMPARISON: 03/01/20 FINDINGS: Lungs: Near complete opacification of the left hemithorax. Pleural space: Enlarging large left pleural effusion. No pneumothorax. Heart: No significant abnormality. No cardiomegaly. Mediastinum: Rightward mediastinal shift. Bones/joints: No acute osseous abnormality. Tubes, lines and devices: Telemetry leads overlie the patient. IMPRESSION: Near complete opacification of the left hemithorax with rightward mediastinal shift. Findings are concerning for a large pleural effusion with adjacent atelectasis or consolidation.
[2020-03-10] MEDS ORDERED: NALOXONE 0.4 MG/ML 1 ML VIAL IV PRN (22:46)
[2020-03-11] MEDS: oxyCODONE-APAP 10-325MG 1 EACH TAB PO PRN (10:12)
[2020-03-11] MEDS ORDERED: ALBUTEROL NEBULIZED 2.5 MG/3 ML INHALATION PRN (11:01)
[2020-03-11] MEDS ORDERED: IPRATROPIUM-ALBUTEROL 3 ML NEB INHALATION PRN (11:03)
[2020-03-11] MEDS ORDERED: ALPRAZolam 0.25 MG TAB PO PRN (11:05)
[2020-03-11] MEDS: IPRATROPIUM-ALBUTEROL 3 ML NEB INHALATION SCH ×3 (11:48→19:11)
[2020-03-11] MEDS: DULoxetine HCL 60 MG CAPSULE.DR PO SCH (12:10)
[2020-03-11] MEDS: OXYBUTYNIN 10 MG TAB.ER.24 PO SCH ×2 (12:10→20:29)
[2020-03-11] MEDS: ASCORBIC ACID 500 MG TAB PO SCH (12:10)
[2020-03-11] MEDS: PANTOPRAZOLE 40 MG TABLET PO SCH (12:10)
[2020-03-11] MEDS: CHOLECALCIFEROL 1,000 UNIT TAB PO SCH (12:10)
[2020-03-11] MEDS: FLUTICASONE 50MCG/SPRAY NASAL 16GM EA NOSTRIL SCH ×2 (12:12→20:29)
[2020-03-11] MEDS: METOPROLOL TARTRATE 50 MG TAB PO SCH ×2 (12:13→20:29)
--- NOTE | 2020-03-11 13:12 | P.CONS ---
History of Present Illness - Reason for Consult Consult date: 03/11/20 lung adenocarcinoma Requesting physician: Mina Kimble - Chief Complaint SOB, pain - History of Present Illness Mrs. San is a very pleasant 74-year-old female who was recently diagnosed with non-small cell lung adenocarcinoma. She presented with a left pleural effusion in early January. She was seen by Oncology 01/30 for her first consult. CT of the abdomen and pelvis did show cipriano metastases, MRI of the brain was negative. She did have a suspicious bladder mass, Dr. Chappell resected a low-grade, noninvasive urothelial carcinoma. 02/23 patient had a staging PET scan positive for left lung cancer with metastasis to the bone. Patient was in the ER on 02/27 with complaints of shortness of breath and a diagnosis of C diff. She is back in the ER today with complaints of shortness of breath, does cause her pain with deep inspiration. Patient has not even had the opportunity to follow up with Dr. Whitney for a plan of care yet. Patient's pain is currently a 12 out of 10, left chest, worse with inspiration, she denies any headaches, fevers, dizziness, mild difficulty in swallowing, denies aspiration, nausea or vomiting, chest pain, hemoptysis, abdominal pain or cramping, acute changes in bowel or bladder habits, swelling of the legs, she is generally weak, she is still able to ambulate short distances independently. Review of Systems 14 point ROS is negative except as stated in HPI Past Medical History Past Medical History: Cancer, COPD, Fibromyalgia, GERD/Reflux, GI Bleed, Hyperlipidemia, Hypertension, Osteoarthritis (OA), Pneumonia Additional Past Medical History / Comment(s): Pt recently admitted to [facility] on 01/30/20 with SOB 2ndary to L pleural effusion/thoracentesis/metastatic L lung cancer. Pt states cancer s in mediastinum and thoracic vertebra/back pain/pt also had bladder cancer with surgery. Pt is on home oxygen ATC. Pt hs had a total of 2 L thoracentesis. Other hx: 2019 lower GI bleed d/t colitis, UTIs, bronchitis, sinus problems, migraines, chronic pain, bilateral carpal tunnel syndrome, osteopenia, bilateral tinnitis/[employer]. History of Any Multi-Drug Resistant Organisms: None Reported Past Surgical History: Adenoidectomy, Appendectomy, Section, Tonsillectomy Additional Past Surgical History / Comment(s): 02/05/20 cystoscopy with resection bladder tumor/scraping, L thoracentesis x2, uterine surgery for tipped uterus, R carpal tunnel release. Past Anesthesia/Blood Transfusion Reactions: No Reported Reaction, Motion Sickness Additional Past Anesthesia/Blood Transfusion Reaction / Comm: blood transfusion during childbirth, no reaction Past Psychological History: Anxiety, Depression Additional Psychological History / Comment(s): Pt resides with her spouse, daughter and granddaughter. They have 2 dogs. She has home oxygen at 2L/[place] ATC and a nebulizer. She has a cane and walker. She is receiving home care-a nurse every Tuesday and has recieved PT. She cannot remember name of company. Smoking Status: Former smoker Past Alcohol Use History: None Reported Additional Past Alcohol Use History / Comment(s): Pt started smoking in 1959 and quit 01/2020. Past Drug Use History: Marijuana Additional Drug Use History / Comment(s): CURRENT MARIJUANA USE once at night. - Past Family History Mother Family Medical History: Cancer, Liver Disease Additional Family Medical History / Comment(s): Cirrhosis/lung cancer. Father Family Medical History: Cancer Additional Family Medical History / Comment(s): cirrhosis/liver cancer Brother(s) Additional Family Medical History / Comment(s): Cirrhosis Medications and Allergies Home Medications Medication Instructions Recorded Confirmed Type Ascorbic Acid [Vitamin C] 1,000 mg PO DAILY 06/13/19 03/10/20 History Metoprolol Tartrate [Lopressor] 50 mg PO BID 06/13/19 03/10/20 History Oxybutynin Chloride 10 mg PO BID 06/13/19 03/10/20 History Simvastatin [Zocor] 40 mg PO HS 06/13/19 03/10/20 History DULoxetine HCL [Cymbalta] 60 mg PO DAILY 07/17/19 03/10/20 History Omeprazole [PriLOSEC] 20 mg PO DAILY 01/15/20 03/10/20 History ALPRAZolam [Xanax] 0.25 mg PO TID 02/28/20 03/10/20 History Cholecalciferol [Vitamin D3 (25 2,000 unit PO DAILY 02/28/20 03/10/20 History Mcg = 1000 Iu)] Ipratropium [place] [Atrovent Hfa] 2 puff INHALATION RT-QID 02/28/20 03/10/20 History oxyCODONE-APAP 10-325MG [Percocet 1 tab PO Q6H PRN 02/28/20 03/10/20 History 10-325 mg] Albuterol Sulfate [Ventolin HFA] 2 puff INHALATION RT-Q4H PRN 03/10/20 03/10/20 History Fluticasone Nasal [place] [Flonase 1 spray EA NOSTRIL BID 03/10/20 03/10/20 History Nasal [place]] Allergies Allergy/AdvReac Type Severity Reaction Status Date / Time Penicillins Allergy Rash/Hives Verified 03/10/20 22:56 erythromycin base AdvReac Nausea & Verified 03/10/20 22:56 Vomiting morphine AdvReac Hallucinati Verified 03/10/20 22:56 ons Physical Exam Vitals: Vital Signs Temp Pulse Pulse Resp BP BP Pulse Ox 03/11/20 07:47 97.7 F 96 18 152/91 96 03/11/20 04:00 97.5 F L 84 18 149/75 96 03/11/20 02:03 97.9 F 80 17 149/75 97 03/11/20 01:45 97.5 F L 86 16 136/97 100 03/10/20 22:00 75 15 138/75 96 03/10/20 21:08 97.9 F 93 18 119/86 94 L Intake and Output 03/10/20 03/11/20 03/11/20 22:59 06:59 14:59 Intake Total 450 Balance 450 Intake: Oral 450 Other: Voiding Method Toilet Toilet Weight 53.977 kg 53.977 kg - Constitutional General appearance: cooperative, mild distress, thin - EENT Eyes: anicteric sclerae, EOMI ENT: hearing grossly normal, normal oropharynx - Neck Neck: no lymphadenopathy - Respiratory Respiratory: right: CTA, left: diminished (lower 2/3rd's) - Cardiovascular Rhythm: regular Heart sounds: normal: S1, S2 Abnormal Heart Sounds: no systolic murmur, no diastolic murmur, no rub, no S3 Gallop, no S4 Gallop, no click, no other leg Peripheral Edema: bilateral: None - Gastrointestinal General gastrointestinal: no absent bowel sounds, no decreased bowel sounds, no distended, no hepatomegaly, no hyperactive bowel sounds, normal bowel sounds, no organomegaly, no rigid, no scaphoid, soft, no splenomegaly, no tenderness, no umbilical hernia, no ventral hernia - Integumentary Integumentary: normal - Neurologic Neurologic: CNII-XII intact - Musculoskeletal Musculoskeletal: generalized weakness - Psychiatric Psychiatric: A&O x's 3, appropriate affect, intact judgment & insight Results CBC & Chem 7: 03/10/20 21:35 03/10/20 21:35 Labs: Abnormal Lab Results - Last 24 Hours (Table) 03/10/20 03/10/20 Range/Units 21:35 21:35 Plt Count 492 H (150-450) k/uL Sodium 136 L (137-145) mmol/L Glucose 139 H (74-99) mg/dL Chest x-ray: report reviewed Assessment and Plan (1) Pleural effusion Narrative/Plan: Patient is having a Pleurx drain placed for recurrent malignant effusion. Agree with plan. Current Visit: Yes Status: Acute Priority: High Code(s): J90 - PLEURAL EFFUSION, NOT ELSEWHERE CLASSIFIED SNOMED Code(s): 89075013 (2) Non-small cell cancer of left lung Narrative/Plan: Patient is a new diagnosis of non-small cell lung cancer from malignant pleural fluid. Patient has a PI K3 and a TP 53 mutation, PDL-1 is 3%. Patient understands that she has an incurable malignancy that can be treated for some time. She and her family at bedside verbalized understanding. On checking with the office, there are plans to begin to immunotherapy but, patient/family has not responded to office attempts to get ahold of them. We will advise him tomorrow to contact our Public Relations Representative's. Current Visit: Yes Status: Acute Priority: High Code(s): C34.92 - MALIGN ANT NEOPLASM OF UNSP PART OF LEFT BRONCHUS OR LUNG SNOMED Code(s): 599683481 (3) Bladder mass Narrative/Plan: Resected, patient will follow with Urology Current Visit: No Status: Acute Priority: Low Code(s): N32.89 - OTHER SPECIFIED DISORDERS OF BLADDER SNOMED Code(s): 250925905 (4) Gait abnormality Narrative/Plan: Gait abnormality in general medical debility secondary to metastatic malignancy. Have requested that case management also have home care order PT/OT in the home. Current Visit: Yes Status: Acute Priority: High Code(s): R26.9 - U NSPECIFIED ABNORMALITIES OF GAIT AND MOBILITY SNOMED Code(s): 07786130 (5) Cancer related pain Narrative/Plan: Referred pain from malignant pleural effusion. Anticipate improvement/stability with placement of a Pleurx drain. She was given a one-time dose of 3 mg of morphine IV push and her home pain med Percocet 10/325 re-ordered for her. Current Visit: Yes Status: Acute Priority: High Code(s): G89.3 - NEOPLASM RELATED PAIN (ACUTE) (CHRONIC) SNOMED Code(s): 45249541116624 Plan: attests: I have seen and examined patient, performed H&P and developed impre ssion and plan of care for patient. Discussed with dictator. I agree with dictated note, documented as described.
--- NOTE | 2020-03-11 13:36 | P.GSCN ---
<Wil Patterson - Last Filed: 03/11/20 13:01> History of Present Illness Consult date: 03/11/20 Reason for Consult: Recurrent left pleural effusion evaluation for Pleurx catheter placement. Requesting physician: Mina Kimble History of present illness: This is 74-year-old female patient who is followed by Dr. Gustavo Whitney on an outpatient basis. She has a past medical history for COPD with home oxygen use 2 L nasal cannula, hypertension, fibromyalgia, GERD, hyperlipidemia, chronic tobacco abuse which he quit smoking in January 2020, marijuana use, arthritis, carcinoma of the bladder, and recent diagnosis of metastatic adenocarcinoma of the lung. She also has a history of recurrent large left pleural effusions status post 3 thoracentesis on the left side. She presented to the emergency department here at [facility] for complaints of progressive shortness of breath and severe left back pain. She denies any recent fever, night sweats, chills, hemoptysis, trauma, diarrhea or constipation. She was evaluated by Dr. Shane Roach on 03/04/2020 from cardiothoracic surgery for consideration of left sided Pleurx catheter placement. She was tentatively scheduled for Pleurx catheter placement on 03/13/2020 to be performed by Dr. Roach. In the emergency department a chest x-ray was completed which showed near complete opacification of the left hemithorax with rightward mediastinal shift, findings were concerning for a left pleural effusion with adjacent atelectasis or consolidation. Due to the patient's history, of recurrent left-sided pleural effusions with multiple thoracentesis, and her presenting symptoms a consult was placed to Dr. Johny Ramirez from cardiothoracic surgery. Review of Systems A 14 point review of systems was completed and was negative except as mentioned in the HPI. Past Medical History Past Medical History: Cancer, COPD, Fibromyalgia, GERD/Reflux, GI Bleed, Hyperlipidemia, Hypertension, Osteoarthritis (OA), Pneumonia Additional Past Medical History / Comment(s): Pt recently admitted to [facility] on 01/30/20 with SOB secondary to left pleural effusion/thoracentesis/metastatic L lung cancer. Pt states cancer s in mediastinum and thoracic vertebra/back pain/pt also had bladder cancer with surgery. Pt is on home oxygen 2 L nasal cannula. Pt hs had a total of 2 L thoracentesis. Other hx: 2019 lower GI bleed d/t colitis, UTIs, bronchitis, sinus problems, migraines, chronic pain, bilateral carpal tunnel syndrome, osteopenia, bilateral tinnitis/[place]. History of Any Multi-Drug Resistant Organisms: None Reported Past Surgical History: Adenoidectomy, Appendectomy, Section, Tonsillectomy Additional Past Surgical History / Comment(s): 02/05/20 cystoscopy with resection bladder tumor/scraping, L thoracentesis x2, uterine surgery for tipped uterus, R carpal tunnel release. Past Anesthesia/Blood Transfusion Reactions: No Reported Reaction, Motion Sickness Additional Past Anesthesia/Blood Transfusion Reaction / Comm: blood transfusion during childbirth, no reaction Past Psychological History: Anxiety, Depression Additional Psychological History / Comment(s): Pt resides with her spouse, daughter and granddaughter. They have 2 dogs. She has home oxygen at 2L/[place] ATC and a nebulizer. She has a cane and walker. She is receiving home care-a nurse every Tuesday and has recieved PT. She cannot remember name of company. Smoking Status: Former smoker (Quit in January 2020) Past Alcohol Use History: None Reported Additional Past Alcohol Use History / Comment(s): Pt started smoking in 1959 and quit 01/2020. Past Drug Use History: Marijuana Additional Drug Use History / Comment(s): CURRENT MARIJUANA USE once at night. - Past Family History Mother Family Medical History: Cancer, Liver Disease Additional Family Medical History / Comment(s): Cirrhosis/lung cancer. Father Family Medical History: Cancer Additional Family Medical History / Comment(s): cirrhosis/liver cancer Brother(s) Additional Family Medical History / Comment(s): Cirrhosis Medications and Allergies Home Medications Medication Instructions Recorded Confirmed Type Ascorbic Acid [Vitamin C] 1,000 mg PO DAILY 06/13/19 03/10/20 History Metoprolol Tartrate [Lopressor] 50 mg PO BID 06/13/19 03/10/20 History Oxybutynin Chloride 10 mg PO BID 06/13/19 03/10/20 History Simvastatin [Zocor] 40 mg PO HS 06/13/19 03/10/20 History DULoxetine HCL [Cymbalta] 60 mg PO DAILY 07/17/19 03/10/20 History Omeprazole [PriLOSEC] 20 mg PO DAILY 01/15/20 03/10/20 History ALPRAZolam [Xanax] 0.25 mg PO TID 02/28/20 03/10/20 History Cholecalciferol [Vitamin D3 (25 2,000 unit PO DAILY 02/28/20 03/10/20 History Mcg = 1000 Iu)] Ipratropium Aneta [Atrovent Hfa] 2 puff INHALATION RT-QID 02/28/20 03/10/20 History oxyCODONE-APAP 10-325MG [Percocet 1 tab PO Q6H PRN 02/28/20 03/10/20 History 10-325 mg] Albuterol Sulfate [Ventolin HFA] 2 puff INHALATION RT-Q4H PRN 03/10/20 03/10/20 History Fluticasone Nasal [place] [Flonase 1 spray EA NOSTRIL BID 03/10/20 03/10/20 History Nasal [place]] Allergies Allergy/AdvReac Type Severity Reaction Status Date / Time Penicillins Allergy Rash/Hives Verified 03/10/20 22:56 erythromycin base AdvReac Nausea & Verified 03/10/20 22:56 Vomiting morphine AdvReac Hallucinati Verified 03/10/20 22:56 ons Surgical - Exam Vital Signs Temp Pulse Resp BP Pulse Ox 97.9 F 93 18 119/86 94 L 03/10/20 21:08 03/10/20 21:08 03/10/20 21:08 03/10/20 21:08 03/10/20 21:08 - General no distress, moderate pain (To her left back), cachectic, chronically ill - Eyes PERRL, normal ocular movement - ENT normal pinna, normal nares, normal mucosa, no hearing loss, no congestion, dentures - Neck No lymphadenopathy no masses, no bruits, trachea midline, no venous distension - Respiratory Lungs sounds essentially clear to her right lobes, diminished to her left lobes. No wheezes, rhonchi or crackles. Respirations are symmetrical and nonlabored. Oxygen saturation 96% on 2 L nasal cannula. - Cardiovascular Regular rhythm and rate. S1 and S2 present, negative for S3, gallop or murmur. No edema present. - Abdomen Abdomen is soft, nontender and nondistended. Active bowel sounds present in all 4 abdominal quadrants. No guarding or rigidity. No organomegaly appreciated. - Genitourinary Deferred - Rectum Deferred - Integumentary no rash, no growths, no abnormal pigmentation - Neurologic Cranial nerves II through XII intact. - Musculoskeletal Moving all 4 extremities appropriately. - Psychiatric oriented to time, oriented to person, oriented to place, speech is normal, memory intact Results - Labs 03/10/20 21:35 03/10/20 21:35 Abnormal Lab Results - Last 24 Hours (Table) 03/10/20 03/10/20 Range/Units 21:35 21:35 Plt Count 492 H (150-450) k/uL Sodium 136 L (137-145) mmol/L Glucose 139 H (74-99) mg/dL Diabetes panel 03/10/20 Range/Units 21:35 Sodium 136 L (137-145) mmol/L Potassium 4.2 (3.5-5.1) mmol/L Chloride 102 (98-107) mmol/L Carbon Dioxide 28 (22-30) mmol/L BUN 10 (7-17) mg/dL Creatinine 0.61 (0.52-1.04) mg/dL Glucose 139 H (74-99) mg/dL Calcium 9.3 (8.4-10.2) mg/dL Calcium panel 03/10/20 Range/Units 21:35 Calcium 9.3 (8.4-10.2) mg/dL Pituitary panel 03/10/20 Range/Units 21:35 Sodium 136 L (137-145) mmol/L Potassium 4.2 (3.5-5.1) mmol/L Chloride 102 (98-107) mmol/L Carbon Dioxide 28 (22-30) mmol/L BUN 10 (7-17) mg/dL Creatinine 0.61 (0.52-1.04) mg/dL Glucose 139 H (74-99) mg/dL Calcium 9.3 (8.4-10.2) mg/dL Adrenal panel 03/10/20 Range/Units 21:35 Sodium 136 L (137-145) mmol/L Potassium 4.2 (3.5-5.1) mmol/L Chloride 102 (98-107) mmol/L Carbon Dioxide 28 (22-30) mmol/L BUN 10 (7-17) mg/dL Creatinine 0.61 (0.52-1.04) mg/dL Glucose 139 H (74-99) mg/dL Calcium 9.3 (8.4-10.2) mg/dL - Imaging Chest x-ray: report reviewed, image reviewed Assessment and Plan Assessment: 1. Recurrent large left malignant pleural effusion, status post multiple thoracentesis 2. Adenocarcinoma of the lung 3. COPD 4. Hypertension 5. Hyperlipidemia 6. Gastroesophageal reflux disease 7. History of depression 8. History of anxiety Plan: The patient was seen and examined at her bedside in the emergency Department. Her chart and diagnostics were reviewed. The patient's oldest daughter is present at her bedside. Her case was discussed with Dr. Johny Ramirez from cardiothoracic surgery. Due to the patient's symptoms and plans for Pleurx catheter placement on , 03/13/2020, she was offered for a left sided Pleurx catheter placement today to be completed by Dr. Ramirez. Risks and benefits of the procedure were discussed with the patient by Dr. Ramirez and the patient wishes to proceed with Pleurx catheter placement. Medical management and other comorbidities per primary care service. More recommendations follow based on patient's clinical course. The patient will need geriatric case manager consulted to arrange home health care for assistance with Pleurx catheter drainage. Thank you for this consult and we'll look forward to working with in the care of this patient. Time with Patient: Greater than 30 <Johny Ramirez - Last Filed: 03/11/20 17:07> Surgical - Exam Vital Signs Temp Pulse Resp BP Pulse Ox 97.9 F 93 18 119/86 94 L 03/10/20 21:08 03/10/20 21:08 03/10/20 21:08 03/10/20 21:08 03/10/20 21:08 Results - Labs 03/10/20 21:35 03/10/20 21:35 Abnormal Lab Results - Last 24 Hours (Table) 03/10/20 03/10/20 Range/Units 21:35 21:35 Plt Count 492 H (150-450) k/uL Sodium 136 L (137-145) mmol/L Glucose 139 H (74-99) mg/dL Diabetes panel 03/10/20 Range/Units 21:35 Sodium 136 L (137-145) mmol/L Potassium 4.2 (3.5-5.1) mmol/L Chloride 102 (98-107) mmol/L Carbon Dioxide 28 (22-30) mmol/L BUN 10 (7-17) mg/dL Creatinine 0.61 (0.52-1.04) mg/dL Glucose 139 H (74-99) mg/dL Calcium 9.3 (8.4-10.2) mg/dL Calcium panel 03/10/20 Range/Units 21:35 Calcium 9.3 (8.4-10.2) mg/dL Pituitary panel 03/10/20 Range/Units 21:35 Sodium 136 L (137-145) mmol/L Potassium 4.2 (3.5-5.1) mmol/L Chloride 102 (98-107) mmol/L Carbon Dioxide 28 (22-30) mmol/L BUN 10 (7-17) mg/dL Creatinine 0.61 (0.52-1.04) mg/dL Glucose 139 H (74-99) mg/dL Calcium 9.3 (8.4-10.2) mg/dL Adrenal panel 03/10/20 Range/Units 21:35 Sodium 136 L (137-145) mmol/L Potassium 4.2 (3.5-5.1) mmol/L Chloride 102 (98-107) mmol/L Carbon Dioxide 28 (22-30) mmol/L BUN 10 (7-17) mg/dL Creatinine 0.61 (0.52-1.04) mg/dL Glucose 139 H (74-99) mg/dL Calcium 9.3 (8.4-10.2) mg/dL Assessment and Plan Plan: The patient was seen and examined. I performed a history and physical examination. I agree with the above assessment and plan. The patient is a 74-year-old female with a history of metastatic carcinoma. She has had recurrent left-sided pleural effusions requiring multiple thoracenteses. Cytology of this pleural fluid was consistent with metastatic carcinoma. She was scheduled to undergo placement of a left-sided Pleurx catheter with Dr. Shane Roach on 03/13/2020. She presented to the emergency department this morning complaining of worsening shortness of breath. Imaging studies confirmed a large left sided pleural effusion. I offered to place the Pleurx catheter th is afternoon. She was in agreement. The risks, benefits, and alternatives to this procedure were discussed with the patient. All of her questions were answered. Consent was obtained.
[2020-03-11] MEDS ORDERED: LACTATED RINGERS 1,000 ML IV ONE (13:45)
[2020-03-11] MEDS ORDERED: KETAMINE 10 MG/ML 20 ML VIAL ONE (14:17)
[2020-03-11] MEDS ORDERED: MIDAZOLAM 2 MG/2 ML VIAL ONE (14:17)
[2020-03-11] MEDS ORDERED: fentaNYL (PF) 50 MCG/ML 2 ML AMP ONE (14:17)
[2020-03-11] MEDS ORDERED: PROPOFOL 10 MG/ML 20 ML VIAL IV ONE (14:17)
[2020-03-11] MEDS ORDERED: LIDOCAINE 1% INJ 10MG/ML (20 ML MDV) SQ ONE (14:40)
--- NOTE | 2020-03-11 15:13 | FL ---
Fluoroscopy History: LT sided Pleurex Catheter insertion LT sided Pleurex Catheter insertion. 10 secs fluoro. [address] Ramirez
--- NOTE | 2020-03-11 15:41 | XR ---
EXAMINATION TYPE: XR chest 1V portable DATE OF EXAM: 03/11/2020 CLINICAL HISTORY: Pleural catheter placement TECHNIQUE: Portable upright view of the chest obtained. COMPARISON: Chest radiograph 03/10/2020 FINDINGS: Interval placement of right-sided chest tube with distal tip overlying the left lung apex, and overlying the intrathoracic cavity around the left seventh and eighth rib space. There is mildly decreased size of persistent large left pleural effusion, and improved aeration of the visualized le ft upper lung. The mediastinal silhouette is normal. The cardiac silhouette is partially obscured. No evidence of pneumothorax. IMPRESSION: 1. Left-sided chest tube with distal tip over the left lung apex. No pneumothorax. 2. Large left pleural effusion mildly decreased in size versus 03/10/2020.
[2020-03-11] MEDS ORDERED: HYDROmorphone 1 MG/ML 1 ML SYRINGE IVP ONE ×2 (15:51)
--- NOTE | 2020-03-11 17:21 | PCN ---
PROCEDURE NOTE DATE OF SURGERY: 03/11/2020 PREOPERATIVE DIAGNOSIS: Recurrent left pleural effusion. POSTOPERATIVE DIAGNOSIS: Recurrent left pleural effusion. PROCEDURE: Placement of left PleurX catheter under fluoroscopic guidance. SURGEON: Johny Ramirez MD IDENTITY MANAGEMENT CONSULTANT: None. ANESTHESIA: Local with IV sedation. EBL: Minimal. COMPLICATIONS: None. INDICATION: The patient is a 74-year-old female with a past medical history significant for COPD on home oxygen, hypertension, hyperlipidemia, and chronic tobacco use who was recently diagnosed with metastatic cancer of the lung. She has had multiple thoracenteses secondary to recurrent left pleural effusions. Cytology of the pleural fluid was consistent with metastatic carcinoma. Placement of a left PleurX catheter was recommended. The risks, benefits, and alternatives of the procedure were discussed with the patient. All of her questions were answered. Consent was obtained. FINDINGS: Approximately 1200 mL of serous fluid was drained from the left pleural space. PROCEDURE IN DETAIL: The patient was taken to the operating room and placed supine on the operating table. IV sedation was achieved. The left chest and flank were then prepped and draped in the usual sterile fashion. Local anesthetic was infiltrated into the skin and subcutaneous tissue along the mid axillary line in an intercostal space. A finder needle was introduced and serous fluid was easily aspirated. A guidewire was then introduced into the left pleural space. Position was confirmed using fluoroscopy. Additional local anesthetic was infiltrated into the skin and subcutaneous tissue. A counter incision was created inferiorly and medially. The PleurX catheter was then passed with the tunneler through the tissue joining the 2 incisions. Using fluoroscopic guidance, a dilator followed by a break away sheath was introduced over the guidewire. The PleurX catheter was introduced through the breakaway sheath and advanced easily. Approximately 1200 mL of serous fluid was drained. Position of the PleurX catheter was confirmed using fluoroscopy. The counter incision was closed using interrupted Vicryl sutures. The PleurX catheter itself was attached to the skin using a silk suture. A sterile dressing was applied. The patient appeared to tolerate the procedure well. There were no immediate complications. She returned to the recovery room in stable condition. MMODL / IJN: [id number] / MTDD
--- NOTE | 2020-03-11 20:52 | P.CNPUL ---
History of Present Illness Consult date: 03/11/20 Reason for consult: dyspnea, pleural effusion Chief complaint: Ongoing shortness of breath History of present illness: Mrs. San is a very pleasant 74-year-old female who was recently diagnosed with non-small cell lung adenocarcinoma. She presented with a left pleural effusion in early January. She was seen by Oncology 01/30 for her first consult. CT of the abdomen and pelvis did show cipriano metastases, MRI of the brain was negative. She did have a suspicious bladder mass, Dr. Chappell resected a low-grade, noninvasive urothelial carcinoma. 02/23 patient had a staging PET scan positive for left lung cancer with metastasis to the bone. Patient was in the ER on 02/27 with complaints of shortness of breath and a diagnosis of C diff. She is back in the ER today with complaints of shortness of breath, does cause her pain with deep inspiration. Patient has not even had the opportunity to follow up with Dr. Whitney for a plan of care yet. Patient's pain is currently ongoing chest discomfort and pain, worse with inspiration, she denies any headaches, fevers, dizziness, mild difficulty in swallowing, denies aspiration, nausea or vomiting, chest pain, hemoptysis, abdominal pain or cramping, acute changes in bowel or bladder habits, swelling of the legs, she is generally weak, she is still able to ambulate short distances independently. Patient underwent Pleurx catheter and over a liter of fluid has been removed Review of Systems All systems: negative Past Medical History Past Medical History: Cancer, COPD, Fibromyalgia, GERD/Reflux, GI Bleed, Hyperlipidemia, Hypertension, Osteoarthritis (OA), Pneumonia Additional Past Medical History / Comment(s): Pt recently admitted to [facility] on 01/30/20 with SOB secondary to left pleural effusion/thoracentesis/metastatic L lung cancer. Pt states cancer s in mediastinum and thoracic vertebra/back pain/pt also had bladder cancer with surgery. Pt is on home oxygen 2 L nasal cannula. Pt hs had a total of 2 L thoracentesis. Other hx: 2019 lower GI bleed d/t colitis, UTIs, bronchitis, sinus problems, migraines, chronic pain, bilateral carpal tunnel syndrome, osteopenia, bilateral tinnitis/[place]. History of Any Multi-Drug Resistant Organisms: None Reported Past Surgical History: Adenoidectomy, Appendectomy, Section, Tonsillectomy Additional Past Surgical History / Comment(s): 02/05/20 cystoscopy with resection bladder tumor/scraping, L thoracentesis x2, uterine surgery for tipped uterus, R carpal tunnel release. Past Anesthesia/Blood Transfusion Reactions: No Reported Reaction, Motion Sickness Additional Past Anesthesia/Blood Transfusion Reaction / Comment(s): blood transfusion during childbirth, no reaction Past Psychological History: Anxiety, Depression Additional Psychological History / Comment(s): Pt resides with her spouse, daughter and granddaughter. They have 2 dogs. She has home oxygen at 2L/[place] ATC and a nebulizer. She has a cane and walker. She is receiving home care-a nurse every Tuesday and has recieved PT. She cannot remember name of company. Smoking Status: Former smoker (Quit in January 2020) Past Alcohol Use History: None Reported Additional Past Alcohol Use History / Comment(s): Pt started smoking in 1959 and quit 01/2020. Past Drug Use History: Marijuana Additional Drug Use History / Comment(s): CURRENT MARIJUANA USE once at night. - Past Family History Mother Family Medical History: Cancer, Liver Disease Additional Family Medical History / Comment(s): Cirrhosis/lung cancer. Father Family Medical History: Cancer Additional Family Medical History / Comment(s): cirrhosis/liver cancer Brother(s) Additional Family Medical History / Comment(s): Cirrhosis Medications and Allergies Home Medications Medication Instructions Recorded Confirmed Type Ascorbic Acid [Vitamin C] 1,000 mg PO DAILY 06/13/19 03/10/20 History Metoprolol Tartrate [Lopressor] 50 mg PO BID 06/13/19 03/10/20 History Oxybutynin Chloride 10 mg PO BID 06/13/19 03/10/20 History Simvastatin [Zocor] 40 mg PO HS 06/13/19 03/10/20 History DULoxetine HCL [Cymbalta] 60 mg PO DAILY 07/17/19 03/10/20 History Omeprazole [PriLOSEC] 20 mg PO DAILY 01/15/20 03/10/20 History ALPRAZolam [Xanax] 0.25 mg PO TID 02/28/20 03/10/20 History Cholecalciferol [Vitamin D3 (25 2,000 unit PO DAILY 02/28/20 03/10/20 History Mcg = 1000 Iu)] Ipratropium [place] [Atrovent Hfa] 2 puff INHALATION RT-QID 02/28/20 03/10/20 History oxyCODONE-APAP 10-325MG [Percocet 1 tab PO Q6H PRN 02/28/20 03/10/20 History 10-325 mg] Albuterol Sulfate [Ventolin HFA] 2 puff INHALATION RT-Q4H PRN 03/10/20 03/10/20 History Fluticasone Nasal [place] [Flonase 1 spray EA NOSTRIL BID 03/10/20 03/10/20 History Nasal [place]] Allergies Allergy/AdvReac Type Severity Reaction Status Date / Time Penicillins Allergy Rash/Hives Verified 03/10/20 22:56 erythromycin base AdvReac Nausea & Verified 03/10/20 22:56 Vomiting morphine AdvReac Hallucinati Verified 03/10/20 22:56 ons Physical Exam Vitals: Vital Signs Temp Pulse Pulse Resp BP BP Pulse Ox 03/11/20 19:27 98 03/11/20 19:12 100 98 03/11/20 16:55 59 L 146/72 03/11/20 16:25 97.6 F 63 18 131/76 99 03/11/20 15:59 66 18 112/67 92 L 03/11/20 15:45 60 16 134/76 94 L 03/11/20 15:30 62 14 127/71 92 L 03/11/20 15:15 59 L 16 133/72 94 L 03/11/20 15:03 98.2 F 66 16 136/80 97 03/11/20 14:16 98.7 F 67 17 137/76 97 03/11/20 13:40 98.7 F 67 17 137/76 97 03/11/20 12:03 97.9 F 83 20 139/81 96 03/11/20 12:00 104 H 03/11/20 11:49 106 H 97 03/11/20 10:27 98.1 F 88 20 158/87 96 03/11/20 10:25 98.1 F 88 20 158/91 96 03/11/20 07:47 97.7 F 96 18 152/91 96 03/11/20 04:00 97.5 F L 84 18 149/75 96 03/11/20 02:03 97.9 F 80 17 149/75 97 03/11/20 01:45 97.5 F L 86 16 136/97 100 03/10/20 22:00 75 15 138/75 96 03/10/20 21:08 97.9 F 93 18 119/86 94 L Intake and Output 03/11/20 03/11/20 03/11/20 06:59 14:59 22:59 Intake Total 450 230 0 Output Total 5 Balance 450 225 0 Intake: IV 150 0 Oral 450 80 Output: Estimated Blood Loss 5 Other: Voiding Method Toilet Toilet Weight 53.977 kg 53.977 kg - Constitutional General appearance: average body habitus, disheveled - EENT Eyes: EOMI, PERRLA ENT: normal oropharynx Ears: bilateral: normal - Neck Neck: normal ROM Carotids: bilateral: upstroke normal Thyroid: bilateral: normal size - Respiratory Respiratory: right: CTA, left: diminished - Cardiovascular Rhythm: regular Heart sounds: normal: S1, S2 - Gastrointestinal General gastrointestinal: decreased bowel sounds - Neurologic Neurologic: CNII-XII intact - Musculoskeletal Musculoskeletal: gait normal, generalized weakness, strength equal bilaterally - Psychiatric Psychiatric: A&O x's 3, appropriate affect, intact judgment & insight Results - Laboratory Findings CBC and BMP: 03/10/20 21:35 03/10/20 21:35 PT/INR, D-dimer PT 9.4 sec (9.0-12.0) 03/10/20 21:35 INR 0.9 (<1.2) 03/10/20 21:35 Abnormal lab findings: Abnormal Labs 03/10/20 03/10/20 21:35 21:35 Plt Count 492 H Sodium 136 L Glucose 139 H - Diagnostic Findings Chest x-ray: report reviewed, image reviewed (Finding as noted above) Assessment and Plan Assessment: Stage IV adenocarcinoma of the lung with malignant pleural effusion and metastatic disease to bone Superficial bladder cancer End-stage lung disease secondary due to COPD and emphysema Malignant pleural effusion status post Pleurx catheter placement Plan: Increase activity as tolerated Agree with discharge planning chemotherapy as per oncology services Time with Patient: Greater than 30
[2020-03-11] MEDS ORDERED: ATORVASTATIN 20 MG TAB PO SCH (21:00)
--- NOTE | 2020-03-11 23:14 | P.HPIM ---
History of Present Illness H&P Date: 03/11/20 Chief Complaint: shortness of breath Patient is a 74-year-old female with a known history of recently diagnosed metastatic lung cancer, admitted to [facility] on 01/30/2020 with shortness of breath secondary to pleural effusion status post thoracentesis with malignant cells. Patient also noted to have metastatic lesions in the thoracic vertebra. Patient was also noted to have bladder cancer and is status post resection. Patient underwent thoracentesis again. Other histories include lower GI bleed due to colitis in 2019, history of UTI, migraine headaches and chronic pain and COPD/emphysema. Patient does use marijuana on a daily basis. Patient presented to ER due to worsening shortness of breath after being discharged 2 weeks ago. Denied any fever or chills. Does have pleuritic chest pain with coughing and deep breathing. Patient was recently evaluated by thoracic surgery with plans for Pleurx catheter placement to be done on . Patient was having worsening shortness of breath and does not want to wait until for drainage. Patient is supposed to follow with Dr. Whitney as an outpatient for palliative chemotherapy but could not make it to the appointment yet. Chest x-ray showed near complete obfuscation of the left hemithorax with rightward mediastinal shift. Findings are concerning for a large pleural effusion with adjacent atelectasis or consolidation. Laboratory data showed WBC 10.3, hemoglobin 12.8 and platelets 492 Sodium 136, potassium 4.2, chloride 102, BUN 10 and creatinine 0.61 Review of Systems Constitutional: Patient denies any fever or chills . No generalized weakness or weight loss. Abdomen: Patient denied nausea vomiting and diarrhea and abdominal pain. Cardiovascular: Patient denies any chest pain or short of breath no palpitations. Respiratory: patient denied any cough is from production. Patient does have shortness of breath and pleuritic chest pain. Neurologic: Patient denied any numbness or tingling headache. Musculoskeletal: Patient denies any complaints of joint swelling or deformity. Skin: Negative Psychiatric: Negative Endocrine: No heat or cold intolerance. No recent weight gain. Genitourinary: No dysuria or hematuria. All other 14 point ROS negative except the above Past Medical History Past Medical History: Cancer, COPD, Fibromyalgia, GERD/Reflux, GI Bleed, H yperlipidemia, Hypertension, Osteoarthritis (OA), Pneumonia Additional Past Medical History / Comment(s): Pt recently admitted to [facility] on 01/30/20 with SOB 2ndary to L pleural effusion/thoracentesis/metastatic L lung cancer. Pt states cancer s in mediastinum and thoracic vertebra/back pain/pt also had bladder cancer with surgery. Pt is on home oxygen ATC. Pt hs had a total of 2 L thoracentesis. Other hx: 2019 lower GI bleed d/t colitis, UTIs, bronchitis, sinus problems, migraines, chronic pain, bilateral carpal tunnel syndrome, osteopenia, bilateral tinnitis/NOORVIK. History of Any Multi-Drug Resistant Organisms: None Reported Past Surgical History: Adenoidectomy, Appendectomy, Section, Tonsillectomy Additional Past Surgical History / Comment(s): 02/05/20 cystoscopy with resection bladder tumor/scraping, L thoracentesis x2, uterine surgery for tipped uterus, R carpal tunnel release. Past Anesthesia/Blood Transfusion Reactions: No Reported Reaction, Motion Sickness Additional Past Anesthesia/Blood Transfusion Reaction / Comment(s): blood transfusion during childbirth, no reaction Past Psychological History: Anxiety, Depression Additional Psychological History / Comment(s): Pt resides with her spouse, daughter and granddaughter. They have 2 dogs. She has home oxygen at 2L/[place] ATC and a nebulizer. She has a cane and walker. She is receiving home care-a nurse every Tuesday and has recieved PT. She cannot remember name of company. Smoking Status: Former smoker Past Alcohol Use History: None Reported Additional Past Alcohol Use History / Comment(s): Pt started smoking in 1959 and quit 01/2020. Past Drug Use History: Marijuana Additional Drug Use History / Comment(s): CURRENT MARIJUANA USE once at night. - Past Family History Mother Family Medical History: Cancer, Liver Disease Additional Family Medical History / Comment(s): Cirrhosis/lung cancer. Father Family Medical History: Cancer Additional Family Medical History / Comment(s): cirrhosis/liver cancer Brother(s) Additional Family Medical History / Comment(s): Cirrhosis Medications and Allergies Home Medications Medication Instructions Recorded Confirmed Type Ascorbic Acid [Vitamin C] 1,000 mg PO DAILY 06/13/19 03/10/20 History Metoprolol Tartrate [Lopressor] 50 mg PO BID 06/13/19 03/10/20 History Oxybutynin Chloride 10 mg PO BID 06/13/19 03/10/20 History Simvastatin [Zocor] 40 mg PO HS 06/13/19 03/10/20 History DULoxetine HCL [Cymbalta] 60 mg PO DAILY 07/17/19 03/10/20 History Omeprazole [PriLOSEC] 20 mg PO DAILY 01/15/20 03/10/20 History ALPRAZolam [Xanax] 0.25 mg PO TID 02/28/20 03/10/20 History Cholecalciferol [Vitamin D3 (25 2,000 unit PO DAILY 02/28/20 03/10/20 History Mcg = 1000 Iu)] Ipratropium [place] [Atrovent Hfa] 2 puff INHALATION RT-QID 02/28/20 03/10/20 History oxyCODONE-APAP 10-325MG [Percocet 1 tab PO Q6H PRN 02/28/20 03/10/20 History 10-325 mg] Albuterol Sulfate [Ventolin HFA] 2 puff INHALATION RT-Q4H PRN 03/10/20 03/10/20 History Fluticasone Nasal [place] [Flonase 1 spray EA NOSTRIL BID 03/10/20 03/10/20 History Nasal [place]] Allergies Allergy/AdvReac Type Severity Reaction Status Date / Time Penicillins Allergy Rash/Hives Verified 03/10/20 22:56 erythromycin base AdvReac Nausea & Verified 03/10/20 22:56 Vomiting morphine AdvReac Hallucinati Verified 03/10/20 22:56 ons Physical Exam Vitals: Vital Signs Temp Pulse Pulse Resp BP BP Pulse Ox 03/11/20 07:47 97.7 F 96 18 152/91 96 03/11/20 04:00 97.5 F L 84 18 149/75 96 03/11/20 02:03 97.9 F 80 17 149/75 97 03/11/20 01:45 97.5 F L 86 16 136/97 100 03/10/20 22:00 75 15 138/75 96 03/10/20 21:08 97.9 F 93 18 119/86 94 L Intake and Output 03/10/20 03/11/20 03/11/20 22:59 06:59 14:59 Intake Total 450 Balance 450 Intake: Oral 450 Other: Voiding Method Toilet Toilet Weight 53.977 kg 53.977 kg PHYSICAL EXAMINATION: Patient is lying in the bed comfortably, no acute distress, awake alert and oriented.. HEENT: Normocephalic. Neck is supple. Pupils reactive. Nostrils clear. Oral cavity is moist. Ears reveal no drainage. Neck reveals no JVD, carotid bruits, or thyromegaly. CHEST EXAMINATION: Trachea is central. Symmetrical expansion. Bilateral diminished air entry left greater than right. No wheezing.. CARDIAC: Normal S1, S2 with no gallops. No murmurs ABDOMEN: Soft. Bowel sounds normal. No organomegaly. No abdominal bruits. Extremities: reveal no edema. No clubbing or cyanosis Neurologically awake, alert, oriented x3 with well-coordinated movements. No focal deficits noted Skin: No rash or skin lesions. Psychiatric: Coperative. Nonsuicidal Musculoskeletal: No joint swelling or deformity. Normal range of motion. Results CBC & Chem 7: 03/10/20 21:35 03/10/20 21:35 Labs: Abnormal Lab Results - Last 24 Hours (Table) 03/10/20 03/10/20 Range/Units 21:35 21:35 Plt Count 492 H (150-450) k/uL Sodium 136 L (137-145) mmol/L Glucose 139 H (74-99) mg/dL Thrombosis Risk Factor Assmnt - DVT/VTE Prophylaxis DVT/VTE Prophylaxis: Pharmacologic Prophylaxis ordered - Choose All That Apply Any of the Below Risk Factors Present?: Yes Each Factor Represents 1 point: Abnormal pulmonary function (COPD) Other Risk Factors: Yes Each Risk Factor Represents 2 Points: Age 61-74 years Other congenital or acquired thrombophilia - If yes, enter type in comment: No Thrombosis Risk Factor Assessment Total Risk Factor Score: 3 Thrombosis Risk Factor Assessment Level: Moderate Risk Assessment and Plan Assessment: Large left pleural effusion with compressive atelectasis and complete opacification of left lung . 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 On 02/05/2020 History of recent thoracentesis on 02/20/2020 Previous history of smoking Currently daily marijuana use History of GI bleed GERD Fibromyalgia Advanced COPD/emphysema Hypertension Hyperlipidemia Osteoarthritis History of chronic pain, DVT prophylaxis Patient will be continued on pain management and CT surgery as well as pulmonary was consulted. Patient is scheduled for Pleurx catheter placement today. Continue with breathing treatments and home medications. Follow-up closely and further recommendations based on clinical course. Prognosis guarded. Time with Patient: Greater than 30
[2020-03-12] MEDS: IPRATROPIUM-ALBUTEROL 3 ML NEB INHALATION SCH ×2 (07:20→10:54)
[2020-03-12] MEDS: CHOLECALCIFEROL 1,000 UNIT TAB PO SCH (07:50)
[2020-03-12] MEDS: METOPROLOL TARTRATE 50 MG TAB PO SCH (07:50)
[2020-03-12] MEDS: oxyCODONE-APAP 10-325MG 1 EACH TAB PO PRN ×2 (07:51→12:15)
[2020-03-12] MEDS: PANTOPRAZOLE 40 MG TABLET PO SCH (07:51)
[2020-03-12] MEDS: FLUTICASONE 50MCG/SPRAY NASAL 16GM EA NOSTRIL SCH (07:51)
[2020-03-12] MEDS: DULoxetine HCL 60 MG CAPSULE.DR PO SCH (07:51)
[2020-03-12] MEDS: ASCORBIC ACID 500 MG TAB PO SCH (07:51)
[2020-03-12] MEDS: OXYBUTYNIN 10 MG TAB.ER.24 PO SCH (07:51)
--- NOTE | 2020-03-12 11:15 | P.PN ---
Subjective Progress Note Date: 03/12/20 Principal diagnosis: malignant pleural effusion In f/u pt is in very good spirits, she is breathing so much better, pain with breathing is gone. No other c/o. Objective - Vital Signs Vital signs: Vital Signs Temp 98.4 F 03/12/20 04:32 Pulse 88 03/12/20 11:03 Resp 12 03/12/20 04:32 BP 133/74 03/12/20 04:32 Pulse Ox 96 03/12/20 04:32 Intake & Output 03/11/20 03/12/20 03/12/20 18:59 06:59 18:59 Intake Total 230 1180 Output Total 5 Balance 225 1180 Weight 53.977 kg Intake: IV 150 Oral 80 1180 Output: Estimated Blood Loss 5 Other: Voiding Method Toilet Toilet Toilet # Voids 3 # Bowel Movements 2 - Constitutional General appearance: Present: cooperative, no acute distress, thin - EENT Eyes: Present: anicteric sclerae, EOMI ENT: Present: hearing grossly normal - Respiratory Respiratory: right: CTA, left: diminished (improved aeration of lower lobe) - Cardiovascular Heart sounds: normal: S1, S2 - Peripheral edema leg Peripheral Edema: bilateral: None - Gastrointestinal General gastrointestinal: Present: normal bowel sounds, soft - Labs CBC & Chem 7: 03/10/20 21:35 03/10/20 21:35 Assessment and Plan (1) Pleural effusion Narrative/Plan: Patient is having a Pleurx drain placed for recurrent malignant effusion. Patient is doing much better with Pleurx Current Visit: Yes Status: Acute Priority: High Code(s): J90 - PLEURAL EFFUSION, NOT ELSEWHERE CLASSIFIED SNOMED Code(s): 68540716 (2) Non-small cell cancer of left lung Narrative/Plan: Patient is a new diagnosis of non-small cell lung cancer from malignant pleural fluid. Patient has a PI K3 and a TP 53 mutation, PDL-1 is 3%. Patient understands that she has an incurable malignancy that can be treated for some time. She and her family at bedside verbalized understanding. On checking with the office, there are plans to begin to immunotherapy but, patient/family has not responded to office attempts to get ahold of them. Advised patient and left a card with her note that to contact our Industrial Relations Counselor STEVEN. Current Visit: Yes Status: Acute Priority: High Code(s): C34.92 - MALIGNANT NEOPLASM OF UNSP PART OF LEFT BRONCHUS OR LUNG SNOMED Code(s): 543366794 (3) Bladder mass Narrative/Plan: Resected, patient will follow with Urology Current Visit: No Status: Acute Priority: Low Code(s): N32.89 - OTHER SPECIFIED DISORDERS OF BLADDER SNOMED Code(s): 406283946 (4) Gait abnormality Narrative/Plan: Gait abnormality in general medical debility secondary to metastatic malignancy. Home care order, PT/OT in the home. Current Visit: Yes Status: Acute Priority: High Code(s): R26.9 - UNSPECIFIED ABNORMALITIES OF GAIT AND MOBILITY SNOMED Code(s): 02794285 (5) Cancer related pain Narrative/Plan: Referred pain from malignant pleural effusion. Improved with placement of the Pleurx drain, patient states breathing is much more comfortable. Continue home pain med Percocet 10/325 as prescribed Current Visit: Yes Status: Acute Priority: High Code(s): G89.3 - NEOPLASM RELATED PAIN (ACUTE) (CHRONIC) SNOMED Code(s): 56680157819353
--- NOTE | 2020-03-12 11:49 | XR ---
EXAMINATION TYPE: XR chest 2V DATE OF EXAM: 03/12/2020 COMPARISON: Prior chest x-ray 03/11/2020 HISTORY: Pleural catheter placement, pleural effusion TECHNIQUE: Frontal and lateral views of the chest are obtained. FINDINGS: Findings are stable. Left-sided pleural catheter shows the distal tip at the left lung ape x level. Large left pleural effusion. IMPRESSION: stable
[2020-03-12 11:56] VITALS: BP 132/82; PULSE 68; RESP 18; TEMP 98.1
--- NOTE | 2020-03-12 13:59 | P.PN ---
Progress Note - Text Progress Note Date: 03/12/20 Pleurx catheter teaching was completed with the patient and her daughter present at her bedside. Hands on instructions were given. The patient's daughter completed the drainage and dressing change with instruction. The left Pleurx catheter was drained 500 mL of blood-tinged fluid today. Questions were answered regarding the Pleurx catheter to the best of my ability. Home care has been ordered. The patient and her daughter were instructed not to drain more than 1 L or 1000 mL from the Pleurx catheter and 24 hour period. New drainage bottle needed for each drainage. Drainage frequency dictated by the patient's symptoms, may be every day, every other day, weekly or as needed if the patient is symptomatic. They were also instructed to contact the cardiothoracic surgery office with weekly drainage amount, may fax the amounts. Once the drainage is less than 50 mL 3 times in a row, notify the cardiothoracic surgery office for possible removal.
== END 2020-03-12 13:41 | disposition home health service (06) ==
LOC: EC 21:03 → 3SCARD 22:46 → 5NMEDONC 03-11 10:35
PROVIDERS: ADMIT Internal Medicine; ATTEND Internal Medicine
DX: C34.92 Malignant neoplasm of unspecified part of left bronchus or lung (principal); J91.0 Malignant pleural effusion; C79.51 Secondary malignant neoplasm of bone; G89.3 Neoplasm related pain (acute) (chronic); J43.9 Emphysema, unspecified; I10 Essential (primary) hypertension; G43.909 Migraine, unspecified, not intractable, without status migrainosus; M79.7 Fibromyalgia; M19.90 Unspecified osteoarthritis, unspecified site; K21.9 Gastro-esophageal reflux disease without esophagitis; E78.5 Hyperlipidemia, unspecified; Z20.828 Contact with and (suspected) exposure to other viral communicable diseases; Z99.81 Dependence on supplemental oxygen; J98.11 Atelectasis; M54.9 Dorsalgia, unspecified; M85.80 Other specified disorders of bone density and structure, unspecified site; F41.9 Anxiety disorder, unspecified; F32.9 Major depressive disorder, single episode, unspecified; G56.02 Carpal tunnel syndrome, left upper limb; F12.90 Cannabis use, unspecified, uncomplicated; R53.81 Other malaise; R26.9 Unspecified abnormalities of gait and mobility; H93.13 Tinnitus, bilateral; H91.90 Unspecified hearing loss, unspecified ear; Z79.891 Long term (current) use of opiate analgesic; Z79.899 Other long term (current) drug therapy; Z88.0 Allergy status to penicillin; Z88.1 Allergy status to other antibiotic agents; Z88.5 Allergy status to narcotic agent; Z87.01 Personal history of pneumonia (recurrent); Z85.51 Personal history of malignant neoplasm of bladder; Z87.19 Personal history of other diseases of the digestive system; Z87.891 Personal history of nicotine dependence; Z87.440 Personal history of urinary (tract) infections; Z83.79 Family history of other diseases of the digestive system; Z80.1 Family history of malignant neoplasm of trachea, bronchus and lung; Z80.0 Family history of malignant neoplasm of digestive organs
CPT/HCPCS: 99285; 36415; 94640 ×4; 94760; 93005; 86900; 86901; 80048; 85025; 85610; 85730; 86850; 71045 ×2; 71046; 32550; G0378 ×4; U0003; J2250; J0690; J2001; J3010; J1170; J2704

== ENCOUNTER 2020-04-21 10:43 | Inpatient (IN) | payer MEDICARE ==
--- NOTE | 2020-04-21 11:14 | ED ---
General Adult HPI - General Chief complaint: Shortness of Breath Stated complaint: KYRA Time Seen by Provider: 04/21/20 10:52 Source: patient, RN notes reviewed Mode of arrival: wheelchair Limitations: no limitations - History of Present Illness Initial comments: Patient is a pleasant 74-year-old female presenting to the emergency department with difficulty in breathing. Symptoms have progressed with the past several days. Patient does have drain tube to her left lung, last drained 2 days ago. Patient does get it drained every 3 days. Drainage is have been consistent or possibly slightly less. Patient also has some discomfort in the area where the tube is located. No cough. Patient does have history of effusions and had the tube placed over 2 months ago. No leg pain or leg swelling. - Related Data Home Medications Medication Instructions Recorded Confirmed Ascorbic Acid [Vitamin C] 1,000 mg PO DAILY 06/13/19 03/10/20 Metoprolol Tartrate [Lopressor] 50 mg PO BID 06/13/19 03/10/20 Oxybutynin Chloride 10 mg PO BID 06/13/19 03/10/20 Simvastatin [Zocor] 40 mg PO HS 06/13/19 03/10/20 DULoxetine HCL [Cymbalta] 60 mg PO DAILY 07/17/19 03/10/20 Omeprazole [PriLOSEC] 20 mg PO DAILY 01/15/20 03/10/20 ALPRAZolam [Xanax] 0.25 mg PO TID 02/28/20 03/10/20 Cholecalciferol [Vitamin D3 (25 2,000 unit PO DAILY 02/28/20 03/10/20 Mcg = 1000 Iu)] Ipratropium [place] [Atrovent Hfa] 2 puff INHALATION RT-QID 02/28/20 03/10/20 oxyCODONE-APAP 10-325MG [Percocet 1 tab PO Q6H PRN 02/28/20 03/10/20 10-325 mg] Albuterol Sulfate [Ventolin HFA] 2 puff INHALATION RT-Q4H PRN 03/10/20 03/10/20 Fluticasone Nasal [place] [Flonase 1 spray EA NOSTRIL BID 03/10/20 03/10/20 Nasal [place]] Allergies Allergy/AdvReac Type Severity Reaction Status Date / Time Penicillins Allergy Rash/Hives Verified 04/21/20 10:48 erythromycin base AdvReac Nausea & Verified 04/21/20 10:48 Vomiting morphine AdvReac Hallucinati Verified 04/21/20 10:48 ons Review of Systems ROS Statement: Those systems with pertinent positive or pertinent negative responses have been documented in the HPI. ROS Other: All systems not noted in ROS Statement are negative. Constitutional: Denies: fever Eyes: Denies: eye pain ENT: Denies: ear pain Respiratory: Reports: dyspnea. Denies: cough Cardiovascular: Reports: as per HPI Endocrine: Denies: fatigue Gastrointestinal: Denies: abdominal pain Genitourinary: Denies: dysuria Musculoskeletal: Denies: back pain Skin: Denies: rash Neurological: Denies: weakness Past Medical History Past Medical History: Cancer, COPD, Fibromyalgia, GERD/Reflux, GI Bleed, Hyperlipidemia, Hypertension, Osteoarthritis (OA), Pneumonia Additional Past Medical History / Comment(s): Pt recently admitted to [facility] on 01/30/20 with SOB 2ndary to L pleural effusion/thoracentesis/metastatic L lung cancer. Pt states cancer s in mediastinum and thoracic vertebra/back pain/pt also had bladder cancer with surgery. Pt is on home oxygen ATC. Pt hs had a total of 2 L thoracentesis. Other hx: 2019 lower GI bleed d/t colitis, UTIs, bronchitis, sinus problems, migraines, chronic pain, bilateral carpal tunnel syndrome, osteopenia, bilateral tinnitis/STEBBINS. History of Any Multi-Drug Resistant Organisms: None Reported Past Surgical History: Adenoidectomy, Appendectomy, Section, Tons illectomy Additional Past Surgical History / Comment(s): 02/05/20 cystoscopy with resection bladder tumor/scraping, L thoracentesis x2, uterine surgery for tipped uterus, R carpal tunnel release. Past Anesthesia/Blood Transfusion Reactions: No Reported Reaction, Motion Sickness Additional Past Anesthesia/Blood Transfusion Reaction / Comment(s): blood transfusion during childbirth, no reaction Past Psychological History: Anxiety, Depression Smoking Status: Former smoker Past Alcohol Use History: None Reported Past Drug Use History: Marijuana - Past Family History Mother Family Medical History: Cancer, Liver Disease Additional Family Medical History / Comment(s): Cirrhosis/lung cancer. Father Family Medical History: Cancer Additional Family Medical History / Comment(s): cirrhosis/liver cancer Brother(s) Additional Family Medical History / Comment(s): Cirrhosis General Exam Limitations: no limitations General appearance: alert, in no apparent distress Head exam: Present: normocephalic Eye exam: Present: normal appearance Respiratory exam: Present: decreased breath sounds (Left lower), other (Chest tube site. Liters clean and dry and intact. Mild tenderness in the region superior with a chest tube tracks up and enters pleural space.) Cardiovascular Exam: Present: regular rate, normal rhythm GI/Abdominal exam: Present: soft. Absent: tenderness Extremities exam: Present: normal inspection. Absent: pedal edema, calf tender ness Neurological exam: Present: alert Psychiatric exam: Present: normal affect, normal mood Skin exam: Present: normal color. Absent: rash Course Vital Signs 04/21/20 04/21/20 10:46 12:22 Temperature 98.1 F Pulse Rate 77 70 Respiratory 22 18 Rate Blood Pressure 126/69 104/60 O2 Sat by Pulse 94 L 95 Oximetry - Reevaluation(s) Reevaluation #1: 04/21/20 11:57 Case was discussed with Dr. Cash who is made with this patient. He does recommend using Pleurx bottle to remove up to 500 mL and then admit patient for observation 04/21/20 12:29 Patient did have 500 mL removed by myself and nursing staff. Family member was familiar with this and did help with equipment. 04/21/20 12:31 Dr. Roberts has been paged for admission covering for Dr. Coy. EKG Findings - EKG Comments: EKG Findings:: Normal sinus rhythm 72. HI 128. QRS 80. QT 406. QTc 444. Normal axis. Normal QRS. No acute ST change. Medical Decision Making - Lab Data Result diagrams: 04/21/20 11:14 04/21/20 11:14 Lab Results 04/21/20 04/21/20 04/21/20 Range/Units 11:14 11:14 11:14 WBC 7.9 (3.8-10.6) k/uL RBC 4.18 (3.80-5.40) m/uL Hgb 11.9 (11.4-16.0) gm/dL Hct 37.8 (34.0-46.0) % MCV 90.5 D (80.0-100.0) fL MCH 28.5 (25.0-35.0) pg MCHC 31.5 (31.0-37.0) g/dL RDW 14.2 (11.5-15.5) % Plt Count 396 (150-450) k/uL Neutrophils % 77 % Lymphocytes % 7 % Monocytes % 9 % Eosinophils % 2 % Basophils % 1 % Neutrophils # 6.0 (1.3-7.7) k/uL Lymphocytes # 0.5 L (1.0-4.8) k/uL Monocytes # 0.7 (0-1.0) k/uL Eosinophils # 0.2 (0-0.7) k/uL Basophils # 0.1 (0-0.2) k/uL Hypochromasia Slight PT 9.7 (9.0-12.0) sec INR 0.9 (<1.2) APTT 24.8 (22.0-30.0) sec Sodium 132 L (137-145) mmol/L Potassium 4.5 (3.5-5.1) mmol/L Chloride 99 (98-107) mmol/L Carbon Dioxide 25 (22-30) mmol/L Anion Gap 8 mmol/L BUN 10 (7-17) mg/dL Creatinine 0.60 (0.52-1.04) mg/dL Est GFR (CKD-EPI)AfAm >90 (>60 ml/min/1.73 sqM) Est GFR (CKD-EPI)NonAf >90 (>60 ml/min/1.73 sqM) Glucose 106 H (74-99) mg/dL Plasma Lactic Acid [place] (0.7-2.0) mmol/L Calcium 7.7 L (8.4-10.2) mg/dL Total Bilirubin 0.3 (0.2-1.3) mg/dL AST 43 H (14-36) U/L ALT 25 (4-34) U/L Alkaline Phosphatase 232 H (38-126) U/L Total Protein 6.0 L (6.3-8.2) g/dL Albumin 2.8 L (3.5-5.0) g/dL 04/21/20 Range/Units 11:14 WBC (3.8-10.6) k/uL RBC (3.80-5.40) m/uL Hgb (11.4-16.0) gm/dL Hct (34.0-46.0) % MCV (80.0-100.0) fL MCH (25.0-35.0) pg MCHC (31.0-37.0) g/dL RDW (11.5-15.5) % Plt Count (150-450) k/uL Neutrophils % % Lymphocytes % % Monocytes % % Eosinophils % % Basophils % % Neutrophils # (1.3-7.7) k/uL Lymphocytes # (1.0-4.8) k/uL Monocytes # (0-1.0) k/uL Eosinophils # (0-0.7) k/uL Basophils # (0-0.2) k/uL Hypochromasia PT (9.0-12.0) sec INR (<1.2) APTT (22.0-30.0) sec Sodium (137-145) mmol/L Potassium (3.5-5.1) mmol/L Chloride (98-107) mmol/L Carbon Dioxide (22-30) mmol/L Anion Gap mmol/L BUN (7-17) mg/dL Creatinine (0.52-1.04) mg/dL Est GFR (CKD-EPI)AfAm (>60 ml/min/1.73 sqM) Est GFR (CKD-EPI)NonAf (>60 ml/min/1.73 sqM) Glucose (74-99) mg/dL Plasma Lactic Acid [place] 1.1 (0.7-2.0) mmol/L Calcium (8.4-10.2) mg/dL Total Bilirubin (0.2-1.3) mg/dL AST (14-36) U/L ALT (4-34) U/L Alkaline Phosphatase (38-126) U/L Total Protein (6.3-8.2) g/dL Albumin (3.5-5.0) g/dL - Radiology Data Radiology results: image reviewed (Chest x-ray shows moderate left-sided effusion with loculated area of pneumothorax. Also inserted for right upper lobe infiltrate) Disposition Clinical Impression: Recurrent left pleural effusion, Pneumothorax, Pneumonia Disposition: ADMITTED IP TO THIS [facility] Condition: Serious Is patient prescribed a controlled substance at d/c from ED?: No Referrals: Thor Coy MD [Primary Care Provider] - 1-2 days Decision Time: 12:30
--- NOTE | 2020-04-21 11:31 | XR ---
EXAMINATION TYPE: XR chest 2V DATE OF EXAM: 04/21/2020 COMPARISON: 03/12/2020 HISTORY: 74-year-old female history of lung cancer, shortness of breath, difficulty breathing TECHNIQUE: PA and lateral views FINDINGS: There is new patchy airspace opacity right upper lobe. Continued moderate left effusion now with a un derlying moderate to large pneumothorax estimated at 50-60%. No lauren mediastinal shift at this time. A left-sided pleural catheter remains in place. IMPRESSION: 1. Interval development of a left-sided hydropneumothorax. The moderate pleural effusion component pe rsists extending up to the mid lung. The moderate to large pneumothorax component is new estimated at 50-60%. A pleural catheter remains in place. 2. New right upper lobe infiltrate. Correlate for pneumonia.
[2020-04-21 11:35] LABS: ALT 25 U/L (4-34); AST 43 U/L (14-36); African American GFR (CKD) >90 (>60 ml/min/1.73 sqM); Albumin 2.8 g/dL (3.5-5.0); Alkaline Phosphatase 232 U/L (38-126); Anion Gap 8 mmol/L; Blood Urea Nitrogen 10 mg/dL (7-17); Calcium 7.7 mg/dL (8.4-10.2); Carbon Dioxide 25 mmol/L (22-30); Chloride 99 mmol/L (98-107); Glucose 106 mg/dL (74-99); Non-African American GFR(CKD) >90 (>60 ml/min/1.73 sqM); Potassium 4.5 mmol/L (3.5-5.1); Sodium 132 mmol/L (137-145); Total Bilirubin 0.3 mg/dL (0.2-1.3)
[2020-04-21 11:36] LABS: INR 0.9 (<1.2); Partial Thromboplastin Time 24.8 sec (22.0-30.0); Prothrombin Time 9.7 sec (9.0-12.0)
[2020-04-21 11:58] LABS: Basophils # (A) 0.1 k/uL (0-0.2); Basophils % (A) 1 %; Eosinophils # (A) 0.2 k/uL (0-0.7); Eosinophils % (A) 2 %; HCT 37.8 % (34.0-46.0); HGB 11.9 gm/dL (11.4-16.0); Hypochromasia Slight; Lymphocytes # (A) 0.5 k/uL (1.0-4.8); Lymphocytes % (A) 7 %; MCH 28.5 pg (25.0-35.0); MCHC 31.5 g/dL (31.0-37.0); Mean Platelet Volume 7.4; Monocytes # (A) 0.7 k/uL (0-1.0); Monocytes % (A) 9 %; Neutrophils % (A) 77 %; Platelet Count 396 k/uL (150-450); RBC 4.18 m/uL (3.80-5.40); RDW 14.2 % (11.5-15.5); WBC 7.9 k/uL (3.8-10.6)
[2020-04-21 12:01] LABS: MCV 90.5 fL (80.0-100.0)
[2020-04-21] MEDS ORDERED: HYDROmorphone 2 MG TAB PO PRN (12:33)
[2020-04-21] MEDS ORDERED: NALOXONE 0.4 MG/ML 1 ML VIAL IV PRN (12:33)
[2020-04-21] MEDS: HYDROmorphone 1 MG/ML 1 ML SYRINGE IVP PRN ×2 (12:38→19:22)
[2020-04-21] MEDS ORDERED: LEVOFLOXACIN 750MG-D5W PMX 750 MG in DEXTROSE/WATER 1 150ML.BAG IVPB STA (12:48)
[2020-04-21] MEDS ORDERED: PNEUMONIA PROTOCOL UTILIZED 1 EACH MISC PO PRN (12:48)
--- NOTE | 2020-04-21 13:15 | XR ---
EXAMINATION TYPE: XR chest 1V portable DATE OF EXAM: 04/21/2020 Comparison: Earlier today Clinical History: 74-year-old female Pneumothorax/pleural effusion Findings: Left heart margin by adjacent pleural parenchymal opacities. Left-sided pleural catheter remains in p lace. Slight worsening airspace opacity in the right upper lobe. Diffuse interstitial density also ap pears to be increasing. Redemonstrated left-sided hydropneumothorax. Moderate-sized pneumothorax comp onent is admitted at 50-60%. Moderate effusion remains. Impression: 1. Similar left-sided hydropneumothorax with at least 50-60% pneumothorax component. Chest tube in pl [place]. Moderate left pleural effusion similar to be decreased. 2. Airspace disease right upper lobe slightly worsening. Correlate for pneumonia. However, diffuse in terstitial density also appears to be worsening and could represent superimposed pulmonary vascular c ongestion.
[2020-04-21] MEDS ORDERED: ONDANSETRON ODT 8 MG TAB.RAPDIS PO PRN (17:42)
[2020-04-21] MEDS ORDERED: FLUTICASONE 50MCG/SPRAY NASAL 16GM EA NOSTRIL PRN (17:42)
[2020-04-21] MEDS ORDERED: oxyCODONE-APAP 10-325MG 1 EACH TAB PO PRN (17:42)
[2020-04-21] MEDS ORDERED: CALCIUM CARBONATE 500 MG CHEWABLE PO PRN (18:37)
[2020-04-21] MEDS ORDERED: LACTULOSE 20 GM/30 ML CUP PO PRN (18:37)
[2020-04-21] MEDS ORDERED: MAG HYDROX/AL HYDROX/SIMETH 30 ML CUP PO PRN (18:37)
[2020-04-21] MEDS ORDERED: MELATONIN 3 MG TABLET PO PRN (18:37)
[2020-04-21] MEDS ORDERED: ACETAMINOPHEN TAB 325 MG TAB PO PRN (18:37)
--- NOTE | 2020-04-21 21:32 | P.HPIM ---
History of Present Illness H&P Date: 04/21/20 Chief Complaint: shortness of breath History of presenting complaint: This is a 74-year-old patient followed with Dr. Coy. chronic stable medical conditions include COPD, GERD,hypertension, hyperlipidemia, osteoarthritis. Patient in January of this year underwent left fluid thoracentesis and pathology did come back confirming non-small cell malignancy adenocarcinoma. Patient has received 1 cycle of chemotherapy. Has a left-sided chest 2. That every 3 days it has drained about 500 mL drained..patient also in January of this year had a bladder TURP. Positive for noninvasive, low-grade papillary urothelial carcinoma. This morning patient got up started feeling short of breath. No cough no fever no chills. Appetite has been down. Has been having bowel movements. Minimal cough. In the ER left chest tube was draining and maybe about 5 mL was obtained. Breathing better. Denies any edema. No fever no chills. 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 Smoked 2-3 packs a day for most of her life. Now down to a few cigarettes a day. Close to 60 years. Alcohol minimal. Does smoke marijuana at night to sleep and get some rest. Physical examination: VITAL SIGNS: 98.1, 77, 22, 126%, 94% on 3 L GENERAL: [BMI 19.3 muscle muscle mass, prominent bones sitting up not in distress. EYES: Pupils equal. Conjunctiva normal. HEENT: External appearance of nose and ears normal, oral cavity grossly normal. NECK: JVD not raised; masses not palpable. HEART: First and second heart sounds are normal; no edema. LUNGS: Respiratory rate increased, decreased breath sounds -left pigtail catheter the left chest wall ABDOMEN: Soft, nontender, liver spleen not palpable, no masses palpable. PSYCH: Alert and oriented x3; mood and affect normal. MUSCULAR skeletal: Evidence of OA especially in the hands NEUROLOGICAL: Cranial nerves grossly intact; no facial asymmetry, power and sensation grossly intact. LYMPHATICS: No lymph nodes palpable in the axilla and neck INVESTIGATIONS, reviewed in the clinical context: white count 7.9 hemoglobin 11.9 potassium 4.5 creatinine 0.60 EKG tracing personally reviewed by me-normal sinus rhythm Chest x-ray film personally reviewed by me-Large left pleural effusion with a horizontal line Assessment: -Left pleural effusion-from underlying malignancy worsening causing patient to be short of breath. Has a pigtail catheter that is draining every 3 days at home. It was drained in the ER about 400 mL was obtained. Breathing better. -non-small cell adenocarcinoma of the lung getting chemotherapy -Acute COPD exacerbationin -Left pleural effusion recurrent from malignancy from malignancy. -GERD, Hyperlipidemia -Essential hypertension -Primary osteoarthritis -Anxiety depression otherwise specified -Noninvasive low-grade papillary urothelial carcinoma of the bladder being followed by urology Plan: care was discussed with the patient. Questions were answered. Consultation made to pulmonary and oncology. Past Medical History Past Medical History: Cancer, COPD, Fibromyalgia, GERD/Reflux, GI Bleed, Hyperlipidemia, Hypertension, Osteoarthritis (OA), Pneumonia Additional Past Medical History / Comment(s): Pt recently admitted to [facility] on 01/30/20 with SOB 2ndary to L pleural effusion/thoracentesis/metastatic L lung cancer. Pt states cancer s in mediastinum and thoracic vertebra/back pain/pt also had bladder cancer with surgery. Pt is on home oxygen ATC. Pt hs had a total of 2 L thoracentesis. Other hx: 2019 lower GI bleed d/t colitis, UTIs, bronchitis, sinus problems, migraines, chronic pain, bilateral carpal tunnel syndrome, osteopenia, bilateral tinnitis/[place]. History of Any Multi-Drug Resistant Organisms: None Reported Past Surgical History: Adenoidectomy, Appendectomy, Section, Tonsillectomy Additional Past Surgical History / Comment(s): 02/05/20 cystoscopy with resection bladder tumor/scraping, L thoracentesis x2, uterine surgery for tipped uterus, R carpal tunnel release. Past Anesthesia/Blood Transfusion Reactions: No Reported Reaction, Motion Sickness Additional Past Anesthesia/Blood Transfusion Reaction / Comment(s): blood transfusion during childbirth, no reaction Past Psychological History: Anxiety, Depression Additional Psychological History / Comment(s): Pt resides with her spouse, daughter and granddaughter. They have 2 dogs. She has home oxygen at 2L/[place] ATC and a nebulizer. She has a cane and walker. She is receiving home care-a nurse every Tuesday and has recieved PT. She cannot remember name of company. Smoking Status: Former smoker Past Alcohol Use History: None Reported Additional Past Alcohol Use History / Comment(s): Pt started smoking in 1959 and quit 01/2020. Past Drug Use History: Marijuana Additional Drug Use History / Comment(s): CURRENT MARIJUANA USE once at night. - Past Family History Mother Family Medical History: Cancer, Liver Disease Additional Family Medical History / Comment(s): Cirrhosis/lung cancer. Father Family Medical History: Cancer Additional Family Medical History / Comment(s): cirrhosis/liver cancer Brother(s) Additional Family Medical History / Comment(s): Cirrhosis Medications and Allergies Home Medications Medication Instructions Recorded Confirmed Type Metoprolol Tartrate [Lopressor] 50 mg PO BID 06/13/19 04/21/20 History Oxybutynin Chloride 10 mg PO BID 06/13/19 04/21/20 History DULoxetine HCL [Cymbalta] 60 mg PO DAILY 07/17/19 04/21/20 History Omeprazole [PriLOSEC] 20 mg PO DAILY 01/15/20 04/21/20 History ALPRAZolam [Xanax] 0.25 mg PO TID 02/28/20 04/21/20 History Ipratropium [place] [Atrovent Hfa] 2 puff INHALATION RT-QID 02/28/20 04/21/20 History oxyCODONE-APAP 10-325MG [Percocet 1 tab PO Q6H PRN 02/28/20 04/21/20 History 10-325 mg] Albuterol Sulfate [Ventolin HFA] 2 puff INHALATION RT-Q4H PRN 03/10/20 04/21/20 History Fluticasone Nasal [place] [Flonase 1 spray EA NOSTRIL BID PRN 03/10/20 04/21/20 History Nasal [place]] Ondansetron Odt [Zofran ODT] 8 mg PO Q8H PRN 04/21/20 04/21/20 History Sennosides/Docusate Sodium [Senna 1 tab PO BID 04/21/20 04/21/20 History Plus 8.6-50 mg Softgel] Simvastatin [Zocor] 20 mg PO HS 04/21/20 04/21/20 History fentaNYL 25MCG/HR PATCH [Duragesic 25 mcg TOPICAL Q72H 04/21/20 04/21/20 History 25MCG/HR] Allergies Allergy/AdvReac Type Severity Reaction Status Date / Time Penicillins Allergy Rash/Hives Verified 04/21/20 17:15 erythromycin base AdvReac Nausea & Verified 04/21/20 17:15 Vomiting morphine AdvReac Hallucinati Verified 04/21/20 17:15 ons Physical Exam Vitals: Vital Signs Temp Pulse Pulse Resp BP BP Pulse Ox 04/21/20 15:00 97.6 F 71 18 95/60 91 L 04/21/20 12:39 97.8 F 65 18 113/64 95 04/21/20 12:22 70 18 104/60 95 04/21/20 10:46 98.1 F 77 22 126/69 94 L Intake and Output 04/21/20 04/21/20 04/21/20 06:59 14:59 22:59 Intake Total 150 Balance 150 Intake: Intake, IV Titration 150 Amount Levofloxacin 750Mg-D5w 150 Pmx 750 mg In Dextrose/ Water 1 150ml.bag @ 100 mls/hr IVPB ONCE STA Rx#: [id number] Other: Voiding Method Toilet Weight 52.617 kg Results CBC & Chem 7: 04/21/20 11:14 04/21/20 11:14 Labs: Abnormal Lab Results - Last 24 Hours (Table) 04/21/20 04/21/20 Range/Units 11:14 11:14 Lymphocytes # 0.5 L (1.0-4.8) k/uL Sodium 132 L (137-145) mmol/L Glucose 106 H (74-99) mg/dL Calcium 7.7 L (8.4-10.2) mg/dL AST 43 H (14-36) U/L Alkaline Phosphatase 232 H (38-126) U/L Total Protein 6.0 L (6.3-8.2) g/dL Albumin 2.8 L (3.5-5.0) g/dL Thrombosis Risk Factor Assmnt - Choose All That Apply Each Risk Factor Represents 2 Points: Age 61-74 years Thrombosis Risk Factor Assessment Total Risk Factor Score: 2 Thrombosis Risk Factor Assessment Level: Low Risk
[2020-04-21] MEDS: SENNOSIDES-DOCUSATE SODIUM 1 EACH TAB PO SCH (22:18)
[2020-04-21] MEDS: METOPROLOL TARTRATE 50 MG TAB PO SCH (22:18)
[2020-04-21] MEDS: OXYBUTYNIN CHLORIDE 5 MG TAB PO SCH (22:18)
[2020-04-21] MEDS: ATORVASTATIN 10 MG TAB PO SCH (22:18)
[2020-04-21] MEDS: ALPRAZolam 0.25 MG TAB PO PRN (22:21)
[2020-04-22] MEDS: IPRATROPIUM 0.5 MG/2.5 ML NEBU INHALATION SCH (05:22)
--- NOTE | 2020-04-22 08:24 | XR ---
EXAMINATION TYPE: XR chest 2V DATE OF EXAM: 04/22/2020 COMPARISON: Chest x-ray from yesterday and older studies. Chest CT January 15, 2020 silhouetting left hea rt border redemonstrated. Osseous structures are intact. HISTORY: Pneumonia and pneumothorax progress study. TECHNIQUE: Frontal and lateral views of the chest are obtained. FINDINGS: There is stable left apical chest tube with persistent moderate lateral lower basilar hydr opneumothorax. No new mediastinal shift. Left midlung compressive atelectasis. Background prominent i nterstitial change with right upper lung increased opacity. IMPRESSION: Stable moderate lateral left basilar hydropneumothorax despite apical chest tube. Associ ated left lung compressive atelectasis. Background bilateral interstitial edema and/or infiltrates wi th more focal peripheral right upper upper lung acute infiltrate is thought present. Correlate for at ypical infections.
[2020-04-22] MEDS: OXYBUTYNIN CHLORIDE 5 MG TAB PO SCH ×2 (08:42→22:49)
[2020-04-22] MEDS: SENNOSIDES-DOCUSATE SODIUM 1 EACH TAB PO SCH ×2 (08:42→22:43)
[2020-04-22] MEDS: METOPROLOL TARTRATE 50 MG TAB PO SCH ×2 (08:42→22:43)
[2020-04-22] MEDS: DULoxetine HCL 60 MG CAPSULE.DR PO SCH (08:43)
[2020-04-22] MEDS: PANTOPRAZOLE 40 MG TABLET PO SCH (08:43)
[2020-04-22 09:51] LABS: Basophils # (A) 0.1 k/uL (0-0.2); Basophils % (A) 1 %; Eosinophils # (A) 0.1 k/uL (0-0.7); Eosinophils % (A) 1 %; HCT 35.2 % (34.0-46.0); HGB 10.9 gm/dL (11.4-16.0); Hypochromasia Slight; Lymphocytes # (A) 0.5 k/uL (1.0-4.8); Lymphocytes % (A) 7 %; MCH 28.3 pg (25.0-35.0); MCHC 30.9 g/dL (31.0-37.0); MCV 91.5 fL (80.0-100.0); Mean Platelet Volume 7.3; Monocytes # (A) 0.7 k/uL (0-1.0); Monocytes % (A) 11 %; Neutrophils # (A) 5.2 k/uL (1.3-7.7); Neutrophils % (A) 76 %; Platelet Count 422 k/uL (150-450); RBC 3.85 m/uL (3.80-5.40); RDW 14.3 % (11.5-15.5); WBC 6.8 k/uL (3.8-10.6)
[2020-04-22 10:19] LABS: African American GFR (CKD) >90 (>60 ml/min/1.73 sqM); Anion Gap 5 mmol/L; Blood Urea Nitrogen 7 mg/dL (7-17); Calcium 7.1 mg/dL (8.4-10.2); Carbon Dioxide 25 mmol/L (22-30); Chloride 101 mmol/L (98-107); Glucose 134 mg/dL (74-99); Non-African American GFR(CKD) >90 (>60 ml/min/1.73 sqM); Potassium 4.3 mmol/L (3.5-5.1); Sodium 131 mmol/L (137-145)
[2020-04-22] MEDS: LEVOFLOXACIN 750 MG TAB PO SCH (12:13)
--- NOTE | 2020-04-22 15:44 | P.CNPUL ---
History of Present Illness Consult date: 04/22/20 Reason for consult: dyspnea, chest pain Chief complaint: Shortness of breath History of present illness: This is a 74-year-old female well-known to me, patient has been diagnosed adenocarcinoma metastatic stage IV with malignant pleural effusion involving the left side, patient is on chemotherapy have received first cycle of chemotherapy with 5 treatment second cycle is due, patient came into the hospital with diffic ulty in breathing for several days, the left-sided Pleurx catheter drained 2 days ago, in the ER 600 mL were removed, patient has large hydropneumothorax on the right side, in addition she has some streaky infiltrate on the right side involving the upper lobe as well, suspect lymphangitic spread, we'll get a computed tomography scan of the chest, I have discussed with thoracic surgery about connecting the chest tube left-sided tube Pleur-evac and suction that may relieve hydropneumothorax up to some extent, denies any hemoptysis appetite poor, no night sweats fever or chills Review of Systems All systems: negative Past Medical History Past Medical History: Cancer, COPD, Fibromyalgia, GERD/Reflux, GI Bleed, Hype rlipidemia, Hypertension, Osteoarthritis (OA), Pneumonia Additional Past Medical History / Comment(s): Pt recently admitted to [facility] on 01/30/20 with SOB 2ndary to L pleural effusion/thoracentesis/metastatic L lung cancer. Pt states cancer s in mediastinum and thoracic vertebra/back pain/pt also had bladder cancer with surgery. Pt is on home oxygen ATC. Pt hs had a total of 2 L thoracentesis. Other hx: 2019 lower GI bleed d/t colitis, UTIs, bronchitis, sinus problems, migraines, chronic pain, bilateral carpal tunnel syndrome, osteopenia, bilateral tinnitis/[place]. History of Any Multi-Drug Resistant Organisms: None Reported Past Surgical History: Adenoidectomy, Appendectomy, Section, Tonsillectomy Additional Past Surgical History / Comment(s): 02/05/20 cystoscopy with resection bladder tumor/scraping, L thoracentesis x2, uterine surgery for tipped uterus, R carpal tunnel release. Past Anesthesia/Blood Transfusion Reactions: No Reported Reaction, Motion Sickness Additional Past Anesthesia/Blood Transfusion Reaction / Comment(s): blood transfusion during childbirth, no reaction Past Psychological History: Anxiety, Depression Additional Psychological History / Comment(s): Pt resides with her spouse, daughter and granddaughter. They have 2 dogs. She has home oxygen at 2L/[place] ATC and a nebulizer. She has a cane and walker. She is receiving home care-a nurse every Tuesday and has recieved PT. She cannot remember name of company. Smoking Status: Former smoker Past Alcohol Use History: None Reported Additional Past Alcohol Use History / Comment(s): Pt started smoking in 1959 and quit 01/2020. Past Drug Use History: Marijuana Additional Drug Use History / Comment(s): CURRENT MARIJUANA USE once at night. - Past Family History Mother Family Medical History: Cancer, Liver Disease Additional Family Medical History / Comment(s): Cirrhosis/lung cancer. Father Family Medical History: Cancer Additional Family Medical History / Comment(s): cirrhosis/liver cancer Brother(s) Additional Family Medical History / Comment(s): Cirrhosis Medications and Allergies Home Medications Medication Instructions Recorded Confirmed Type Metoprolol Tartrate [Lopressor] 50 mg PO BID 06/13/19 04/21/20 History Oxybutynin Chloride 10 mg PO BID 06/13/19 04/21/20 History DULoxetine HCL [Cymbalta] 60 mg PO DAILY 07/17/19 04/21/20 History Omeprazole [PriLOSEC] 20 mg PO DAILY 01/15/20 04/21/20 History ALPRAZolam [Xanax] 0.25 mg PO TID 02/28/20 04/21/20 History Ipratropium [place] [Atrovent Hfa] 2 puff INHALATION RT-QID 02/28/20 04/21/20 History oxyCODONE-APAP 10-325MG [Percocet 1 tab PO Q6H PRN 02/28/20 04/21/20 History 10-325 mg] Albuterol Sulfate [Ventolin HFA] 2 puff INHALATION RT-Q4H PRN 03/10/20 04/21/20 History Fluticasone Nasal [place] [Flonase 1 spray EA NOSTRIL BID PRN 03/10/20 04/21/20 History Nasal [place]] Ondansetron Odt [Zofran ODT] 8 mg PO Q8H PRN 04/21/20 04/21/20 History Sennosides/Docusate Sodium [Senna 1 tab PO BID 04/21/20 04/21/20 History Plus 8.6-50 mg Softgel] Simvastatin [Zocor] 20 mg PO HS 04/21/20 04/21/20 History fentaNYL 25MCG/HR PATCH [Duragesic 25 mcg TOPICAL Q72H 04/21/20 04/21/20 History 25MCG/HR] Allergies Allergy/AdvReac Type Severity Reaction Status Date / Time Penicillins Allergy Rash/Hives Verified 04/21/20 17:15 erythromycin base AdvReac Nausea & Verified 04/21/20 17:15 Vomiting morphine AdvReac Hallucinati Verified 04/21/20 17:15 ons Physical Exam Vitals: Vital Signs Temp Pulse Resp BP Pulse Ox 04/22/20 13:00 98.3 F 76 16 115/72 94 L 04/22/20 08:41 79 04/22/20 04:46 99.0 F 52 L 12 100/59 98 04/22/20 00:00 84 16 04/21/20 21:10 99.0 F 84 16 90/52 90 L Intake and Output 04/22/20 04/22/20 04/22/20 06:59 14:59 22:59 Intake Total 540 160 Balance 540 160 Intake: Oral 540 160 Other: Voiding Method Toilet Toilet # Voids 1 1 - Constitutional General appearance: average body habitus, cooperative, disheveled, mild distress, thin - EENT Eyes: EOMI, PERRLA Ears: bilateral: normal - Neck Neck: normal ROM Carotids: bilateral: upstroke normal Thyroid: bilateral: normal size - Respiratory Respiratory: right: CTA, left: diminished - Cardiovascular Rhythm: regular Heart sounds: normal: S1, S2 - Gastrointestinal General gastrointestinal: distended - Integumentary Integumentary: normal - Neurologic Neurologic: CNII-XII intact - Musculoskeletal Musculoskeletal: gait normal, generalized weakness, strength equal bilaterally - Psychiatric Psychiatric: A&O x's 3, appropriate affect, intact judgment & insight Results - Laboratory Findings CBC and BMP: 04/22/20 09:35 04/22/20 09:35 PT/INR, D-dimer PT 9.7 sec (9.0-12.0) 04/21/20 11:14 INR 0.9 (<1.2) 04/21/20 11:14 Abnormal lab findings: Abnormal Labs 04/21/20 04/21/20 04/22/20 11:14 11:14 09:35 Hgb 10.9 L MCHC 30.9 L Lymphocytes # 0.5 L 0.5 L Sodium 132 L Glucose 106 H Calcium 7.7 L AST 43 H Alkaline Phosphatase 232 H Total Protein 6.0 L Albumin 2.8 L 04/22/20 09:35 Hgb MCHC Lymphocytes # Sodium 131 L Glucose 134 H Calcium 7.1 L AST Alkaline Phosphatase Total Protein Albumin - Diagnostic Findings Chest x-ray: report reviewed, image reviewed (Finding as noted above) Assessment and Plan Assessment: Large left-sided hydropneumothorax Malignant pleural effusion on the left side Stage 4 lung cancer adenocarcinoma with metastases to the thoracic spine New right upper lobe streaky infiltrate suspect lymphangitic spread History of bladder cancer and recent diagnosis Severe COPD Plan: The chest tube will be connected to Pleur-evac for 20 cm water suction High resolution Computed tomography scan of the chest without contrast to rule out lymphangitic spread Continue supportive care overall prognosis poor Recommend oncology evaluation as well Time with Patient: Greater than 30 [id number])
[2020-04-22] MEDS: HYDROmorphone 1 MG/ML 1 ML SYRINGE IVP PRN (16:01)
--- NOTE | 2020-04-22 16:15 | P.CONS ---
History of Present Illness - Reason for Consult Consult date: 04/22/20 Lung Cancer on Treatment Requesting physician: Viktor Roberts - Chief Complaint SOB - History of Present Illness Missy is a very pleasant female who originally presented with increased chest/back and shoulder pain on 01/18/2020 to [facility] ER. CT without contrast identified a large left pleural effusion. She underwent thoracentesis which cytology resulted with positive malignant cells consistent with adenocarcinoma, likely origin lung. No actual mass was identified in CT imaging. Incidentental findings showed concerning osseous lesions to thoracic and lumbar spine as well. She was discharged with a plan for further work-up, although re-presented a couple weeks later with similiar symptoms and increasing left pleural effusion. At that time medical oncology was asked to further evaluate. A CT scan of Abdomen/Pelvis revealed thickening of the bladder wall concerning for malignancy. MRI of the spine and bone scan confirmed metastatic lesions to the bone. On 02/05/20 Dr. Chappell performed TURBT and resection of bladder tumor. Initially Pathology resulted with Papillary low grade non-invasive urothelial carcinoma and clear margins were identified. Although later review there was concern for micro implantation surrounding the urothelial carcinoma. Therefore radiation was consulted. She had been struggling with left re-occuring pleural effusion. CTS was consult ed regarding pleurex. She has a history of chronic pain and has been prescribed percocet in past which she states works best for her pain, no relief from Tylenol 3 or [place]. She has signed the lets get talking paperwork and narcotic aggreement. 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 She had a PET scan on 02/24/2020 which revealed suspicious uptake in left hilum,pleural effusion and osseoud lesions (sclerotic foci in vertebra). NexGen sequencing of her cancer did not reveal any actionable mutation(has TP 53 mutation),PDL-1 was 3%. Treatment plan was to undergo adjuvant radiation for her bladder cancer and then combination treatment with opdivo and yervoy for the lung cancer. She is status post cycle One, Day one on 04/07. She was last seen in office on 04/17/20, her back pain at that time was felt to be persistent still requiring long and short acting narcotic medication. Over the weekend she states she had increased shortness of breath and pain in area of pleurex, which woke her up and made difficult to breath at night. She then presented to emergency for further evaluation. Her pleurex was drained on presentation with 400cc immediately out. During evaluation this morning she stated she was still quite short of breath. Her saturations are stable Review of Systems All systems: negative (HPI) Past Medical History Past Medical History: Cancer, COPD, Fibromyalgia, GERD/Reflux, GI Bleed, Hyperlipidemia, Hypertension, Osteoarthritis (OA), Pneumonia Additional Past Medical History / Comment(s): Pt recently admitted to [facility] on 01/30/20 with SOB 2ndary to L pleural effusion/thoracentesis/metastatic L lung cancer. Pt states cancer s in mediastinum and thoracic vertebra/back pain/pt also had bladder cancer with surgery. Pt is on home oxygen ATC. Pt hs had a total of 2 L thoracentesis. Other hx: 2019 lower GI bleed d/t colitis, UTIs, bronchitis, sinus problems, migraines, chronic pain, bilateral carpal tunnel syndrome, osteopenia, bilateral tinnitis/PRAIRIE BAND. History of Any Multi-Drug Resistant Organisms: None Reported Past Surgical History: Adenoidectomy, Appendectomy, Section, Tonsill ectomy Additional Past Surgical History / Comment(s): 02/05/20 cystoscopy with resection bladder tumor/scraping, L thoracentesis x2, uterine surgery for tipped uterus, R carpal tunnel release. Past Anesthesia/Blood Transfusion Reactions: No Reported Reaction, Motion Sickness Additional Past Anesthesia/Blood Transfusion Reaction / Comm: blood transfusion during childbirth, no reaction Past Psychological History: Anxiety, Depression Additional Psychological History / Comment(s): Pt resides with her spouse, daughter and granddaughter. They have 2 dogs. She has home oxygen at 2L/[place] ATC and a nebulizer. She has a cane and walker. She is receiving home care-a nurse every Tuesday and has recieved PT. She cannot remember name of company. Smoking Status: Former smoker Past Alcohol Use History: None Reported Additional Past Alcohol Use History / Comment(s): Pt started smoking in 1959 and quit 01/2020. Past Drug Use History: Marijuana Additional Drug Use History / Comment(s): CURRENT MARIJUANA USE once at night. - Past Family History Mother Family Medical History: Cancer, Liver Disease Additional Family Medical History / Comment(s): Cirrhosis/lung cancer. Father Family Medical History: Cancer Additional Family Medical History / Comment(s): cirrhosis/liver cancer Brother(s) Additional Family Medical History / Comment(s): Cirrhosis Medications and Allergies Home Medications Medication Instructions Recorded Confirmed Type Metoprolol Tartrate [Lopressor] 50 mg PO BID 06/13/19 04/21/20 History Oxybutynin Chloride 10 mg PO BID 06/13/19 04/21/20 History DULoxetine HCL [Cymbalta] 60 mg PO DAILY 07/17/19 04/21/20 History Omeprazole [PriLOSEC] 20 mg PO DAILY 01/15/20 04/21/20 History ALPRAZolam [Xanax] 0.25 mg PO TID 02/28/20 04/21/20 History Ipratropium Peralta [Atrovent Hfa] 2 puff INHALATION RT-QID 02/28/20 04/21/20 History oxyCODONE-APAP 10-325MG [Percocet 1 tab PO Q6H PRN 02/28/20 04/21/20 History 10-325 mg] Albuterol Sulfate [Ventolin HFA] 2 puff INHALATION RT-Q4H PRN 03/10/20 04/21/20 History Fluticasone Nasal [place] [Flonase 1 spray EA NOSTRIL BID PRN 03/10/20 04/21/20 History Nasal [place]] Ondansetron Odt [Zofran ODT] 8 mg PO Q8H PRN 04/21/20 04/21/20 History Sennosides/Docusate Sodium [Senna 1 tab PO BID 04/21/20 04/21/20 History Plus 8.6-50 mg Softgel] Simvastatin [Zocor] 20 mg PO HS 04/21/20 04/21/20 History fentaNYL 25MCG/HR PATCH [Duragesic 25 mcg TOPICAL Q72H 04/21/20 04/21/20 History 25MCG/HR] Allergies Allergy/AdvReac Type Severity Reaction Status Date / Time Penicillins Allergy Rash/Hives Verified 04/21/20 17:15 erythromycin base AdvReac Nausea & Verified 04/21/20 17:15 Vomiting morphine AdvReac Hallucinati Verified 04/21/20 17:15 ons Physical Exam Vitals: Vital Signs Temp Pulse Resp BP Pulse Ox 04/22/20 13:00 98.3 F 76 16 115/72 94 L 04/22/20 08:41 79 04/22/20 04:46 99.0 F 52 L 12 100/59 98 04/22/20 00:00 84 16 04/21/20 21:10 99.0 F 84 16 90/52 90 L Intake and Output 04/22/20 04/22/20 04/22/20 06:59 14:59 22:59 Intake Total 540 160 Balance 540 160 Intake: Oral 540 160 Other: Voiding Method Toilet Toilet # Voids 1 1 - Constitutional General appearance: cooperative, no acute distress, thin - EENT Eyes: EOMI, PERRLA, poor dentition ENT: NA/AT, normal oropharynx - Neck Neck: normal ROM - Respiratory Respiratory: bilateral: diminished, wheezing - Cardiovascular Rhythm: regular Heart sounds: normal: S1, S2 - Gastrointestinal General gastrointestinal: soft, tenderness - Integumentary Integumentary: pale - Neurologic non-focal - Musculoskeletal Musculoskeletal: generalized weakness, strength equal bilaterally - Psychiatric Psychiatric: A&O x's 3, appropriate affect, intact judgment & insight Results CBC & Chem 7: 04/22/20 09:35 04/22/20 09:35 Labs: Abnormal Lab Results - Last 24 Hours (Table) 04/22/20 04/22/20 Range/Units 09:35 09:35 Hgb 10.9 L (11.4-16.0) gm/dL MCHC 30.9 L (31.0-37.0) g/dL Lymphocytes # 0.5 L (1.0-4.8) k/uL Sodium 131 L (137-145) mmol/L Glucose 134 H (74-99) mg/dL Calcium 7.1 L (8.4-10.2) mg/dL Microbiology - Last 24 Hours (Table) 04/21/20 13:10 Blood Culture - Preliminary Blood No Growth after 24 hours Chest x-ray: report reviewed Assessment and Plan Plan: Assessment and Recs: 1. Non-Small Cell Lung cancer: - Status Post first opdivo and yervoy on 04/07/20 2. Shortness of Breath and Chest Pain: - CTA Recommended and ordered to further evaluate, patient states not improved after pleurex cath drained - Supportive care to continue - Pulmonary following 3. Acute on Chronic Pain: - She has a history of chronic back pain and narcotic use - More recently increased pain felt to be related to underlying cancer - Continue on Fentanyl patch and breakthrough medication - Continue with bowel regimen to prevent narcotic induced constipation. Physician Attest: I have completed the full history and physical and agree with above dictation, dictated as a scribe.
--- NOTE | 2020-04-22 16:38 | P.PN ---
Subjective Progress Note Date: 04/22/20 Principal diagnosis: History of presenting complaint: This is a 74-year-old patient followed with Dr. Coy. chronic stable medical conditions include COPD, GERD,hypertension, hyperlipidemia, osteoarthritis. Patient in January of this year underwent left fluid thoracentesis and pathology did come back confirming non-small cell malignancy adenocarcinoma. Patient has received 1 cycle of chemotherapy. Has a left-sided chest tube. That every 3 days it has drained about 500 mL drained..patient also in January of this year had a bladder TURP. Positive for noninvasive, low-grade papillary urothelial carcinoma. This morning patient got up started feeling short of breath. No cough no fever no chills. Appetite has been down. Has been having bowel movements. Minimal cough. In the ER left chest tube was draining and maybe about 5 mL was obtained. Breathing better. Denies any edema. No fever no chills. 04/22/2020 Patient is seen and evaluated and follow-up continues to be dyspneic and shortness of breath has not improved since yesterday. Patient has a Pleurx catheter which was drained 400 mL in the ER. Patient has a hydropneumothorax and pulmonary DrYa Cash following. Patient is currently receiving treatments for lung cancer and oncology consulted. Recommending placing Pleurx on wall suction to help alleviate hydropneumothorax. Patient awaiting to undergo CT of the chest which is currently pending. Patient is also having some nausea and stomach discomfort with no reports of vomiting. Sodium slightly low at 131 with a potassium of 4.3. Repeat a.m. labs to monitor closely. Review of systems: Constitutional: Reports fatigue, no reports of fever, or chills Cardiovascular: No reports of chest pain or palpitations Respiratory: Reports shortness of breath with no reports of cough GI: No reports of nausea, vomiting, or diarrhea : No reports of dysuria or retention Neurovascular: No reports of weakness or numbness All medications have been reviewed Objective - Vital Signs Vital signs: Vital Signs Temp 99.0 F 04/22/20 04:46 Pulse 79 04/22/20 08:41 Resp 12 04/22/20 04:46 BP 100/59 04/22/20 04:46 Pulse Ox 98 04/22/20 04:46 Intake & Output 04/21/20 04/22/20 04/22/20 18:59 06:59 18:59 Intake Total 150 1080 Balance 150 1080 Weight 52.617 kg Intake: Intake, IV Titration 150 Amount Levofloxacin 750Mg-D5w 150 Pmx 750 mg In Dextrose/ Water 1 150ml.bag @ 100 mls/hr IVPB ONCE STA Rx#: [id number] Oral 1080 Other: Voiding Method Toilet Toilet Toilet # Voids 1 1 - Exam GENERAL: This is a 74-year-old female sitting up in bed awake, alert and oriented 3, thin built EYES: Pupils equal. Conjunctiva normal. HEENT: External appearance of nose and ears normal, oral cavity grossly normal. NECK: JVD not raised; masses not palpable. HEART: First and second heart sounds are normal; no edema. LUNGS: Respiratory rate increased, decreased breath sounds -left pigtail catheter the left chest wall , diminished breath sounds bilaterally ABDOMEN: Soft, nontender, no masses palpable. PSYCH: Alert and oriented x3; mood and affect normal. MUSCULAR skeletal: Evidence of OA especially in the hands NEUROLOGICAL: Cranial nerves grossly intact; no facial asymmetry, power and sensation grossly intact. LYMPHATICS: No lymph nodes palpable in the axilla and neck - Labs CBC & Chem 7: 04/22/20 09:35 04/22/20 09:35 Labs: Abnormal Lab Results - Last 24 Hours (Table) 04/22/20 04/22/20 Range/Units 09:35 09:35 Hgb 10.9 L (11.4-16.0) gm/dL MCHC 30.9 L (31.0-37.0) g/dL Lymphocytes # 0.5 L (1.0-4.8) k/uL Sodium 131 L (137-145) mmol/L Glucose 134 H (74-99) mg/dL Calcium 7.1 L (8.4-10.2) mg/dL Assessment and Plan Assessment: Assessment: -Left pleural effusion-from underlying malignancy worsening causing patient to be short of breath. Has a pigtail catheter that is draining every 3 days at home. It was drained in the ER about 400 mL was obtained. Breathing better. [place] pneumothorax noted on the left. Dr. Cash consulted -non-small cell adenocarcinoma of the lung getting chemotherapy -Acute COPD exacerbationin -Left pleural effusion recurrent from malignancy -GERD, -Hyperlipidemia -Essential hypertension -Primary osteoarthritis -Anxiety depression otherwise specified -Noninvasive low-grade papillary urothelial carcinoma of the bladder being followed by urology Plan:. Continue current medications, management, and symptomatic treatment. Dr. Cash following and ordered a CT of the chest as patient has a hydropneumothorax noted and is recommended Pleurx cath to wall suction to alleviate the pneumothorax. Oncology also consulted as patient is currently receiving treatment and is pending at this time. Will repeat a.m. labs. Further recommendations to jann franco
--- NOTE | 2020-04-22 22:31 | CT ---
EXAMINATION TYPE: CT chest wo con DATE OF EXAM: 04/22/2020 COMPARISON: 01/15/2020 HISTORY: Right upper lobe infiltrates. History of lymphangitic cancer. CT DLP: 283.6 mGycm, Automated exposure control for dose reduction was used. CONTRAST: Performed injected with 0 mL of Isovue 300. TECHNIQUE: Axial images were obtained at 5 mm thick sections. Reconstructed images are reviewed on RMI computer in the coronal plane. FINDINGS: There is a hydropneumothorax present. Chest tube is present within the fluid portion. There is increased lung markings and bronchiectasis is present within the bilateral lung loaiza. Findings can be compatible with lymphangitic metastasis. Small to moderate pericardial effusion is present. No enlarged mediastinal or hilar adenopathy is evident. The ascending aorta diameter at the level o f the main pulmonary artery is 3.2 cm. The main pulmonary artery diameter at the bifurcation is 2.[address] sections are obtained through the upper abdomen. Abdomen is essentially unremarkable. Note is made of multiple sclerotic lesions within vertebral bodies suspicious for metastatic disease. IMPRESSIONS: 1. Hydropneumothorax. Chest tube remains within the left fluid portion at the lung bases. 2. Minimal right pleural effusion. 3. Diffuse increased lung markings can be compatible with lymphangitic metastasis
[2020-04-22] MEDS: ALPRAZolam 0.25 MG TAB PO PRN (22:44)
[2020-04-22] MEDS: ATORVASTATIN 10 MG TAB PO SCH (22:49)
--- NOTE | 2020-04-23 04:51 | P.PN ---
Subjective Progress Note Date: 04/23/20 Principal diagnosis: Large left-sided hydropneumothorax Malignant pleural effusion on the left side Stage 4 lung cancer adenocarcinoma with metastases to the thoracic spine New right upper lobe streaky infiltrate suspect lymphangitic spread History of bladder cancer and recent diagnosis Severe COPD 04/23/2020, patient seen eval examined during the rounds labs reviewed med ications reviewed care plan discussed, respiratory status slightly better, chest tube has been connected to wall suction and pleural VAC about 300 mL of pleural fluid is present and pleural VAC, no air leak is present, computed tomography scan of the chest reviewed finding suggestive of lymphangitic spread with bronchiectasis, left-sided hydropneumothorax is present with stable chest tube pneumothorax appears to be loculated as it is not resolving, patient is not a candidate for lung biopsy This is a 74-year-old female well-known to me, patient has been diagnosed adenocarcinoma metastatic stage IV with malignant pleural effusion involving the left side, patient is on chemotherapy have received first cycle of chemotherapy with 5 treatment second cycle is due, patient came into the hospital with difficulty in breathing for several days, the left-sided Pleurx catheter drained 2 days ago, in the ER 600 mL were removed, patient has large hydropneumothorax on the right side, in addition she has some streaky infiltrate on the right side involving the upper lobe as well, suspect lymphangitic spread, we'll get a computed tomography scan of the chest, I have discussed with thoracic surgery about connecting the chest tube left-sided tube Pleur-evac and suction that may relieve hydropneumothorax up to some extent, denies any hemoptysis appetite poor, no night sweats fever or chills Objective - Vital Signs Vital signs: Vital Signs Temp 98.2 F 04/23/20 04:25 Pulse 84 04/23/20 04:25 Resp 16 04/23/20 04:25 BP 116/70 04/23/20 04:25 Pulse Ox 90 L 04/23/20 04:25 Intake & Output 04/22/20 04/22/20 04/23/20 06:59 18:59 06:59 Intake Total 1080 160 80 Balance 1080 160 80 Intake: IV 80 ns@20 80 Oral 1080 160 Other: Voiding Method Toilet Toilet Bedside Commode # Voids 1 1 - Exam - Constitutional General appearance: average body habitus, cooperative, disheveled, mild distress, thin - EENT Eyes: EOMI, PERRLA Ears: bilateral: normal - Neck Neck: normal ROM Carotids: bilateral: upstroke normal Thyroid: bilateral: normal size - Respiratory Respiratory: right: CTA, left: diminished - Cardiovascular Rhythm: regular Heart sounds: normal: S1, S2 - Gastrointestinal General gastrointestinal: distended - Integumentary Integumentary: normal - Neurologic Neurologic: CNII-XII intact - Musculoskeletal Musculoskeletal: gait normal, generalized weakness, strength equal bilaterally - Psychiatric Psychiatric: A&O x's 3, appropriate affect, intact judgment & insight - Labs CBC & Chem 7: 04/22/20 09:35 04/22/20 09:35 Labs: Abnormal Lab Results - Last 24 Hours (Table) 04/22/20 04/22/20 Range/Units 09:35 09:35 Hgb 10.9 L (11.4-16.0) gm/dL MCHC 30.9 L (31.0-37.0) g/dL Lymphocytes # 0.5 L (1.0-4.8) k/uL Sodium 131 L (137-145) mmol/L Glucose 134 H (74-99) mg/dL Calcium 7.1 L (8.4-10.2) mg/dL Microbiology - Last 24 Hours (Table) 04/21/20 13:10 Blood Culture - Preliminary Blood No Growth after 24 hours Assessment and Plan Assessment: Large left-sided hydropneumothorax Malignant pleural effusion on the left side Stage 4 lung cancer adenocarcinoma with metastases to the thoracic spine New right upper lobe streaky infiltrate suspect lymphangitic spread History of bladder cancer and recent diagnosis Severe COPD Plan: Maintained chest tube connected to Pleur-evac for 20 cm water suction High resolution Computed tomography scan of the chest without contrast reviewed finding suggestive of diffuse bilateral lymphangitic spread with bronchiectasis Continue supportive care overall prognosis poor Patient is a high risk candidate for complications associated with transbronchial lung biopsy on the right side Time with Patient: Greater than 30
[2020-04-23] MEDS: OXYBUTYNIN CHLORIDE 5 MG TAB PO SCH ×2 (08:14→21:14)
[2020-04-23] MEDS: PANTOPRAZOLE 40 MG TABLET PO SCH (08:14)
[2020-04-23] MEDS: SENNOSIDES-DOCUSATE SODIUM 1 EACH TAB PO SCH ×2 (08:14→21:14)
[2020-04-23] MEDS: METOPROLOL TARTRATE 50 MG TAB PO SCH ×2 (08:15→21:12)
[2020-04-23] MEDS: DULoxetine HCL 60 MG CAPSULE.DR PO SCH (08:15)
[2020-04-23] MEDS: HYDROmorphone 1 MG/ML 1 ML SYRINGE IVP PRN ×3 (08:18→20:06)
[2020-04-23] MEDS: IPRATROPIUM 0.5 MG/2.5 ML NEBU INHALATION SCH ×7 (08:23→19:44)
[2020-04-23 09:31] LABS: Basophils # (A) 0.1 k/uL (0-0.2); Basophils % (A) 1 %; Eosinophils # (A) 0.1 k/uL (0-0.7); Eosinophils % (A) 1 %; HCT 37.9 % (34.0-46.0); HGB 11.6 gm/dL (11.4-16.0); Hypochromasia Slight; Lymphocytes # (A) 0.6 k/uL (1.0-4.8); Lymphocytes % (A) 7 %; MCHC 30.6 g/dL (31.0-37.0); MCV 91.6 fL (80.0-100.0); Mean Platelet Volume 7.5; Monocytes # (A) 0.8 k/uL (0-1.0); Monocytes % (A) 9 %; Neutrophils # (A) 7.3 k/uL (1.3-7.7); Neutrophils % (A) 80 %; Platelet Count 436 k/uL (150-450); RBC 4.14 m/uL (3.80-5.40); RDW 14.4 % (11.5-15.5); WBC 9.1 k/uL (3.8-10.6)
[2020-04-23 09:57] LABS: African American GFR (CKD) >90 (>60 ml/min/1.73 sqM); Anion Gap 5 mmol/L; Blood Urea Nitrogen 6 mg/dL (7-17); Calcium 7.2 mg/dL (8.4-10.2); Carbon Dioxide 23 mmol/L (22-30); Chloride 102 mmol/L (98-107); Glucose 104 mg/dL (74-99); Non-African American GFR(CKD) >90 (>60 ml/min/1.73 sqM); Potassium 4.7 mmol/L (3.5-5.1); Sodium 130 mmol/L (137-145)
[2020-04-23] MEDS: LEVOFLOXACIN 750 MG TAB PO SCH (12:14)
--- NOTE | 2020-04-23 14:32 | P.PN ---
Subjective Progress Note Date: 04/23/20 Principal diagnosis: History of presenting complaint: This is a 74-year-old patient followed with Dr. Coy. chronic stable medical conditions include COPD, GERD,hypertension, hyperlipidemia, osteoarthritis. Patient in January of this year underwent left fluid thoracentesis and pathology did come back confirming non-small cell malignancy adenocarcinoma. Patient has received 1 cycle of chemotherapy. Has a left-sided chest tube. That every 3 days it has drained about 500 mL drained..patient also in January of this year had a bladder TURP. Positive for noninvasive, low-grade papillary urothelial carcinoma. This morning patient got up started feeling short of breath. No cough no fever no chills. Appetite has been down. Has been having bowel movements. Minimal cough. In the ER left chest tube was draining and maybe about 5 mL was obtained. Breathing better. Denies any edema. No fever no chills. 04/22/2020 Patient is seen and evaluated and follow-up continues to be dyspneic and shortness of breath has not improved since yesterday. Patient has a Pleurx catheter which was drained 400 mL in the ER. Patient has a hydropneumothorax and pulmonary DrYa Cash following. Patient is currently receiving treatments for lung cancer and oncology consulted. Recommending placing Pleurx on wall suction to help alleviate hydropneumothorax. Patient awaiting to undergo CT of the chest which is currently pending. Patient is also having some nausea and stomach discomfort with no reports of vomiting. Sodium slightly low at 131 with a potassium of 4.3. Repeat a.m. labs to monitor closely. Review of systems: Constitutional: Reports fatigue, no reports of fever, or chills Cardiovascular: No reports of chest pain or palpitations Respiratory: Reports shortness of breath with no reports of cough GI: No reports of nausea, vomiting, or diarrhea : No reports of dysuria or retention Neurovascular: No reports of weakness or numbness All medications have been reviewed 04/23/2020 Patient is seen in follow-up and continues to be fatigued and dyspneic although states has improved since her Pleurx catheter was hooked up to wall suction. There is some serosanguineous fluid noted in the chest tube container. Sodium continues to be low at 1:30 with a potassium of 4.7 and current creatinine is 0.54. Patient encouraged to increase oral intake as she does not have much of an appetite. She did undergo CT of the chest showing hydropneumothorax with minimal right pleural effusion and diffuse increased markings that could be compatible with lymphangitic metastasis. Pulmonary and oncology following closely. Review of systems: Constitutional: Reports fatigue, no reports of fever, or chills Cardiovascular: No reports of chest pain or palpitations Respiratory: Reports shortness of breath and occasional cough GI: No reports of nausea, vomiting, or diarrhea, reports decreased appetite : No reports of dysuria or retention Neurovascular: No reports of weakness or numbness All medications have been reviewed Objective - Vital Signs Vital signs: Vital Signs Temp 98 F 04/23/20 11:32 Pulse 71 04/23/20 11:32 Resp 17 04/23/20 11:32 BP 105/71 04/23/20 11:32 Pulse Ox 98 04/23/20 11:32 Intake & Output 04/22/20 04/23/20 04/23/20 18:59 06:59 18:59 Intake Total 160 240 Output Total 160 Balance 160 80 Intake: IV 240 ns@20 240 Oral 160 Output: Drainage 160 Left Chest 160 Other: Voiding Method Toilet Bedside Commode Bedside Commode # Voids 1 - Exam GENERAL: This is a 74-year-old female sitting up in bed awake, alert and oriented 3, thin built EYES: Pupils equal. Conjunctiva normal. HEENT: External appearance of nose and ears normal, oral cavity grossly normal. NECK: JVD not raised; masses not palpable. HEART: First and second heart sounds are normal; no edema. LUNGS: decreased breath sounds -left pigtail catheter the left chest wall , diminished breath sounds bilaterally ABDOMEN: Soft, nontender, no masses palpable. PSYCH: Alert and oriented x3; mood and affect normal. MUSCULAR skeletal: Evidence of OA especially in the hands NEUROLOGICAL: Cranial nerves grossly intact; no facial asymmetry, power and sensation grossly intact. LYMPHATICS: No lymph nodes palpable in the axilla and neck - Labs CBC & Chem 7: 04/23/20 08:34 04/23/20 08:34 Labs: Abnormal Lab Results - Last 24 Hours (Table) 04/23/20 04/23/20 Range/Units 08:34 08:34 MCHC 30.6 L (31.0-37.0) g/dL Lymphocytes # 0.6 L (1.0-4.8) k/uL Sodium 130 L (137-145) mmol/L BUN 6 L (7-17) mg/dL Glucose 104 H (74-99) mg/dL Calcium 7.2 L (8.4-10.2) mg/dL Microbiology - Last 24 Hours (Table) 04/21/20 13:10 Blood Culture - Preliminary Blood No Growth after 24 hours Assessment and Plan Assessment: Assessment: -Left pleural effusion-from underlying malignancy worsening causing patient to be short of breath. Has a pigtail catheter that is draining every 3 days at home. It was drained in the ER about 400 mL was obtained. Breathing better. [place] pneumothorax noted on the left. Patient is maintained on wall suction to her Pleurx catheter with drainage noted. Dr. 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 Continue current medications, management, and symptomatic treatment. Dr. Cash following along with Oncology. CT of the chest was done as previously mentioned. Will repeat a.m. labs. Further recommendations to follow.
[2020-04-23] MEDS: ALPRAZolam 0.25 MG TAB PO PRN (21:12)
[2020-04-23] MEDS: ATORVASTATIN 10 MG TAB PO SCH (21:13)
[2020-04-24 06:33] LABS: Basophils # (A) 0.1 k/uL (0-0.2); Basophils % (A) 1 %; Eosinophils # (A) 0.1 k/uL (0-0.7); Eosinophils % (A) 1 %; HCT 36.1 % (34.0-46.0); HGB 11.2 gm/dL (11.4-16.0); Hypochromasia Slight; Lymphocytes # (A) 0.6 k/uL (1.0-4.8); Lymphocytes % (A) 6 %; MCH 28.4 pg (25.0-35.0); MCHC 31.2 g/dL (31.0-37.0); Mean Platelet Volume 7.5; Monocytes # (A) 0.9 k/uL (0-1.0); Monocytes % (A) 9 %; Neutrophils % (A) 81 %; Platelet Count 446 k/uL (150-450); RBC 3.96 m/uL (3.80-5.40); RDW 14.5 % (11.5-15.5); WBC 9.9 k/uL (3.8-10.6)
[2020-04-24 06:37] LABS: African American GFR (CKD) >90 (>60 ml/min/1.73 sqM); Anion Gap 4 mmol/L; Blood Urea Nitrogen 5 mg/dL (7-17); Calcium 7.1 mg/dL (8.4-10.2); Carbon Dioxide 26 mmol/L (22-30); Chloride 98 mmol/L (98-107); Glucose 107 mg/dL (74-99); Non-African American GFR(CKD) >90 (>60 ml/min/1.73 sqM); Potassium 4.1 mmol/L (3.5-5.1); Sodium 128 mmol/L (137-145)
[2020-04-24] MEDS: IPRATROPIUM 0.5 MG/2.5 ML NEBU INHALATION SCH ×4 (07:42→20:11)
[2020-04-24] MEDS: PANTOPRAZOLE 40 MG TABLET PO SCH (07:45)
[2020-04-24] MEDS: OXYBUTYNIN CHLORIDE 5 MG TAB PO SCH ×2 (07:45→20:38)
[2020-04-24] MEDS: DULoxetine HCL 60 MG CAPSULE.DR PO SCH (07:46)
[2020-04-24] MEDS: SENNOSIDES-DOCUSATE SODIUM 1 EACH TAB PO SCH ×2 (07:46→20:40)
[2020-04-24] MEDS: METOPROLOL TARTRATE 50 MG TAB PO SCH ×2 (07:46→20:39)
[2020-04-24] MEDS: HYDROmorphone 1 MG/ML 1 ML SYRINGE IVP PRN ×3 (07:53→19:58)
[2020-04-24] MEDS: LEVOFLOXACIN 750 MG TAB PO SCH (12:08)
[2020-04-24] MEDS: MAGNESIUM HYDROXIDE 2,400 MG/10 ML CUP PO PRN (14:07)
--- NOTE | 2020-04-24 16:35 | P.PN ---
Subjective Progress Note Date: 04/24/20 Principal diagnosis: History of presenting complaint: This is a 74-year-old patient followed with Dr. Coy. chronic stable medical conditions include COPD, GERD,hypertension, hyperlipidemia, osteoarthritis. Patient in January of this year underwent left fluid thoracentesis and pathology did come back confirming non-small cell malignancy adenocarcinoma. Patient has received 1 cycle of chemotherapy. Has a left-sided chest tube. That every 3 days it has drained about 500 mL drained..patient also in January of this year had a bladder TURP. Positive for noninvasive, low-grade papillary urothelial carcinoma. This morning patient got up started feeling short of breath. No cough no fever no chills. Appetite has been down. Has been having bowel movements. Minimal cough. In the ER left chest tube was draining and maybe about 5 mL was obtained. Breathing better. Denies any edema. No fever no chills. 04/22/2020 Patient is seen and evaluated and follow-up continues to be dyspneic and shortness of breath has not improved since yesterday. Patient has a Pleurx catheter which was drained 400 mL in the ER. Patient has a hydropneumothorax and pulmonary DrYa Cash following. Patient is currently receiving treatments for lung cancer and oncology consulted. Recommending placing Pleurx on wall suction to help alleviate hydropneumothorax. Patient awaiting to undergo CT of the chest which is currently pending. Patient is also having some nausea and stomach discomfort with no reports of vomiting. Sodium slightly low at 131 with a potassium of 4.3. Repeat a.m. labs to monitor closely. Review of systems: Constitutional: Reports fatigue, no reports of fever, or chills Cardiovascular: No reports of chest pain or palpitations Respiratory: Reports shortness of breath with no reports of cough GI: No reports of nausea, vomiting, or diarrhea : No reports of dysuria or retention Neurovascular: No reports of weakness or numbness All medications have been reviewed 04/23/2020 Patient is seen in follow-up and continues to be fatigued and dyspneic although states has improved since her Pleurx catheter was hooked up to wall suction. There is some serosanguineous fluid noted in the chest tube container. Sodium continues to be low at 1:30 with a potassium of 4.7 and current creatinine is 0.54. Patient encouraged to increase oral intake as she does not have much of an appetite. She did undergo CT of the chest showing hydropneumothorax with minimal right pleural effusion and diffuse increased markings that could be compatible with lymphangitic metastasis. Pulmonary and oncology following closely. Review of systems: Constitutional: Reports fatigue, no reports of fever, or chills Cardiovascular: No reports of chest pain or palpitations Respiratory: Reports shortness of breath and occasional cough GI: No reports of nausea, vomiting, or diarrhea, reports decreased appetite : No reports of dysuria or retention Neurovascular: No reports of weakness or numbness All medications have been reviewed 04/24/2020 Patient is seen in follow-up and is lethargic although arousable. Patient continues to have shortness of breath and is continued on wall suction with output noted. Pulmonary Dr. Cash following closely. Oncology also following as she is currently receiving treatments. There is lymphangitic involvement noted on the CT and patient to discuss with oncology about treatments and further plan of care. Patient is maintained on oral antibiotics in the form of Levaquin and will continue at this time. Patient sodium continues to be low at 128 with a potassium of 4.1 and current creatinine is 0.54. CTA of the chest is ordered and pending at this time. Will repeat a.m. labs and continue to monitor vital signs closely. Will place patient on fluid restrictions of 1500 mL and monitor sodium. Currently no reports of chest pain or palpitations. Patient continues to have shortness of breath and dyspnea with exertion. Patient is very l ethargic and continues to have a poor oral intake although no reports of nausea or vomiting noted. Patient is afebrile. Objective - Vital Signs Vital signs: Vital Signs Temp 98.2 F 04/24/20 12:14 Pulse 68 04/24/20 12:14 Resp 18 04/24/20 12:14 BP 101/65 04/24/20 12:14 Pulse Ox 94 L 04/24/20 12:14 Intake & Output 04/23/20 04/24/20 04/24/20 18:59 06:59 18:59 Intake Total 160 290 Output Total 210 260 Balance -50 30 Intake: Oral 160 290 Output: Chest Tube Drainage 210 260 Pleural Catheter Left 210 260 Upper Other: Voiding Method Bedside Commode Bedside Commode # Voids 2 - Exam GENERAL: This is a 74-year-old female sitting up in bed asleep but arousable, alert and oriented 3, thin built EYES: Pupils equal. Conjunctiva normal. HEENT: External appearance of nose and ears normal, oral cavity grossly normal. NECK: JVD not raised; masses not palpable. HEART: First and second heart sounds are normal; no edema. LUNGS: decreased breath sounds -left pigtail catheter the left chest wall , diminished breath sounds bilaterally ABDOMEN: Soft, nontender, no masses palpable. PSYCH: Alert and oriented x3; mood and affect normal. MUSCULAR skeletal: Evidence of OA especially in the hands NEUROLOGICAL: Cranial nerves grossly intact; no facial asymmetry, power and sensation grossly intact. LYMPHATICS: No lymph nodes palpable in the axilla and neck - Labs CBC & Chem 7: 04/24/20 05:19 04/24/20 05:19 Labs: Abnormal Lab Results - Last 24 Hours (Table) 04/24/20 04/24/20 Range/Units 05:19 05:19 Hgb 11.2 L (11.4-16.0) gm/dL Neutrophils # 8.0 H (1.3-7.7) k/uL Lymphocytes # 0.6 L (1.0-4.8) k/uL Sodium 128 L (137-145) mmol/L BUN 5 L (7-17) mg/dL Glucose 107 H (74-99) mg/dL Calcium 7.1 L (8.4-10.2) mg/dL Microbiology - Last 24 Hours (Table) 04/21/20 13:10 Blood Culture - Preliminary Blood No Growth after 48 hours Assessment and Plan Assessment: -Left pleural effusion-from underlying malignancy worsening causing patient to be short of breath. Has a pigtail catheter that is draining every 3 days at home. It was drained in the ER about 400 mL was obtained. Breathing better. [place] pneumothorax noted on the left. Patient is maintained on wall suction to her Pleurx catheter with drainage noted. Dr. 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 Continue current medications, management, and symptomatic treatment. Dr. Cash following along with Oncology. CTA of the chest ordered and pending at this time. Will repeat a.m. labs. Further recommendations to follow. Overall prognosis is poor and guarded.
--- NOTE | 2020-04-24 17:52 | P.PN ---
Subjective Progress Note Date: 04/24/20 Principal diagnosis: lung ca and persistent effusion Breathing has not improved per patient and right chest pain shart intermittent with breathing is not improving. CTA reordered to rule out PE Objective - Vital Signs Vital signs: Vital Signs Temp 97.8 F 04/24/20 16:05 Pulse 73 04/24/20 16:08 Resp 14 04/24/20 16:08 BP 106/57 04/24/20 16:05 Pulse Ox 91 L 04/24/20 16:05 Intake & Output 04/23/20 04/24/20 04/24/20 18:59 06:59 18:59 Intake Total 160 290 160 Output Total 210 260 750 Balance -50 30 -590 Intake: IV 160 ns@20 160 Oral 160 290 Output: Chest Tube Drainage 210 260 250 Pleural Catheter Left 210 260 250 Upper Urine 500 Other: Voiding Method Bedside Commode Bedside Commode # Voids 2 - Constitutional General appearance: Present: cooperative, mild distress, thin - EENT Eyes: Present: poor dentition ENT: Present: hard of hearing, NA/AT - Neck Neck: Present: normal ROM - Respiratory Details: Chest tube Respiratory: bilateral: diminished, rhonchi - Cardiovascular Rhythm: regular Heart sounds: normal: S1, S2 - Gastrointestinal General gastrointestinal: Present: normal bowel sounds, soft - Integumentary Integumentary: Present: pale - Neurologic Neurologic: Present: CNII-XII intact - Musculoskeletal Musculoskeletal: Present: generalized weakness, strength equal bilaterally - Psychiatric Psychiatric: Present: A&O x's 3, appropriate affect, intact judgment & insight - Labs CBC & Chem 7: 04/24/20 05:19 04/24/20 05:19 Labs: Abnormal Lab Results - Last 24 Hours (Table) 04/24/20 04/24/20 Range/Units 05:19 05:19 Hgb 11.2 L (11.4-16.0) gm/dL Neutrophils # 8.0 H (1.3-7.7) k/uL Lymphocytes # 0.6 L (1.0-4.8) k/uL Sodium 128 L (137-145) mmol/L BUN 5 L (7-17) mg/dL Glucose 107 H (74-99) mg/dL Calcium 7.1 L (8.4-10.2) mg/dL Microbiology - Last 24 Hours (Table) 04/21/20 13:10 Blood Culture - Preliminary Blood No Growth after 72 hours Assessment and Plan Plan: Assessment and Recs: 1. Non-Small Cell Lung cancer: - Status Post first opdivo and yervoy on 04/07/20 2. Shortness of Breath and Chest Pain: - CTA Recommended and ordered to further evaluate, patient states not improved after pleurex cath drained currently hooked to chest tube - Supportive care to continue - Pulmonary following 3. Acute on Chronic Pain: - She has a history of chronic back pain and narcotic use - More recently increased pain felt to be related to underlying cancer - Continue on Fentanyl patch and breakthrough medication, increase fentanyl and bowel regimen at this time - Continue with bowel regimen to prevent narcotic induced constipation. Plan: - CTA today Physician Attest: I have completed the full history and physical and agree with above dictation, dictated as a scribe.
--- NOTE | 2020-04-24 18:24 | CT ---
EXAMINATION TYPE: CT angio chest DATE OF EXAM: 04/24/2020 COMPARISON: 09/24/2013 HISTORY: Difficulty breathing. History of lymphagetic cancer. CT DLP: 140.9 mGycm Automated exposure control for dose reduction was used. CONTRAST: Performed with IV Contrast, patient injected with 67ml mL of Isovue 370. There are 3-D post processed images. There is a large left pleural effusion. There is a smaller right pleural effusion. There is extensive airspace consolidation and atelectasis in the left lung. There is extensive airspace infiltrate in t he right mid and lower lung field. There is left side hydropneumothorax. There is fluid level anterio rly. There is a left-sided chest tube noted. Heart size is normal. There is a small pericardial effusion. Thoracic aorta is intact. There is no an eurysm or dissection. Ascending aorta measures 3.3 cm. There is normal contrast opacification of the pulmonary arteries. There are no filling defects. There are extensive osteoblastic changes in the bony thorax involving the thoracic vertebra. IMPRESSION: No evidence of pulmonary embolism. Bilateral significant pleural effusions with left-sided hydropneum othorax. Left chest tube noted. Tubing appears to be in good position. Extensive airspace consolidati on and atelectasis. This could relate to RDS or lymphangitic metastatic disease.. Lung disease is a s ignificant change compared to old exam. Small pericardial effusion is new compared to old exam. Extensive osteoblastic changes in the thoracic spine consistent with metastatic disease is a change c ompared to old exam..
--- NOTE | 2020-04-24 18:29 | P.PN ---
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 Malignant pleural effusion on the left side Stage 4 lung cancer adenocarcinoma with metastases to the thoracic spine New right upper lobe streaky infiltrate suspect lymphangitic spread History of bladder cancer and recent diagnosis Severe COPD 04/24/2020, patient seen eval examined patient had another computed tomography scan of the chest with IV contrast no PE seen however extensive lung disease is seen consolidation and lumpy bumpy appearance consistent with lymphangitic spread, patient has some pericardial and pleural effusion also with hydropneumothorax not changed chest tube is in good position no air leak is present seems like hydropneumothorax is likely likely loculated now, patient complaining of ongoing shortness of breath and pain especially in the back which is also due to metastatic disease will recommend palliative/hospice care 04/23/2020, patient seen eval examined during the rounds labs reviewed medications reviewed care plan discussed, respiratory status slightly better, chest tube has been connected to wall suction and pleural VAC about 300 mL of pleural fluid is present and pleural VAC, no air leak is present, computed tomography scan of the chest reviewed finding suggestive of lymphangitic spread with bronchiectasis, left-sided hydropneumothorax is present with stable chest tube pneumothorax appears to be loculated as it is not resolving, patient is not a candidate for lung biopsy This is a 74-year-old female well-known to me, patient has been diagnosed adenocarcinoma metastatic stage IV with malignant pleural effusion involving the left side, patient is on chemotherapy have received first cycle of chemotherapy with 5 treatment second cycle is due, patient came into the hospital with difficulty in breathing for several days, the left-sided Pleurx catheter drained 2 days ago, in the ER 600 mL were removed, patient has large hydropneumothorax on the right side, in addition she has some streaky infiltrate on the right side involving the upper lobe as well, suspect lymphangitic spread, we'll get a computed tomography scan of the chest, I have discussed with thoracic surgery about connecting the chest tube left-sided tube Pleur-evac and suction that may relieve hydropneumothorax up to some extent, denies any hemoptysis appetite poor, no night sweats fever or chills Objective - Vital Signs Vital signs: Vital Signs Temp 97.8 F 04/24/20 16:05 Pulse 73 04/24/20 16:08 Resp 14 04/24/20 16:08 BP 106/57 04/24/20 16:05 Pulse Ox 91 L 04/24/20 16:05 Intake & Output 04/23/20 04/24/20 04/24/20 18:59 06:59 18:59 Intake Total 160 290 160 Output Total 210 260 750 Balance -50 30 -590 Intake: IV 160 ns@20 160 Oral 160 290 Output: Chest Tube Drainage 210 260 250 Pleural Catheter Left 210 260 250 Upper Urine 500 Other: Voiding Method Bedside Commode Bedside Commode # Voids 2 - Exam - Constitutional General appearance: average body habitus, cooperative, disheveled, mild distress, thin - EENT Eyes: EOMI, PERRLA Ears: bilateral: normal - Neck Neck: normal ROM Carotids: bilateral: upstroke normal Thyroid: bilateral: normal size - Respiratory Respiratory: right: CTA, left: diminished - Cardiovascular Rhythm: regular Heart sounds: normal: S1, S2 - Gastrointestinal General gastrointestinal: distended - Integumentary Integumentary: normal - Neurologic Neurologic: CNII-XII intact - Musculoskeletal Musculoskeletal: gait normal, generalized weakness, strength equal bilaterally - Psychiatric Psychiatric: A&O x's 3, appropriate affect, intact judgment & insight - Labs CBC & Chem 7: 04/24/20 05:19 04/24/20 05:19 Labs: Abnormal Lab Results - Last 24 Hours (Table) 04/24/20 04/24/20 Range/Units 05:19 05:19 Hgb 11.2 L (11.4-16.0) gm/dL Neutrophils # 8.0 H (1.3-7.7) k/uL Lymphocytes # 0.6 L (1.0-4.8) k/uL Sodium 128 L (137-145) mmol/L BUN 5 L (7-17) mg/dL Glucose 107 H (74-99) mg/dL Calcium 7.1 L (8.4-10.2) mg/dL Microbiology - Last 24 Hours (Table) 04/21/20 13:10 Blood Culture - Preliminary Blood No Growth after 72 hours Assessment and Plan Assessment: Likely lymphangitic spread of adenocarcinoma of the lung Large left-sided hydropneumothorax Malignant pleural effusion on the left side Stage 4 lung cancer adenocarcinoma with metastases to the thoracic spine New bilateral streaky infiltrate and consolidation suspect lymphangitic spread Small to moderate pericardial effusion History of bladder cancer and recent diagnosis Severe COPD Plan: Continue pain management consider hospice evaluation Maintained chest tube connected to Pleur-evac for 20 cm water suction High-resolution computed tomography scan as well as CT with contrast Angio reviewed Continue supportive care overall prognosis poor Patient is a high risk candidate for complications associated with transbronchial lung biopsy on the right side Time with Patient: Greater than 30
[2020-04-24] MEDS: ALBUTEROL NEBULIZED 2.5 MG/3 ML INHALATION PRN (20:07)
[2020-04-24] MEDS: ONDANSETRON 4 MG/2 ML VIAL IVP PRN (20:38)
[2020-04-24] MEDS: ATORVASTATIN 10 MG TAB PO SCH (20:39)
[2020-04-25] MEDS: IPRATROPIUM 0.5 MG/2.5 ML NEBU INHALATION SCH ×4 (07:32→19:57)
[2020-04-25] MEDS: SENNOSIDES-DOCUSATE SODIUM 1 EACH TAB PO SCH ×2 (08:11→20:19)
[2020-04-25] MEDS: OXYBUTYNIN CHLORIDE 5 MG TAB PO SCH ×2 (08:11→20:18)
[2020-04-25] MEDS: DULoxetine HCL 60 MG CAPSULE.DR PO SCH (08:11)
[2020-04-25] MEDS: METOPROLOL TARTRATE 50 MG TAB PO SCH (08:11)
[2020-04-25] MEDS: PANTOPRAZOLE 40 MG TABLET PO SCH (08:11)
[2020-04-25 08:31] LABS: Basophils # (A) 0.1 k/uL (0-0.2); Basophils % (A) 1 %; Eosinophils # (A) 0.1 k/uL (0-0.7); Eosinophils % (A) 1 %; HCT 37.5 % (34.0-46.0); HGB 11.7 gm/dL (11.4-16.0); Hypochromasia Slight; Lymphocytes # (A) 0.7 k/uL (1.0-4.8); Lymphocytes % (A) 6 %; MCHC 31.1 g/dL (31.0-37.0); MCV 90.1 fL (80.0-100.0); Mean Platelet Volume 7.5; Monocytes # (A) 0.9 k/uL (0-1.0); Monocytes % (A) 8 %; Neutrophils # (A) 9.2 k/uL (1.3-7.7); Neutrophils % (A) 81 %; Platelet Count 469 k/uL (150-450); RBC 4.17 m/uL (3.80-5.40); RDW 14.4 % (11.5-15.5); WBC 11.4 k/uL (3.8-10.6)
[2020-04-25 08:45] LABS: ALT 16 U/L (4-34); AST 36 U/L (14-36); African American GFR (CKD) >90 (>60 ml/min/1.73 sqM); Albumin 2.3 g/dL (3.5-5.0); Alkaline Phosphatase 174 U/L (38-126); Anion Gap 4 mmol/L; Blood Urea Nitrogen 7 mg/dL (7-17); Calcium 7.3 mg/dL (8.4-10.2); Carbon Dioxide 25 mmol/L (22-30); Chloride 98 mmol/L (98-107); Glucose 107 mg/dL (74-99); Non-African American GFR(CKD) >90 (>60 ml/min/1.73 sqM); Potassium 4.5 mmol/L (3.5-5.1); Sodium 127 mmol/L (137-145); Total Bilirubin 0.4 mg/dL (0.2-1.3); Total Protein 5.3 g/dL (6.3-8.2)
--- NOTE | 2020-04-25 10:48 | P.PN ---
Subjective Progress Note Date: 04/25/20 Principal diagnosis: Lymphangitic carcinomatosis Large left-sided hydropneumothorax Malignant pleural effusion on the left side Stage 4 lung cancer adenocarcinoma with metastases to the thoracic spine New right upper lobe streaky infiltrate suspect lymphangitic spread History of bladder cancer and recent diagnosis Severe COPD 04/25/2020, patient seen eval examined during the rounds labs reviewed medications reviewed, care plan discussed with the staff and primary service at length that is as well, patient has the no air leak no output through the chest tube, pain is little bit better with pain medicine, computed tomography scan finding reviewed as noted previously, patient is little bit calm and comfortable however is still have aches and pain in the back 04/24/2020, patient seen eval examined patient had another computed tomography scan of the chest with IV contrast no PE seen however extensive lung disease is seen consolidation and lumpy bumpy appearance consistent with lymphangitic spread, patient has some pericardial and pleural effusion also with hydro pneumothorax not changed chest tube is in good position no air leak is present seems like hydropneumothorax is likely likely loculated now, patient complaining of ongoing shortness of breath and pain especially in the back which is also due to metastatic disease will recommend palliative/hospice care 04/23/2020, patient seen eval examined during the rounds labs reviewed medications reviewed care plan discussed, respiratory status slightly better, chest tube has been connected to wall suction and pleural VAC about 300 mL of pleural fluid is present and pleural VAC, no air leak is present, computed tomography scan of the chest reviewed finding suggestive of lymphangitic spread with bronchiectasis, left-sided hydropneumothorax is present with stable chest tube pneumothorax appears to be loculated as it is not resolving, patient is not a candidate for lung biopsy This is a 74-year-old female well-known to me, patient has been diagnosed adenocarcinoma metastatic stage IV with malignant pleural effusion involving the left side, patient is on chemotherapy have received first cycle of chemotherapy with 5 treatment second cycle is due, patient came into the hospital with difficulty in breathing for several days, the left-sided Pleurx catheter drained 2 days ago, in the ER 600 mL were removed, patient has large hydropneumothorax on the right side, in addition she has some streaky infiltrate on the right side involving the upper lobe as well, suspect lymphangitic spread, we'll get a computed tomography scan of the chest, I have discussed with thoracic surgery about connecting the chest tube left-sided tube Pleur-evac and suction that may relieve hydropneumothorax up to some extent, denies any hemoptysis appetite poor, no night sweats fever or chills Objective - Vital Signs Vital signs: Vital Signs Temp 98.2 F 04/25/20 06:16 Pulse 104 H 04/25/20 07:41 Resp 18 04/25/20 06:16 BP 104/71 04/25/20 06:16 Pulse Ox 92 L 04/25/20 06:16 Intake & Output 04/24/20 04/25/20 04/25/20 18:59 06:59 18:59 Intake Total 160 810 Output Total 750 0 Balance -590 810 Weight 55.5 kg Intake: IV 160 60 ns@20 160 60 Oral 750 Output: Chest Tube Drainage 250 Pleural Catheter Left 250 Upper Drainage 0 Left Chest 0 Urine 500 Other: Voiding Method Bedside Commode # Voids 3 - Exam - Constitutional General appearance: average body habitus, cooperative, disheveled, mild distress, thin - EENT Eyes: EOMI, PERRLA Ears: bilateral: normal - Neck Neck: normal ROM Carotids: bilateral: upstroke normal Thyroid: bilateral: normal size - Respiratory Respiratory: right: CTA, left: diminished - Cardiovascular Rhythm: regular Heart sounds: normal: S1, S2 - Gastrointestinal General gastrointestinal: distended - Integumentary Integumentary: normal - Neurologic Neurologic: CNII-XII intact - Musculoskeletal Musculoskeletal: gait normal, generalized weakness, strength equal bilaterally - Psychiatric Psychiatric: A&O x's 3, appropriate affect, intact judgment & insight - Labs CBC & Chem 7: 04/25/20 07:48 04/25/20 07:48 Labs: Abnormal Lab Results - Last 24 Hours (Table) 04/25/20 04/25/20 Range/Units 07:48 07:48 WBC 11.4 H (3.8-10.6) k/uL Plt Count 469 H (150-450) k/uL Neutrophils # 9.2 H (1.3-7.7) k/uL Lymphocytes # 0.7 L (1.0-4.8) k/uL Sodium 127 L (137-145) mmol/L Creatinine 0.50 L (0.52-1.04) mg/dL Glucose 107 H (74-99) mg/dL Calcium 7.3 L (8.4-10.2) mg/dL Alkaline Phosphatase 174 H (38-126) U/L Total Protein 5.3 L (6.3-8.2) g/dL Albumin 2.3 L (3.5-5.0) g/dL Microbiology - Last 24 Hours (Table) 04/21/20 13:10 Blood Culture - Preliminary Blood No Growth after 72 hours Assessment and Plan Assessment: Likely lymphangitic spread of adenocarcinoma of the lung involving the right lung as well Large left-sided hydropneumothorax chest tube is in adequate position but not draining Malignant pleural effusion on the left side Stage 4 lung cancer adenocarcinoma with metastases to the thoracic spine New bilateral streaky infiltrate and consolidation suspect lymphangitic spread Small to moderate pericardial effusion History of bladder cancer and recent diagnosis Severe COPD Plan: Continue pain management consider hospice evaluation Maintained chest tube connected to Pleur-evac for 20 cm water suction High-resolution computed tomography scan as well as CT with contrast Angio reviewed Continue supportive care overall prognosis poor Patient is a high risk candidate for complications associated with transbronchial lung biopsy on the right side Time with Patient: Greater than 30
[2020-04-25] MEDS: HYDROmorphone 1 MG/ML 1 ML SYRINGE IVP PRN ×2 (12:43→20:19)
[2020-04-25] MEDS: LEVOFLOXACIN 750 MG TAB PO SCH (12:44)
[2020-04-25] MEDS: ALPRAZolam 0.25 MG TAB PO PRN (14:27)
--- NOTE | 2020-04-25 16:43 | P.PN ---
Subjective Progress Note Date: 04/25/20 Principal diagnosis: History of presenting complaint: This is a 74-year-old patient followed with Dr. Coy. chronic stable medical conditions include COPD, GERD,hypertension, hyperlipidemia, osteoarthritis. Patient in January of this year underwent left fluid thoracentesis and pathology did come back confirming non-small cell malignancy adenocarcinoma. Patient has received 1 cycle of chemotherapy. Has a left-sided chest tube. That every 3 days it has drained about 500 mL drained..patient also in January of this year had a bladder TURP. Positive for noninvasive, low-grade papillary urothelial carcinoma. This morning patient got up started feeling short of breath. No cough no fever no chills. Appetite has been down. Has been having bowel movements. Minimal cough. In the ER left chest tube was draining and maybe about 5 mL was obtained. Breathing better. Denies any edema. No fever no chills. 04/22/2020 Patient is seen and evaluated and follow-up continues to be dyspneic and shortness of breath has not improved since yesterday. Patient has a Pleurx catheter which was drained 400 mL in the ER. Patient has a hydropneumothorax and pulmonary DrYa Cash following. Patient is currently receiving treatments for lung cancer and oncology consulted. Recommending placing Pleurx on wall suction to help alleviate hydropneumothorax. Patient awaiting to undergo CT of the chest which is currently pending. Patient is also having some nausea and stomach discomfort with no reports of vomiting. Sodium slightly low at 131 with a potassium of 4.3. Repeat a.m. labs to monitor closely. Review of systems: Constitutional: Reports fatigue, no reports of fever, or chills Cardiovascular: No reports of chest pain or palpitations Respiratory: Reports shortness of breath with no reports of cough GI: No reports of nausea, vomiting, or diarrhea : No reports of dysuria or retention Neurovascular: No reports of weakness or numbness All medications have been reviewed 04/23/2020 Patient is seen in follow-up and continues to be fatigued and dyspneic although states has improved since her Pleurx catheter was hooked up to wall suction. There is some serosanguineous fluid noted in the chest tube container. Sodium continues to be low at 1:30 with a potassium of 4.7 and current creatinine is 0.54. Patient encouraged to increase oral intake as she does not have much of an appetite. She did undergo CT of the chest showing hydropneumothorax with minimal right pleural effusion and diffuse increased markings that could be compatible with lymphangitic metastasis. Pulmonary and oncology following closely. Review of systems: Constitutional: Reports fatigue, no reports of fever, or chills Cardiovascular: No reports of chest pain or palpitations Respiratory: Reports shortness of breath and occasional cough GI: No reports of nausea, vomiting, or diarrhea, reports decreased appetite : No reports of dysuria or retention Neurovascular: No reports of weakness or numbness All medications have been reviewed 04/24/2020 Patient is seen in follow-up and is lethargic although arousable. Patient continues to have shortness of breath and is continued on wall suction with output noted. Pulmonary Dr. Cash following closely. Oncology also following as she is currently receiving treatments. There is lymphangitic involvement noted on the CT and patient to discuss with oncology about treatments and further plan of care. Patient is maintained on oral antibiotics in the form of Levaquin and will continue at this time. Patient sodium continues to be low at 128 with a potassium of 4.1 and current creatinine is 0.54. CTA of the chest is ordered and pending at this time. Will repeat a.m. labs and continue to monitor vital signs closely. Will place patient on fluid restrictions of 1500 mL and monitor sodium. Currently no reports of chest pain or palpitations. Patient continues to have shortness of breath and dyspnea with exertion. Patient is very l ethargic and continues to have a poor oral intake although no reports of nausea or vomiting noted. Patient is afebrile. 04/25/2020 Patient is seen and evaluated in follow-up with no acute overnight issues. She continues to have shortness of breath and recently underwent a CT of the chest which was negative for PE. Pulmonary and oncology following closely. Discussed with pulmonary about treatment options and further treatment plan moving forward and believes that hospice or comfort care is appropriate. Discussed with patient as well about possible hospice and patient is against the idea and wants to go home and continue with home care in the outpatient setting. Discussed with the patient about further discussing treatment options and further plans moving forward with oncology as she is currently receiving treatments in the outpatient setting. Also instructed the patient that hospice or comfort care could be provided in her own home as she wishes and unsure if patient truly understands this option. Discussed with case management and made her aware of the situation and after talking with oncology will make possible referral for at least informational consult. Will await oncology report. Patient currently maintained on wall suction to her pigtail catheter chest tube on the left side. Sodium continues to be low at 127 and patient continues to have increasingly poor intake and instructed and encouraged oral intake. Patient stated the food is not very appetizing here. Also instructed the patient to increase activity as tolerated. Objective - Vital Signs Vital signs: Vital Signs Temp 98.4 F 04/25/20 11:28 Pulse 71 04/25/20 11:28 Resp 18 04/25/20 11:28 BP 141/65 04/25/20 11:28 Pulse Ox 95 04/25/20 11:28 Intake & Output 04/24/20 04/25/20 04/25/20 18:59 06:59 18:59 Intake Total 160 810 Output Total 750 0 Balance -590 810 Weight 55.5 kg Intake: IV 160 60 ns@20 160 60 Oral 750 Output: Chest Tube Drainage 250 Pleural Catheter Left 250 Upper Drainage 0 Left Chest 0 Urine 500 Other: Voiding Method Bedside Commode # Voids 3 - Exam GENERAL: This is a 74-year-old female sitting up in bed asleep but arousable, alert and oriented 3, thin built, lethargic EYES: Pupils equal. Conjunctiva normal. HEENT: External appearance of nose and ears normal, oral cavity grossly normal. NECK: JVD not raised; masses not palpable. HEART: First and second heart sounds are normal; no edema. LUNGS: decreased breath sounds -left pigtail catheter the left chest wall , diminished breath sounds bilaterally ABDOMEN: Soft, nontender, no masses palpable. PSYCH: Alert and oriented x3; mood and affect normal. MUSCULAR skeletal: Evidence of OA especially in the hands NEUROLOGICAL: Cranial nerves grossly intact; no facial asymmetry, power and sensation grossly intact. LYMPHATICS: No lymph nodes palpable in the axilla and neck - Labs CBC & Chem 7: 04/25/20 07:48 04/25/20 07:48 Labs: Abnormal Lab Results - Last 24 Hours (Table) 04/25/20 04/25/20 Range/Units 07:48 07:48 WBC 11.4 H (3.8-10.6) k/uL Plt Count 469 H (150-450) k/uL Neutrophils # 9.2 H (1.3-7.7) k/uL Lymphocytes # 0.7 L (1.0-4.8) k/uL Sodium 127 L (137-145) mmol/L Creatinine 0.50 L (0.52-1.04) mg/dL Glucose 107 H (74-99) mg/dL Calcium 7.3 L (8.4-10.2) mg/dL Alkaline Phosphatase 174 H (38-126) U/L Total Protein 5.3 L (6.3-8.2) g/dL Albumin 2.3 L (3.5-5.0) g/dL Microbiology - Last 24 Hours (Table) 04/21/20 13:10 Blood Culture - Preliminary Blood No Growth after 72 hours Assessment and Plan Assessment: -Left pleural effusion-from underlying malignancy worsening causing patient to be short of breath. Has a pigtail catheter that is draining every 3 days at home. It was drained in the ER about 400 mL was obtained. Breathing better. Harrison pneumothorax noted on the left. Patient is maintained on wall suction to her Pleurx catheter with drainage noted. Dr. 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 Continue current medications, management, and symptomatic treatment. Dr. Cash following along with Oncology. CTA of the chest ordered and PE was ruled out. Discussed with the patient about possible hospice or comfort care and she is against it at this time. Case management made aware and patient will discuss with oncology about further treatment options and plans moving forward. There is some lymphangitic involvement and worsening of the left side along with the right side of the lungs. Will repeat a.m. labs. Further recommendations to follow. Overall prognosis is poor and guarded.
[2020-04-25] MEDS: ATORVASTATIN 10 MG TAB PO SCH (20:18)
[2020-04-25] MEDS: ONDANSETRON 4 MG/2 ML VIAL IVP PRN (20:30)
[2020-04-25] MEDS: MAGNESIUM HYDROXIDE 2,400 MG/10 ML CUP PO PRN (20:48)
--- NOTE | 2020-04-25 21:12 | P.PN ---
<Teresa Orona - Last Filed: 04/25/20 21:10> Subjective Progress Note Date: 04/25/20 Principal diagnosis: lung ca and persistent effusion Patient seen and evaluated, Dr. Onofre reviewed CTA compared to prior with Radiology and no evidence of progression, patient is status post first cycle of immune therapy and chemo. Objective - Vital Signs Vital signs: Vital Signs Temp 98.1 F 04/25/20 20:45 Pulse 99 04/25/20 20:45 Resp 14 04/25/20 20:45 BP 104/65 04/25/20 20:45 Pulse Ox 90 L 04/25/20 20:45 Intake & Output 04/25/20 04/25/20 04/26/20 06:59 18:59 06:59 Intake Total 810 Output Total 0 120 Balance 810 -120 Weight 55.5 kg Intake: IV 60 ns@20 60 Oral 750 Output: Chest Tube Drainage 120 Pleural Catheter Left 120 Upper Drainage 0 Left Chest 0 Other: Voiding Method Bedside Commode # Voids 3 - Exam - Constitutional General appearance: Present: cooperative, mild distress, thin - EENT Eyes: Present: poor dentition ENT: Present: hard of hearing, NA/AT - Neck Neck: Present: normal ROM - Respiratory Details: Chest tube Respiratory: bilateral: diminished, rhonchi - Cardiovascular Rhythm: regular Heart sounds: normal: S1, S2 - Gastrointestinal General gastrointestinal: Present: normal bowel sounds, soft - Integumentary Integumentary: Present: pale - Neurologic Neurologic: Present: CNII-XII intact - Musculoskeletal Musculoskeletal: Present: generalized weakness, strength equal bilaterally - Psychiatric Psychiatric: Present: A&O x's 3, appropriate affect, intact judgment & insight - Labs CBC & Chem 7: 04/25/20 07:48 04/25/20 07:48 Labs: Abnormal Lab Results - Last 24 Hours (Table) 04/25/20 04/25/20 Range/Units 07:48 07:48 WBC 11.4 H (3.8-10.6) k/uL Plt Count 469 H (150-450) k/uL Neutrophils # 9.2 H (1.3-7.7) k/uL Lymphocytes # 0.7 L (1.0-4.8) k/uL Sodium 127 L (137-145) mmol/L Creatinine 0.50 L (0.52-1.04) mg/dL Glucose 107 H (74-99) mg/dL Calcium 7.3 L (8.4-10.2) mg/dL Alkaline Phosphatase 174 H (38-126) U/L Total Protein 5.3 L (6.3-8.2) g/dL Albumin 2.3 L (3.5-5.0) g/dL Microbiology - Last 24 Hours (Table) 04/21/20 13:10 Blood Culture - Preliminary Blood No Growth after 96 hours Assessment and Plan Plan: Assessment and Recs: 1. Non-Small Cell Lung cancer: - Status Post first opdivo and yervoy on 04/07/20 2. Shortness of Breath and Chest Pain: - CTA does not reveal PE or new signs of progression, Most likely infectious inflammatory - Supportive care to continue - Pulmonary following 3. Acute on Chronic Pain: - She has a history of chronic back pain and narcotic use - More recently increased pain felt to be related to underlying cancer - Continue on Fentanyl patch and breakthrough medication, increase fentanyl and bowel regimen at this time - Continue with bowel regimen to prevent narcotic induced constipation. Physician Attest: I have completed the full history and physical and agree with above dictation, dictated as a scribe. <Kingston,Wisam - Last Filed: 04/26/20 23:20> Objective - Vital Signs Vital signs: Vital Signs Temp 97.5 F L 04/26/20 20:22 Pulse 91 04/26/20 20:22 Resp 18 04/26/20 20:22 BP 105/69 04/26/20 20:22 Pulse Ox 86 L 04/26/20 20:22 Intake & Output 04/26/20 04/26/20 04/27/20 06:59 18:59 06:59 Intake Total 250 1100 Output Total 500 500 90 Balance -250 600 -90 Weight 55.5 kg Intake: Oral 250 1100 Output: Chest Tube Drainage 90 Pleural Catheter Left 90 Upper Drainage 0 Left Chest 0 Urine 500 500 Other: Voiding Method Bedside Commode Bedside Commode # Voids 1 2 - Labs CBC & Chem 7: 04/25/20 07:48 04/25/20 07:48 Labs: Abnormal Lab Results - Last 24 Hours (Table) 04/25/20 Range/Units 07:48 Osmolality 269 L (280-301) mosm/kg Microbiology - Last 24 Hours (Table) 04/21/20 13:10 Blood Culture - Preliminary Blood No Growth after 120 hours Assessment and Plan Plan: CTA mentioned progression , but this was compared to prior CT scan from 2013! Bone mets seen were present at initial diagnosis of cancer few mths ago. Clarified with pt
[2020-04-26] MEDS: METOPROLOL TARTRATE 50 MG TAB PO SCH ×3 (01:55→20:54)
[2020-04-26] MEDS: IPRATROPIUM 0.5 MG/2.5 ML NEBU INHALATION SCH ×4 (07:10→19:54)
[2020-04-26] MEDS: PANTOPRAZOLE 40 MG TABLET PO SCH (08:16)
[2020-04-26] MEDS: SENNOSIDES-DOCUSATE SODIUM 1 EACH TAB PO SCH ×2 (08:16→20:54)
[2020-04-26] MEDS: DULoxetine HCL 60 MG CAPSULE.DR PO SCH (08:16)
[2020-04-26] MEDS: OXYBUTYNIN CHLORIDE 5 MG TAB PO SCH ×2 (08:16→20:55)
[2020-04-26] MEDS: ALPRAZolam 0.25 MG TAB PO PRN (08:21)
[2020-04-26] MEDS: ONDANSETRON 4 MG/2 ML VIAL IVP PRN ×2 (11:45→20:54)
[2020-04-26] MEDS: MAGNESIUM HYDROXIDE 2,400 MG/10 ML CUP PO PRN (13:00)
[2020-04-26] MEDS: LEVOFLOXACIN 750 MG TAB PO SCH (13:26)
--- NOTE | 2020-04-26 14:55 | P.PN ---
Subjective 74-year-old patient followed with Dr. Coy. chronic stable medical conditions include COPD, GERD,hypertension, hyperlipidemia, osteoarthritis. Patient in January of this year underwent left fluid thoracentesis and pathology did come back confirming non-small cell malignancy adenocarcinoma. Patient has received 1 cycle of chemotherapy. Has a left-sided chest tube. That every 3 days it has drained about 500 mL drained..patient also in January of this year had a bladder TURP. Positive for noninvasive, low-grade papillary urothelial carcinoma. This morning patient got up started feeling short of breath. No cough no fever no chills. Appetite has been down. Has been having bowel movements. Minimal cough. In the ER left chest tube was draining and maybe about 5 mL was obtained. Breathing better. Denies any edema. No fever no chills. 04/22/2020 Patient is seen and evaluated and follow-up continues to be dyspneic and shortness of breath has not improved since yesterday. Patient has a Pleurx catheter which was drained 400 mL in the ER. Patient has a hydropneumothorax and pulmonary DrYa Cash following. Patient is currently receiving treatments for lung cancer and oncology consulted. Recommending placing Pleurx on wall suction to help alleviate hydropneumothorax. Patient awaiting to undergo CT of the chest which is currently pending. Patient is also having some nausea and stomach discomfort with no reports of vomiting. Sodium slightly low at 131 with a potassium of 4.3. Repeat a.m. labs to monitor closely. Review of systems: Constitutional: Reports fatigue, no reports of fever, or chills Cardiovascular: No reports of chest pain or palpitations Respiratory: Reports shortness of breath with no reports of cough GI: No reports of nausea, vomiting, or diarrhea : No reports of dysuria or retention Neurovascular: No reports of weakness or numbness All medications have been reviewed 04/23/2020 Patient is seen in follow-up and continues to be fatigued and dyspneic although states has improved since her Pleurx catheter was hooked up to wall suction. There is some serosanguineous fluid noted in the chest tube container. Sodium continues to be low at 1:30 with a potassium of 4.7 and current creatinine is 0.54. Patient encouraged to increase oral intake as she does not have much of an appetite. She did undergo CT of the chest showing hydropneumothorax with minimal right pleural effusion and diffuse increased markings that could be compatible with lymphangitic metastasis. Pulmonary and oncology following closely. 04/24/2020 Patient is seen in follow-up and is lethargic although arousable. Patient continues to have shortness of breath and is continued on wall suction with output noted. Pulmonary Dr. Cash following closely. Oncology also following as she is currently receiving treatments. There is lymphangitic involvement noted on the CT and patient to discuss with oncology about treatments and further plan of care. Patient is maintained on oral antibiotics in the form of Levaquin and will continue at this time. Patient sodium continues to be low at 128 with a potassium of 4.1 and current creatinine is 0.54. CTA of the chest is ordered and pending at this time. Will repeat a.m. labs and continue to monitor vital signs closely. Will place patient on fluid restrictions of 1500 mL and monitor sodium. Currently no reports of chest pain or palpitations. Patient continues to have shortness of breath and dyspnea with exertion. Patient is very lethargic and continues to have a poor oral intake although no reports of nausea or vomiting noted. Patient is afebrile. 04/25/2020 Patient is seen and evaluated in follow-up with no acute overnight issues. She continues to have shortness of breath and recently underwent a CT of the chest which was negative for PE. Pulmonary and oncology following closely. Discussed with pulmonary about treatment options and further treatment plan moving forward and believes that hospice or comfort care is appropriate. Discussed with patie nt as well about possible hospice and patient is against the idea and wants to go home and continue with home care in the outpatient setting. Discussed with the patient about further discussing treatment options and further plans moving forward with oncology as she is currently receiving treatments in the outpatient setting. Also instructed the patient that hospice or comfort care could be provided in her own home as she wishes and unsure if patient truly understands this option. Discussed with case management and made her aware of the situation and after talking with oncology will make possible referral for at least informational consult. Will await oncology report. Patient currently m aintained on wall suction to her pigtail catheter chest tube on the left side. Sodium continues to be low at 127 and patient continues to have increasingly poor intake and instructed and encouraged oral intake. Patient stated the food is not very appetizing here. Also instructed the patient to increase activity as tolerated. 04/26/2020 Patient has significant decreased FROM the chest to. Remained hyponatremic in spite of fluid restriction will consult nephrology Review of systems: Constitutional: Reports fatigue, no reports of fever, or chills Cardiovascular: No reports of chest pain or palpitations Respiratory: Reports shortness of breath and occasional cough GI: No reports of nausea, vomiting, or diarrhea, reports decreased appetite : No reports of dysuria or retention Neurovascular: No reports of weakness or numbness All medications have been reviewed Objective - Vital Signs Vital signs: Vital Signs Temp 97.4 F L 04/26/20 12:12 Pulse 67 04/26/20 12:12 Resp 15 04/26/20 12:12 BP 113/81 04/26/20 12:12 Pulse Ox 91 L 04/26/20 12:12 Intake & Output 04/25/20 04/26/20 04/26/20 18:59 06:59 18:59 Intake Total 250 Output Total 120 500 Balance -120 -250 Weight 55.5 kg Intake: Oral 250 Output: Chest Tube Drainage 120 Pleural Catheter Left 120 Upper Urine 500 Other: Voiding Method Bedside Commode # Voids 1 - Exam GENERAL: This is a 74-year-old female sitting up in bed asleep but arousable, alert and oriented 3, thin built, lethargic EYES: Pupils equal. Conjunctiva normal. HEENT: External appearance of nose and ears normal, oral cavity grossly normal. NECK: JVD not raised; masses not palpable. HEART: First and second heart sounds are normal; no edema. LUNGS: decreased breath sounds -left pigtail catheter, chest tube to suction, diminished breath sounds bilaterally ABDOMEN: Soft, nontender, no masses palpable. PSYCH: Alert and oriented x3; mood and affect normal. MUSCULAR skeletal: Evidence of OA especially in the hands NEUROLOGICAL: Cranial nerves grossly intact; no facial asymmetry, power and sensation grossly intact. LYMPHATICS: No lymph nodes palpable in the axilla and neck - Labs CBC & Chem 7: 04/25/20 07:48 04/25/20 07:48 Labs: Microbiology - Last 24 Hours (Table) 04/21/20 13:10 Blood Culture - Preliminary Blood No Growth after 96 hours Assessment and Plan Plan: -Left pleural effusion-from underlying malignancy worsening causing patient to be short of breath. Has a pigtail catheter that is draining every 3 days at home. Patient has a chest tube which was draining significant and less today patient barely has any drainage today -non-small cell adenocarcinoma of the lung getting chemotherapy, oncology fo [facility] repeat computed tomography scan is consistent with worsening of disease. 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
--- NOTE | 2020-04-26 15:31 | P.PN ---
Subjective Progress Note Date: 04/26/20 Principal diagnosis: Lymphangitic carcinomatosis Large left-sided hydropneumothorax Malignant pleural effusion on the left side Stage 4 lung cancer adenocarcinoma with metastases to the thoracic spine New right upper lobe streaky infiltrate suspect lymphangitic spread History of bladder cancer and recent diagnosis Severe COPD 04/26/2020, patient seen eval examined during the rounds labs reviewed medications reviewed care plan discussed with the RN, and denies any chest pain, back pain is stable, today more of a complain of constipation, chest tube was stable no air leak is present, no output has been seen, patient is being evaluated by oncology service, 04/25/2020, patient seen eval examined during the rounds labs reviewed medications reviewed, care plan discussed with the staff and primary service at length that is as well, patient has the no air leak no output through the chest tube, pain is little bit better with pain medicine, computed tomography scan fi nding reviewed as noted previously, patient is little bit calm and comfortable however is still have aches and pain in the back 04/24/2020, patient seen eval examined patient had another computed tomography scan of the chest with IV contrast no PE seen however extensive lung disease is seen consolidation and lumpy bumpy appearance consistent with lymphangitic spread, patient has some pericardial and pleural effusion also with hydropneumothorax not changed chest tube is in good position no air leak is present seems like hydropneumothorax is likely likely loculated now, patient complaining of ongoing shortness of breath and pain especially in the back which is also due to metastatic disease will recommend palliative/hospice care 04/23/2020, patient seen eval examined during the rounds labs reviewed medications reviewed care plan discussed, respiratory status slightly better, chest tube has been connected to wall suction and pleural VAC about 300 mL of pleural fluid is present and pleural VAC, no air leak is present, computed tomography scan of the chest reviewed finding suggestive of lymphangitic spread with bronchiectasis, left-sided hydropneumothorax is present with stable chest tube pneumothorax appears to be loculated as it is not resolving, patient is not a candidate for lung biopsy This is a 74-year-old female well-known to me, patient has been diagnosed adenocarcinoma metastatic stage IV with malignant pleural effusion involving the left side, patient is on chemotherapy have received first cycle of chemotherapy with 5 treatment second cycle is due, patient came into the hospital with difficulty in breathing for several days, the left-sided Pleurx catheter drained 2 days ago, in the ER 600 mL were removed, patient has large hydropneumothorax on the right side, in addition she has some streaky infiltrate on the right side involving the upper lobe as well, suspect lymphangitic spread, we'll get a computed tomography scan of the chest, I have discussed with thoracic surgery about connecting the chest tube left-sided tube Pleur-evac and suction that may relieve hydropneumothorax up to some extent, denies any hemoptysis appetite poor, no night sweats fever or chills Objective - Vital Signs Vital signs: Vital Signs Temp 97.4 F L 04/26/20 12:12 Pulse 60 04/26/20 15:22 Resp 16 04/26/20 15:22 BP 113/81 04/26/20 12:12 Pulse Ox 91 L 04/26/20 12:12 Intake & Output 04/25/20 04/26/20 04/26/20 18:59 06:59 18:59 Intake Total 250 1100 Output Total 120 500 0 Balance -120 -250 1100 Weight 55.5 kg Intake: Oral 250 1100 Output: Chest Tube Drainage 120 Pleural Catheter Left 120 Upper Drainage 0 Left Chest 0 Urine 500 Other: Voiding Method Bedside Commode Bedside Commode # Voids 1 2 - Exam - Constitutional General appearance: average body habitus, cooperative, disheveled, mild distress, thin - EENT Eyes: EOMI, PERRLA Ears: bilateral: normal - Neck Neck: normal ROM Carotids: bilateral: upstroke normal Thyroid: bilateral: normal size - Respiratory Respiratory: right: CTA, left: diminished - Cardiovascular Rhythm: regular Heart sounds: normal: S1, S2 - Gastrointestinal General gastrointestinal: distended - Integumentary Integumentary: normal - Neurologic Neurologic: CNII-XII intact - Musculoskeletal Musculoskeletal: gait normal, generalized weakness, strength equal bilaterally - Psychiatric Psychiatric: A&O x's 3, appropriate affect, intact judgment & insight - Labs CBC & Chem 7: 04/25/20 07:48 04/25/20 07:48 Labs: Microbiology - Last 24 Hours (Table) 04/21/20 13:10 Blood Culture - Preliminary Blood No Growth after 120 hours Assessment and Plan Assessment: Likely lymphangitic spread of adenocarcinoma of the lung involving the right lung as well Large left-sided hydropneumothorax chest tube is in adequate position but not draining Malignant pleural effusion on the left side Stage 4 lung cancer adenocarcinoma with metastases to the thoracic spine New bilateral streaky infiltrate and consolidation suspect lymphangitic spread Small to moderate pericardial effusion History of bladder cancer and recent diagnosis Severe COPD Plan: Continue pain management consider hospice evaluation Maintained chest tube connected to Pleur-evac for 20 cm water suction High-resolution computed tomography scan as well as CT with contrast Angio reviewed Continue supportive care overall prognosis poor Patient is a high risk candidate for complications associated with transbronchial lung biopsy on the right side Further recommendations pending plan of care as per clinical response of the patient Time with Patient: Greater than 30
[2020-04-26] MEDS: HYDROmorphone 1 MG/ML 1 ML SYRINGE IVP PRN (20:54)
[2020-04-26] MEDS: ATORVASTATIN 10 MG TAB PO SCH (20:55)
[2020-04-27] MEDS: HYDROmorphone 1 MG/ML 1 ML SYRINGE IVP PRN ×2 (03:15→19:31)
[2020-04-27 07:23] LABS: African American GFR (CKD) >90 (>60 ml/min/1.73 sqM); Anion Gap 4 mmol/L; Blood Urea Nitrogen 11 mg/dL (7-17); Calcium 7.4 mg/dL (8.4-10.2); Carbon Dioxide 26 mmol/L (22-30); Chloride 95 mmol/L (98-107); Glucose 94 mg/dL (74-99); Magnesium 2.3 mg/dL (1.6-2.3); Non-African American GFR(CKD) >90 (>60 ml/min/1.73 sqM); Potassium 4.7 mmol/L (3.5-5.1); Sodium 125 mmol/L (137-145)
[2020-04-27] MEDS: IPRATROPIUM 0.5 MG/2.5 ML NEBU INHALATION SCH ×4 (07:31→21:10)
[2020-04-27] MEDS: PANTOPRAZOLE 40 MG TABLET PO SCH (08:09)
[2020-04-27] MEDS: METOPROLOL TARTRATE 50 MG TAB PO SCH ×2 (08:09→20:52)
[2020-04-27] MEDS: DULoxetine HCL 60 MG CAPSULE.DR PO SCH (08:09)
[2020-04-27] MEDS: OXYBUTYNIN CHLORIDE 5 MG TAB PO SCH ×2 (08:09→20:52)
[2020-04-27] MEDS: SENNOSIDES-DOCUSATE SODIUM 1 EACH TAB PO SCH ×2 (08:09→20:52)
--- NOTE | 2020-04-27 10:23 | P.NPCON ---
History of Present Illness - Reason for Consult hyponatremia - History of Present Illness reason for consultation: Hyponatremia History of present illness: Patient is a 74-year-old female seen in renal consultation for hyponatremia. Sodium level was 132 on admission and is down to 125 today. patient presented to the hospital for shortness of breath. patient was diagnosed with non-small cell adenocarcinoma in January 2020. She has a left-sided chest tube in place. No significant output overnight according to the nurse. She is also noted to have urothelial carcinoma. oral intake is fair. No vomiting or diarrhea. No edema. No chest pain or shortness of breath at this time. blood pressure is stable. CTA from April 24 revealed bilateral pleural effusions a left-sided hydropneumothorax. There is also concern for lymphangitic metastatic disease. denies personal or family history of kidney disease. No use of thiazide diuretics. no dizziness or syncopal episodes. Vital signs are stable. General: The patient appeared well nourished and normally developed. HEENT: Head exam is unremarkable. Neck is without jugular venous distension. LUNGS: Breath sounds decreased. chest tube noted. HEART: Rate and Rhythm are regular. ABDOMEN: soft, nontender. EXTREMITITES: No clubbing, cyanosis, or edema. Past Medical History Past Medical History: Cancer, COPD, Fibromyalgia, GERD/Reflux, GI Bleed, Hyperlipidemia, Hypertension, Osteoarthritis (OA), Pneumonia Additional Past Medical History / Comment(s): Pt recently admitted to [facility] on 01/30/20 with SOB 2ndary to L pleural effusion/thoracentesis/metastatic L lung cancer. Pt states cancer s in mediastinum and thoracic vertebra/back pain/pt also had bladder cancer with surgery. Pt is on home oxygen ATC. Pt hs had a total of 2 L thoracentesis. Other hx: 2019 lower GI bleed d/t colitis, UTIs, bronchitis, sinus problems, migraines, chronic pain, bilateral carpal tunnel syndrome, osteopenia, bilateral tinnitis/[place]. History of Any Multi-Drug Resistant Organisms: None Reported Past Surgical History: Adenoidectomy, Appendectomy, Section, Tonsillectomy Additional Past Surgical History / Comment(s): 02/05/20 cystoscopy with resection bladder tumor/scraping, L thoracentesis x2, uterine surgery for tipped uterus, R carpal tunnel release. Past Anesthesia/Blood Transfusion Reactions: No Reported Reaction, Motion Sickness Additional Past Anesthesia/Blood Transfusion Reaction / Comment(s): blood transfusion during childbirth, no reaction Past Psychological History: Anxiety, Depression Additional Psychological History / Comment(s): Pt resides with her spouse, daughter and granddaughter. They have 2 dogs. She has home oxygen at 2L/[place] ATC and a nebulizer. She has a cane and walker. She is receiving home care-a nurse every Tuesday and has recieved PT. She cannot remember name of company. Smoking Status: Former smoker Past Alcohol Use History: None Reported Additional Past Alcohol Use History / Comment(s): Pt started smoking in 1959 and quit 01/2020. Past Drug Use History: Marijuana Additional Drug Use History / Comment(s): CURRENT MARIJUANA USE once at night. - Past Family History Mother Family Medical History: Cancer, Liver Disease Additional Family Medical History / Comment(s): Cirrhosis/lung cancer. Father Family Medical History: Cancer Additional Family Medical History / Comment(s): cirrhosis/liver cancer Brother(s) Additional Family Medical History / Comment(s): Cirrhosis Medications and Allergies Home Medications Medication Instructions Recorded Confirmed Type Metoprolol Tartrate [Lopressor] 50 mg PO BID 06/13/19 04/21/20 History Oxybutynin Chloride 10 mg PO BID 06/13/19 04/21/20 History DULoxetine HCL [Cymbalta] 60 mg PO DAILY 07/17/19 04/21/20 History Omeprazole [PriLOSEC] 20 mg PO DAILY 01/15/20 04/21/20 History ALPRAZolam [Xanax] 0.25 mg PO TID 02/28/20 04/21/20 History Ipratropium [place] [Atrovent Hfa] 2 puff INHALATION RT-QID 02/28/20 04/21/20 History oxyCODONE-APAP 10-325MG [Percocet 1 tab PO Q6H PRN 02/28/20 04/21/20 History 10-325 mg] Albuterol Sulfate [Ventolin HFA] 2 puff INHALATION RT-Q4H PRN 03/10/20 04/21/20 History Fluticasone Nasal [place] [Flonase 1 spray EA NOSTRIL BID PRN 03/10/20 04/21/20 History Nasal [place]] Ondansetron Odt [Zofran ODT] 8 mg PO Q8H PRN 04/21/20 04/21/20 History Sennosides/Docusate Sodium [Senna 1 tab PO BID 04/21/20 04/21/20 History Plus 8.6-50 mg Softgel] Simvastatin [Zocor] 20 mg PO HS 04/21/20 04/21/20 History fentaNYL 25MCG/HR PATCH [Duragesic 25 mcg TOPICAL Q72H 04/21/20 04/21/20 History 25MCG/HR] Allergies Allergy/AdvReac Type Severity Reaction Status Date / Time Penicillins Allergy Rash/Hives Verified 04/21/20 17:15 erythromycin base AdvReac Nausea & Verified 04/21/20 17:15 Vomiting morphine AdvReac Hallucinati Verified 04/21/20 17:15 ons Physical Exam Vitals: Vital Signs Temp Pulse Pulse Resp BP Pulse Ox 04/27/20 07:44 92 04/27/20 07:34 90 04/27/20 05:00 97.8 F 91 18 115/72 98 04/27/20 00:00 91 18 04/26/20 20:22 97.5 F L 91 18 105/69 86 L 04/26/20 20:05 84 04/26/20 19:56 82 04/26/20 15:22 60 16 04/26/20 12:12 97.4 F L 67 15 113/81 91 L 04/26/20 11:51 84 04/26/20 11:43 90 Intake and Output 04/26/20 04/27/20 04/27/20 22:59 06:59 14:59 Intake Total 500 500 Output Total 680 590 Balance -180 -90 Intake: Oral 500 500 Output: Chest Tube Drainage 90 90 Pleural Catheter Left 90 90 Upper Drainage 90 Left Chest 90 Urine 500 500 Other: Voiding Method Bedside Commode Bedside Commode # Voids 2 2 Weight 56 kg Results - Lab Results Most recent lab results Calcium 7.4 mg/dL (8.4-10.2) L 04/27/20 07:01 Magnesium 2.3 mg/dL (1.6-2.3) 04/27/20 07:01 04/25/20 07:48 04/27/20 07:01 Assessment and Plan Plan: assessment: 1. 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 Sodium level 125 today. TSH normal. 2. Stage IV non-small cell lung adenocarcinoma with metastasis. 3. bilateral pleural effusions. plan: maintain fluid restriction. Encourage oral intake, particularly protein. Check serum and urine osmolality and urine sodium level. Samsca 15 mg once now. Repeat sodium level this evening. Overall prognosis guarded. Thank you for the consultation. I will continue to follow the patient with you during her hospital stay.
[2020-04-27] MEDS ORDERED: TOLVAPTAN 15 MG 1/2 TABLET PO ONE (12:00)
--- NOTE | 2020-04-27 12:07 | P.PN ---
Subjective 74-year-old patient followed with Dr. Coy. chronic stable medical conditions include COPD, GERD,hypertension, hyperlipidemia, osteoarthritis. Patient in January of this year underwent left fluid thoracentesis and pathology did come back confirming non-small cell malignancy adenocarcinoma. Patient has received 1 cycle of chemotherapy. Has a left-sided chest tube. That every 3 days it has drained about 500 mL drained..patient also in January of this year had a bladder TURP. Positive for noninvasive, low-grade papillary urothelial carcinoma. This morning patient got up started feeling short of breath. No cough no fever no chills. Appetite has been down. Has been having bowel movements. Minimal cough. In the ER left chest tube was draining and maybe about 5 mL was obtained. Breathing better. Denies any edema. No fever no chills. 04/22/2020 Patient is seen and evaluated and follow-up continues to be dyspneic and shortness of breath has not improved since yesterday. Patient has a Pleurx catheter which was drained 400 mL in the ER. Patient has a hydropneumothorax and pulmonary DrYa Cash following. Patient is currently receiving treatments for lung cancer and oncology consulted. Recommending placing Pleurx on wall suction to help alleviate hydropneumothorax. Patient awaiting to undergo CT of the chest which is currently pending. Patient is also having some nausea and stomach discomfort with no reports of vomiting. Sodium slightly low at 131 with a potassium of 4.3. Repeat a.m. labs to monitor closely. Review of systems: Constitutional: Reports fatigue, no reports of fever, or chills Cardiovascular: No reports of chest pain or palpitations Respiratory: Reports shortness of breath with no reports of cough GI: No reports of nausea, vomiting, or diarrhea : No reports of dysuria or retention Neurovascular: No reports of weakness or numbness All medications have been reviewed 04/23/2020 Patient is seen in follow-up and continues to be fatigued and dyspneic although states has improved since her Pleurx catheter was hooked up to wall suction. There is some serosanguineous fluid noted in the chest tube container. Sodium continues to be low at 1:30 with a potassium of 4.7 and current creatinine is 0.54. Patient encouraged to increase oral intake as she does not have much of an appetite. She did undergo CT of the chest showing hydropneumothorax with minimal right pleural effusion and diffuse increased markings that could be compatible with lymphangitic metastasis. Pulmonary and oncology following closely. 04/24/2020 Patient is seen in follow-up and is lethargic although arousable. Patient continues to have shortness of breath and is continued on wall suction with output noted. Pulmonary Dr. Cash following closely. Oncology also following as she is currently receiving treatments. There is lymphangitic involvement noted on the CT and patient to discuss with oncology about treatments and further plan of care. Patient is maintained on oral antibiotics in the form of Levaquin and will continue at this time. Patient sodium continues to be low at 128 with a potassium of 4.1 and current creatinine is 0.54. CTA of the chest is ordered and pending at this time. Will repeat a.m. labs and continue to monitor vital signs closely. Will place patient on fluid restrictions of 1500 mL and monitor sodium. Currently no reports of chest pain or palpitations. Patient continues to have shortness of breath and dyspnea with exertion. Patient is very lethargic and continues to have a poor oral intake although no reports of nausea or vomiting noted. Patient is afebrile. 04/25/2020 Patient is seen and evaluated in follow-up with no acute overnight issues. She continues to have shortness of breath and recently underwent a CT of the chest which was negative for PE. Pulmonary and oncology following closely. Discussed with pulmonary about treatment options and further treatment plan moving forward and believes that hospice or comfort care is appropriate. Discussed with patie nt as well about possible hospice and patient is against the idea and wants to go home and continue with home care in the outpatient setting. Discussed with the patient about further discussing treatment options and further plans moving forward with oncology as she is currently receiving treatments in the outpatient setting. Also instructed the patient that hospice or comfort care could be provided in her own home as she wishes and unsure if patient truly understands this option. Discussed with case management and made her aware of the situation and after talking with oncology will make possible referral for at least informational consult. Will await oncology report. Patient currently m aintained on wall suction to her pigtail catheter chest tube on the left side. Sodium continues to be low at 127 and patient continues to have increasingly poor intake and instructed and encouraged oral intake. Patient stated the food is not very appetizing here. Also instructed the patient to increase activity as tolerated. 04/26/2020 Patient has significant decreased FROM the chest to. 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 TSH within normal limits patient has wheezing on exam Review of systems: Constitutional: Reports fatigue, no reports of fever, or chills Cardiovascular: No reports of chest pain or palpitations Respiratory: Reports shortness of breath and occasional cough GI: No reports of nausea, vomiting, or diarrhea, reports decreased appetite : No reports of dysuria or retention Neurovascular: No reports of weakness or numbness All medications have been reviewed Objective - Vital Signs Vital signs: Vital Signs Temp 97.8 F 04/27/20 05:00 Pulse 84 04/27/20 11:04 Resp 18 04/27/20 05:00 BP 115/72 04/27/20 05:00 Pulse Ox 98 04/27/20 05:00 Intake & Output 04/26/20 04/27/20 04/27/20 18:59 06:59 18:59 Intake Total 1100 1000 Output Total 500 770 250 Balance 600 230 -250 Weight 56 kg Intake: Oral 1100 1000 Output: Chest Tube Drainage 180 Pleural Catheter Left 180 Upper Drainage 0 90 Left Chest 0 90 Urine 500 500 250 Other: Voiding Method Bedside Commode Bedside Commode # Voids 2 2 1 - Exam GENERAL: This is a 74-year-old female sitting up in bed asleep but arousable, alert and oriented 3, thin built, lethargic EYES: Pupils equal. Conjunctiva normal. HEENT: External appearance of nose and ears normal, oral cavity grossly normal. NECK: JVD not raised; masses not palpable. HEART: First and second heart sounds are normal; no edema. LUNGS: decreased breath sounds -left pigtail catheter, chest tube to suction, expiratory wheezing on exam ABDOMEN: Soft, nontender, no masses palpable. PSYCH: Alert and oriented x3; mood and affect normal. MUSCULAR skeletal: Evidence of OA especially in the hands NEUROLOGICAL: Cranial nerves grossly intact; no facial asymmetry, power and sensation grossly intact. LYMPHATICS: No lymph nodes palpable in the axilla and neck - Labs CBC & Chem 7: 04/25/20 07:48 04/27/20 07:01 Labs: Abnormal Lab Results - Last 24 Hours (Table) 04/25/20 04/27/2004/27/20 Range/Units 07:48 07:01 07:02 Sodium 125 L (137-145) mmol/L Chloride 95 L (98-107) mmol/L Osmolality 269 L 259 L (280-301) mosm/kg Calcium 7.4 L (8.4-10.2) mg/dL Microbiology - Last 24 Hours (Table) 04/21/20 13:10 Blood Culture - Preliminary Blood No Growth after 120 hours Assessment and Plan Plan: -Left pleural effusion-from underlying malignancy worsening causing patient to be short of breath. Has a pigtail catheter that is draining every 3 days at home. Patient has a chest tube which was draining significant and less today patient barely has any drainage today -non-small cell adenocarcinoma of the lung getting chemotherapy, oncology following repeat computed tomography scan is consistent with worsening of disease. 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
[2020-04-27] MEDS: LEVOFLOXACIN 750 MG TAB PO SCH (13:35)
[2020-04-27] MEDS: SODIUM CHLORIDE TAB 1 GM TAB PO SCH (20:52)
[2020-04-27] MEDS: ALPRAZolam 0.25 MG TAB PO PRN (20:52)
[2020-04-27] MEDS: ATORVASTATIN 10 MG TAB PO SCH (20:52)
[2020-04-28] MEDS: HYDROmorphone 1 MG/ML 1 ML SYRINGE IVP PRN (05:32)
[2020-04-28 06:08] LABS: African American GFR (CKD) >90 (>60 ml/min/1.73 sqM); Anion Gap 6 mmol/L; Blood Urea Nitrogen 9 mg/dL (7-17); Calcium 7.9 mg/dL (8.4-10.2); Carbon Dioxide 24 mmol/L (22-30); Chloride 99 mmol/L (98-107); Glucose 103 mg/dL (74-99); Magnesium 2.2 mg/dL (1.6-2.3); Non-African American GFR(CKD) >90 (>60 ml/min/1.73 sqM); Potassium 4.7 mmol/L (3.5-5.1); Sodium 129 mmol/L (137-145)
[2020-04-28] MEDS ORDERED: NITROGLYCERIN SL TABS 0.4 MG TAB SUBLINGUAL PRN (06:41)
[2020-04-28] MEDS ORDERED: ASPIRIN 81 MG PO ONE (06:43)
[2020-04-28] MEDS: OXYBUTYNIN CHLORIDE 5 MG TAB PO SCH ×2 (08:51→20:39)
[2020-04-28] MEDS: SENNOSIDES-DOCUSATE SODIUM 1 EACH TAB PO SCH ×2 (08:51→20:39)
[2020-04-28] MEDS: LEVOFLOXACIN 750 MG TAB PO SCH (08:51)
[2020-04-28] MEDS: METOPROLOL TARTRATE 50 MG TAB PO SCH ×2 (08:51→20:39)
[2020-04-28] MEDS: PANTOPRAZOLE 40 MG TABLET PO SCH (08:51)
[2020-04-28] MEDS: DULoxetine HCL 60 MG CAPSULE.DR PO SCH (08:51)
[2020-04-28] MEDS: ALPRAZolam 0.25 MG TAB PO PRN (08:57)
[2020-04-28] MEDS: IPRATROPIUM 0.5 MG/2.5 ML NEBU INHALATION SCH ×4 (09:22→21:53)
--- NOTE | 2020-04-28 11:26 | P.CRDCN ---
History of Present Illness Consult date: 04/28/20 Requesting physician: Deena Felix Consult reason: chest pain Chief complaint: Shortness of breath, chest pain History of present illness: This is a 74-year-old female with history of COPD, history of smoking, patient quit smoking on January 14 of this year, fibromyalgia, GERD, hypertension, hyperlipidemia, osteoarthritis. In January of this year patient underwent a left- sided thoracentesis for a significant left-sided pleural effusion, pathology did come back confirming non-small cell malignancy adenocarcinoma. She has undergone one chemotherapy treatment. In January of this year patient also had a TURP for bladder cancer, positive for noninvasive low-grade papillary urothelial carcinoma. Patient did have a left-sided chest tube in place, every 3 days she has been draining for about 500 mL, she presented to the hospital on this occasion with moderate to severe shortness of breath. She was also complaining of chest and shoulder discomfort. Patient was initially admitted to the sixth floor, because of the persistent complaints of chest pain, a opponent value was obtained which came back to be 0.76. Patient was transferred to the cardiac unit for further evaluation and treatment. According to the patient, her pain in the chest has been constant since arrival here, but it worsened significantly with even mildly taking a deep breath or pressing on the area of the chest. EKG showed a normal sinus rhythm with nonspecific ST-T wave changes, no acute changes noted. Chest x-ray showed left-sided hydropneumothorax and moderate pleural effusion with a new right upper lobe infiltrate. The CTA of the chest did not show evidence of a pulmonary embolism. Blood pressure 105/60, heart rate 90, respirations 20, 94% on 8 L of oxygen. Sodium 129, potassium 4.7, BUN 9, creatinine 0.4. White blood cell count 11.4, hemoglobin 11.7, platelet count 469. Troponin 0.760. Past Medical History Past Medical History: Cancer, COPD, Fibromyalgia, GERD/Reflux, GI Bleed, Hyperlipidemia, Hypertension, Osteoarthritis (OA), Pneumonia Additional Past Medical History / Comment(s): Pt recently admitted to [facility] on 01/30/20 with SOB 2ndary to L pleural effusion/thoracentesis/metastatic L lung cancer. Pt states cancer s in mediastinum and thoracic vertebra/back pain/pt also had bladder cancer with surgery. Pt is on home oxygen ATC. Pt hs had a total of 2 L thoracentesis. Other hx: 2019 lower GI bleed d/t colitis, UTIs, bronchitis, sinus problems, migraines, chronic pain, bilateral carpal tunnel syndrome, osteopenia, bilateral tinnitis/T[place]UNAK. History of Any Multi-Drug Resistant Organisms: None Reported Past Surgical History: Adenoidectomy, Appendectomy, Section, Tonsillectomy Additional Past Surgical History / Comment(s): 02/05/20 cystoscopy with resection bladder tumor/scraping, L thoracentesis x2, uterine surgery for tipped uterus, R carpal tunnel release. Past Anesthesia/Blood Transfusion Reactions: No Reported Reaction, Motion Sickness Additional Past Anesthesia/Blood Transfusion Reaction / Comment(s): blood transfusion during childbirth, no reaction Past Psychological History: Anxiety, Depression Additional Psychological History / Comment(s): Pt resides with her spouse, daughter and granddaughter. They have 2 dogs. She has home oxygen at 2L/[place] ATC and a nebulizer. She has a cane and walker. She is receiving home care-a nurse every Tuesday and has recieved PT. She cannot remember name of company. Smoking Status: Former smoker Past Alcohol Use History: None Reported Additional Past Alcohol Use History / Comment(s): Pt started smoking in 1959 and quit 01/2020. Past Drug Use History: Marijuana Additional Drug Use History / Comment(s): CURRENT MARIJUANA USE once at night. - Past Family History Mother Family Medical History: Cancer, Liver Disease Additional Family Medical History / Comment(s): Cirrhosis/lung cancer. Father Family Medical History: Cancer Additional Family Medical History / Comment(s): cirrhosis/liver cancer Brother(s) Additional Family Medical History / Comment(s): Cirrhosis Medications and Allergies Home Medications Medication Instructions Recorded Confirmed Type Metoprolol Tartrate [Lopressor] 50 mg PO BID 06/13/19 04/21/20 History Oxybutynin Chloride 10 mg PO BID 06/13/19 04/21/20 History DULoxetine HCL [Cymbalta] 60 mg PO DAILY 07/17/19 04/21/20 History Omeprazole [PriLOSEC] 20 mg PO DAILY 01/15/20 04/21/20 History ALPRAZolam [Xanax] 0.25 mg PO TID 02/28/20 04/21/20 History Ipratropium [place] [Atrovent Hfa] 2 puff INHALATION RT-QID 02/28/20 04/21/20 History oxyCODONE-APAP 10-325MG [Percocet 1 tab PO Q6H PRN 02/28/20 04/21/20 History 10-325 mg] Albuterol Sulfate [Ventolin HFA] 2 puff INHALATION RT-Q4H PRN 03/10/20 04/21/20 History Fluticasone Nasal [place] [Flonase 1 spray EA NOSTRIL BID PRN 03/10/20 04/21/20 History Nasal [place]lord] Ondansetron Odt [Zofran ODT] 8 mg PO Q8H PRN 04/21/20 04/21/20 History Sennosides/Docusate Sodium [Senna 1 tab PO BID 04/21/20 04/21/20 History Plus 8.6-50 mg Softgel] Simvastatin [Zocor] 20 mg PO HS 04/21/20 04/21/20 History fentaNYL 25MCG/HR PATCH [Duragesic 25 mcg TOPICAL Q72H 04/21/20 04/21/20 History 25MCG/HR] Allergies Allergy/AdvReac Type Severity Reaction Status Date / Time Penicillins Allergy Rash/Hives Verified 04/21/20 17:15 erythromycin base AdvReac Nausea & Verified 04/21/20 17:15 Vomiting morphine AdvReac Hallucinati Verified 04/21/20 17:15 ons Physical Exam Vitals: Vital Signs Temp Pulse Pulse Resp BP Pulse Ox 04/28/20 09:35 86 04/28/20 09:25 90 04/28/20 08:39 97.3 F L 93 20 105/57 94 L 04/28/20 07:07 96 99/64 04/28/20 06:54 92 18 92 L 04/28/20 05:49 20 90 L 04/28/20 05:39 94 20 116/77 88 L 04/28/20 05:20 20 84 L 04/28/20 05:00 97.9 F 91 16 104/68 91 L 04/27/20 21:30 89 L 04/27/20 21:24 90 04/27/20 21:11 88 04/27/20 21:00 98.0 F 104 H 16 115/76 85 L 04/27/20 16:00 88 15 04/27/20 13:00 97.9 F 91 15 102/66 89 L Intake and Output 04/27/20 04/28/20 04/28/20 22:59 06:59 14:59 Intake Total 530 Output Total 0 20 Balance 530 -20 Intake: Oral 530 Output: Chest Tube Drainage 0 20 Pleural Catheter Left 0 20 Upper Other: Voiding Method Bedside Commode Bedside Commode Bedside Commode # Voids 2 2 Weight 56 kg PHYSICAL EXAMINATION: GENERAL: 74-year-old female in no acute distress at the time of my examination HEENT: Head is atraumatic, normocephalic. Pupils equal, round. Sclera anicteric. Conjunctiva are clear. Mucous membranes of the mouth are moist. Ne ck is supple. There is no elevated jugular venous pressure. No carotid bruit is heard. HEART EXAMINATION: Heart S1, S2 normal. No murmur or gallop heard. CHEST EXAMINATION: Lungs are clear with diminished air entry to the left posterior base. Positive chest wall tenderness on deep breathing and palpation of the chest ABDOMEN: Soft, nontender. Bowel sounds are heard. No organomegaly noted. EXTREMITIES: 2+ peripheral pulses with no evidence of peripheral edema and no calf tenderness noted. NEUROLOGIC patient is awake, alert and oriented 3 . . Results 04/25/20 07:48 04/28/20 05:23 Cardiac Enzymes 04/28/20 04/28/20 Range/Units 05:49 08:54 Troponin I 0.760 H* 0.716 H* (0.000-0.034) ng/mL Comprehensive Metabolic Panel 04/27/20 04/28/20 Range/Units 16:41 05:23 Sodium 124 L 129 L (137-145) mmol/L Potassium 4.7 (3.5-5.1) mmol/L Chloride 99 (98-107) mmol/L Carbon Dioxide 24 (22-30) mmol/L BUN 9 (7-17) mg/dL Creatinine 0.49 L (0.52-1.04) mg/dL Glucose 103 H (74-99) mg/dL Calcium 7.9 L (8.4-10.2) mg/dL Current Medications Generic Name Dose Route Start Last Admin Trade Name Freq PRN Reason Stop Dose Admin Acetaminophen 650 mg 09/07/20 18:37 Tylenol Tab PO Q6HR PRN Mild Pain or Fever > 100.5 Al Hydroxide/Mg Hydroxide 15 ml 04/21/20 18:37 04/23/20 21:15 Maalox PO 15 ml Q6HR PRN Administration Indigestion Albuterol Sulfate 2.5 mg 04/21/20 17:42 04/24/20 20:07 Ventolin Nebulized INHALATION 2.5 mg RT-Q4H PRN Administration Shortness Of Breath Alprazolam 0.25 mg 04/21/20 17:42 04/28/20 08:57 Xanax PO 0.25 mg TID PRN Administration Anxiety Atorvastatin Calcium 10 mg 04/21/20 21:00 04/27/20 20:52 Lipitor PO 10 mg HS ANG Administration Calcium Carbonate/Glycine 1,000 mg 04/21/20 18:37 Tums PO Q4HR PRN Dyspepsia Duloxetine HCl 60 mg 04/22/20 09:00 04/28/20 08:51 Cymbalta PO 60 mg DAILY [facility]1983 Administration Fentanyl 1 patch 04/24/20 09:00 04/27/20 08:09 Duragesic 25mcg/Hr Patch TRANSDERM 1 patch Q72H [facility]1983 Administration Fluticasone Propionate 1 spray 04/21/20 17:42 Flonase Nasal [place] EA NOSTRIL BID PRN seasonal allergies Hydromorphone HCl 1 mg 04/21/20 12:33 04/22/20 22:45 Dilaudid PO 1 mg Q3HR PRN Administration Severe Pain Hydromorphone HCl 1 mg 04/21/20 12:33 04/28/20 05:32 Dilaudid IVP 1 mg Q3HR PRN Administration Severe Pain Ipratropium [place] 0.5 mg 04/23/20 08:30 04/28/20 09:22 Atrovent Nebulized INHALATION 0.5 mg RT-QID ANG Administration Lactulose 20 gm 04/21/20 18:37 04/27/20 19:32 Cephulac PO 20 gm DAILY PRN Administration Constipation Levofloxacin 750 mg 04/22/20 13:00 04/28/20 08:51 Levaquin PO 750 mg DAILY@1300 ANG Administration Magnesium Hydroxide 2,400 mg 04/21/20 18:37 04/26/20 13:00 Milk Of Magnesia PO 2,400 mg DAILY PRN Administration Constipation Melatonin 3 mg 04/21/20 18:37 Melatonin PO HS PRN Insomnia Metoprolol Tartrate 50 mg 04/21/20 21:00 04/28/20 08:51 Lopressor PO 50 mg BID ANG Administration Miscellaneous Information 1 each 04/21/20 12:48 Pneumonia Protocol Utilized PO ONCE PRN Per Protocol Naloxone HCl 0.2 mg 04/21/20 12:33 Narcan IV Q2M PRN Opioid Reversal Nitroglycerin 0.4 mg 04/28/20 06:41 04/28/20 06:53 Nitroglycerin Sl Tabs 0.4 Mg Tab SUBLINGUAL 0.4 mg Q5M PRN Administration Chest Pain Ondansetron HCl 8 mg 04/21/20 17:42 Zofran Odt PO Q8H PRN Nausea Ondansetron HCl 4 mg 04/21/20 18:37 04/26/20 20:54 Zofran IVP 4 mg Q8HR PRN Administration Nausea And Vomiting Oxybutynin Chloride 10 mg 04/21/20 21:00 04/28/20 08:51 Ditropan PO 10 mg BID ANG Administration Oxycodone/Acetaminophen 1 each 04/21/20 17:42 Percocet 10-325 PO Q6H PRN Pain Pantoprazole Sodium 40 mg 04/22/20 07:30 04/28/20 08:51 Protonix PO 40 mg [id number] ANG Administration Senna/Docusate Sodium 1 each 04/21/20 21:00 04/28/20 08:51 Senokot-S PO 1 each BID ANG Administration Sodium Chloride 1 gm 04/27/20 21:00 04/27/20 20:52 Sodium Chloride Tab 1 Gm Tab PO 1 gm BID ANG Administration Intake and Output 04/27/20 04/28/20 04/28/20 22:59 06:59 14:59 Intake Total 530 Output Total 0 20 Balance 530 -20 Intake: Oral 530 Output: Chest Tube Drainage 0 20 Pleural Catheter Left 0 20 Upper Other: Voiding Method Bedside Commode Bedside Commode Bedside Commode # Voids 2 2 Weight 56 kg 04/25/20 07:48 04/28/20 05:23 EKG Interpretations (text) EKG shows a normal sinus rhythm with nonspecific ST-T wave changes Assessment and Plan Plan: Assessment and plan #1 left-sided pleural effusion, secondary to underlying malignancy. #2 atypical chest pain, pleuritic in nature. Initial troponin 0.760, abnormality in troponin could be secondary to cancer. We will obtain 2 subsequent troponins as well as an echo. #3 non-small cell adenocarcinoma of the lung, patient has already received one treatment of chemotherapy, following with oncology #4 hyponatremia #5 COPD #6 prior history of smoking, patient quit smoking in January of this year #7 hyperlipidemia #8 noninvasive low grade papillary urothelial carcinoma of the bladder #9 anxiety and depression #10 hypertension Plan The patient's pain is very pleuritic in nature, does not appear to be cardiac. EKG does not show any new changes. We will obtain 2 subsequent troponins as well as an echocardiogram with Doppler study. We will not initiate the patient on heparin at this time. DNP note has been reviewed, I agree with a documented findings and plan of care. Patient was seen and examined.
--- NOTE | 2020-04-28 11:27 | P.PN ---
Subjective Progress Note Date: 04/28/20 Principal diagnosis: lung ca and persistent effusion Recent imaging was reviewed and there was no definitive progression noted after comparison was performed and discussion with Dr. Onofre. She has only started initial treatment with one cycle of chemotherapy and immune therapy. At this time it is unknown how she will respond and if she could potentially find quality with maximize quantity within this disease. Her sodium levels continue to be low, SAIDH. She was questioning comfort /hospice care as it sounds like this was brought to her attention, although again from an oncology standpoint it is difficult to recommend without sufficient time allowed for treatment. She does continue with headaches and some intermittent vision changes. Left side is weaker than right. Therefore we will repeat her MRI of the Brain, if this returns with metastatic disease then a discussion of hospice care in the shorter interim is more reasonable. If there is no evidence to show progression, then increasing and maintaing performance status, working with PT/OT, and continuing on treatment would be goal if she continues to improve. Today during assessment it is noted she is requiring 8L O2 to maintain oxygenation greater than 90%. She has new right sided sharp pain when she breaths in. We will obtain another CTA to re-assess PE and Pneumo. Objective - Vital Signs Vital signs: Vital Signs Temp 97.3 F L 04/28/20 08:39 Pulse 86 04/28/20 09:35 Resp 20 04/28/20 08:39 BP 105/57 04/28/20 08:39 Pulse Ox 94 L 04/28/20 08:39 Intake & Output 04/27/20 04/28/20 04/28/20 18:59 06:59 18:59 Intake Total 1165 290 Output Total 300 20 Balance 865 270 Weight 56 kg Intake: Oral 1165 290 Output: Chest Tube Drainage 50 20 Pleural Catheter Left 50 20 Upper Urine 250 Other: Voiding Method Bedside Commode Bedside Commode Bedside Commode # Voids 2 2 - Exam - Constitutional General appearance: Present: cooperative, mild distress, thin - EENT Eyes: Present: poor dentition ENT: Present: hard of hearing, NA/AT - Neck Neck: Present: normal ROM - Respiratory Details: Chest tube Respiratory: bilateral: diminished, rhonchi HIgh FLow - Increased effort - Cardiovascular Rhythm: Tachy Heart sounds: normal: S1, S2 - Gastrointestinal General gastrointestinal: Present: normal bowel sounds, soft - Integumentary Integumentary: Present: pale - Neurologic Neurologic: Present: CNII-XII intact - Musculoskeletal Musculoskeletal: Present: generalized weakness, strength equal bilaterally - Psychiatric Psychiatric: Present: A&O x's 3, appropriate affect, intact judgment & insight - Labs CBC & Chem 7: 04/28/20 08:54 04/28/20 05:23 Labs: Abnormal Lab Results - Last 24 Hours (Table) 04/27/20 04/28/20 04/28/20 Range/Units 16:41 05:23 05:49 Sodium 124 L 129 L (137-145) mmol/L Creatinine 0.49 L (0.52-1.04) mg/dL Glucose 103 H (74-99) mg/dL Calcium 7.9 L (8.4-10.2) mg/dL Troponin I 0.760 H* (0.000-0.034) ng/mL 04/28/20 Range/Units 08:54 Sodium (137-145) mmol/L Creatinine (0.52-1.04) mg/dL Glucose (74-99) mg/dL Calcium (8.4-10.2) mg/dL Troponin I 0.716 H* (0.000-0.034) ng/mL Microbiology - Last 24 Hours (Table) 04/21/20 13:10 Blood Culture - Final Blood No Growth after 144 hours Assessment and Plan Plan: Assessment and Recs: Acute on CHronic Hypoxic Respiratory Failure: - Right sided chest pain is new since weekend as well as 8L high flow need - Question immediate increased inflammatory response to immune therapy treatment which in picture with recurrent pleural effusion, pneumothorax is the primary etiologies of symptoms. - Repeat CTA for PE Non-Small Cell Lung cancer: - Status Post first opdivo and yervoy on 04/07/20 - Immune therapy on hold Shortness of Breath and Chest Pain: - CTA does not reveal PE or new signs of progression, Most likely infectious inflammatory - Supportive care to continue - Pulmonary following Acute on Chronic Pain: - She has a history of chronic back pain and narcotic use - More recently increased pain felt to be related to underlying cancer - Continue on Fentanyl and Breakthrough as well as bowel regimen 4. SIADH: - Not clear if this is related to underlying lung or bladder malignancy - Nephrology is following to assist 5. Increased headaches and left sided weakness: - Unclear if related to decreased movement while hospitalized or if potential progression. - Last imaging >3 month of brain - Will repeat imaging of brain to assess for metastatic disease. If evidence of metastatic disease then discussion of goals of care in the immediate interim would be more reasonable.
[2020-04-28 11:49] LABS: Basophils # (A) 0.1 k/uL (0-0.2); Basophils % (A) 0 %; Eosinophils # (A) 0.1 k/uL (0-0.7); Eosinophils % (A) 1 %; HCT 39.5 % (34.0-46.0); Hypochromasia Moderate; Lymphocytes # (A) 0.5 k/uL (1.0-4.8); Lymphocytes % (A) 3 %; MCH 27.8 pg (25.0-35.0); MCHC 30.5 g/dL (31.0-37.0); MCV 91.4 fL (80.0-100.0); Mean Platelet Volume 8.2; Monocytes % (A) 7 %; Neutrophils # (A) 11.9 k/uL (1.3-7.7); Neutrophils % (A) 86 %; Platelet Count 526 k/uL (150-450); RBC 4.32 m/uL (3.80-5.40); RDW 14.5 % (11.5-15.5); WBC 13.8 k/uL (3.8-10.6)
[2020-04-28] MEDS: SODIUM CHLORIDE TAB 1 GM TAB PO SCH ×2 (13:11→21:00)
[2020-04-28] MEDS ORDERED: TOLVAPTAN 15 MG 1/2 TABLET PO ONE (13:30)
--- NOTE | 2020-04-28 13:51 | ECHOF ---
Referral Reason:chest pain MEASUREMENTS -------- HEIGHT: 165.1 cm WEIGHT: 55.8 kg BP: 105/57 RVIDd: 2.2 cm (< 3.3) IVSd: 1.2 cm (0.6 - 1.1) LVIDd: 2.3 cm (3.9 - 5.3) LVPWd: 0.9 cm (0.6 - 1.1) IVSs: 1.6 cm LVIDs: 1.5 cm LVPWs: 1.3 cm LA Diam: 2.3 cm (2.7 - 3.8) Ao Diam: 2.7 cm (2.0 - 3.7) AV Cusp: 1.7 cm (1.5 - 2.6) MV EXCURSION: 21.041 mm (> 18.000) MV EF SLOPE: 29 mm/s (70 - 150) EPSS: 0.1 cm MV E Jason: 0.67 m/s MV DecT: 241 ms MV A Jason: 0.63 m/s MV E/A Ratio: 1.07 RAP: 5.00 mmHg RVSP: 37.00 mmHg FINDINGS -------- Sinus rhythm. This was a technically adequate study. The left ventricular size is normal. There is borderline concentric left ventricular hypertrophy. Overall left ventricular systolic function is normal with, an EF between 55 - 60 %. The right ventricle is normal in size. The left atrial size is normal. The right atrial size is normal. Interatrial and interventricular septum intact. The aortic valve is trileaflet, and appears structurally normal. No aortic stenosis or regurgitation. The mitral valve is normal. There is trace mitral regurgitation. Mild tricuspid regurgitation present. There is mild pulmonary hypertension. The right ventricular systolic pressure, as measured by Doppler, is 37.00mmHg. There is no pulmonic regurgitation present. The aortic root size is normal. Normal inferior vena cava with normal inspiratory collapse consistent with estimated right atrial pre ssure of 5 mmHg. There is a small, generalized pericardial effusion present. CONCLUSIONS -------- 1. There is borderline concentric left ventricular hypertrophy. 2. Overall left ventricular systolic function is normal with, an EF between 55 - 60 %. 3. The left atrial size is normal. 4. The aortic valve is trileaflet, and appears structurally normal. No aortic stenosis or regurgitati on. 5. There is trace mitral regurgitation. 6. Mild tricuspid regurgitation present. 7. There is mild pulmonary hypertension. 8. There is a small, generalized pericardial effusion present. FACE HARDENER: Daisy Irwin RDCS
--- NOTE | 2020-04-28 14:08 | PN ---
PROGRESS NOTE Patient is seen for followup for hyponatremia. Her serum sodium is up to 129 today. The patient denies any complaints. She states she is feeling better. No nausea, vomiting or abdominal pain. No diarrhea noted. The patient is currently maintained on fluid restriction. She did get a dose of Samsca yesterday. PHYSICAL EXAMINATION: On examination today, blood pressure is 105/57, heart rate 93 per minute. She is afebrile. Examination of the heart S1, S2. Examination of the lungs, bilateral breath sounds are heard. Abdomen is soft, nontender. Examination of lower extremities shows no significant edema. FOUNDRY HAND exam grossly intact. LABS: Show sodium up to 129 today, serum creatinine 0.49, potassium 4.7. ASSESSMENT: 1. Hyponatremia secondary to SIADH, status post Samsca, currently doing well. Maintain fluid restriction and increase protein intake. If patient is discharged, she will need labs to be done as outpatient again in about 2-3 days. 2. Non-small cell lung cancer, maintained on chemotherapy. 3. Bilateral pleural effusions. PLAN: Maintain fluid restriction. Increase oral protein intake. I will repeat another dose of Samsca today and then follow up as outpatient in about 2-3 days. MMODL / IJN: [id number] /
--- NOTE | 2020-04-28 15:08 | MR ---
EXAMINATION TYPE: MR brain wo/w con DATE OF EXAM: 04/28/2020 3:01 PM COMPARISON: 02/01/2020 HISTORY: Assess for metastatic cancer CONTRAST: Patient received 5.5 mL intravenous Gadavist gadolinium contrast. Multiplanar and multispin-echo imaging of the brain was performed . Pre and post contrast enhanced i mages are obtained. The ventricles, basal cisterns and sulci overlying the cerebral convexities are mildly enlarged. There is evidence of mild periventricular white matter ischemic demyelination. Remote deep white matter insults are also noted. No acute edema is seen on diffusion weighted imaging. There is no evidence for midline shift or mass effect. Acute intracranial hemorrhage or extra-axial collection is not evident. No enhancing lesions are seen. Chronic mastoiditis bilaterally. Chronic paranasal sinusitis. IMPRESSION: Age-related atrophic and chronic small vessel ischemic change. No acute intracranial process at this time. No enhancing lesions are seen.
--- NOTE | 2020-04-28 16:46 | P.PN ---
Progress Note - Text Progress Note Date: 04/28/20 Chief Complaint: shortness of breath History of presenting complaint: This is a 74-year-old patient followed with Dr. Coy. chronic stable medical conditions include COPD, GERD,hypertension, hyperlipidemia, osteoarthritis. Patient in January of this year underwent left fluid thoracentesis and pathology did come back confirming non-small cell malignancy adenocarcinoma. Patient has received 1 cycle of chemotherapy. Has a left-sided chest 2. That every 3 days it has drained about 500 mL drained..patient also in January of this year had a bladder TURP. Positive for noninvasive, low-grade papillary urothelial carcinoma. In the ER 500 mL of fluid was drained. Found to have a large left- sided hydropneumothorax. Left-sided chest tube connected to Pleur-evac. Patient is put on SAMSCA. Fluid restriction.. Sodium has been running low. Patient also had chest pain felt to be pleuritic seen by cardiology. Not felt to be cardiac. Today-having pleuritic chest pain. Decreased appetite. Significant other at the bedside. No fever no chills. Review of systems: Was done for constitutional, cardiovascular, GI, pulmonary. relevant finding as above Consultants: Nephrology Dr. Cash from pulmonary Dr. 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 Smoked 2-3 packs a day for most of her life. Now down to a few cigarettes a day. Close to 60 years. Alcohol minimal. Does smoke marijuana at night to sleep and get some rest. Active Medications Acetaminophen (Tylenol Tab) 650 mg PO Q6HR PRN PRN Reason: Mild Pain or Fever > 100.5 Al Hydroxide/Mg Hydroxide (Maalox) 15 ml PO Q6HR PRN PRN Reason: Indigestion Last Admin: 04/23/20 21:15 Dose: 15 ml Documented by: Albuterol Sulfate (Ventolin Nebulized) 2.5 mg INHALATION RT-Q4H PRN PRN Reason: Shortness Of Breath Last Admin: 04/24/20 20:07 Dose: 2.5 mg Documented by: Alprazolam (Xanax) 0.25 mg PO TID PRN PRN Reason: Anxiety Last Admin: 04/28/20 08:57 Dose: 0.25 mg Documented by: Atorvastatin Calcium (Lipitor) 10 mg PO HS [facility] Last Admin: 04/27/20 20:52 Dose: 10 mg Documented by: Calcium Carbonate/Glycine (Tums) 1,000 mg PO Q4HR PRN PRN Reason: Dyspepsia Duloxetine HCl (Cymbalta) 60 mg PO DAILY [facility] Last Admin: 04/28/20 08:51 Dose: 60 mg Documented by: Fentanyl (Duragesic 25mcg/Hr Patch) 1 patch TRANSDERM Q72H [facility] Last Admin: 04/27/20 08:09 Dose: 1 patch Documented by: Fluticasone Propionate (Flonase Nasal [place]) 1 spray EA NOSTRIL BID PRN PRN Reason: seasonal allergies Hydromorphone HCl (Dilaudid) 1 mg PO Q3HR PRN PRN Reason: Severe Pain Last Admin: 04/22/20 22:45 Dose: 1 mg Documented by: Hydromorphone HCl (Dilaudid) 1 mg IVP Q3HR PRN PRN Reason: Severe Pain Last Admin: 04/28/20 05:32 Dose: 1 mg Documented by: Ipratropium [place] (Atrovent Nebulized) 0.5 mg INHALATION RT-QID [facility] Last Admin: 04/28/20 16:26 Dose: 0.5 mg Documented by: Lactulose (Cephulac) 20 gm PO DAILY PRN PRN Reason: Constipation Last Admin: 04/27/20 19:32 Dose: 20 gm Documented by: Levofloxacin (Levaquin) 750 mg PO DAILY@1300 [facility] Last Admin: 04/28/20 08:51 Dose: 750 mg Documented by: Magnesium Hydroxide (Milk Of Magnesia) 2,400 mg PO DAILY PRN PRN Reason: Constipation Last Admin: 04/26/20 13:00 Dose: 2,400 mg Documented by: Melatonin (Melatonin) 3 mg PO HS PRN PRN Reason: Insomnia Metoprolol Tartrate (Lopressor) 50 mg PO BID [facility] Last Admin: 04/28/20 08:51 Dose: 50 mg Documented by: Miscellaneous Information (Pneumonia Protocol Utilized) 1 each PO ONCE PRN PRN Reason: Per Protocol Naloxone HCl (Narcan) 0.2 mg IV Q2M PRN PRN Reason: Opioid Reversal Nitroglycerin (Nitroglycerin Sl Tabs 0.4 Mg Tab) 0.4 mg SUBLINGUAL Q5M PRN PRN Reason: Chest Pain Last Admin: 04/28/20 06:53 Dose: 0.4 mg Documented by: Ondansetron HCl (Zofran Odt) 8 mg PO Q8H PRN PRN Reason: Nausea Ondansetron HCl (Zofran) 4 mg IVP Q8HR PRN PRN Reason: Nausea And Vomiting Last Admin: 04/26/20 20:54 Dose: 4 mg Documented by: Oxybutynin Chloride (Ditropan) 10 mg PO BID [facility] Last Admin: 04/28/20 08:51 Dose: 10 mg Documented by: Oxycodone/Acetaminophen (Percocet 10-325) 1 each PO Q6H PRN PRN Reason: Pain Pantoprazole Sodium (Protonix) 40 mg PO AC-BRKFST [facility] Last Admin: 04/28/20 08:51 Dose: 40 mg Documented by: Senna/Docusate Sodium (Senokot-S) 1 each PO BID [facility] Last Admin: 04/28/20 08:51 Dose: 1 each Documented by: Sodium Chloride (Sodium Chloride Tab 1 Gm Tab) 1 gm PO BID [facility] Last Admin: 04/28/20 13:11 Dose: 1 gm Documented by: Physical examination: VITAL SIGNS: 97.3, 90, 20, 105/57, 94% on 8 L high flow GENERAL: Decreased muscle mass, prominent bones sitting up-uncomfortable EYES: Pupils equal. Conjunctiva pale HEART: First and second heart sounds are normal; no edema. LUNGS: Respiratory rate increased, decreased breath sounds -left pigtail catheter attached to Pleur-evac ABDOMEN: Soft, nontender, liver spleen not palpable, no masses palpable. PSYCH: Alert and oriented x3; mood and affect a bit anxious. MUSCULAR skeletal: Evidence of OA especially in the hands INVESTIGATIONS, reviewed in the clinical context: White count 13.8 hemoglobin 12 platelets 528 sodium 129 potassium 4.7 creatinine 0.49 Troponin I 0.760, 0.716, 0.659 Previous testing: white count 7.9 hemoglobin 11.9 potassium 4.5 creatinine 0.60 EKG tracing personally reviewed by me-normal sinus rhythm Chest x-ray film personally reviewed by me-Large left pleural effusion with a horizontal line Chest CTA-large left pleural effusion small right pleural effusion extensive airspace consolidation atelectasis in left lung also infiltrate in the right mid and lower lung. Left-sided hydropneumothorax. No PE. Extensive osteoblastic changes in thoracic spine 2-D echocardiogram-a 55-60% MRI of the brain-no metastatic disease Assessment: -Left hydropneumothorax-from underlying malignancy worsening causing patient to be short of breath. Has a pigtail catheter that is draining every 3 days at home. Attached to Pleur-evac. Slow to respond. -non-small cell adenocarcinoma of the lung getting chemotherapy -Acute COPD exacerbationin -Possible pneumonia -Troponin leak from hemodynamic mismatch. Not acute coronary syndrome. 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 Care discussed with the patient has been. Questions answered. Prognosis guarded. Will discuss with pulmonary. Repeat chest x-ray tomorrow.
--- NOTE | 2020-04-28 17:19 | P.PN ---
Subjective Progress Note Date: 04/28/20 Principal diagnosis: Lymphangitic carcinomatosis Large left-sided hydropneumothorax Malignant pleural effusion on the left side Stage 4 lung cancer adenocarcinoma with metastases to the thoracic spine New right upper lobe streaky infiltrate suspect lymphangitic spread History of bladder cancer and recent diagnosis Severe COPD 04/28/2020, patient sitting upright in the bed complaining of intermittent chest pain bilaterally more so on the right side compared to left side, chest tube no a leak or pleural fluid is present so far in the pleural VAC noted to be 1200 mL markings are done we'll repeat a chest x-ray tomorrow, 04/26/2020, patient seen eval examined during the rounds labs reviewed medications reviewed care plan discussed with the RN, and denies any chest pain, back pain is stable, today more of a complain of constipation, chest tube was stable no air leak is present, no output has been seen, patient is being evaluated by oncology service, 04/25/2020, patient seen eval examined during the rounds labs reviewed medications reviewed, care plan discussed with the staff and primary service at length that is as well, patient has the no air leak no output through the chest tube, pain is little bit better with pain medicine, computed tomography scan finding reviewed as noted previously, patient is little bit calm and comfortable however is still have aches and pain in the back 04/24/2020, patient seen eval examined patient had another computed tomography scan of the chest with IV contrast no PE seen however extensive lung disease is seen consolidation and lumpy bumpy appearance consistent with lymphangitic spread, patient has some pericardial and pleural effusion also with hydropneumothorax not changed chest tube is in good position no air leak is present seems like hydropneumothorax is likely likely loculated now, patient complaining of ongoing shortness of breath and pain especially in the back which is also due to metastatic disease will recommend palliative/hospice care 04/23/2020, patient seen eval examined during the rounds labs reviewed medications reviewed care plan discussed, respiratory status slightly better, chest tube has been connected to wall suction and pleural VAC about 300 mL of pleural fluid is present and pleural VAC, no air leak is present, computed tomography scan of the chest reviewed finding suggestive of lymphangitic spread with bronchiectasis, left-sided hydropneumothorax is present with stable chest tube pneumothorax appears to be loculated as it is not resolving, patient is not a candidate for lung biopsy This is a 74-year-old female well-known to me, patient has been diagnosed adenocarcinoma metastatic stage IV with malignant pleural effusion involving the left side, patient is on chemotherapy have received first cycle of chemotherapy with 5 treatment second cycle is due, patient came into the hospital with difficulty in breathing for several days, the left-sided Pleurx catheter drained 2 days ago, in the ER 600 mL were removed, patient has large hydropneumothorax on the right side, in addition she has some streaky infiltrate on the right side involving the upper lobe as well, suspect lymphangitic spread, we'll get a computed tomography scan of the chest, I have discussed with thoracic surgery about connecting the chest tube left-sided tube Pleur-evac and suction that may relieve hydropneumothorax up to some extent, denies any hemoptysis appetite poor, no night sweats fever or chills Objective - Vital Signs Vital signs: Vital Signs Temp 97.3 F L 04/28/20 08:39 Pulse 92 04/28/20 16:38 Resp 20 04/28/20 08:39 BP 105/57 04/28/20 08:39 Pulse Ox 94 L 04/28/20 08:39 Intake & Output 04/27/20 04/28/20 04/28/20 18:59 06:59 18:59 Intake Total 1165 290 240 Output Total 300 20 400 Balance 865 270 -160 Weight 56 kg 56 kg Intake: Oral 1165 290 240 Output: Chest Tube Drainage 50 20 Pleural Catheter Left 50 20 Upper Drainage 0 Left Chest 0 Urine 250 400 Other: Voiding Method Bedside Commode Bedside Commode Bedside Commode # Voids 2 2 - Exam - Constitutional General appearance: average body habitus, cooperative, disheveled, mild distress, thin - EENT Eyes: EOMI, PERRLA Ears: bilateral: normal - Neck Neck: normal ROM Carotids: bilateral: upstroke normal Thyroid: bilateral: normal size - Respiratory Respiratory: right: CTA, left: diminished - Cardiovascular Rhythm: regular Heart sounds: normal: S1, S2 - Gastrointestinal General gastrointestinal: distended - Integumentary Integumentary: normal - Neurologic Neurologic: CNII-XII intact - Musculoskeletal Musculoskeletal: gait normal, generalized weakness, strength equal bilaterally - Psychiatric Psychiatric: A&O x's 3, appropriate affect, intact judgment & insight - Labs CBC & Chem 7: 04/28/20 08:54 04/28/20 05:23 Labs: Abnormal Lab Results - Last 24 Hours (Table) 04/28/20 04/28/20 04/28/20 Range/Units 05:23 05:49 08:54 WBC (3.8-10.6) k/uL MCHC (31.0-37.0) g/dL Plt Count (150-450) k/uL Neutrophils # (1.3-7.7) k/uL Lymphocytes # (1.0-4.8) k/uL Sodium 129 L (137-145) mmol/L Creatinine 0.49 L (0.52-1.04) mg/dL Glucose 103 H (74-99) mg/dL Calcium 7.9 L (8.4-10.2) mg/dL Troponin I 0.760 H* 0.716 H* (0.000-0.034) ng/mL 04/28/20 04/28/20 Range/Units 08:54 11:26 WBC 13.8 H (3.8-10.6) k/uL MCHC 30.5 L (31.0-37.0) g/dL Plt Count 526 H (150-450) k/uL Neutrophils # 11.9 H (1.3-7.7) k/uL Lymphocytes # 0.5 L (1.0-4.8) k/uL Sodium (137-145) mmol/L Creatinine (0.52-1.04) mg/dL Glucose (74-99) mg/dL Calcium (8.4-10.2) mg/dL Troponin I 0.659 H* (0.000-0.034) ng/mL Microbiology - Last 24 Hours (Table) 04/21/20 13:10 Blood Culture - Final Blood No Growth after 144 hours Assessment and Plan Assessment: Likely lymphangitic spread of adenocarcinoma of the lung involving the right lung as well Large left-sided hydropneumothorax chest tube is in adequate position but not draining Malignant pleural effusion on the left side Stage 4 lung cancer adenocarcinoma with metastases to the thoracic spine New bilateral streaky infiltrate and consolidation suspect lymphangitic spread Small to moderate pericardial effusion History of bladder cancer and recent diagnosis Severe COPD Plan: Continue pain management, patient is on chemotherapy so far received first round of it Maintained chest tube connected to Pleur-evac for 20 cm water suction High-resolution computed tomography scan as well as CT with contrast Angio reviewed Continue supportive care overall prognosis poor Patient is a high risk candidate for complications associated with transbronchial lung biopsy on the right side Further recommendations pending plan of care as per clinical response of the patient Time with Patient: Greater than 30
[2020-04-28] MEDS: ATORVASTATIN 10 MG TAB PO SCH (20:39)
--- NOTE | 2020-04-28 21:22 | CT ---
EXAMINATION TYPE: CT angio chest DATE OF EXAM: 04/28/2020 COMPARISON: 04/24/2020 HISTORY: Right side chest pain and worsening hypoxia CT DLP: 247.8 mGycm Automated exposure control for dose reduction was used. CONTRAST: Performed with IV Contrast, patient injected with 80 mL of Isovue 370. There are 3-D post processed images. There is large left pleural effusion. There is extensive airspace consolidation in both lungs. There is significant atelectasis in the left lung adjacent to the pleural fluid. Heart size is normal. Ther e are enlarged subcarinal lymph nodes up to 2 cm. There are a few bilateral bronchial lymph nodes. Th ere is a left side small pneumothorax. I see no filling defects in the pulmonary arteries. There is no pericardial effusion. There is left s alysa chest tube. There are multiple foci of osteoblastic change in the bony thorax. There is 10% wedgi ng of T3 vertebra. IMPRESSION: No evidence of pulmonary embolism. Extensive bilateral airspace infiltrates. Large left pleural effusion. Mediastinal adenopathy. Osteob lastic metastatic disease in the bony thorax. T3 mild compression fracture unchanged. Lung disease no t significantly different than recent exam. There is small pneumothorax unchanged.
[2020-04-28] MEDS: ALBUTEROL NEBULIZED 2.5 MG/3 ML INHALATION PRN (22:42)
--- NOTE | 2020-04-28 23:19 | XR ---
EXAMINATION TYPE: XR chest 1V portable DATE OF EXAM: 04/28/2020 COMPARISON: 04/22/2020 HISTORY: Pneumonia TECHNIQUE: Single view FINDINGS: There is left-sided chest tube with the tip at the left lung apex. There is a large left si de pleural effusion and left lower lobe pulmonary consolidation. There is extensive airspace and inte rstitial infiltrate in the periphery of the right lung. Trachea is midline. There is small left apica l pneumothorax. IMPRESSION: Large pleural effusion and extensive consolidation left lower lobe overall unchanged. The re is clearing of most of the pneumothorax compared to previous exam. There is stable extensive perip heral infiltrate in the right lung.
[2020-04-29] MEDS: PANTOPRAZOLE 40 MG TABLET PO SCH (06:10)
--- NOTE | 2020-04-29 07:20 | XR ---
EXAMINATION TYPE: XR chest 2V DATE OF EXAM: 04/29/2020 COMPARISON: 04/28/2020 HISTORY: 74-year-old female pneumothorax TECHNIQUE: PA and lateral views FINDINGS: Left heart margin remains obscured by adjacent pleural parenchymal opacity. Apically directed left-si ded chest tube remains in place. Continued moderate to large left pleural effusion. Extensive left ba silar consolidation. A small locule of air remains at the peripheral left mid to lower lung within th e pleural fluid. Extensive interstitial and patchy confluent airspace opacities on the right remain. IMPRESSION: 1. Continued moderate to large left pleural effusion with underlying atelectasis and/or consolidation . Left-sided chest tube remains in place and only a small locule of air is seen within the left-sided pleural fluid, unchanged from prior. Otherwise, no pneumothorax is seen. 2. Extensive interstitial infiltrates and airspace disease in the right lung is unchanged.
[2020-04-29 07:39] LABS: Basophils # (A) 0.1 k/uL (0-0.2); Basophils % (A) 0 %; Eosinophils % (A) 0 %; HCT 39.1 % (34.0-46.0); HGB 12.2 gm/dL (11.4-16.0); Hypochromasia Slight; Lymphocytes # (A) 0.5 k/uL (1.0-4.8); Lymphocytes % (A) 4 %; MCH 28.3 pg (25.0-35.0); MCHC 31.3 g/dL (31.0-37.0); MCV 90.4 fL (80.0-100.0); Mean Platelet Volume 7.8; Monocytes % (A) 7 %; Neutrophils % (A) 85 %; Platelet Count 492 k/uL (150-450); RBC 4.32 m/uL (3.80-5.40); RDW 14.6 % (11.5-15.5)
[2020-04-29 08:00] LABS: ALT 25 U/L (4-34); AST 57 U/L (14-36); African American GFR (CKD) >90 (>60 ml/min/1.73 sqM); Albumin 2.3 g/dL (3.5-5.0); Alkaline Phosphatase 229 U/L (38-126); Anion Gap 5 mmol/L; Blood Urea Nitrogen 7 mg/dL (7-17); Calcium 7.7 mg/dL (8.4-10.2); Carbon Dioxide 31 mmol/L (22-30); Chloride 96 mmol/L (98-107); Glucose 115 mg/dL (74-99); Non-African American GFR(CKD) >90 (>60 ml/min/1.73 sqM); Potassium 4.7 mmol/L (3.5-5.1); Sodium 132 mmol/L (137-145); Total Bilirubin 0.5 mg/dL (0.2-1.3); Total Protein 5.5 g/dL (6.3-8.2)
--- NOTE | 2020-04-29 08:35 | CDI ---
Documentation Clarification Form Date: 04/29/2020 0833 CDS: Shawna Maria RN, CCDS Admit Date: 04/23/2020 1139 Patient Name: Missy San ATTENTION: The Clinical Documentation Specialists (CDI) and [facility] Coding Staff appreciate your assistance in clarifying documentation. Please respond to the clarification below the line at the bottom and electronically sign. The CDI & [facility] Coding staff will review the response and follow-up if needed. Please note: Queries are made part of the Legal Health Record. If you have any questions, please contact the author of this message via ITS. Dr. Roberts Patient is noted to have a BMI of 20.5, receiving nutritional supplementation with a hx of multiple chronic hypermetabolic co-morbid conditions. Please provide further clinical significance to accurately reflect SOI/ROM. History/Risk Factors: COPD, Anxiety, depression, GERD, HTN, Fibromyalgia, GIB, Lung CA with mets to thoracic spine, bladder cancer, Chemotherapy Clinical Indicators: 04/22 Pulmonary Consult: "average body habitus, cooperative, disheveled, mild distress, thin. Musculoskeletal: gait normal, generalized weakness, strength equal bilaterally " 04/22 Oncology Consult: "cooperative, no acute distress, thin" 04/23 Attending Progress Note: "GENERAL: This is a 74-year-old female sitting up in bed awake, alert and oriented 3, thin built," 04/21-04/25 Labs: Total Protein 6/5.3, Albumin 2.8/2.3 Current BMI: 20.5 04/28 Dietary Consult: Insufficient energy intake: "Decreased appetite x 1 month, patient appears underweight with muscle wasting hand and cheeks" Fluid accumulation: no edema noted. Treatment: Dietary Consult: Completed 04/28- see above Supplements: Ensure Compact and Magic Cups TID Lab monitoring: Am Daily Maalox 15 ml PO Q 6 PRN indigestion Lactulose 20 mg PO QD PRN Constipation Zofran 4 mg IVP q 8 hrs Xanax .25 mg PO TID Cymbalta 60 mg PO QD In your professional opinion, can you please clarify if these findings signify one of the following conditions? Mild Protein-Calorie Malnutrition Moderate Protein-Calorie Malnutrition Severe Protein-Calorie Malnutrition Other condition, please specify Unable to determine Please continue to document in your progress notes and discharge summary in order to capture severity of illness and risk of mortality. Include clinical findings that support your diagnosis. Moderate protein calorie malnutrition, POA MTDD
[2020-04-29] MEDS: IPRATROPIUM 0.5 MG/2.5 ML NEBU INHALATION SCH ×4 (08:57→20:41)
[2020-04-29] MEDS: METOPROLOL TARTRATE 50 MG TAB PO SCH ×2 (08:58→20:01)
[2020-04-29] MEDS: OXYBUTYNIN CHLORIDE 5 MG TAB PO SCH ×2 (08:58→20:01)
[2020-04-29] MEDS: LEVOFLOXACIN 750 MG TAB PO SCH (08:58)
[2020-04-29] MEDS: SODIUM CHLORIDE TAB 1 GM TAB PO SCH (08:58)
[2020-04-29] MEDS: SENNOSIDES-DOCUSATE SODIUM 1 EACH TAB PO SCH ×2 (08:58→20:01)
[2020-04-29] MEDS: DULoxetine HCL 60 MG CAPSULE.DR PO SCH (08:58)
--- NOTE | 2020-04-29 10:02 | P.PN ---
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 New right upper lobe streaky infiltrate suspect lymphangitic spread History of bladder cancer and recent diagnosis Severe COPD 04/29/2020, patient seen eval examined during the rounds labs reviewed medications reviewed and remains short of breath however severity appears to have improved compared to earlier this morning patient had a rapid response of this morning FiO2 went up from 2 L 200% nonrebreather mask right now she is on 15 L high flow oxygen, saturation is 97% slightly tachypneic chest x-ray reviewed patient had the worsening of interstitial Petrin extending from the right upper lobe to right middle and lower lobe as well, hydropneumothorax on the left-sided stable, chest tube has been middle suction continued to be applied overall since last night 700 mL more accumulated in the pleural VAC discussed with primary service as well as the oncology will plan to start patient on broad-spectrum antibiotics with Zosyn IV every 8, Solu-Medrol 40 mg IV every8 as patient has the may have component of radiation pneumonitis, will check covid 19 testing, and diuresis the patient, 04/28/2020, patient sitting upright in the bed complaining of intermittent chest pain bilaterally more so on the right side compared to left side, chest tube no a leak or pleural fluid is present so far in the pleural VAC noted to be 1200 mL markings are done we'll repeat a chest x-ray tomorrow, 04/26/2020, patient seen eval examined during the rounds labs reviewed medications reviewed care plan discussed with the RN, and denies any chest pain, back pain is stable, today more of a complain of constipation, chest tube was stable no air leak is present, no output has been seen, patient is being evaluated by oncology service, 04/25/2020, patient seen eval examined during the rounds labs reviewed medications reviewed, care plan discussed with the staff and primary service at length that is as well, patient has the no air leak no output through the chest tube, pain is little bit better with pain medicine, computed tomography scan finding reviewed as noted previously, patient is little bit calm and comfortable however is still have aches and pain in the back 04/24/2020, patient seen eval examined patient had another computed tomography scan of the chest with IV contrast no PE seen however extensive lung disease is seen consolidation and lumpy bumpy appearance consistent with lymphangitic spread, patient has some pericardial and pleural effusion also with hydropneumothorax not changed chest tube is in good position no air leak is present seems like hydropneumothorax is likely likely loculated now, patient complaining of ongoing shortness of breath and pain especially in the back which is also due to metastatic disease will recommend palliative/hospice care 04/23/2020, patient seen eval examined during the rounds labs reviewed medications reviewed care plan discussed, respiratory status slightly better, chest tube has been connected to wall suction and pleural VAC about 300 mL of pleural fluid is present and pleural VAC, no air leak is present, computed tomography scan of the chest reviewed finding suggestive of lymphangitic spread with bronchiectasis, left-sided hydropneumothorax is present with stable chest tube pneumothorax appears to be loculated as it is not resolving, patient is not a candidate for lung biopsy This is a 74-year-old female well-known to me, patient has been diagnosed adenocarcinoma metastatic stage IV with malignant pleural effusion involving the left side, patient is on chemotherapy have received first cycle of chemotherapy with 5 treatment second cycle is due, patient came into the hospital with difficulty in breathing for several days, the left-sided Pleurx catheter drained 2 days ago, in the ER 600 mL were removed, patient has large hydropneumothorax on the right side, in addition she has some streaky infiltrate on the right side involving the upper lobe as well, suspect lymphangitic spread, we'll get a computed tomography scan of the chest, I have discussed with thoracic surgery about connecting the chest tube left-sided tube Pleur-evac and suction that may relieve hydropneumothorax up to some extent, denies any hemoptysis appetite poor, no night sweats fever or chills Objective - Vital Signs Vital signs: Vital Signs Temp 97.9 F 04/29/20 08:00 Pulse 88 04/29/20 09:08 Resp 18 04/29/20 08:00 BP 122/58 04/29/20 08:00 Pulse Ox 98 04/29/20 08:00 Intake & Output 04/28/20 04/29/20 04/29/20 18:59 06:59 18:59 Intake Total 480 236 Output Total 400 500 Balance 80 -500 236 Weight 56 kg 56 kg Intake: Oral 480 236 Output: Chest Tube Drainage 0 0 Pleural Catheter Left 0 0 Upper Drainage 0 500 Left Chest 0 500 Urine 400 Other: Voiding Method Bedside Commode Bedside Commode Bedside Commode # Voids 2 - Exam - Constitutional General appearance: average body habitus, cooperative, disheveled, mild distress, thin - EENT Eyes: EOMI, PERRLA Ears: bilateral: normal - Neck Neck: normal ROM Carotids: bilateral: upstroke normal Thyroid: bilateral: normal size - Respiratory Respiratory: right: CTA, left: diminished, bilateral crackles at the bases - Cardiovascular Rhythm: regular Heart sounds: normal: S1, S2 - Gastrointestinal General gastrointestinal: distended - Integumentary Integumentary: normal - Neurologic Neurologic: CNII-XII intact - Musculoskeletal Musculoskeletal: gait normal, generalized weakness, strength equal bilaterally - Psychiatric Psychiatric: A&O x's 3, appropriate affect, intact judgment & insight - Labs CBC & Chem 7: 04/29/20 06:38 04/29/20 06:38 Labs: Abnormal Lab Results - Last 24 Hours (Table) 04/28/20 04/28/20 04/29/20 Range/Units 08:54 11:26 06:38 WBC 13.8 H 14.0 H (3.8-10.6) k/uL MCHC 30.5 L (31.0-37.0) g/dL Plt Count 526 H 492 H (150-450) k/uL Neutrophils # 11.9 H 12.0 H (1.3-7.7) k/uL Lymphocytes # 0.5 L 0.5 L (1.0-4.8) k/uL Sodium (137-145) mmol/L Chloride (98-107) mmol/L Carbon Dioxide (22-30) mmol/L Glucose (74-99) mg/dL Calcium (8.4-10.2) mg/dL AST (14-36) U/L Alkaline Phosphatase (38-126) U/L Troponin I 0.659 H* (0.000-0.034) ng/mL Total Protein (6.3-8.2) g/dL Albumin (3.5-5.0) g/dL 04/29/20 Range/Units 06:38 WBC (3.8-10.6) k/uL MCHC (31.0-37.0) g/dL Plt Count (150-450) k/uL Neutrophils # (1.3-7.7) k/uL Lymphocytes # (1.0-4.8) k/uL Sodium 132 L (137-145) mmol/L Chloride 96 L (98-107) mmol/L Carbon Dioxide 31 H (22-30) mmol/L Glucose 115 H (74-99) mg/dL Calcium 7.7 L (8.4-10.2) mg/dL AST 57 H (14-36) U/L Alkaline Phosphatase 229 H (38-126) U/L Troponin I (0.000-0.034) ng/mL Total Protein 5.5 L (6.3-8.2) g/dL Albumin 2.3 L (3.5-5.0) g/dL Assessment and Plan Assessment: Acute on chronic hypoxic respiratory failure Likely lymphangitic spread of adenocarcinoma of the lung involving the right lung as well however patient had the radiation therapy 6 weeks ago remains at risk of radiation pneumonitis versus fluid overload versus pneumonia Large left-sided hydropneumothorax chest tube is draining now Malignant pleural effusion on the left side Stage 4 lung cancer adenocarcinoma with metastases to the thoracic spine New bilateral streaky infiltrate and consolidation suspect lymphangitic spread Small to moderate pericardial effusion History of bladder cancer and recent diagnosis Severe COPD Plan: Covert testing IV steroids IV antibiotics Diuresis Titrated oxygen down as tolerated Continue pain management, patient is on chemotherapy so far received first round of it Maintained chest tube connected to Pleur-evac for 20 cm water suction High-resolution computed tomography scan as well as CT with contrast Angio reviewed Continue supportive care overall prognosis poor Patient is a high risk candidate for complications associated with transbronchial lung biopsy on the right side Further recommendations pending plan of care as per clinical response of the patient Patient overall has poor prognosis continues with care she is no code Time with Patient: Greater than 30
--- NOTE | 2020-04-29 11:30 | P.PN ---
Subjective Progress Note Date: 04/29/20 Principal diagnosis: lung ca and persistent effusion With her increasing hypoxia and question of pneumonitis this would be a pneumonitis from immune therapy treatment she received. Rescue steroid dose would be 1-2mg/kg/day of prednisone or equal corticosteroid. which she is rece iving with 120mg of solu medrol daily. Studies show medium onset would be 4-5 weeks, although with her other poor lung function we can not totally rule out immune related event as a large contributing factor. I had a long discussion with patient and yesterday and with her declining respiratory status and the overall benefit being low from intubation they have agreed to no CPR/No intubation. Pulmonary is check COVID. With the rapid declining lung function overall prognosis is appearing poor. Objective - Vital Signs Vital signs: Vital Signs Temp 97.9 F 04/29/20 08:00 Pulse 88 04/29/20 09:08 Resp 18 04/29/20 08:00 BP 122/58 04/29/20 08:00 Pulse Ox 98 04/29/20 08:00 Intake & Output 04/28/20 04/29/20 04/29/20 18:59 06:59 18:59 Intake Total 480 236 Output Total 400 500 Balance 80 -500 236 Weight 56 kg 56 kg Intake: Oral 480 236 Output: Chest Tube Drainage 0 0 Pleural Catheter Left 0 0 Upper Drainage 0 500 Left Chest 0 500 Urine 400 Other: Voiding Method Bedside Commode Bedside Commode Bedside Commode # Voids 2 - Exam - Constitutional General appearance: Present: cooperative, mild distress, thin - EENT Eyes: Present: poor dentition ENT: Present: hard of hearing, NA/AT - Neck Neck: Present: normal ROM - Respiratory Details: Chest tube Respiratory: bilateral: diminished, rhonchi HIgh FLow - Increased effort - Cardiovascular Rhythm: Tachy Heart sounds: normal: S1, S2 - Gastrointestinal General gastrointestinal: Present: normal bowel sounds, soft - Integumentary Integumentary: Present: pale - Neurologic Neurologic: Present: CNII-XII intact - Musculoskeletal Musculoskeletal: Present: generalized weakness, strength equal bilaterally - Psychiatric Psychiatric: Present: A&O x's 3, appropriate affect, intact judgment & insight - Labs CBC & Chem 7: 04/29/20 06:38 04/29/20 06:38 Labs: Abnormal Lab Results - Last 24 Hours (Table) 04/28/20 04/28/20 04/29/20 Range/Units 08:54 11:26 06:38 WBC 13.8 H 14.0 H (3.8-10.6) k/uL MCHC 30.5 L (31.0-37.0) g/dL Plt Count 526 H 492 H (150-450) k/uL Neutrophils # 11.9 H 12.0 H (1.3-7.7) k/uL Lymphocytes # 0.5 L 0.5 L (1.0-4.8) k/uL Sodium (137-145) mmol/L Chloride (98-107) mmol/L Carbon Dioxide (22-30) mmol/L Glucose (74-99) mg/dL Calcium (8.4-10.2) mg/dL AST (14-36) U/L Alkaline Phosphatase (38-126) U/L Troponin I 0.659 H* (0.000-0.034) ng/mL Total Protein (6.3-8.2) g/dL Albumin (3.5-5.0) g/dL 04/29/20 Range/Units 06:38 WBC (3.8-10.6) k/uL MCHC (31.0-37.0) g/dL Plt Count (150-450) k/uL Neutrophils # (1.3-7.7) k/uL Lymphocytes # (1.0-4.8) k/uL Sodium 132 L (137-145) mmol/L Chloride 96 L (98-107) mmol/L Carbon Dioxide 31 H (22-30) mmol/L Glucose 115 H (74-99) mg/dL Calcium 7.7 L (8.4-10.2) mg/dL AST 57 H (14-36) U/L Alkaline Phosphatase 229 H (38-126) U/L Troponin I (0.000-0.034) ng/mL Total Protein 5.5 L (6.3-8.2) g/dL Albumin 2.3 L (3.5-5.0) g/dL Assessment and Plan Plan: Assessment and Recs: Acute on CHronic Hypoxic Respiratory Failure: - Right sided chest pain is new since weekend as well as 8L high flow need - Question immediate increased inflammatory response to immune therapy treatment which in picture with recurrent pleural effusion, pneumothorax is the primary etiologies of symptoms. - Repeat CTA for PE, resulted negative With her increasing hypoxia and question of pneumonitis this would be a pneu monitis from immune therapy treatment she received. Rescue steroid dose would be 1-2mg/kg/day of prednisone or equal corticosteroid. which she is receiving with 120mg of solu medrol daily. Studies show medium onset would be 4-5 weeks, although with her other poor lung function we can not totally rule out immune related event as a large contributing factor. I had a long discussion with patient and yesterday and with her declining respiratory status and the overall benefit being low from intubation they have agreed to no CPR/No intubation. Pulmonary is check COVID. With the rapid declining lung function overall prognosis is appearing poor. Non-Small Cell Lung cancer: - Status Post first opdivo and yervoy on 04/07/20 - Immune therapy on hold Shortness of Breath and Chest Pain: - CTA does not reveal PE or new signs of progression, Most likely infectious inflammatory - Supportive care to continue - Pulmonary following Acute on Chronic Pain: - She has a history of chronic back pain and narcotic use - More recently increased pain felt to be related to underlying cancer - Continue on Fentanyl and Breakthrough as well as bowel regimen 4. SIADH: - Not clear if this is related to underlying lung or bladder malignancy - Nephrology is following to assist 5. Increased headaches and left sided weakness: - Unclear if related to decreased movement while hospitalized or if potential progression. - Last imaging >3 month of brain - MRi repeated negative Agree with No Code Status Long discussion with family Await Pulm Recs and covid testing ?fungal component. Add Mervat Physician Attest: I have completed the full history and physical and agree with above dictation, dictated as a scribe.
[2020-04-29] MEDS: methylPREDNISolone SOD SUCCI 125 MG/2 ML VIAL IV SCH ×3 (14:08→23:50)
[2020-04-29] MEDS: PIPERACILLIN-TAZOBACTAM 3.375 GM in SODIUM CHLORIDE 0.9% 100 ML IVPB SCH ×2 (14:08→23:50)
[2020-04-29] MEDS: FUROSEMIDE 10 MG/ML 4 ML VIAL IV SCH (14:08)
--- NOTE | 2020-04-29 14:31 | P.PN ---
Subjective Progress Note Date: 04/29/20 This is a 74-year-old female with history of COPD, history of smoking, patient quit smoking on January 14 of this year, fibromyalgia, GERD, hypertension, hyperlipidemia, osteoarthritis. In January of this year patient underwent a left- sided thoracentesis for a significant left-sided pleural effusion, pathology did come back confirming non-small cell malignancy adenocarcinoma. She has undergone one chemotherapy treatment. In January of this year patient also had a TURP for bladder cancer, positive for noninvasive low-grade papillary urothelial carcinoma. Patient did have a left-sided chest tube in place, every 3 days she has been draining for about 500 mL, she presented to the hospital on this occasion with moderate to severe shortness of breath. She was also complaining of chest and shoulder discomfort. Patient was initially admitted to the sixth floor, because of the persistent complaints of chest pain, a opponent value was obtained which came back to be 0.76. Patient was transferred to the cardiac unit for further evaluation and treatment. According to the patient, her pain in the chest has been constant since arrival here, but it worsened significantly with even mildly taking a deep breath or pressing on the area of the chest. EKG showed a normal sinus rhythm with nonspecific ST-T wave changes, no acute changes noted. Chest x-ray showed left-sided hydropneumothorax and moderate pleural effusion with a new right upper lobe infiltrate. The CTA of the chest did not show evidence of a pulmonary embolism. Blood pressure 105/60, heart rate 90, respirations 20, 94% on 8 L of oxygen. Sodium 129, potassium 4.7, BUN 9, creatinine 0.4. White blood cell count 11.4, hemoglobin 11.7, platelet count 469. Troponin 0.760. 04/29/2020 Patient was seen and examined this morning, overall feeling significantly better. Her breathing has improved significantly and she denies any chest discomfort this morning. Her echocardiogram with Doppler study revealed an ejection fraction of 55-60% with evidence of small pericardial effusion. Blood pressure 122/50 with a heart rate in the 80s. Anticipating discharge soon. White blood cell count 14.0, hemoglobin 12.2, platelet count 492. Sodium 132, potassium 4.7, BUN 7, creatinine 0.5. Objective - Vital Signs Vital signs: Vital Signs Temp 97.9 F 04/29/20 08:00 Pulse 92 04/29/20 12:26 Resp 18 04/29/20 12:00 BP 122/58 04/29/20 08:00 Pulse Ox 98 04/29/20 08:00 Intake & Output 04/28/20 04/29/20 04/29/20 18:59 06:59 18:59 Intake Total 480 311 Output Total 400 500 Balance 80 -500 311 Weight 56 kg 56 kg Intake: Oral 480 311 Output: Chest Tube Drainage 0 0 Pleural Catheter Left 0 0 Upper Drainage 0 500 Left Chest 0 500 Urine 400 Other: Voiding Method Bedside Commode Bedside Commode Bedside Commode # Voids 2 - Exam PHYSICAL EXAMINATION: GENERAL: 74-year-old female in no acute distress at the time of my examination HEENT: Head is atraumatic, normocephalic. Pupils equal, round. Sclera anicteric. Conjunctiva are clear. Mucous membranes of the mouth are moist. Neck is supple. There is no elevated jugular venous pressure. No carotid bruit is heard. HEART EXAMINATION: Heart S1, S2 normal. No murmur or gallop heard. CHEST EXAMINATION: Lungs reveal scattered coarse rhonchi, with diminished air entry to the left posterior base. No chest wall tenderness on deep breathing and palpation of the chest ABDOMEN: Soft, nontender. Bowel sounds are heard. No organomegaly noted. EXTREMITIES: 2+ peripheral pulses with no evidence of peripheral edema and no calf tenderness noted. NEUROLOGIC patient is awake, alert and oriented 3 . . - Labs CBC & Chem 7: 04/29/20 06:38 04/29/20 06:38 Labs: Abnormal Lab Results - Last 24 Hours (Table) 04/29/20 04/29/20 Range/Units 06:38 06:38 WBC 14.0 H (3.8-10.6) k/uL Plt Count 492 H (150-450) k/uL Neutrophils # 12.0 H (1.3-7.7) k/uL Lymphocytes # 0.5 L (1.0-4.8) k/uL Sodium 132 L (137-145) mmol/L Chloride 96 L (98-107) mmol/L Carbon Dioxide 31 H (22-30) mmol/L Glucose 115 H (74-99) mg/dL Calcium 7.7 L (8.4-10.2) mg/dL AST 57 H (14-36) U/L Alkaline Phosphatase 229 H (38-126) U/L Total Protein 5.5 L (6.3-8.2) g/dL Albumin 2.3 L (3.5-5.0) g/dL Assessment and Plan Plan: Assessment and plan #1 left-sided pleural effusion, secondary to underlying malignancy. #2 atypical chest pain, pleuritic in nature. Initial troponin 0.760, abnormality in troponin could be secondary to cancer. We will obtain 2 subsequent troponins as well as an echo. 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 Subsequent troponins did not reveal any significant rise and fall pattern. Troponin abnormality not s uggestive of acute coronary syndrome. From cardiology's perspective the patient may be discharged once cleared by primary and we will follow her up in the office as an outpatient. DNP note has been reviewed, I agree with a documented findings and plan of care. Patient was seen and examined.
--- NOTE | 2020-04-29 15:24 | P.PN ---
Progress Note - Text Progress Note Date: 04/29/20 Chief Complaint: shortness of breath History of presenting complaint: This is a 74-year-old patient followed with Dr. Coy. chronic stable medical conditions include COPD, GERD,hypertension, hyperlipidemia, osteoarthritis. Patient in January of this year underwent left fluid thoracentesis and pathology did come back confirming non-small cell malignancy adenocarcinoma. Patient has received 1 cycle of chemotherapy. Has a left-sided chest 2. That every 3 days it has drained about 500 mL drained..patient also in January of this year had a bladder TURP. Positive for noninvasive, low-grade papillary urothelial carcinoma. In the ER 500 mL of fluid was drained. Found to have a large left- sided hydropneumothorax. Left-sided chest tube connected to Pleur-evac. Patient is put on SAMSCA. Fluid restriction.. Sodium has been running low. Patient also had chest pain felt to be pleuritic seen by cardiology. Not felt to be cardiac. Today-yesterday evening 18 had to be called out. As patient had desaturated. Apparently her drain had to be deep started. On night she put out about close to thousand cc. Untreated today put on IV Zosyn and his steroids by Dr. Cash. Still requiring about 15 L of high flow oxygen. Appetite remains low. Diet short of breath. Review of systems: Was done for constitutional, cardiovascular, GI, pulmonary. relevant finding as above Consultants: Nephrology Dr. Cash from pulmonary Dr. Onofre from oncology [facility] Active Medications Acetaminophen (Tylenol Tab) 650 mg PO Q6HR PRN PRN Reason: Mild Pain or Fever > 100.5 Al Hydroxide/Mg Hydroxide (Maalox) 15 ml PO Q6HR PRN PRN Reason: Indigestion Last Admin: 04/23/20 21:15 Dose: 15 ml Documented by: Albuterol Sulfate (Ventolin Nebulized) 2.5 mg INHALATION RT-Q4H PRN PRN Reason: Shortness Of Breath Last Admin: 04/28/20 22:42 Dose: 2.5 mg Documented by: Alprazolam (Xanax) 0.25 mg PO TID PRN PRN Reason: Anxiety Last Admin: 04/28/20 08:57 Dose: 0.25 mg Documented by: Atorvastatin Calcium (Lipitor) 10 mg PO HS ANG Last Admin: 04/28/20 20:39 Dose: 10 mg Documented by: Calcium Carbonate/Glycine (Tums) 1,000 mg PO Q4HR PRN PRN Reason: Dyspepsia Duloxetine HCl (Cymbalta) 60 mg PO DAILY [facility] Last Admin: 04/29/20 08:58 Dose: 60 mg Documented by: Fentanyl (Duragesic 25mcg/Hr Patch) 1 patch TRANSDERM Q72H [facility] Last Admin: 04/27/20 08:09 Dose: 1 patch Documented by: Fluticasone Propionate (Flonase Nasal [place]) 1 spray EA NOSTRIL BID PRN PRN Reason: seasonal allergies Furosemide (Furosemide 10 Mg/Ml 4 Ml Vial) 40 mg IV DAILY [facility] Last Admin: 04/29/20 14:08 Dose: 40 mg Documented by: Hydromorphone HCl (Dilaudid) 1 mg PO Q3HR PRN PRN Reason: Severe Pain Last Admin: 04/22/20 22:45 Dose: 1 mg Documented by: Hydromorphone HCl (Dilaudid) 1 mg IVP Q3HR PRN PRN Reason: Severe Pain Last Admin: 04/28/20 05:32 Dose: 1 mg Documented by: Piperacillin Sod/Tazobactam (Sod 3.375 gm/ Sodium Chloride) 100 mls @ 25 mls/hr IVPB Q8HR [facility] Last Admin: 04/29/20 14:08 Dose: 25 mls/hr Documented by: Ipratropium [place] (Atrovent Nebulized) 0.5 mg INHALATION RT-QID [facility] Last Admin: 04/29/20 12:18 Dose: 0.5 mg Documented by: Lactulose (Cephulac) 20 gm PO DAILY PRN PRN Reason: Constipation Last Admin: 04/27/20 19:32 Dose: 20 gm Documented by: Magnesium Hydroxide (Milk Of Magnesia) 2,400 mg PO DAILY PRN PRN Reason: Constipation Last Admin: 04/26/20 13:00 Dose: 2,400 mg Documented by: Melatonin (Melatonin) 3 mg PO HS PRN PRN Reason: Insomnia Methylprednisolone Sodium Succinate (Methylprednisolone Sod Succi 125 Mg/2 Ml Vial) 60 mg IV Q6HR [facility] Last Admin: 04/29/20 14:08 Dose: 60 mg Documented by: Metoprolol Tartrate (Lopressor) 50 mg PO BID [facility] Last Admin: 04/29/20 08:58 Dose: 50 mg Documented by: Miscellaneous Information (Pneumonia Protocol Utilized) 1 each PO ONCE PRN PRN Reason: Per Protocol Naloxone HCl (Narcan) 0.2 mg IV Q2M PRN PRN Reason: Opioid Reversal Nitroglycerin (Nitroglycerin Sl Tabs 0.4 Mg Tab) 0.4 mg SUBLINGUAL Q5M PRN PRN Reason: Chest Pain Last Admin: 04/28/20 06:53 Dose: 0.4 mg Documented by: Ondansetron HCl (Zofran Odt) 8 mg PO Q8H PRN PRN Reason: Nausea Ondansetron HCl (Zofran) 4 mg IVP Q8HR PRN PRN Reason: Nausea And Vomiting Last Admin: 04/26/20 20:54 Dose: 4 mg Documented by: Oxybutynin Chloride (Ditropan) 10 mg PO BID [facility] Last Admin: 04/29/20 08:58 Dose: 10 mg Documented by: Oxycodone/Acetaminophen (Percocet 10-325) 1 each PO Q6H PRN PRN Reason: Pain Pantoprazole Sodium (Protonix) 40 mg PO AC-BRKFST [facility] Last Admin: 04/29/20 06:10 Dose: Not Given Documented by: Senna/Docusate Sodium (Senokot-S) 1 each PO BID [facility] Last Admin: 04/29/20 08:58 Dose: 1 each Documented by: Sodium Chloride (Sodium Chloride Tab 1 Gm Tab) 1 gm PO DAILY [facility] Physical examination: VITAL SIGNS: 97.9, 89, 18, 122 x 58, 98% on 15 L GENERAL: Decreased muscle mass, prominent bones sitting up-uncomfortable EYES: Pupils equal. Conjunctiva pale HEART: First and second heart sounds are normal; no edema. LUNGS: Respiratory rate increased, decreased breath sounds -left pigtail catheter attached to Pleur-evac ABDOMEN: Soft, nontender, liver spleen not palpable, no masses palpable. PSYCH: Alert and oriented x3; mood and affect a bit anxious. MUSCULAR skeletal: Evidence of OA especially in the hands INVESTIGATIONS, reviewed in the clinical context: White count 14 hemoglobin 12.2 potassium 4.7 creatinine 0.57 albumin 2.3 Previous testing: white count 7.9 hemoglobin 11.9 potassium 4.5 creatinine 0.60 EKG tracing personally reviewed by me-normal sinus rhythm Chest x-ray film personally reviewed by me-Large left pleural effusion with a horizontal line Chest CTA-large left pleural effusion small right pleural effusion extensive airspace consolidation atelectasis in left lung also infiltrate in the right mid and lower lung. Left-sided hydropneumothorax. No PE. Extensive osteoblastic changes in thoracic spine 2-D echocardiogram-a 55-60% MRI of the brain-no metastatic disease Troponin I 0.760, 0.716, 0.659 Assessment: -Left hydropneumothorax-from underlying malignancy worsening causing patient to be short of breath. Has a pigtail catheter that is draining every 3 days at home. Attached to Pleur-evac. Slow to respond. -Checks to x-ray with some worsening with concern for lymphangitic spread versus pneumonia -non-small cell adenocarcinoma of the lung getting chemotherapy -Acute hypoxic respiratory failure multifactorial-worsening -Acute COPD exacerbationin -slow to respond -Possible pneumonia -Troponin leak from hemodynamic mismatch. Not acute coronary syndrome. 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 Yocasta Cash from pulmonary. Continue with IV steroids and antibiotics. Prognosis not good. Also spoke to Teresa Orona LABORATORY ADMINISTRATIVE DIRECTOR from oncology. Prognosis not good. Leaning towards hospice. Advanced care planning: Had a lengthy discussion with the patient in the presence of nurse. Weight understand oral guarded prognosis. COPD. No findings in the checks to x-ray. High requirement of oxygen. She understands the prognosis guarded. Appetite remains poor. She had been made DO NOT RESUSCITATE. Patient is more open to getting hospice at home. If things don't improve. She will be going home with her . And watch her next 24-48 hours. Now she wanted to go home today. Did explain that she is rather unstable currently. About 20 minutes was spent for this.
--- NOTE | 2020-04-29 17:16 | PN ---
PROGRESS NOTE Patient is seen for followup for hyponatremia. Her serum sodium has improved to 132 today. The patient is maintained on sodium chloride tabs. She did get a dose of Samsca yesterday. No significant complaints today. PHYSICAL EXAMINATION: Blood pressure this morning was 122/58, heart rate 89 per minute, patient is afebrile. Examination of the heart S1, S2. Examination of the lungs, bilateral breath sounds are heard. Abdomen is soft, nontender. Examination of the lower extremities shows no significant edema. SALES COORDINATOR exam grossly intact. LABS: Show sodium 132, potassium 4.7, chloride 96, CO2 is 31, BUN 7, serum creatinine 0.57. ASSESSMENT: 1. Hyponatremia. Patient is currently euvolemic. 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 Patient is also maintained on sodium chloride tabs. I will decrease the sodium chloride to 1 g once a day. 2. Non-small cell CA of the lung. 3. Bilateral pleural effusions. PLAN: Continue with fluid restriction. Decrease the dose of sodium chloride tabs. MMODL / IJN: [id number] /
[2020-04-29] MEDS: ATORVASTATIN 10 MG TAB PO SCH (20:01)
[2020-04-30] MEDS: methylPREDNISolone SOD SUCCI 125 MG/2 ML VIAL IV SCH ×2 (06:48→13:35)
[2020-04-30] MEDS: PANTOPRAZOLE 40 MG TABLET PO SCH (07:06)
[2020-04-30 07:45] LABS: Basophils % (A) 0 %; Eosinophils # (A) 0.1 k/uL (0-0.7); Eosinophils % (A) 0 %; HCT 40.8 % (34.0-46.0); HGB 12.6 gm/dL (11.4-16.0); Hypochromasia Moderate; Lymphocytes # (A) 0.4 k/uL (1.0-4.8); Lymphocytes % (A) 3 %; MCH 27.9 pg (25.0-35.0); MCHC 30.9 g/dL (31.0-37.0); MCV 90.3 fL (80.0-100.0); Mean Platelet Volume 7.4; Monocytes # (A) 0.4 k/uL (0-1.0); Monocytes % (A) 3 %; Neutrophils # (A) 13.4 k/uL (1.3-7.7); Neutrophils % (A) 93 %; Platelet Count 561 k/uL (150-450); RBC 4.52 m/uL (3.80-5.40); RDW 14.5 % (11.5-15.5); WBC 14.4 k/uL (3.8-10.6)
--- NOTE | 2020-04-30 07:46 | XR ---
EXAMINATION TYPE: XR chest 1V portable DATE OF EXAM: 04/30/2020 COMPARISON: 04/29/2020, 03/12/2020 INDICATION: Lung cancer TECHNIQUE: Single frontal view of the chest is obtained. FINDINGS: The heart size is mildly prominent. The pulmonary vasculature is normal. There is an infiltrate or consolidation extending through the right upper lobe. This appears to be wo rsening. Correlate for pneumonia. There is a loculated effusion at the left lung base. A left-sided c hest tube is present with the tip directed towards the medial left apex. IMPRESSION: 1. Density in the left lower lobe may be a loculated effusion. Other etiologies are within the differ ential such as consolidation and neoplasm. 2. Increasing lung markings in the right upper lobe can be pneumonia. Follow-up to clearing is recomm ended.
[2020-04-30] MEDS: IPRATROPIUM 0.5 MG/2.5 ML NEBU INHALATION SCH ×3 (07:55→15:47)
[2020-04-30] MEDS: ALBUTEROL NEBULIZED 2.5 MG/3 ML INHALATION PRN (07:55)
[2020-04-30 08:07] LABS: ALT 31 U/L (4-34); AST 64 U/L (14-36); African American GFR (CKD) >90 (>60 ml/min/1.73 sqM); Albumin 2.4 g/dL (3.5-5.0); Alkaline Phosphatase 224 U/L (38-126); Anion Gap 7 mmol/L; Blood Urea Nitrogen 11 mg/dL (7-17); Calcium 7.5 mg/dL (8.4-10.2); Carbon Dioxide 32 mmol/L (22-30); Chloride 95 mmol/L (98-107); Glucose 146 mg/dL (74-99); Non-African American GFR(CKD) >90 (>60 ml/min/1.73 sqM); Phosphorus 3.7 mg/dL (2.5-4.5); Potassium 4.1 mmol/L (3.5-5.1); Sodium 134 mmol/L (137-145); Total Bilirubin 0.5 mg/dL (0.2-1.3); Total Protein 5.6 g/dL (6.3-8.2)
[2020-04-30 08:42] LABS: Magnesium 2.3 mg/dL (1.6-2.3)
[2020-04-30 08:49] VITALS: TEMP 97.7
[2020-04-30] MEDS: PIPERACILLIN-TAZOBACTAM 3.375 GM in SODIUM CHLORIDE 0.9% 100 ML IVPB SCH (08:49)
[2020-04-30] MEDS: MAGNESIUM HYDROXIDE 2,400 MG/10 ML CUP PO PRN (08:51)
[2020-04-30] MEDS: DULoxetine HCL 60 MG CAPSULE.DR PO SCH (08:51)
[2020-04-30] MEDS: FUROSEMIDE 10 MG/ML 4 ML VIAL IV SCH (08:51)
[2020-04-30] MEDS: OXYBUTYNIN CHLORIDE 5 MG TAB PO SCH (08:51)
[2020-04-30] MEDS: SENNOSIDES-DOCUSATE SODIUM 1 EACH TAB PO SCH (08:51)
[2020-04-30] MEDS: METOPROLOL TARTRATE 50 MG TAB PO SCH (08:52)
[2020-04-30] MEDS ORDERED: SODIUM CHLORIDE TAB 1 GM TAB PO SCH (09:00)
--- NOTE | 2020-04-30 09:51 | P.PN ---
Subjective Progress Note Date: 04/30/20 This is a 74-year-old female with history of COPD, history of smoking, patient quit smoking on January 14 of this year, fibromyalgia, GERD, hypertension, hyperlipidemia, osteoarthritis. In January of this year patient underwent a left- sided thoracentesis for a significant left-sided pleural effusion, pathology did come back confirming non-small cell malignancy adenocarcinoma. She has undergone one chemotherapy treatment. In January of this year patient also had a TURP for bladder cancer, positive for noninvasive low-grade papillary urothelial carcinoma. Patient did have a left-sided chest tube in place, every 3 days she has been draining for about 500 mL, she presented to the hospital on this occasion with moderate to severe shortness of breath. She was also complaining of chest and shoulder discomfort. Patient was initially admitted to the sixth floor, because of the persistent complaints of chest pain, a opponent value was obtained which came back to be 0.76. Patient was transferred to the cardiac unit for further evaluation and treatment. According to the patient, her pain in the chest has been constant since arrival here, but it worsened significantly with even mildly taking a deep breath or pressing on the area of the chest. EKG showed a normal sinus rhythm with nonspecific ST-T wave changes, no acute changes noted. Chest x-ray showed left-sided hydropneumothorax and moderate pleural effusion with a new right upper lobe infiltrate. The CTA of the chest did not show evidence of a pulmonary embolism. Blood pressure 105/60, heart rate 90, respirations 20, 94% on 8 L of oxygen. Sodium 129, potassium 4.7, BUN 9, creatinine 0.4. White blood cell count 11.4, hemoglobin 11.7, platelet count 469. Troponin 0.760. 04/29/2020 Patient was seen and examined this morning, overall feeling significantly better. Her breathing has improved significantly and she denies any chest discomfort this morning. Her echocardiogram with Doppler study revealed an ejection fraction of 55-60% with evidence of small pericardial effusion. Blood pressure 122/50 with a heart rate in the 80s. Anticipating discharge soon. White blood cell count 14.0, hemoglobin 12.2, platelet count 492. Sodium 132, potassium 4.7, BUN 7, creatinine 0.5. 04/30/2020 Patient was seen and examined this morning, she feels so well, she is depressed this morning and quite eager to be discharged home. After examining the patient, she went into the bathroom and on returning back to [facility] went into atrial fibrillation with a rapid ventricular response. An EKG was performed which showed atrial fibrillation with rapid ventricular response, heart rate in the 160 range. Blood pressure 114/70, 92% on 11 high flow cannula. White blood cell count 14.4, hemoglobin 12.6, platelet count 561. Sodium 134, potassium 4.1, BUN 11, creatinine 0.5. Upon reviewing the notes from primary care and oncology, it appears that hospice care is going to be discussed further with the patient today. Objective - Vital Signs Vital signs: Vital Signs Temp 97.7 F 04/30/20 08:48 Pulse 104 H 04/30/20 08:48 Resp 16 04/30/20 08:48 BP 114/74 04/30/20 08:48 Pulse Ox 92 L 04/30/20 08:48 Intake & Output 04/29/20 04/30/20 04/30/20 18:59 06:59 18:59 Intake Total 311 360 Output Total 2100 100 100 Balance -1789 -100 260 Weight 49.2 kg Intake: Oral 311 360 Output: Drainage 100 Left Chest 100 Urine 2100 100 Other: Voiding Method Bedside Commode Bedside Commode - Exam PHYSICAL EXAMINATION: GENERAL: 74-year-old female in no acute distress at the time of my examination HEENT: Head is atraumatic, normocephalic. Pupils equal, round. Sclera anicteric. Conjunctiva are clear. Mucous membranes of the mouth are moist. N jud is supple. There is no elevated jugular venous pressure. No carotid bruit is heard. HEART EXAMINATION: Heart S1, S2 irregularly irregular . No murmur or gallop heard. CHEST EXAMINATION: Lungs reveal scattered coarse rhonchi, with diminished air entry to the left posterior base. No chest wall tenderness on deep breathing and palpation of the chest ABDOMEN: Soft, nontender. Bowel sounds are heard. No organomegaly noted. EXTREMITIES: 2+ peripheral pulses with no evidence of peripheral edema and no calf tenderness noted. NEUROLOGIC patient is awake, alert and oriented 3 . . - Labs CBC & Chem 7: 04/30/20 07:00 04/30/20 07:00 Labs: Abnormal Lab Results - Last 24 Hours (Table) 09/16/20 09/16/20 Range/Units 07:00 07:00 WBC 14.4 H (3.8-10.6) k/uL MCHC 30.9 L (31.0-37.0) g/dL Plt Count 561 H (150-450) k/uL Neutrophils # 13.4 H (1.3-7.7) k/uL Lymphocytes # 0.4 L (1.0-4.8) k/uL Sodium 134 L (137-145) mmol/L Chloride 95 L (98-107) mmol/L Carbon Dioxide 32 H (22-30) mmol/L Glucose 146 H (74-99) mg/dL Calcium 7.5 L (8.4-10.2) mg/dL AST 64 H (14-36) U/L Alkaline Phosphatase 224 H (38-126) U/L Total Protein 5.6 L (6.3-8.2) g/dL Albumin 2.4 L (3.5-5.0) g/dL Assessment and Plan Plan: Assessment and plan #1 left-sided pleural effusion, secondary to underlying malignancy. #2 atypical chest pain, pleuritic in nature. Initial troponin 0.760, abnormality in troponin could be secondary to cancer. We will obtain 2 subsequent troponins as well as an echo. #3 non-small cell adenocarcinoma of the lung, patient has already received one treatment of chemotherapy, following with oncology #4 hyponatremia #5 COPD #6 prior history of smoking, patient quit smoking in January of this year #7 hyperlipidemia #8 noninvasive low grade papillary urothelial carcinoma of the bladder #9 anxiety and depression #10 hypertension #11 atrial fibrillation with rapid ventricular response, paroxysmal Plan We will increase the metoprolol to 50 mg one tablet by mouth 3 times a day. Initiate IV heparin. According to the documentedby primary care and oncology, hospice care is going to be discussed with the patient. Further recommendations will follow. DNP note has been reviewed, I agree with a documented findings and plan of care. Patient was seen and examined.
[2020-04-30] MEDS ORDERED: HEPARIN SODIUM,PORCINE 5,000 UNIT/ML 1 ML VIAL IV PRN (09:52)
[2020-04-30] MEDS ORDERED: HEPARIN SODIUM,PORCINE 5,000 UNIT/ML 1 ML VIAL IV ONE (09:52)
[2020-04-30] MEDS ORDERED: HEPARIN SOD,PORK IN 0.45% NACL 25,000 UNIT in 0.45% NACL 1 250ML.BAG IV SCH (10:00)
[2020-04-30 10:28] LABS: Basophils % (A) 0 %; Eosinophils # (A) 0.1 k/uL (0-0.7); Eosinophils % (A) 1 %; HCT 45.4 % (34.0-46.0); HGB 13.8 gm/dL (11.4-16.0); Hypochromasia Moderate; Lymphocytes # (A) 0.3 k/uL (1.0-4.8); Lymphocytes % (A) 2 %; MCH 27.5 pg (25.0-35.0); MCHC 30.4 g/dL (31.0-37.0); MCV 90.5 fL (80.0-100.0); Mean Platelet Volume 7.1; Monocytes # (A) 0.5 k/uL (0-1.0); Monocytes % (A) 3 %; Neutrophils # (A) 14.1 k/uL (1.3-7.7); Neutrophils % (A) 93 %; Platelet Count 588 k/uL (150-450); RBC 5.02 m/uL (3.80-5.40); RDW 14.5 % (11.5-15.5); WBC 15.1 k/uL (3.8-10.6)
[2020-04-30 10:45] LABS: Partial Thromboplastin Time 25.4 sec (22.0-30.0); Prothrombin Time 10.3 sec (9.0-12.0)
--- NOTE | 2020-04-30 10:45 | P.PN ---
Subjective Progress Note Date: 04/30/20 Principal diagnosis: Lymphangitic carcinomatosis Large left-sided hydropneumothorax Malignant pleural effusion on the left side Stage 4 lung cancer adenocarcinoma with metastases to the thoracic spine New right upper lobe streaky infiltrate suspect lymphangitic spread History of bladder cancer and recent diagnosis Severe COPD 04/30/2020, patient seen eval examined during the rounds labs reviewed medications oxygen saturation is 90-94% FiO2 is down to 11 L high flow oxygen, patient remains on steroids broad-spectrum antibiotics and breathing treatments, also on diuresis Covid 19 test is pending 04/29/2020, patient seen eval examined during the rounds labs reviewed m edications reviewed and remains short of breath however severity appears to have improved compared to earlier this morning patient had a rapid response of this morning FiO2 went up from 2 L 200% nonrebreather mask right now she is on 15 L high flow oxygen, saturation is 97% slightly tachypneic chest x-ray reviewed patient had the worsening of interstitial Petrin extending from the right upper lobe to right middle and lower lobe as well, hydropneumothorax on the left-sided stable, chest tube has been middle suction continued to be applied overall since last night 700 mL more accumulated in the pleural VAC discussed with primary service as well as the oncology will plan to start patient on broad-spectrum antibiotics with Zosyn IV every 8, Solu-Medrol 40 mg IV every8 as patient has the may have component of radiation pneumonitis, will check covid 19 testing, and diuresis the patient, 04/28/2020, patient sitting upright in the bed complaining of intermittent chest pain bilaterally more so on the right side compared to left side, chest tube no a leak or pleural fluid is present so far in the pleural VAC noted to be 1200 mL markings are done we'll repeat a chest x-ray tomorrow, 04/26/2020, patient seen eval examined during the rounds labs reviewed medications reviewed care plan discussed with the RN, and denies any chest pain, back pain is stable, today more of a complain of constipation, chest tube was stable no air leak is present, no output has been seen, patient is being markie luated by oncology service, 04/25/2020, patient seen eval examined during the rounds labs reviewed medications reviewed, care plan discussed with the staff and primary service at length that is as well, patient has the no air leak no output through the chest tube, pain is little bit better with pain medicine, computed tomography scan finding reviewed as noted previously, patient is little bit calm and comfortable however is still have aches and pain in the back 04/24/2020, patient seen eval examined patient had another computed tomography scan of the chest with IV contrast no PE seen however extensive lung disease is seen consolidation and lumpy bumpy appearance consistent with lymphangitic spread, patient has some pericardial and pleural effusion also with hydropneumothorax not changed chest tube is in good position no air leak is present seems like hydropneumothorax is likely likely loculated now, patient complaining of ongoing shortness of breath and pain especially in the back which is also due to metastatic disease will recommend palliative/hospice care 04/23/2020, patient seen eval examined during the rounds labs reviewed medications reviewed care plan discussed, respiratory status slightly better, chest tube has been connected to wall suction and pleural VAC about 300 mL of pleural fluid is present and pleural VAC, no air leak is present, computed tomography scan of the chest reviewed finding suggestive of lymphangitic spread with bronchiectasis, left-sided hydropneumothorax is present with stable chest tube pneumothorax appears to be loculated as it is not resolving, patient is not a candidate for lung biopsy This is a 74-year-old female well-known to me, patient has been diagnosed adenocarcinoma metastatic stage IV with malignant pleural effusion involving the left side, patient is on chemotherapy have received first cycle of chemotherapy with 5 treatment second cycle is due, patient came into the hospital with difficulty in breathing for several days, the left-sided Pleurx catheter drained 2 days ago, in the ER 600 mL were removed, patient has large hydropneumothorax on the right side, in addition she has some streaky infiltrate on the right side involving the upper lobe as well, suspect lymphangitic spread, we'll get a computed tomography scan of the chest, I have discussed with thoracic surgery about connecting the chest tube left-sided tube Pleur-evac and suction that may relieve hydropneumothorax up to some extent, denies any hemoptysis appetite poor, no night sweats fever or chills Objective - Vital Signs Vital signs: Vital Signs Temp 97.7 F 04/30/20 08:48 Pulse 147 H 04/30/20 09:20 Resp 24 04/30/20 09:20 BP 163/77 04/30/20 09:20 Pulse Ox 92 L 04/30/20 09:20 Intake & Output 04/29/20 04/30/20 04/30/20 18:59 06:59 18:59 Intake Total 311 360 Output Total 2100 100 100 Balance -1789 - 260 Weight 49.2 kg Intake: Oral 311 360 Output: Drainage 100 Left Chest 100 Urine 2100 100 Other: Voiding Method Bedside Commode Bedside Commode - Exam - Constitutional General appearance: average body habitus, cooperative, disheveled, mild distre ss, thin - EENT Eyes: EOMI, PERRLA Ears: bilateral: normal - Neck Neck: normal ROM Carotids: bilateral: upstroke normal Thyroid: bilateral: normal size - Respiratory Respiratory: right: CTA, left: diminished, bilateral crackles at the bases - Cardiovascular Rhythm: regular Heart sounds: normal: S1, S2 - Gastrointestinal General gastrointestinal: distended - Integumentary Integumentary: normal - Neurologic Neurologic: CNII-XII intact - Musculoskeletal Musculoskeletal: gait normal, generalized weakness, strength equal bilaterally - Psychiatric Psychiatric: A&O x's 3, appropriate affect, intact judgment & insight - Labs CBC & Chem 7: 04/30/20 10:02 04/30/20 07:00 Labs: Abnormal Lab Results - Last 24 Hours (Table) 04/30/20 04/30/20 04/30/20 Range/Units 07:00 07:00 10:02 WBC 14.4 H 15.1 H (3.8-10.6) k/uL MCHC 30.9 L 30.4 L (31.0-37.0) g/dL Plt Count 561 H 588 H (150-450) k/uL Neutrophils # 13.4 H 14.1 H (1.3-7.7) k/uL Lymphocytes # 0.4 L 0.3 L (1.0-4.8) k/uL Sodium 134 L (137-145) mmol/L Chloride 95 L (98-107) mmol/L Carbon Dioxide 32 H (22-30) mmol/L Glucose 146 H (74-99) mg/dL Calcium 7.5 L (8.4-10.2) mg/dL AST 64 H (14-36) U/L Alkaline Phosphatase 224 H (38-126) U/L Total Protein 5.6 L (6.3-8.2) g/dL Albumin 2.4 L (3.5-5.0) g/dL Assessment and Plan Assessment: Acute on chronic hypoxic respiratory failure Likely lymphangitic spread of adenocarcinoma of the lung involving the right lung as well however patient had the radiation therapy 6 weeks ago remains at risk of radiation pneumonitis versus fluid overload versus pneumonia Large left-sided hydropneumothorax chest tube is draining now Malignant pleural effusion on the left side Loculated hydropneumothorax on the right side Stage 4 lung cancer adenocarcinoma with metastases to the thoracic spine New bilateral streaky infiltrate and consolidation suspect lymphangitic spread Small to moderate pericardial effusion History of bladder cancer and recent diagnosis Severe COPD Plan: Covid testing IV steroids IV antibiotics Diuresis Titrated oxygen down as tolerated Continue pain management, patient is on chemotherapy so far received first round of it Maintained chest tube connected to Pleur-evac for 20 cm water suction High-resolution computed tomography scan as well as CT with contrast Angio r eviewed Continue supportive care overall prognosis poor Patient is a high risk candidate for complications associated with transbronchial lung biopsy on the right side Further recommendations pending plan of care as per clinical response of the patient Patient overall has poor prognosis continues with care she is no code Time with Patient: Greater than 30
--- NOTE | 2020-04-30 12:29 | PN ---
PROGRESS NOTE Patient is seen for followup for hyponatremia. Her sodium has improved to 134 today. Patient is asymptomatic. She denies any significant complaints. Sodium chloride tabs were decreased to 1 g daily. PHYSICAL EXAMINATION: On examination today, blood pressure was elevated 163/77, heart rate 104 per minute, she is afebrile. Examination of the heart S1, S2. Examination of the lungs, bilateral breath sounds are heard. Abdomen is soft, nontender. Examination of the lower extremities shows no evidence of edema. COMPUTER SYSTEMS INFORMATION DIRECTOR exam is grossly intact. Patient's left chest tube is still in place. LABS: Show sodium 134, potassium 4.1, chloride 95, serum creatinine 0.54. ASSESSMENT: 1. Hyponatremia, euvolemic associated with SIADH, improved with sodium chloride tabs and a couple of doses of Samsca. Sodium is up to 134 today. I will discontinue the sodium chloride tabs. Repeat labs in a.m. 2. Non-small cell CA. 3. Pleural effusions with left chest tube. PLAN: DC sodium chloride tabs. Repeat labs in a.m. MMODL / IJN: [id number] /
[2020-04-30 13:18] VITALS: BMI 18.0
[2020-04-30 13:44] VITALS: RESP 18
--- NOTE | 2020-04-30 14:10 | P.PN ---
Subjective Progress Note Date: 04/30/20 Principal diagnosis: lung ca and persistent effusion Spoke with patient, primary team, and this am. Dr. Onofre seen and examined patient. She is now in RVR, HR 140-150w. HYpoxia requiring increased oxygenation. Objective - Vital Signs Vital signs: Vital Signs Temp 97.7 F 04/30/20 08:48 Pulse 144 H 04/30/20 13:43 Resp 18 04/30/20 13:43 BP 163/77 04/30/20 09:20 Pulse Ox 92 L 04/30/20 13:43 Intake & Output 04/29/20 04/30/20 04/30/20 18:59 06:59 18:59 Intake Total 311 360 Output Total 2100 100 100 Balance -1789 -100 260 Weight 49.2 kg 49.2 kg Intake: Oral 311 360 Output: Drainage 100 Left Chest 100 Urine 2100 100 Other: Voiding Method Bedside Commode Bedside Commode Bedside Commode - Exam - Constitutional General appearance: Present: cooperative, mild distress, thin - EENT Eyes: Present: poor dentition ENT: Present: hard of hearing, NA/AT - Neck Neck: Present: normal ROM - Respiratory Details: Chest tube Respiratory: bilateral: diminished, rhonchi HIgh FLow - Increased effort - Cardiovascular Rhythm: Tachy Heart sounds: normal: S1, S2 - Gastrointestinal General gastrointestinal: Present: normal bowel sounds, soft - Integumentary Integumentary: Present: pale - Neurologic Neurologic: Present: CNII-XII intact - Musculoskeletal Musculoskeletal: Present: generalized weakness, strength equal bilaterally - Psychiatric Psychiatric: Present: A&O x's 3, appropriate affect, intact judgment & insight - Labs CBC & Chem 7: 04/30/20 10:02 04/30/20 07:00 Labs: Abnormal Lab Results - Last 24 Hours (Table) 04/30/20 04/30/20 04/30/20 Range/Units 07:00 07:00 10:02 WBC 14.4 H 15.1 H (3.8-10.6) k/uL MCHC 30.9 L 30.4 L (31.0-37.0) g/dL Plt Count 561 H 588 H (150-450) k/uL Neutrophils # 13.4 H 14.1 H (1.3-7.7) k/uL Lymphocytes # 0.4 L 0.3 L (1.0-4.8) k/uL Sodium 134 L (137-145) mmol/L Chloride 95 L (98-107) mmol/L Carbon Dioxide 32 H (22-30) mmol/L Glucose 146 H (74-99) mg/dL Calcium 7.5 L (8.4-10.2) mg/dL AST 64 H (14-36) U/L Alkaline Phosphatase 224 H (38-126) U/L Total Protein 5.6 L (6.3-8.2) g/dL Albumin 2.4 L (3.5-5.0) g/dL Assessment and Plan Plan: Assessment and Recs: Acute on CHronic Hypoxic Respiratory Failure: - Right sided chest pain is new since weekend as well as 8L high flow need - Question immediate increased inflammatory response to immune therapy treatment which in picture with recurrent pleural effusion, pneumothorax is the primary etiologies of symptoms. - Repeat CTA for PE, resulted negative With her increasing hypoxia and question of pneumonitis this would be a pneumonitis from immune therapy treatment she received. Rescue steroid dose would be 1-2mg/kg/day of prednisone or equal corticosteroid. which she is receiving with 120mg of solu medrol daily. Studies show medium onset would be 4- 5 weeks, although with her other poor lung function we can not totally rule out immune related event as a large contributing factor. I had a long discussion with patient and yesterday and with her declining respiratory status and the overall benefit being low from intubation they have agreed to no CPR/No intubation. Pulmonary is check COVID. With the rapid declining lung function overall prognosis is appearing poor. Non-Small Cell Lung cancer: - Status Post first opdivo and yervoy on 04/07/20 Shortness of Breath and Chest Pain: - CTA does not reveal PE or new signs of progression, Most likely infectious inflammatory - Acute on Chronic Pain: SIADH: Increased headaches and left sided weakness:n - MRi repeated negative OVERALL status declining and prognosis poor: Long discussion with patient and family and primary team. WIll plan for home hospice care today. COvid testing prior. Physician Attest: I have completed the full history and physical and agree with above dictation, dictated as a scribe.
[2020-04-30] MEDS: ONDANSETRON 4 MG/2 ML VIAL IVP PRN (15:08)
[2020-04-30 15:27] VITALS: BP 120/75; PULSE 140
[2020-04-30] MEDS ORDERED: METOPROLOL TARTRATE 50 MG TAB PO SCH (16:00)
--- NOTE | 2020-04-30 23:36 | P.DS ---
Providers Date of admission: 04/23/20 11:39 Expected date of discharge: 04/30/20 Attending physician: Viktor Roberts Consults: 04/21/20 12:33 Consult Physician Urgent Consulting Provider: Frankie Cash Consult Reason/Comments: Pleural effusion with pneumothorax Do you want consulting provider notified?: Already Contacted 04/21/20 21:19 Consult Physician Routine Consulting Provider: Wisam Onofre Consult Reason/Comments: lung cancer Do you want consulting provider notified?: Yes 04/26/20 14:00 Consult Physician Routine Consulting Provider: Jason Schofield Consult Reason/Comments: Hyponatremia Do you want consulting provider notified?: Yes 04/28/20 06:42 Consult Physician Stat Consulting Provider: Ted Holland Consult Reason/Comments: chest pain, elevated troponin Do you want consulting provider notified?: Yes, Notify in am [facility] Chief Complaint: shortness of breath History of presenting complaint: This is a 74-year-old patient followed with Dr. Coy. chronic stable medical conditions include COPD, GERD,hypertension, hyperlipidemia, osteoarthritis. Patient in January of this year underwent left fluid thoracentesis and pathology did come back confirming non-small cell malignancy adenocarcinoma. Patient has received 1 cycle of chemotherapy. Has a left-sided chest 2. That every 3 days it has drained about 500 mL drained..patient also in January of this year had a bladder TURP. Positive for noninvasive, low-grade papillary urothelial carcinoma. In the ER 500 mL of fluid was drained. Found to have a large left- sided hydropneumothorax. Left-sided chest tube connected to Pleur-evac. Patient is put on SAMSCA. Fluid restriction.. Sodium has been running low. Patient also had chest pain felt to be pleuritic seen by cardiology. Not felt to be cardiac. increasing infiltrates in the lungs. Possible lymphangitis from malignancy. Since pneumonia could not be ruled out antibiotic and steroids were added. Patient currently to be short of breath. Not doing well. Patient decided to become no code. Today-short of breath. tired. Chest tube in place.patient has decided to go with hospice. She wants to go home.hospice team was consulted. Medications were done.Dr. Onofre requested COVID test. Discussion and discharge planning more than 35 minutes consultation: nephrology Dr. Onofre from oncology Cardiology associates Dr. Cash from pulmonary Physical examination: VITAL SIGNS: heart rate 140, 24, 160/77, 92% on 11 L GENERAL: Decreased muscle mass, prominent bones sitting up-short of breath EYES: Pupils equal. Conjunctiva pale HEART: First and second heart sounds are normal; no edema. LUNGS: Respiratory rate increased, decreased breath sounds -left pigtail c atheter attached to Pleur-evac. Not able to speak in full sentences. ABDOMEN: Soft, nontender, liver spleen not palpable, no masses palpable. PSYCH: Alert and oriented x3; mood and affect-anxious MUSCULAR skeletal: Evidence of OA especially in the hands INVESTIGATIONS, reviewed in the clinical context: White count 14 hemoglobin 12.2 potassium 4.7 creatinine 0.57 albumin 2.3 Previous testing: white count 7.9 hemoglobin 11.9 potassium 4.5 creatinine 0.60 EKG tracing personally reviewed by me-normal sinus rhythm Chest x-ray film personally reviewed by me-Large left pleural effusion with a horizontal line Chest CTA-large left pleural effusion small right pleural effusion extensive airspace consolidation atelectasis in left lung also infiltrate in the right mid and lower lung. Left-sided hydropneumothorax. No PE. Extensive osteoblastic changes in thoracic spine 2-D echocardiogram-a 55-60% MRI of the brain-no metastatic disease Troponin I 0.760, 0.716, 0.659 Assessment: -Left hydropneumothorax-from underlying malignancy worsening causing patient to be short of breath. Has a pigtail catheter that is draining every 3 days at home. Attached to Pleur-evac. Slow to respond. -Checks to x-ray with some worsening with concern for lymphangitic spread versus pneumonia -non-small cell adenocarcinoma of the lung getting chemotherapy -Acute hypoxic respiratory failure multifactorial-worsening -Acute COPD exacerbationin -slow to respond -Possible pneumonia -Troponin leak from hemodynamic mismatch. Not acute coronary syndrome. 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 Yesterday patient had decided to proceed with no code status. following thee discussion she decided to proceed with hospice. Pain medications were discussed. Home care was discussed. End-of-life care was discussed. many Questions ans wered.arrangements are being made to get the patient home today as per her wishes. Total time spent today was about 25 minutes Patient Condition at Discharge: Poor Plan - Discharge Summary New Discharge Prescriptions: New Melatonin 3 mg PO HS PRN tablet PRN Reason: Insomnia predniSONE 10 mg PO DAILY #30 tab Ipratropium-Albuterol Nebulize [Duoneb 0.5 mg-3 mg/3 ml Soln] 3 ml INHALATION QID #100 neb Continue Oxybutynin Chloride 10 mg PO BID Metoprolol Tartrate [Lopressor] 50 mg PO BID DULoxetine HCL [Cymbalta] 60 mg PO DAILY Omeprazole [PriLOSEC] 20 mg PO DAILY ALPRAZolam [Xanax] 0.25 mg PO TID oxyCODONE-APAP 10-325MG [Percocet 10-325 mg] 1 tab PO Q6H PRN PRN Reason: Pain Sennosides/Docusate Sodium [Senna Plus 8.6-50 mg Softgel] 1 tab PO BID Ondansetron Odt [Zofran ODT] 8 mg PO Q8H PRN PRN Reason: Nausea fentaNYL 25MCG/HR PATCH [Duragesic 25MCG/HR] 25 mcg TOPICAL Q72H Discontinued Ipratropium [place] [Atrovent Hfa] 2 puff INHALATION RT-QID Fluticasone Nasal [place] [Flonase Nasal [place]] 1 spray EA NOSTRIL BID PRN PRN Reason: seasonal allergies Albuterol Sulfate [Ventolin HFA] 2 puff INHALATION RT-Q4H PRN PRN Reason: Shortness Of Breath Simvastatin [Zocor] 20 mg PO HS Discharge Medication List Metoprolol Tartrate [Lopressor] 50 mg PO BID 06/13/19 [History] Oxybutynin Chloride 10 mg PO BID 06/13/19 [History] DULoxetine HCL [Cymbalta] 60 mg PO DAILY 07/17/19 [History] Omeprazole [PriLOSEC] 20 mg PO DAILY 01/15/20 [History] ALPRAZolam [Xanax] 0.25 mg PO TID 02/28/20 [History] oxyCODONE-APAP 10-325MG [Percocet 10-325 mg] 1 tab PO Q6H PRN 02/28/20 [History] Ondansetron Odt [Zofran ODT] 8 mg PO Q8H PRN 04/21/20 [History] Sennosides/Docusate Sodium [Senna Plus 8.6-50 mg Softgel] 1 tab PO BID 04/21/20 [History] fentaNYL 25MCG/HR PATCH [Duragesic 25MCG/HR] 25 mcg TOPICAL Q72H 04/21/20 [History] Ipratropium-Albuterol Nebulize [Duoneb 0.5 mg-3 mg/3 ml Soln] 3 ml INHALATION QID #100 neb 04/30/20 [Rx] Melatonin 3 mg PO HS PRN tablet 04/30/20 [Rx] predniSONE 10 mg PO DAILY #30 tab 04/30/20 [Rx] Follow up Appointment(s)/Referral(s): Thor Coy MD [Primary Care Provider] - 1-2 days [facility], [NON-STAFF] - Patient Instructions/Handouts: Hospice Care (GEN) Discharge Disposition: HOME WITH HOSPICE
== END 2020-04-30 16:12 | disposition hospice, home (50) | DRG 180 ==
LOC: EC 10:43 → 6NMEDSUR 12:33 → OBSVTOIN 04-23 11:39 → 3SCARD 04-28 08:03
PROVIDERS: ADMIT Hospitalist; ATTEND Hospitalist
DX: C34.92 Malignant neoplasm of unspecified part of left bronchus or lung (principal); J96.21 Acute and chronic respiratory failure with hypoxia; J18.9 Pneumonia, unspecified organism; J44.1 Chronic obstructive pulmonary disease with (acute) exacerbation; J44.0 Chronic obstructive pulmonary disease with (acute) lower respiratory infection; J91.0 Malignant pleural effusion; E22.2 Syndrome of inappropriate secretion of antidiuretic hormone; J94.8 Other specified pleural conditions; C79.51 Secondary malignant neoplasm of bone; C77.9 Secondary and unspecified malignant neoplasm of lymph node, unspecified; I31.3 Pericardial effusion (noninflammatory); E44.0 Moderate protein-calorie malnutrition; Z68.1 Body mass index [BMI] 19.9 or less, adult; Z20.828 Contact with and (suspected) exposure to other viral communicable diseases; E78.5 Hyperlipidemia, unspecified; I10 Essential (primary) hypertension; F17.210 Nicotine dependence, cigarettes, uncomplicated; Z51.5 Encounter for palliative care; Z66 Do not resuscitate; M79.7 Fibromyalgia; G89.3 Neoplasm related pain (acute) (chronic); I48.0 Paroxysmal atrial fibrillation; R79.89 Other specified abnormal findings of blood chemistry; C67.9 Malignant neoplasm of bladder, unspecified; K21.9 Gastro-esophageal reflux disease without esophagitis; G43.909 Migraine, unspecified, not intractable, without status migrainosus; G56.03 Carpal tunnel syndrome, bilateral upper limbs; M19.91 Primary osteoarthritis, unspecified site; F41.8 Other specified anxiety disorders; F12.90 Cannabis use, unspecified, uncomplicated; Z79.899 Other long term (current) drug therapy; Z88.1 Allergy status to other antibiotic agents; Z88.5 Allergy status to narcotic agent; Z88.0 Allergy status to penicillin; Z87.01 Personal history of pneumonia (recurrent); Z99.81 Dependence on supplemental oxygen; Z87.440 Personal history of urinary (tract) infections; Z90.49 Acquired absence of other specified parts of digestive tract; Z90.89 Acquired absence of other organs; Z98.891 History of uterine scar from previous surgery; Z80.1 Family history of malignant neoplasm of trachea, bronchus and lung; Z80.0 Family history of malignant neoplasm of digestive organs; Z83.79 Family history of other diseases of the digestive system
CPT/HCPCS: 36415; 70553; 71045; 71046; 71250; 71275; 80048; 80053; 83605; 83735; 83930; 83935; 84100; 84295; 84300; 84443; 84484; 85025; 85610; 85730; 87040; 93005; 93306; 94640; 94760; 96374; 99285